=== PATIENT | female | born 1950 | race Caucasian/White ===

== ENCOUNTER → 2017-05-28 | Outpatient (CLI) | payer MEDICARE, OTHER ==
[~2017-05-28] MED LIST: ACYC400T PO; ALBU2.5V4 INH; ASP81CT PO; ATOR40TA PO; ATOR80TA PO; ATOR80TA76 PO; CEFD300C3 PO; CLOP75TA PO; CLOP75TA28 PO; EZET10TA5 PO; FLUC150T PO; FLUO20CA25 PO; FLUO20TA28 PO; IBUP-30 PO; LEVO500T2 PO; LEVO750T39 PO; LIDO15SO2 PO; MELO15TA39 PO; NEBU-140 MC; NF-DICLTB PO; NYST1000 PO; OMEP-10 PO; OMEP20CA6 PO; PANT40TA3 PO; PRCD5U PO; REGADENOSON 0.4 MG/5 ML SYR (LEXISCAN) IV ONE
[2017-05-28] MEDS: CATHETER FLUSH 10 ML SYR IV PRN ×2 (11:55→13:25)
[2017-05-28 13:26] VITALS: BP 153/78
--- NOTE | 2017-05-28 19:40 | STRESS TEST ---
DATE OF SERVICE: 05/28/2017 RESTING AND POST REGADENOSON TECHNETIUM-99M TETROFOSMIN SPECT CT IMAGING Baseline images were carried out after injection of 10.87 mCi of technetium-99m Tetrofosmin. This was followed by 0.4 mg regadenoson and mCi of technetium-99 Tetrofosmin for stress imaging. The electrocardiogram showed sinus rhythm throughout the study. The electrocardiogram did not change significantly with the regadenoson infusion. Overall, she tolerated the procedure well. Review of images at rest and following stress does not indicate any significant perfusion defects consistent with any significant myocardial ischemia or infarction. Gated images show normal global left ventricular systolic function with normal regional wall motion. Left ventricular ejection fraction is calculated to be 71%. Left ventricular end-diastolic volume is 42 mL. TID is absent (1.08). CONCLUSIONS: 1. No evidence of any significant myocardial ischemia or infarction on this study. 2. Normal regional wall motion. 3. Normal global left ventricular systolic function with a calculated ejection fraction of 71%. 4. Normal left ventricular cavity size. Job ID: [id number] DocumentID: [id number] Dictated Date: 05/28/2017 16:28:54 911 Operator Date: 05/28/2017 19:40:13 Dictated By: JAMAR LOVE MD, MA, FACP, FACC,
== END ==
LOC: CARD 11:37
PROVIDERS: ATTEND Internal Medicine Cardiovascular Disease
DX: I65.29 Occlusion and stenosis of unspecified carotid artery (principal); R06.02 Shortness of breath; E78.5 Hyperlipidemia, unspecified
CPT/HCPCS: 78452; 93017

== ENCOUNTER 2017-11-04 05:38 | Outpatient (CLI) | payer MEDICARE, OTHER ==
[~2017-11-04] VITALS: Ht 160 cm; Wt 56.7 kg
[~2017-11-04 05:38] MED LIST changes: -REGADENOSON 0.4 MG/5 ML SYR (LEXISCAN) IV ONE
== END 2017-11-04 14:56 | disposition home or self-care (01) ==
LOC: PREOP 05:38
PROVIDERS: ATTEND Internal Medicine
DX: Z01.818 Encounter for other preprocedural examination (principal)

== ENCOUNTER 2017-11-08 07:02 | Day surgery (SDC) | payer MEDICARE, OTHER ==
--- NOTE | 2017-10-18 05:19 | HISTORY AND PHYSICAL ---
DATE OF SERVICE: COLONOSCOPY HISTORY AND PHYSICAL HISTORY OF PRESENT ILLNESS: The patient is a 67-year-old white female referred for screening colonoscopy by Alexa Aleman, nurse practitioner and Dr. Wade's office. She last underwent colonoscopy roughly [address] Robb and does not recall any problems. I performed an EGD on her for reflux evaluation in 04/2014. She had a large hiatal hernia with some shallow marginal ulcerations. She did not have evidence for significant erosive esophagitis. She did have one small erosion with no ulcerations. She reports she has done well and as long as she takes her pantoprazole, has no reflux symptoms and denies dysphagia. She has had no bright red blood per rectum or melena. Denies bowel habit change or change in weight. PAST MEDICAL HISTORY: Significant for reported carotid blockage without TIA or CVA for which she has been on clopidogrel 75 mg daily for prophylaxis. She has a history of hyperlipidemia, on Lipitor 40 mg daily and no reported history of hypertension. PAST SURGICAL HISTORY: She reports no past surgeries. FAMILY HISTORY: She is not aware of any family history for colon cancer or other GI tract malignancies. PHYSICAL EXAMINATION: GENERAL: Reveals a well-appearing white female, in no acute distress. VITAL SIGNS: Her blood pressure was 130/76. HEENT: She is a Mallampati class 2 oropharyngeal configuration. Pharynx reveals no evidence for erythema or exudate. NECK: Revealed no JVD, adenopathy or bruits. CHEST: Clear to auscultation. CARDIOVASCULAR: Revealed a regular rate and rhythm with a very soft 1-2/6 systolic ejection murmur heard best at the second intercostal space without evidence for pulsus parvus or tardus. No S3 or S4 appreciated. ABDOMEN: Soft, supple without mass, organomegaly or tenderness. No bruits are appreciated. EXTREMITIES: Reveal no cyanosis, clubbing or edema. ASSESSMENT: The patient was set up for screening colonoscopy, I believe on 11/01. Prep instructions were given and questions were answered. I thank you for the referral of this pleasant lady. Job ID: [id number] DocumentID: [id number] Dictated Date: 10/09/2017 17:17:54 Central Melt Specialist Date: 10/09/2017 17:50:57 Dictated By: JIM LANDIS MD [facility]
[~2017-11-08] VITALS: Ht 160 cm; Wt 56.7 kg
[2017-11-08] MEDS ORDERED: LACTATED RINGERS 1,000 ML IV ONE (07:12)
[2017-11-08] MEDS ORDERED: PROPOFOL INJECTION 50 ML IV ONE (07:14)
[2017-11-08] MEDS ORDERED: LACTATED RINGERS 1,000 ML IV STA (07:28)
[2017-11-08 07:30] VITALS: BP 136/72
[2017-11-08] MEDS ORDERED: LIDOCAINE JELLY 2% (XYLOCAINE) 5 ML TUBE MM PRN (07:30)
[2017-11-08] MEDS ORDERED: LIDOCAINE JELLY 2% (XYLOCAINE) 5 ML TUBE ONE (07:38)
--- NOTE | 2017-11-08 08:01 | Pre-Op Note & Conscious Sedat ---
Pre-Operative Progress Note H&P Reviewed The H&P was reviewed, patient examined and no changes noted. Date H&P Reviewed: Nov 08, 2017 Time H&P Reviewed: 07:50 Conscious Sedation Pre-Proced ASA Class: 2 Airway Mallampati Classification: ([place] appropriate class) I. II. III, IV Lungs Heart ASA score ASA 1: a normal healthy patient ASA 2: a patient with a mild systemic disease (mid diabetes, controlled hypertension, obesity ASA 3: a patient with a severe systemic disease that limits activity (angina , COPD, prior Myocardial infarction) ASA 4: a patient with an incapacitating disease that is a constant threat to life (CHF, renal failure) ASA 5: a moribund patient not expected to survive 24 hrs. (ruptured aneurysm) ASA 6: a declared brain patient whose organs are being harvested. For emergent operations, add the letter E after the classification Grade 2 Sedation Plan: Analgesia, Amnesia, Plan communicated to team members, Discussed options with patient/fam, Discussed risks with patient/fam Note The patient is an appropriate candidate to undergo the planned procedure, sedation, and anesthesia. The patient immediately re-assessed prior to indication. JIM LANDIS MD Nov 08, 2017 08:01
[2017-11-08 08:40] VITALS: BP 85/48
[2017-11-08 09:10] VITALS: BP 134/72
[2017-11-08 09:25] VITALS: BP 134/72
--- NOTE | 2017-11-08 12:30 | OPERATIVE REPORT ---
DATE OF SERVICE: COLONOSCOPY SUMMARY INDICATION FOR THE PROCEDURE: Screening colonoscopy. PROCEDURE: The patient was placed in left lateral decubitus position. Prior to undergoing colonoscopy, digital rectal evaluation was performed. Anal sphincter tone was normal and the perianal reflex is intact. No abnormalities were noted on digital inspection of anal canal or distal rectal vault. The colonoscope was then inserted into the rectum and under direct visualization advanced to the cecum. The cecum was identified by identification of the ileocecal valve and cecal strap. Photographic documentation was obtained. Careful inspection was made as the colonoscope was withdrawn. Quality of the prep was good. FINDINGS: There was no evidence for internal or external hemorrhoids and the rectum was unremarkable. Present in the mid and proximal sigmoid diverticulum were several small to medium size diverticulum. Haustral hypertrophy is noted without evidence for diverticulitis. Several diverticula were noted in the descending colon as well again without evidence for diverticulitis. These areas of the colon were otherwise unremarkable. The splenic flexure, transverse colon and hepatic flexure for one small diverticulum at the hepatic flexure were unremarkable as was the ascending colon and cecum. ASSESSMENT: Mild to moderate diverticular disease predominantly noted in the mid and proximal sigmoid colon and distal descending colon. colon and one noted at the hepatic flexure are present without evidence for diverticulitis. This was an otherwise normal colonoscopy to the cecum. Considering age and medical comorbidities with no reported family history for colon cancer, I would not advocate future screening colonoscopy. I thank you for the referral of this pleasant lady. Job ID: [id number] DocumentID: [id number] Dictated Date: 11/08/2017 10:08:25 Engineering Consultant Date: 11/08/2017 12:29:41 Dictated By: JIM LANDIS MD
--- NOTE | 2017-11-08 13:57 | Anesthesia-General Post-Op ---
MAC Patient Condition Mental Status/LOC: Same as Preop Cardiovascular: Satisfactory Nausea/Vomiting: Absent Respiratory: Satisfactory Pain: Controlled Complications: Absent Post Op Complications Complications None Follow Up Care/Instructions Patient Instructions None needed. Anesthesiology Discharge Order Discharge Order Patient is doing well, no complaints, stable vital signs, no apparent adverse anesthesia problems. No complications reported per nursing. BLANCA CASTELLON CRNA Nov 08, 2017 13:57
== END 2017-11-08 09:25 | disposition home or self-care (01) ==
LOC: ENDO 07:02
PROVIDERS: ATTEND Internal Medicine
DX: Z12.11 Encounter for screening for malignant neoplasm of colon (principal); K57.30 Diverticulosis of large intestine without perforation or abscess without bleeding; E78.5 Hyperlipidemia, unspecified

== ENCOUNTER 2019-08-16 07:28 | Emergency (ER) | payer MEDICARE, OTHER ==
[~2019-08-16] VITALS: Ht 157 cm; Wt 57.6 kg
[~2019-08-16 07:28] MED LIST changes: -LIDO15SO2 PO; +LIDO20SO23 PO
--- OUTSIDE RECORDS SUMMARY | 2019-08-16 07:37 | XMS REPORT | CCD ---
Author Author Angi Wade Organization Anusha Wade MD, [facility] Address [address] [place] [address] Phone Care Team Providers Care Food Service Lead Name Role Phone PP Unavailable CCM Unavailable Summary Purpose Interface Exchange Insurance Providers Payer name Policy type / Coverage type Covered republican ID Effective Begin Date Effective End Date WPS Medicare Part B Medicare Part B [id number] Unknown 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/[address]: 373553711 Has never smoked or chewed tobacco 07/28/2014 Alcohol history Unknown occasionally drinks alcohol 2 glasses of wine per week 5 Allergies, Adverse Reactions, Alerts Substance Reaction Codes Entered Date Inactivated Date Status * NO KNOWN FOOD SILVERIO RGIES Unknown 07/28/2014 No Inactive Date Active Fentanyl _, nausea RxNorm: 4337 02/07/2017 No Inactive Date Active Penicillin Unknown 07/27/2014 No In active Date Active Past Medical History Illness Codes Condition Status Onset Date Resolved Date Dysuria ICD-9: 788.1 ICD-10: R30.0 Active 04/01/2017 Unknown Pneumonia due to oth er specified bacteria ICD-9: 482.81 ICD-10: J15.8 Active 03/10/2018 Unknown Pneumonia, unspecifi ed organism ICD-9: 486 ICD-10: J18.9 Active 06/01/2015 Unknown Encounter for genera l adult medical examination with abnormal findings ICD-9: V70.0 ICD-10: Z00.01 Active 09/20/2016 Unknown Cough ICD-9: 786.2 ICD-10: R05 Active 01/02/2016 Unknown Other allergic rhinitis ICD-9: 477.8 ICD-10: J30.89 Active 06/03/2017 Unknown Pneumonia due to Str eptococcus pneumoniae ICD-9: 481 ICD-10: J13 Active 02/07/2017 Unknown Encounter for immuni zation ICD-9: V06.6 ICD-10: Z23 Active 01/16/2017 Unknown Allergic contact caitie matitis due to plants, except food ICD-9: 692.6 ICD-10: L23.7 Active 09/11/2016 Unknown Rash and other nonsp ecific skin eruption ICD-9: 782.1 ICD-10: R21 Active 09/11/2016 Unknown Acute bronchitis, un specified ICD-9: 466.0 ICD-10: J20.9 Active 01/02/2016 Unknown Allergic rhinitis du e to pollen ICD-9: 477.0 ICD-10: J30.1 Active 01/02/2016 Unknown Actinic keratosis ICD-9: 702.0 ICD-10: L57.0 Active 10/31/2015 Unknown Insect bite (nonveno mous), right thigh, initial encounter ICD-9: 916.4 ICD-10: S70.361A Active 10/31/2015 Unknown Gastro-esophageal re flux disease without esophagitis ICD-9: 530.81 ICD-10: K21.9 Active 07/31/2015 Unknown Cerumen impaction ICD-9: 380.4 Active 08/01/2014 Unknown Depression Unknown Active 07/28/2014 Unknow n Diabetes Unknown Active 07/28/2014 Unknow n Hyperlipidemia Unknown Active 07/28/2014 Unknow n Hypertension Unknown Active 07/28/2014 Unknow n Osteoarthritis Unknown Active 07/28/2014 Unknow n Depression ICD-9: 311 Active 07/27/2014 Unknow n Hand pain ICD-9: 729.5 Active 07/27/2014 Unknow n HYPERLIPIDEMIA ICD-9: 272.4 Active 07/27/2014 Unknown Osteoarthritis ICD-9: 715.90 Active 07/27/2014 Unknown Problems Condition Codes Effectiv e Dates Condition Status Dysuria ICD-9: 788.1 ICD-10: R30.0 04/01/2017 Active Pneumonia due to oth er specified bacteria ICD-9: 482.81 ICD-10: J15.8 03/10/2018 Active Pneumonia, unspecifi ed organism ICD-9: 486 ICD-10: J18.9 06/01/2015 Active Encounter for genera l adult medical examination with abnormal findings ICD-9: V70.0 ICD-10: Z00.01 09/20/2016 Active Cough ICD-9: 786.2 ICD-10: R05 01/02/2016 Active Other allergic rhinitis ICD-9: 477.8 ICD-10: J30.89 06/03/2017 Active Pneumonia due to Str eptococcus pneumoniae ICD-9: 481 ICD-10: J13 02/07/2017 Active Encounter for immuni zation ICD-9: V06.6 ICD-10: Z23 01/16/2017 Active Allergic contact caitie matitis due to plants, except food ICD-9: 692.6 ICD-10: L23.7 09/11/2016 Active Rash and other nonsp ecific skin eruption ICD-9: 782.1 ICD-10: R21 09/11/2016 Active Acute bronchitis, un specified ICD-9: 466.0 ICD-10: J20.9 01/02/2016 Active Allergic rhinitis du e to pollen ICD-9: 477.0 ICD-10: J30.1 01/02/2016 Active Actinic keratosis ICD-9: 702.0 ICD-10: L57.0 10/31/2015 Active Insect bite (nonveno mous), right thigh, initial encounter ICD-9: 916.4 ICD-10: S70.361A 10/31/2015 Active Gastro-esophageal re flux disease without esophagitis ICD-9: 530.81 ICD-10: K21.9 07/31/2015 Active Cerumen impaction ICD-9: 380.4 08/01/2014 Active Depression Unknown 07/28/2014 Active Diabetes Unknown 07/28/2014 Active Hyperlipidemia Unknown 07/28/2014 Active Hypertension Unknown 07/28/2014 Active Osteoarthritis Unknown 07/28/2014 Active Depression ICD-9: 311 07/27/2014 Active Hand pain ICD-9: 729.5 07/27/2014 Active HYPERLIPIDEMIA ICD-9: 272.4 07/27/2014 Active Osteoarthritis ICD-9: 715.90 07/27/2014 Active Medications Medication Codes Instruc tions Start Date Stop Date Sta tus Fill Instructions fluoxetine 20 mg cap sushil RxNorm: 931533 Capsule(s) TAKE ONE C APSULE BY MOUTH DAILY 11/18/2018 03/17/2019 Ac tive Diflucan 150 mg tablet RxNorm: 941312 1 Tablet(s) PO daily 10/06/2018 10/10/2018 Inactive Protonix 40 mg table t,delayed release RxNorm: 210778 TAKE ONE TABLET BY MO UTH DAILY 08/29/2018 05/25/2019 Ac tive meloxicam 15 mg tablet RxNorm: 937106 TAKE ONE TABLET BY MOUTH DAILY 07/07/2018 04/02/2019 Ac tive ceftriaxone 500 mg s olution for injection RxNorm: 0563233 1 Inj 03/10/2018 03/10/2018 Inactive prednisone 20 mg tablet RxNorm: 760025 2 Tablet(s) PO daily 03/10/2018 03/14/2018 Inactive Zithromax Z-Rohit 250 mg tablet RxNorm: 756771 1 Tablet(s) PO UD 03/10/2018 07/06/2018 Inactive z pack as directed Kenalog 40 mg/mL rajeev pension for injection RxNorm: 7343797 1 Milliliter(s) Inj 03/10/2018 03/10/2018 In active cefdinir 300 mg capsule RxNorm: 085985 1 Capsule(s) PO BID 03/10/2018 03/19/2018 Inactive Bactrim DS 800 mg-16 0 mg tablet RxNorm: 919332 1 Tablet(s) PO BID 01/17/2018 01/23/2018 Inactive fluoxetine 20 mg cap sushil RxNorm: 842719 TAKE ONE CAPSULE BY M OUT DAILY 06/17/2017 10/14/2017 In active Request already responded to by other me ans (e.g. phone or fax) fluoxetine 20 mg cap sushil RxNorm: 541493 1 Capsule(s) PO daily 06/12/2017 06/11/2017 Inactive fluoxetine 20 mg cap sushil RxNorm: 523636 1 Capsule(s) PO daily 06/12/2017 06/16/2017 Inactive Levaquin 500 mg tablet RxNorm: 887148 1 Tablet(s) PO daily 06/03/2017 06/09/2017 Inactive Kenalog 40 mg/mL rajeev pension for injection RxNorm: 9790956 1 Milliliter(s) Inj 06/03/2017 06/03/2017 In active prednisone 20 mg tablet RxNorm: 989430 2 Tablet(s) PO daily 06/03/2017 06/07/2017 Inactive Protonix 40 mg table t,delayed release RxNorm: 147172 TAKE ONE TABLET BY [facility] DAILY 05/07/2017 01/31/2018 In active meloxicam 15 mg tablet RxNorm: 043399 TAKE ONE TABLET BY MOUTH DAILY 04/01/2017 06/24/2018 In active albuterol sulfate 2. 5 mg/3 mL (0.083 %) solution for nebulization RxNorm: 924842 3 Milliliter(s) INH Q6 PRN 02/07/2017 06/06/2017 Inactive Kenalog 40 mg/mL rajeev pension for injection RxNorm: 5875344 1 Milliliter(s) Inj 02/07/2017 02/07/2017 In active ceftriaxone 500 mg s olution for injection RxNorm: 7928935 1 Milliliter(s) Inj 02/07/2017 02/07/2017 In active cefdinir 300 mg capsule RxNorm: 243197 1 Capsule(s) PO BID 02/07/2017 02/16/2017 Inactive Protonix 40 mg table t,delayed release RxNorm: 779325 TAKE ONE TABLET BY [facility] DAILY 11/08/2016 05/06/2017 In active Kenalog 40 mg/mL rajeev pension for injection RxNorm: 6614768 1.5 Milliliter(s) In j 09/11/2016 09/11/2016 In active prednisone 10 mg tablet RxNorm: 834913 Tablet(s) PO UD 09/11/2016 09/11/2016 Inactive 60,50,40,30,20,10 fluoxetine 20 mg tablet RxNorm: 505873 TAKE ONE TABLET BY MOUTH DAILY 08/21/2016 06/11/2017 In active meloxicam 15 mg tablet RxNorm: 978792 TAKE ONE TABLET BY MOUTH DAILY 05/28/2016 11/23/2016 In active Zithromax Z-Rohit 250 mg tablet RxNorm: 388335 1 Tablet(s) PO UD 03/22/2016 09/04/2016 Inactive z pack as directed Kenalog 40 mg/mL rajeev pension for injection RxNorm: 5613260 Milliliter(s) Inj 01/03/2016 01/03/2016 In active Zithromax Z-Rohit 250 mg tablet RxNorm: 089344 1 Tablet(s) PO UD 01/03/2016 01/07/2016 Inactive ZPACK Protonix 40 mg table t,delayed release RxNorm: 346857 TAKE ONE TABLET BY [facility] DAILY 11/29/2015 08/24/2016 In active mupirocin 2 % topica l ointment RxNorm: 127641 1 Application TOP BID 11/01/2015 11/07/2015 Inactive Tonya Allergy 180 mg tablet RxNorm: 933150 1 Tablet(s) PO daily 08/01/2015 08/30/2015 Inactive Kenalog 40 mg/mL rajeev pension for injection RxNorm: 0328042 Milliliter(s) Inj 08/01/2015 08/01/2015 In active albuterol sulfate 2. 5 mg/3 mL (0.083 %) solution for nebulization RxNorm: 427479 3 Milliliter(s) INH Q6 PRN 07/29/2015 07/28/2015 Inactive albuterol sulfate 2. 5 mg/3 mL (0.083 %) solution for nebulization RxNorm: 488485 3 Milliliter(s) INH Q6 PRN 07/29/2015 08/27/2015 Inactive fluoxetine 20 mg tablet RxNorm: 733440 1 Tablet(s) PO daily 07/28/2015 02/22/2016 Inactive meloxicam 15 mg tablet RxNorm: 634886 1 Tablet(s) PO daily 06/22/2015 12/18/2015 Inactive nystatin 100,000 uni t/mL oral suspension RxNorm: 471050 4 Milliliter(s) PO QI D 06/01/2015 05/31/2015 In active nystatin 100,000 uni t/mL oral suspension RxNorm: 485028 4 Milliliter(s) PO QI D 06/01/2015 06/07/2015 In active Kenalog 40 mg/mL rajeev pension for injection RxNorm: 9238401 Milliliter(s) Inj 05/25/2015 05/25/2015 In active Zithromax Z-Rohit 250 mg tablet RxNorm: 029653 Tablet(s) PO 05/25/2015 06/13/2015 Inactive ceftriaxone 500 mg s olution for injection RxNorm: 0053836 Inj 05/25/2015 05/25/2015 Inactive Zithromax Z-Rohit 250 mg tablet RxNorm: 942030 Tablet(s) PO UD 05/25/2015 03/21/2016 Inactive prednisone 20 mg tablet RxNorm: 233628 2 Tablet(s) PO daily 05/25/2015 05/29/2015 Inactive cefdinir 300 mg capsule RxNorm: 330368 1 Capsule(s) PO BID 05/25/2015 06/03/2015 Inactive cefdinir 300 mg capsule RxNorm: 919577 1 Capsule(s) PO BID 05/25/2015 06/03/2015 Inactive prednisone 20 mg tablet RxNorm: 685780 2 Tablet(s) PO daily 05/25/2015 05/29/2015 Inactive ceftriaxone 500 mg s olution for injection RxNorm: 0963247 Inj 05/25/2015 05/25/2015 Inactive Kenalog 40 mg/mL rajeev pension for injection RxNorm: 4930598 Milliliter(s) Inj 05/03/2015 05/03/2015 In active Levaquin 500 mg tablet RxNorm: 874507 1 Tablet(s) PO daily 05/03/2015 05/09/2015 Inactive Protonix 40 mg table t,delayed release RxNorm: 319752 1 Tablet(s) PO daily 09/16/2014 09/10/2015 In active fluoxetine 20 mg tablet RxNorm: 193703 1 Tablet(s) PO daily 08/26/2014 08/25/2014 Inactive fluoxetine 20 mg tablet RxNorm: 392497 1 Tablet(s) PO daily 08/26/2014 03/23/2015 Inactive meloxicam 15 mg tablet RxNorm: 936453 1 Tablet(s) PO daily 07/28/2014 01/23/2015 Inactive clopidogrel 75 mg ta blet RxNorm: 636259 1 Tablet(s) PO daily No Start Date Active Lipitor 40 mg tablet RxNorm: 139699 1 Tablet(s) PO daily No Start Date Active fluoxetine 20 mg tablet RxNorm: 870604 1 Tablet(s) PO daily No Start Date 08/25/2014 Inactive Protonix 40 mg table t,delayed release RxNorm: 159085 1 Tablet(s) PO daily No Start Date 09/15/2014 Inactive Medication Administered Medication Codes Instruc tions Start Date Status Kenalog 40 mg/mL suspension for injection RxNorm: 1835306 1Milliliter 03/10/2018 N o longer Active ceftriaxone 500 mg solution for injection RxNorm: 0315506 1 03/10/2018 No longer A ctive Kenalog 40 mg/mL suspension for injection RxNorm: 7333608 1Milliliter 06/03/2017 N o longer Active Kenalog 40 mg/mL suspension for injection RxNorm: 4236822 1Milliliter 02/07/2017 N o longer Active ceftriaxone 500 mg solution for injection RxNorm: 4777110 1Milliliter 02/07/2017 N o longer Active Kenalog 40 mg/mL suspension for injection RxNorm: 8813415 1.5Milliliter 09/11/2016 No longer Active Kenalog 40 mg/mL suspension for injection RxNorm: 4176014 Milliliter 01/03/2016 No longer Active Kenalog 40 mg/mL suspension for injection RxNorm: 3302256 Milliliter 08/01/2015 No longer Active ceftriaxone 500 mg solution for injection RxNorm: 6540810 05/25/2015 No longer A ctive Kenalog 40 mg/mL suspension for injection RxNorm: 5422902 Milliliter 05/25/2015 No longer Active ceftriaxone 500 mg solution for injection RxNorm: 5968204 05/25/2015 No longer A ctive Kenalog 40 mg/mL suspension for injection RxNorm: 2999428 Milliliter 05/03/2015 No longer Active Immunizations Vaccine Codes Date Status Influenza CVX: 141 01/21 completed Influenza CVX: 141 01/16 completed Pneumococcal (Adult) CVX: 133 01/16/2017 completed Influenza CVX: 141 01/07 completed Pneumococcal CVX: 33 02/2016 completed Assessments Condition Codes Effectiv e Dates Dysuria ICD-10: R30.0 ICD-9: 788.1 10/06/2018 Pneumonia due to other specified bacteria ICD-10: J15.8 ICD-9: 482.81 03/10/2018 Encounter for general adult medical exam ination with abnormal findings ICD-10: Z00.01 ICD-9: V70.0 10/02/2017 Cough ICD-10: R05 ICD-9: 786.2 06/03/2017 Other allergic rhinitis ICD-10: J30. 89 ICD-9: 477.8 06/03/2017 Pneumonia due to Streptococcus pneumoniae ICD-10: J13 ICD-9: 481 02/07/2017 Encounter for immunization ICD-10: Z 23 ICD-9: V06.6 01/16/2017 Allergic contact dermatitis due to plants, except food ICD-10: L23.7 ICD-9: 692.6 09/11/2016 Rash and other nonspecific skin eruption ICD-10: R21 ICD-9: 782.1 09/11/2016 Allergic rhinitis due to pollen ICD- 10: J30.1 ICD-9: 477.0 01/03/2016 Acute bronchitis, unspecified ICD-10 : J20.9 ICD-9: 466.0 01/03/2016 Insect bite (nonvenomous), right thigh, initial encoun ter ICD- 10: S70.361A ICD-9: 916.4 11/01/2015 Actinic keratosis ICD-10: L57.0 ICD-9: 702.0 11/01/2015 Gastro-esophageal reflux disease without esophagitis ICD-10: K21.9 ICD-9: 530.81 08/01/2015 Pneumonia, unspecified organism ICD- 10: J18.9 ICD-9: 486 06/02/2015 Cerumen impaction ICD-9: 380.4 08/02/2014 Osteoarthritis ICD-9: 715.90 07/28/2014 HYPERLIPIDEMIA ICD-9: 272.4 07/28/2014 Depression ICD-9: 311 Hand pain ICD-9: 729.5 0 07/28/2014 Reason For Visit Reason For Visit Effective Dates Notes dysuria 10/06/2018 chest congestion 03/10/2018 urinary urgency 01/17/2018 Annual Medicare Wellness Exam 10/02/2017 cough 06/03/2017 cough 02/07/2017 vaccination against influenza 01/16/2017 Annual Medicare Wellness Exam 09/20/2016 rash 09/11/2016 cough 01/03/2016 arthropod bite 11/01/2015 cough 08/15/2015 cough 08/01/2015 cough 06/14/2015 cough 06/02/2015 sores in the mouth 05/25/2015 cough 05/03/2015 cerumen 08/02/2014 arthritis 07/28/2014 Results Observation Observation Code Item Item Code Result Date CULTURE, URINE M100 URIN E CULTURE See Note 10/08/2018 Culture Urine [id number] URI NE CULTURE SEE NOTES 01/20/2018 Culture Urine [id number] Con tinued Results 01/20/2018 Urine Culture Ucult Comp lete >100,000 col/ml aerobic grow th sent to ref lab 01/18/2018 Lipid Ord30 CHOL 180 mg/dL 11/26/2017 Lipid Ord30 HDL 65.0 mg/dl 11/26/2017 Lipid Ord30 TRIG 68 mg/dL 11/26/2017 Lipid Ord30 LDL 101 mg/dL 11/26/2017 Lipid Ord30 C/HDL 2.8 Ratio 11/26/2017 Comp Metabolic Tat299 NA 143 mEq/L 11/26/2017 Comp Metabolic Vhe715 K 4.4 mEq/L 11/26/2017 Comp Metabolic Guf962 CL 106 mEq/L 11/26/2017 Comp Metabolic Fqq127 CO2 29.0 mEq/L 11/26/2017 Comp Metabolic Tvp817 AN ION GAP 12 11/26/2017 Comp Metabolic Ltl249 GL UCOSE 106 mg/dL 11/26/2017 Comp Metabolic Div932 Cr eat 0.7 mg/dL 11/26/2017 Comp Metabolic Nql192 eG FR 87 ml/min/1.73m2 11/26 Comp Metabolic Wgj809 BUN 20 mg/dL 11/26/2017 Comp Metabolic Wga959 B/ C Ratio 28.2 Ratio 11/26/2017 Comp Metabolic Dfu182 CA LCIUM 9.1 mg/dL 11/26/2017 Comp Metabolic Lka838 AL K PHOS 48 U/L 11/26/2017 Comp Metabolic Bpd717 T(SGOT) 19 U/L 11/26/2017 Comp Metabolic Jpu155 AL T(SGPT) 15 U/L 11/26/2017 Comp Metabolic Bbb779 BI LI T 0.5 mg/dL 11/26/2017 Comp Metabolic Xky947 AL BUMIN 4.1 g/dL 11/26/2017 Comp Metabolic Uvo465 TP RO 6.1 g/dL 11/26/2017 Comp Metabolic Kzq598 GL OB 2.0 g/dL 11/26/2017 Comp Metabolic Fhi649 A/ G Ratio 2.1 Ratio 11/26/2017 Comp Metabolic Ygy278 Os mo 288 mOsmo 11/26/2017 Lipid Ord30 CHOL 175 mg/dL 01/04/2016 Lipid Ord30 HDL 45.0 mg/dl 01/04/2016 Lipid Ord30 TRIG 69 mg/dL 01/04/2016 Lipid Ord30 LDL 116 mg/dL 01/04/2016 Lipid Ord30 C/HDL 3.9 Ratio 01/04/2016 Comp Metabolic Xds207 NA 139 mEq/L 01/04/2016 Comp Metabolic Niy430 K 4.3 mEq/L 01/04/2016 Comp Metabolic Qip839 CL 101 mEq/L 01/04/2016 Comp Metabolic Kbi410 CO2 30.0 mEq/L 01/04/2016 Comp Metabolic Qiq284 AN ION GAP 12 01/04/2016 Comp Metabolic Liw635 GL UCOSE 94 mg/dL 01/04/2016 Comp Metabolic Jks752 Cr eat 0.7 mg/dL 01/04/2016 Comp Metabolic Rak048 eG FR 83 ml/min/1.73m2 01/03 Comp Metabolic Wvq995 BUN 14 mg/dL 01/04/2016 Comp Metabolic Hhk171 B/ C Ratio 18.9 Ratio 01/04/2016 Comp Metabolic Omi055 CA LCIUM 9.3 mg/dL 01/04/2016 Comp Metabolic Ziv812 AL K PHOS 70 U/L 01/04/2016 Comp Metabolic Rqp634 T(SGOT) 14 U/L 01/04/2016 Comp Metabolic Arm271 AL T(SGPT) 12 U/L 01/04/2016 Comp Metabolic Qzl536 BI LI T 0.4 mg/dL 01/04/2016 Comp Metabolic Bmq785 AL BUMIN 4.1 g/dL 01/04/2016 Comp Metabolic Ekf260 TP RO 6.6 g/dL 01/04/2016 Comp Metabolic Znh457 GL OB 2.6 g/dL 01/04/2016 Comp Metabolic Znw366 A/ G Ratio 1.6 Ratio 01/04/2016 Comp Metabolic Qdn539 Os mo 278 mOsmo 01/04/2016 Tsh Ord6 hTSH II 1.03 uIU/mL 01/04/2016 Cbc With Differential Ord2 WBC 6.90 K/ul 01/04/2016 Cbc With Differential Ord2 RBC 4.21 M/ul 01/04/2016 Cbc With Differential Ord2 HGB 13.2 g/dl 01/04/2016 Cbc With Differential Ord2 HCT 40.7 % 01/04/2016 Cbc With Differential Ord2 Neut% 69.2 % 01/04/2016 Cbc With Differential Ord2 MCV 96.7 fl 01/04/2016 Cbc With Differential Ord2 Lymph% 20.6 % 01/04/2016 Cbc With Differential Ord2 MCH 31.4 pg 01/04/2016 Cbc With Differential Ord2 Gallia% 8.6 % 01/04/2016 Cbc With Differential Ord2 MCHC 32.4 pg 01/04/2016 Cbc With Differential Ord2 Eos% 1.3 % 01/04/2016 Cbc With Differential Ord2 PLT 348 K/ul 01/04/2016 Cbc With Differential Ord2 Baso% 0.3 % 01/04/2016 Cbc With Differential Ord2 RDW 13.5 % 01/04/2016 Cbc With Differential Ord2 Neut ABS# 4.78 K/ul 01/04/2016 Cbc With Differential Ord2 Lymph ABS# 1.42 K/ul 01/04/2016 Cbc With Differential Ord2 Gallia ABS# 0.6 K/ul 01/04/2016 Cbc With Differential Ord2 Eos ABS# 0.1 K/ul 01/04/2016 Cbc With Differential Ord2 Baso ABS# 0.0 K/ul 01/04/2016 Free T4 Wez035 FREE T4 0.79 ng/dL 12/27/2014 Cbc With Differential Ord2 WBC 4.4 K/uL 12/27/2014 Cbc With Differential Ord2 LYM 1.9 K/uL 12/27/2014 Cbc With Differential Ord2 LYM% 43.5 % 12/27/2014 Cbc With Differential Ord2 NEUT/GRAN 2.2 K/uL 12/27/2014 Cbc With Differential Ord2 NEUT/GRAN % 49.1 % 12/27/2014 Cbc With Differential Ord2 MID 0.3 K/uL 12/27/2014 Cbc With Differential Ord2 MID% 7.4 % 12/27/2014 Cbc With Differential Ord2 RBC 4.56 M/uL 12/27/2014 Cbc With Differential Ord2 HGB 13.5 g/dL 12/27/2014 Cbc With Differential Ord2 HCT 43.5 % 12/27/2014 Cbc With Differential Ord2 MCV 96 fL 12/27/2014 Cbc With Differential Ord2 MCH 30 pg 12/27/2014 Cbc With Differential Ord2 MCHC 31 g/dL 12/27/2014 Cbc With Differential Ord2 PLT 273 K/uL 12/27/2014 Cbc With Differential Ord2 RDW 14.7 % 12/27/2014 Lipid Ord30 CHOL 183 mg/dL 12/27/2014 Lipid Ord30 HDL 61.0 mg/dl 12/27/2014 Lipid Ord30 TRIG 62 mg/dL 12/27/2014 Lipid Ord30 LDL 110 mg/dL 12/27/2014 Lipid Ord30 C/HDL 3.0 Ratio 12/27/2014 Comp Metabolic Nde620 NA 138 mEq/L 12/27/2014 Comp Metabolic Nbo627 K 4.7 mEq/L 12/27/2014 Comp Metabolic Abk480 CL 103 mEq/L 12/27/2014 Comp Metabolic Bcy091 CO2 31.0 mEq/L 12/27/2014 Comp Metabolic Azd759 AN ION GAP 9 12/27/2014 Comp Metabolic Ruz625 GL UCOSE 105 mg/dL 12/27/2014 Comp Metabolic Ozt255 Cr eat 0.8 mg/dL 12/27/2014 Comp Metabolic Lxc767 eG FR 73 ml/min/1.73m2 12/27 Comp Metabolic Bqt233 BUN 16 mg/dL 12/27/2014 Comp Metabolic Vyh122 B/ C Ratio 19.3 Ratio 12/27/2014 Comp Metabolic Alp029 CA LCIUM 9.7 mg/dL 12/27/2014 Comp Metabolic Rus540 AL K PHOS 58 U/L 12/27/2014 Comp Metabolic Zdp098 T(SGOT) 20 U/L 12/27/2014 Comp Metabolic Hut620 AL T(SGPT) 16 U/L 12/27/2014 Comp Metabolic Bpl452 BI LI T 0.6 mg/dL 12/27/2014 Comp Metabolic Ahu761 AL BUMIN 4.6 g/dL 12/27/2014 Comp Metabolic Nak307 TP RO 6.6 g/dL 12/27/2014 Comp Metabolic Nio356 GL OB 2.0 g/dL 12/27/2014 Comp Metabolic Wtq320 A/ G Ratio 2.3 Ratio 12/27/2014 Comp Metabolic Ulc993 Os mo 277 mOsmo 12/27/2014 Tsh Ord6 hTSH II 1.89 uIU/mL 12/27/2014 Review of Systems System Result Effective Dates Constitutional recent illness 10/06/2018 Constitutional No anorexia 10/06/2018 Constitutional No night sweats 10/06/2018 Constitutional No chills 10/06/2018 Constitutional No diaphoresis 10/06/2018 Constitutional No fatigue 10/06/2018 Constitutional No fever 10/06/2018 Constitutional No insomnia 10/06/2018 Constitutional No malaise 10/06/2018 Constitutional No weight loss 10/06/2018 Constitutional No weight gain 10/06/2018 Gastrointestinal No abdominal pain 10/06/2018 Gastrointestinal No constipation 10/06/2018 Gastrointestinal No diarrhea 10/06/2018 Genitourinary/Nephrology dysuria 10/06/2018 Genitourinary/Nephrology urinary frequency 10/06/2018 Dermatologic No rash Constitutional recent illness 03/10/2018 Constitutional chills Constitutional fever Eyes No eye erythema Ears/Nose/Throat/Neck nasal allergies 03/10/2018 Ears/Nose/Throat/Neck nasal discharge 03/10/2018 Ears/Nose/Throat/Neck postnasal drip 03/10/2018 Ears/Nose/Throat/Neck sinus congestion 03/10/2018 Cardiovascular No chest pain/pressure 03/10/2018 Respiratory productive sputum 03/10/2018 Respiratory cough 2017 Respiratory wheezing Gastrointestinal No abdominal pain 03/10/2018 Musculoskeletal No joint complaint 03/10/2018 Dermatologic No rash Neurologic No alteration of consciousness 03/10/2018 Neurologic No mental status change 03/10/2018 Constitutional recent illness 01/17/2018 Constitutional No chills 01/17/2018 Constitutional No fever 01/17/2018 Eyes No eye erythema Ears/Nose/Throat/Neck No nasal discharge 01/17/2018 Cardiovascular No chest pain/pressure 01/17/2018 Cardiovascular No dyspnea 01/17/2018 Respiratory No cough Gastrointestinal No abdominal pain 01/17/2018 Gastrointestinal No constipation 01/17/2018 Gastrointestinal No diarrhea 01/17/2018 Genitourinary/Nephrology dysuria 01/17/2018 Genitourinary/Nephrology urinary frequency 01/17/2018 Genitourinary/Nephrology urinary urgency 01/17/2018 Neurologic No alteration of consciousness 01/17/2018 Neurologic No mental status change 01/17/2018 Constitutional No recent illness 10/02/2017 Constitutional No chills 10/02/2017 Constitutional No diaphoresis 10/02/2017 Constitutional No fever 10/02/2017 Eyes No eye erythema 01/2018 Ears/Nose/Throat/Neck No nasal discharge 10/02/2017 Cardiovascular No chest pain/pressure 10/02/2017 Cardiovascular No dyspnea 10/02/2017 Respiratory No cough 01/2018 Respiratory No dyspnea 0 10/02/2017 Neurologic No alteration of consciousness 10/02/2017 Neurologic No mental status change 10/02/2017 Constitutional recent illness 06/03/2017 Constitutional No chills 06/03/2017 Constitutional No diaphoresis 06/03/2017 Constitutional No fever 06/03/2017 Constitutional fatigue 0 06/03/2017 Eyes No eye erythema 02/2018 Ears/Nose/Throat/Neck nasal allergies 06/03/2017 Ears/Nose/Throat/Neck nasal discharge 06/03/2017 Ears/Nose/Throat/Neck postnasal drip 06/03/2017 Ears/Nose/Throat/Neck No sinus congestion 06/03/2017 Ears/Nose/Throat/Neck No otalgia 06/03/2017 Ears/Nose/Throat/Neck No sore throat 06/03/2017 Cardiovascular No chest pain/pressure 06/03/2017 Respiratory cough 2017 Respiratory No chest congestion 06/03/2017 Respiratory No productive sputum 06/03/2017 Respiratory No dyspnea 0 06/03/2017 Respiratory dyspnea on exertion 06/03/2017 Gastrointestinal No abdominal pain 06/03/2017 Gastrointestinal No vomiting 06/03/2017 Gastrointestinal No nausea 06/03/2017 Gastrointestinal No constipation 06/03/2017 Gastrointestinal No diarrhea 06/03/2017 Dermatologic No rash 02/2018 Neurologic No alteration of consciousness 06/03/2017 Neurologic No mental status change 06/03/2017 Constitutional recent illness 02/07/2017 Constitutional No chills 02/07/2017 Constitutional No diaphoresis 02/07/2017 Constitutional fatigue 1 04/09/2016 Constitutional No fever 02/07/2017 Constitutional No insomnia 02/07/2017 Constitutional malaise 1 04/09/2016 Eyes No eye discharge Eyes No eye erythema Ears/Nose/Throat/Neck No dizziness 02/07/2017 Ears/Nose/Throat/Neck headache 02/07/2017 Ears/Nose/Throat/Neck nasal allergies 02/07/2017 Ears/Nose/Throat/Neck No nasal discharge 02/07/2017 Ears/Nose/Throat/Neck No otalgia 02/07/2017 Ears/Nose/Throat/Neck sinus congestion 02/07/2017 Ears/Nose/Throat/Neck No sore throat 02/07/2017 Cardiovascular No chest pain/pressure 02/07/2017 Cardiovascular No dyspnea 02/07/2017 Respiratory No pleuritic pain 02/07/2017 Respiratory chest congestion 02/07/2017 Respiratory cough 2016 Gastrointestinal No abdominal pain 02/07/2017 Gastrointestinal No diarrhea 02/07/2017 Gastrointestinal No gastroesophageal reflu x 02/07/2017 Genitourinary/Nephrology No dysuria 02/07/2017 Musculoskeletal joint complaint 02/07/2017 Dermatologic No rash Neurologic No alteration of consciousness 02/07/2017 Psychiatric No anxiety 1 04/09/2016 Constitutional No recent illness 09/20/2016 Constitutional No chills 09/20/2016 Constitutional No diaphoresis 09/20/2016 Constitutional No fever 09/20/2016 Eyes No eye erythema Ears/Nose/Throat/Neck No nasal allergies 09/20/2016 Ears/Nose/Throat/Neck No nasal discharge 09/20/2016 Cardiovascular No chest pain/pressure 09/20/2016 Cardiovascular No dyspnea 09/20/2016 Respiratory No cough Respiratory No dyspnea 0 09/20/2016 Gastrointestinal No abdominal pain 09/20/2016 Dermatologic No rash Neurologic No alteration of consciousness 09/20/2016 Neurologic No mental status change 09/20/2016 Constitutional No recent illness 09/11/2016 Constitutional No chills 09/11/2016 Constitutional No diaphoresis 09/11/2016 Constitutional No fever 09/11/2016 Constitutional No malaise 09/11/2016 Eyes No eye erythema Ears/Nose/Throat/Neck No nasal discharge 09/11/2016 Ears/Nose/Throat/Neck epistaxis 09/11/2016 Cardiovascular No chest pain/pressure 09/11/2016 Cardiovascular No dyspnea 09/11/2016 Respiratory No cough Respiratory No dyspnea 0 09/11/2016 Respiratory No dyspnea on exertion 09/11/2016 Respiratory No chest congestion 09/11/2016 Respiratory No wheezing 09/11/2016 Respiratory No stridor 0 09/11/2016 Gastrointestinal No abdominal pain 09/11/2016 Dermatologic rash 2016 Neurologic No alteration of consciousness 09/11/2016 Neurologic No mental status change 09/11/2016 Constitutional No recent illness 01/03/2016 Constitutional No anorexia 01/03/2016 Constitutional No night sweats 01/03/2016 Constitutional No chills 01/03/2016 Constitutional No diaphoresis 01/03/2016 Constitutional fatigue 1 Constitutional No fever 01/03/2016 Constitutional No insomnia 01/03/2016 Constitutional No malaise 01/03/2016 Constitutional No weight loss 01/03/2016 Constitutional No weight gain 01/03/2016 Eyes No eye erythema 01/2016 Eyes No eye discharge Ears/Nose/Throat/Neck No dizziness 01/03/2016 Ears/Nose/Throat/Neck headache 01/03/2016 Ears/Nose/Throat/Neck nasal allergies 01/03/2016 Ears/Nose/Throat/Neck No nasal discharge 01/03/2016 Ears/Nose/Throat/Neck No otalgia 01/03/2016 Ears/Nose/Throat/Neck sinus congestion 01/03/2016 Ears/Nose/Throat/Neck No sore throat 01/03/2016 Cardiovascular No chest pain/pressure 01/03/2016 Cardiovascular No dyspnea 01/03/2016 Respiratory No pleuritic pain 01/03/2016 Respiratory No chest congestion 01/03/2016 Respiratory cough 2015 Gastrointestinal No abdominal pain 01/03/2016 Genitourinary/Nephrology No dysuria 01/03/2016 Musculoskeletal joint complaint 01/03/2016 Dermatologic No rash 01/2016 Neurologic No alteration of consciousness 01/03/2016 Gastrointestinal No gastroesophageal reflu x 01/03/2016 Gastrointestinal No diarrhea 01/03/2016 Constitutional No recent illness 11/01/2015 Constitutional No anorexia 11/01/2015 Constitutional No night sweats 11/01/2015 Constitutional No chills 11/01/2015 Constitutional No diaphoresis 11/01/2015 Constitutional No fatigue 11/01/2015 Constitutional No fever 11/01/2015 Constitutional No insomnia 11/01/2015 Constitutional No malaise 11/01/2015 Constitutional No weight loss 11/01/2015 Constitutional No obesity 11/01/2015 Dermatologic sores 10/31 Dermatologic actinic keratosis 11/01/2015 Constitutional No recent illness 08/15/2015 Constitutional No anorexia 08/15/2015 Constitutional No night sweats 08/15/2015 Constitutional No chills 08/15/2015 Constitutional No diaphoresis 08/15/2015 Constitutional No fatigue 08/15/2015 Constitutional No fever 08/15/2015 Constitutional No insomnia 08/15/2015 Constitutional No malaise 08/15/2015 Constitutional No weight loss 08/15/2015 Constitutional No weight gain 08/15/2015 Eyes No eye erythema Eyes No eye discharge Ears/Nose/Throat/Neck nasal allergies 08/15/2015 Cardiovascular No chest pain/pressure 08/15/2015 Respiratory cough 2015 Gastrointestinal No abdominal pain 08/15/2015 Gastrointestinal No constipation 08/15/2015 Gastrointestinal No diarrhea 08/15/2015 Constitutional No night sweats 08/01/2015 Constitutional recent illness 08/01/2015 Constitutional No anorexia 08/01/2015 Constitutional No obesity 08/01/2015 Constitutional No chills 08/01/2015 Constitutional No diaphoresis 08/01/2015 Constitutional fatigue 0 08/01/2015 Constitutional No fever 08/01/2015 Constitutional No insomnia 08/01/2015 Constitutional malaise 0 08/01/2015 Eyes No vision change Ears/Nose/Throat/Neck No headache 08/01/2015 Ears/Nose/Throat/Neck nasal allergies 08/01/2015 Ears/Nose/Throat/Neck nasal discharge 08/01/2015 Ears/Nose/Throat/Neck No otalgia 08/01/2015 Ears/Nose/Throat/Neck No otitis media 08/01/2015 Ears/Nose/Throat/Neck postnasal drip 08/01/2015 Ears/Nose/Throat/Neck No sinus congestion 08/01/2015 Ears/Nose/Throat/Neck sore throat 08/01/2015 Cardiovascular No chest pain/pressure 08/01/2015 Respiratory No chest congestion 08/01/2015 Respiratory chest tightness 08/01/2015 Respiratory No cigarette smoking 08/01/2015 Respiratory cough 2015 Respiratory dyspnea on exertion 08/01/2015 Respiratory nocturnal cough 08/01/2015 Gastrointestinal No constipation 08/01/2015 Gastrointestinal No diarrhea 08/01/2015 Genitourinary/Nephrology No dysuria 08/01/2015 Musculoskeletal No joint complaint 08/01/2015 Dermatologic No rash 11/2015 Dermatologic No sores Neurologic No alteration of consciousness 08/01/2015 Psychiatric No anxiety 0 08/01/2015 Psychiatric No depression 08/01/2015 Gastrointestinal gastroesophageal reflux 08/01/2015 Constitutional No night sweats 06/14/2015 Constitutional recent illness 06/14/2015 Constitutional No anorexia 06/14/2015 Constitutional No chills 06/14/2015 Constitutional No diaphoresis 06/14/2015 Constitutional fatigue 0 06/14/2015 Constitutional No fever 06/14/2015 Constitutional No insomnia 06/14/2015 Constitutional malaise 0 06/14/2015 Eyes No vision change Ears/Nose/Throat/Neck headache 06/14/2015 Ears/Nose/Throat/Neck No nasal allergies 06/14/2015 Ears/Nose/Throat/Neck No nasal discharge 06/14/2015 Ears/Nose/Throat/Neck oral pain 06/14/2015 Ears/Nose/Throat/Neck No otalgia 06/14/2015 Ears/Nose/Throat/Neck No otitis media 06/14/2015 Ears/Nose/Throat/Neck postnasal drip 06/14/2015 Ears/Nose/Throat/Neck No sinus congestion 06/14/2015 Ears/Nose/Throat/Neck sore throat 06/14/2015 Cardiovascular No chest pain/pressure 06/14/2015 Respiratory chest congestion 06/14/2015 Respiratory chest tightness 06/14/2015 Respiratory cough 2015 Respiratory dyspnea on exertion 06/14/2015 Respiratory nocturnal cough 06/14/2015 Gastrointestinal No constipation 06/14/2015 Gastrointestinal No diarrhea 06/14/2015 Genitourinary/Nephrology No dysuria 06/14/2015 Musculoskeletal No joint complaint 06/14/2015 Dermatologic No rash Dermatologic No sores Psychiatric No anxiety 0 06/14/2015 Psychiatric No depression 06/14/2015 Constitutional recent illness 06/02/2015 Constitutional No anorexia 06/02/2015 Constitutional No night sweats 06/02/2015 Constitutional No chills 06/02/2015 Constitutional No diaphoresis 06/02/2015 Constitutional fatigue 0 06/02/2015 Constitutional No fever 06/02/2015 Constitutional No insomnia 06/02/2015 Constitutional malaise 0 06/02/2015 Constitutional No obesity 06/02/2015 Eyes No vision change Ears/Nose/Throat/Neck headache 06/02/2015 Ears/Nose/Throat/Neck No nasal allergies 06/02/2015 Ears/Nose/Throat/Neck No nasal discharge 06/02/2015 Ears/Nose/Throat/Neck No otalgia 06/02/2015 Ears/Nose/Throat/Neck No otitis media 06/02/2015 Ears/Nose/Throat/Neck postnasal drip 06/02/2015 Ears/Nose/Throat/Neck No sinus congestion 06/02/2015 Ears/Nose/Throat/Neck sore throat 06/02/2015 Cardiovascular No chest pain/pressure 06/02/2015 Respiratory chest congestion 06/02/2015 Respiratory chest tightness 06/02/2015 Respiratory dyspnea on exertion 06/02/2015 Respiratory nocturnal cough 06/02/2015 Gastrointestinal No constipation 06/02/2015 Gastrointestinal No diarrhea 06/02/2015 Genitourinary/Nephrology No dysuria 06/02/2015 Musculoskeletal No joint complaint 06/02/2015 Dermatologic No rash 12/2015 Dermatologic No sores Psychiatric No anxiety 0 06/02/2015 Psychiatric No depression 06/02/2015 Ears/Nose/Throat/Neck oral pain 06/02/2015 Respiratory cough 2015 Constitutional recent illness 05/25/2015 Constitutional No anorexia 05/25/2015 Constitutional No night sweats 05/25/2015 Constitutional No chills 05/25/2015 Constitutional No diaphoresis 05/25/2015 Constitutional fatigue 0 05/25/2015 Constitutional No fever 05/25/2015 Constitutional No insomnia 05/25/2015 Constitutional malaise 0 05/25/2015 Constitutional No obesity 05/25/2015 Eyes No vision change Ears/Nose/Throat/Neck No headache 05/25/2015 Ears/Nose/Throat/Neck No nasal allergies 05/25/2015 Ears/Nose/Throat/Neck No nasal discharge 05/25/2015 Ears/Nose/Throat/Neck No otalgia 05/25/2015 Ears/Nose/Throat/Neck No otitis media 05/25/2015 Ears/Nose/Throat/Neck postnasal drip 05/25/2015 Ears/Nose/Throat/Neck No sinus congestion 05/25/2015 Ears/Nose/Throat/Neck sore throat 05/25/2015 Cardiovascular No chest pain/pressure 05/25/2015 Respiratory No chest congestion 05/25/2015 Respiratory chest tightness 05/25/2015 Respiratory No cigarette smoking 05/25/2015 Respiratory cough 2015 Respiratory dyspnea on exertion 05/25/2015 Respiratory nocturnal cough 05/25/2015 Gastrointestinal No constipation 05/25/2015 Gastrointestinal No diarrhea 05/25/2015 Genitourinary/Nephrology No dysuria 05/25/2015 Musculoskeletal No joint complaint 05/25/2015 Dermatologic No rash 04/2015 Dermatologic No sores Psychiatric No anxiety 0 05/25/2015 Psychiatric No depression 05/25/2015 Neurologic No alteration of consciousness 05/25/2015 Respiratory cough 2015 Respiratory dyspnea on exertion 05/03/2015 Respiratory nocturnal cough 05/03/2015 Respiratory No chest congestion 05/03/2015 Respiratory chest tightness 05/03/2015 Respiratory No cigarette smoking 05/03/2015 Cardiovascular No chest pain/pressure 05/03/2015 Ears/Nose/Throat/Neck No nasal discharge 05/03/2015 Ears/Nose/Throat/Neck No nasal allergies 05/03/2015 Ears/Nose/Throat/Neck No headache 05/03/2015 Ears/Nose/Throat/Neck postnasal drip 05/03/2015 Ears/Nose/Throat/Neck No otitis media 05/03/2015 Ears/Nose/Throat/Neck No otalgia 05/03/2015 Ears/Nose/Throat/Neck sore throat 05/03/2015 Ears/Nose/Throat/Neck No sinus congestion 05/03/2015 Eyes No vision change Constitutional recent illness 05/03/2015 Constitutional No anorexia 05/03/2015 Constitutional No night sweats 05/03/2015 Constitutional No chills 05/03/2015 Constitutional No diaphoresis 05/03/2015 Constitutional fatigue 0 05/03/2015 Constitutional No fever 05/03/2015 Constitutional No insomnia 05/03/2015 Constitutional malaise 0 05/03/2015 Constitutional No weight loss 05/03/2015 Constitutional No weight gain 05/03/2015 Constitutional No obesity 05/03/2015 Gastrointestinal No diarrhea 05/03/2015 Gastrointestinal No constipation 05/03/2015 Genitourinary/Nephrology No dysuria 05/03/2015 Musculoskeletal myalgias 05/03/2015 Musculoskeletal No joint complaint 05/03/2015 Dermatologic No rash 11/2015 Dermatologic No sores Psychiatric No depression 05/03/2015 Psychiatric No anxiety 0 05/03/2015 Constitutional No recent illness 08/02/2014 Constitutional No fever 08/02/2014 Constitutional No chills 07/28/2014 Constitutional No diaphoresis 07/28/2014 Constitutional No fatigue 07/28/2014 Constitutional No fever 07/28/2014 Constitutional No insomnia 07/28/2014 Constitutional No malaise 07/28/2014 Constitutional No recent illness 07/28/2014 Ears/Nose/Throat/Neck No dizziness 07/28/2014 Ears/Nose/Throat/Neck No sore throat 07/28/2014 Cardiovascular No chest pain/pressure 07/28/2014 Cardiovascular No edema 07/28/2014 Cardiovascular No exercise intolerance 07/28/2014 Cardiovascular No fatigue 07/28/2014 Cardiovascular No palpitations 07/28/2014 Cardiovascular No syncope 07/28/2014 Respiratory No chest congestion 07/28/2014 Respiratory No cough 08/2014 Gastrointestinal No abdominal pain 07/28/2014 Gastrointestinal No constipation 07/28/2014 Gastrointestinal No diarrhea 07/28/2014 Gastrointestinal No nausea 07/28/2014 Gastrointestinal No vomiting 07/28/2014 Dermatologic No rash 08/2014 Neurologic No alteration of consciousness 07/28/2014 Neurologic No mental status change 07/28/2014 Gastrointestinal gastroesophageal reflux 07/28/2014 Genitourinary/Nephrology No dysuria 07/28/2014 Genitourinary/Nephrology No nocturia 07/28/2014 Genitourinary/Nephrology No urinary incontinence 07/28/2014 Musculoskeletal stiffness 07/28/2014 Musculoskeletal muscle weakness 07/28/2014 Musculoskeletal No myalgias 07/28/2014 Psychiatric No anxiety 0 07/28/2014 Psychiatric No depression 07/28/2014 Musculoskeletal arthralgia(s) 07/28/2014 Musculoskeletal joint complaint 07/28/2014 Physical Exam Exam Name System Name It em Name Status Result Effective Dates Notes Full Exam - General 1994 Constitutional general appearance Overall: well developed 10/06/2018 None Full Exam - General 1994 Constitutional general appearance Overall: in no acute distress 10/06/2018 None Full Exam - General 1994 Constitutional general appearance Overall: well nourished 10/06/2018 None Full Exam - General 1994 Respiratory auscultation Overall: breath sounds clear bilaterally 10/06/2018 None Full Exam - General 1994 Respiratory respiratory effort/rhythm Overall: no retractions 10/06/2018 None Full Exam - General 1994 Respiratory respiratory effort/rhythm Overall: normal rate 10/06/2018 None Full Exam - General 1994 Cardiovascular auscultation of heart Overall: regular rate 10/06/2018 None Full Exam - General 1994 Cardiovascular auscultation of heart Overall: normal heart sounds 10/06/2018 None Full Exam - General 1994 Psychiatric orientation/consciousness Overall: oriented to person, place and time 10/06/2018 None Full Exam - General 1994 Constitutional general appearance Overall: well developed 03/10/2018 None Full Exam - General 1994 Constitutional general appearance Overall: in no acute distress 03/10/2018 None Full Exam - General 1994 Constitutional general appearance Overall: well nourished 03/10/2018 None Full Exam - General 1994 Eyes conjunctiva/eyelids Overall: conjunctiva clear 03/10/2018 None Full Exam - General 1994 Eyes conjunctiva/eyelids Overall: eyelids normal 03/10/2018 None Full Exam - General 1994 Ears/Nose/Throat otoscopic exam Overall: external auditory canals clear 03/10/2018 None Full Exam - General 1994 Ears/Nose/Throat otoscopic exam Tympanic membrane: air-fluid level 03/10/2018 None Full Exam - General 1994 Ears/Nose/Throat lips/teeth/gingiva Overall: benign lips 03/10/2018 None Full Exam - General 1994 Ears/Nose/Throat oral cavity/pharynx/larynx Overall: oral mucosa clear 03/10/2018 None Full Exam - General 1994 Ears/Nose/Throat oral cavity/pharynx/larynx Posterior Pharynx: clear post nasal drainage 03/10/2018 None Full Exam - General 1994 Respiratory auscultation Diffuse: diminished 03/10/2018 None Full Exam - General 1994 Respiratory respiratory effort/rhythm Overall: no retractions 03/10/2018 None Full Exam - General 1994 Respiratory respiratory effort/rhythm Overall: normal rate 03/10/2018 None Full Exam - General 1994 Cardiovascular auscultation of heart Overall: regular rate 03/10/2018 None Full Exam - General 1994 Cardiovascular auscultation of heart Overall: normal heart sounds 03/10/2018 None Full Exam - General 1994 Lymphatic neck nodes Overall: anterior cervical chain benign 03/10/2018 None Full Exam - General 1994 Lymphatic neck nodes Overall: posterior cervical chain benign 03/10/2018 None Full Exam - General 1994 Integument inspection of skin Overall: few scattered moles, no gross abnormalities 03/10/2018 None Full Exam - General 1994 Neurologic cranial nerves Overall: crainial nerves 2 - 12 grossly intact 03/10/2018 None Full Exam - General 1994 Psychiatric orientation/consciousness Overall: oriented to person, place and time 03/10/2018 None Full Exam - General 1994 Psychiatric mood and affect Overall: normal mood and affect 03/10/2018 None Full Exam - General 1994 Respiratory auscultation Lower lung field: crackles 03/10/2018 faint Full Exam - General 1994 Constitutional general appearance Overall: well developed 01/17/2018 None Full Exam - General 1994 Constitutional general appearance Overall: in no acute distress 01/17/2018 None Full Exam - General 1994 Constitutional general appearance Overall: well nourished 01/17/2018 None Full Exam - General 1994 Eyes conjunctiva/eyelids Overall: eyelids normal 01/17/2018 None Full Exam - General 1994 Eyes conjunctiva/eyelids Overall: cornea clear 01/17/2018 None Full Exam - General 1994 Eyes conjunctiva/eyelids Overall: conjunctiva clear 01/17/2018 None Full Exam - General 1994 Ears/Nose/Throat oral cavity/pharynx/larynx Overall: oral mucosa clear 01/17/2018 None Full Exam - General 1994 Ears/Nose/Throat lips/teeth/gingiva Overall: benign lips 01/17/2018 None Full Exam - General 1994 Respiratory respiratory effort/rhythm Overall: normal rate 01/17/2018 None Full Exam - General 1994 Respiratory respiratory effort/rhythm Overall: no retractions 01/17/2018 None Full Exam - General 1994 Musculoskeletal head and neck Overall: head atraumatic 01/17/2018 None Full Exam - General 1994 Musculoskeletal gait and station Overall: normal station 01/17/2018 None Full Exam - General 1994 Musculoskeletal gait and station Overall: normal gait 01/17/2018 None Full Exam - General 1994 Neurologic cranial nerves Overall: crainial nerves 2 - 12 grossly intact 01/17/2018 None Full Exam - General 1994 Psychiatric orientation/consciousness Overall: oriented to person, place and time 01/17/2018 None Full Exam - General 1994 Psychiatric mood and affect Overall: normal mood and affect 01/17/2018 None Full Exam - General 1994 Psychiatric appearance Overall: well-groomed, good eye contact 01/17/2018 None Full Exam - General 1994 Constitutional general appearance Overall: well developed 10/02/2017 None Full Exam - General 1994 Constitutional general appearance Overall: in no acute distress 10/02/2017 None Full Exam - General 1994 Constitutional general appearance Overall: well nourished 10/02/2017 None Full Exam - General 1994 Eyes conjunctiva/eyelids Overall: conjunctiva clear 10/02/2017 None Full Exam - General 1994 Eyes conjunctiva/eyelids Overall: eyelids normal 10/02/2017 None Full Exam - General 1994 Ears/Nose/Throat lips/teeth/gingiva Overall: benign lips 10/02/2017 None Full Exam - General 1994 Respiratory respiratory effort/rhythm Overall: no retractions 10/02/2017 None Full Exam - General 1994 Respiratory respiratory effort/rhythm Overall: normal rate 10/02/2017 None Full Exam - General 1994 Musculoskeletal head and neck Overall: head atraumatic 10/02/2017 None Full Exam - General 1994 Neurologic cranial nerves Overall: crainial nerves 2 - 12 grossly intact 10/02/2017 None Full Exam - General 1994 Psychiatric orientation/consciousness Overall: oriented to person, place and time 10/02/2017 None Full Exam - General 1994 Psychiatric mood and affect Overall: normal mood and affect 10/02/2017 None Full Exam - General 1994 Psychiatric appearance Overall: well-groomed, good eye contact 10/02/2017 None Full Exam - General 1994 Constitutional general appearance Hygiene/Attention to Grooming: good hygiene 06/03/2017 None Full Exam - General 1994 Eyes conjunctiva/eyelids Overall: conjunctiva clear 06/03/2017 None Full Exam - General 1994 Eyes conjunctiva/eyelids Overall: cornea clear 06/03/2017 None Full Exam - General 1994 Eyes conjunctiva/eyelids Overall: eyelids normal 06/03/2017 None Full Exam - General 1994 Eyes pupils and irises Overall: pupils equal, round, reactive to light and accomodation 06/03/2017 None Full Exam - General 1994 Ears/Nose/Throat otoscopic exam Overall: external auditory canals clear 06/03/2017 None Full Exam - General 1994 Ears/Nose/Throat lips/teeth/gingiva Overall: benign lips 06/03/2017 None Full Exam - General 1994 Ears/Nose/Throat oral cavity/pharynx/larynx Overall: oral mucosa clear 06/03/2017 None Full Exam - General 1994 Ears/Nose/Throat oral cavity/pharynx/larynx Overall: oropharyngeal mucosa clear 06/03/2017 None Full Exam - General 1994 Respiratory auscultation Overall: breath sounds clear bilaterally 06/03/2017 None Full Exam - General 1994 Respiratory respiratory effort/rhythm Overall: no retractions 06/03/2017 None Full Exam - General 1994 Respiratory respiratory effort/rhythm Overall: normal rate 06/03/2017 None Full Exam - General 1994 Cardiovascular extremities Overall: no clubbing 06/03/2017 None Full Exam - General 1994 Cardiovascular auscultation of heart Overall: regular rate 06/03/2017 None Full Exam - General 1994 Cardiovascular auscultation of heart Overall: normal heart sounds 06/03/2017 None Full Exam - General 1994 Abdomen abdominal exam Overall: normal bowel sounds 06/03/2017 None Full Exam - General 1994 Lymphatic neck nodes Overall: anterior cervical chain benign 06/03/2017 None Full Exam - General 1994 Lymphatic neck nodes Overall: posterior cervical chain benign 06/03/2017 None Full Exam - General 1994 Neurologic cranial nerves Overall: crainial nerves 2 - 12 grossly intact 06/03/2017 None Full Exam - General 1994 Psychiatric orientation/consciousness Overall: oriented to person, place and time 06/03/2017 None Full Exam - General 1994 Psychiatric mood and affect Overall: normal mood and affect 06/03/2017 None Full Exam - General 1994 Constitutional general appearance Overall: well developed 06/03/2017 None Full Exam - General 1994 Constitutional general appearance Overall: in no acute distress 06/03/2017 None Full Exam - General 1994 Constitutional general appearance Overall: well nourished 06/03/2017 None Full Exam - General 1994 Ears/Nose/Throat otoscopic exam Tympanic membrane: air-fluid level 06/03/2017 None Full Exam - General 1994 Ears/Nose/Throat oral cavity/pharynx/larynx Posterior Pharynx: clear post nasal drainage 06/03/2017 None Full Exam - General 1994 Ears/Nose/Throat oral cavity/pharynx/larynx Oropharynx: erythema 06/03/2017 mild Full Exam - General 1994 Psychiatric appearance Overall: well-groomed, good eye contact 06/03/2017 None Full Exam - General 1994 Constitutional general appearance Development: well developed 02/07/2017 None Full Exam - General 1994 Constitutional general appearance Development: appears stated age 1102/07/2017 None Full Exam - General 1994 Constitutional general appearance Hygiene/Attention to Grooming: good hygiene 02/07/2017 None Full Exam - General 1994 Eyes conjunctiva/eyelids Overall: conjunctiva clear 02/07/2017 None Full Exam - General 1994 Eyes conjunctiva/eyelids Overall: cornea clear 02/07/2017 None Full Exam - General 1994 Eyes conjunctiva/eyelids Overall: eyelids normal 02/07/2017 None Full Exam - General 1994 Eyes pupils and irises Overall: pupils equal, round, reactive to light and accomodation 02/07/2017 None Full Exam - General 1994 Ears/Nose/Throat otoscopic exam Overall: external auditory canals clear 02/07/2017 None Full Exam - General 1994 Ears/Nose/Throat otoscopic exam Overall: tympanic membranes clear 02/07/2017 None Full Exam - General 1994 Ears/Nose/Throat lips/teeth/gingiva Overall: benign lips 02/07/2017 None Full Exam - General 1994 Ears/Nose/Throat lips/teeth/gingiva Overall: normal dentition 02/07/2017 None Full Exam - General 1994 Ears/Nose/Throat oral cavity/pharynx/larynx Overall: oral mucosa clear 02/07/2017 None Full Exam - General 1994 Ears/Nose/Throat oral cavity/pharynx/larynx Overall: oropharyngeal mucosa clear 02/07/2017 None Full Exam - General 1994 Ears/Nose/Throat oral cavity/pharynx/larynx Overall: hypopharynx benign 02/07/2017 None Full Exam - General 1994 Ears/Nose/Throat oral cavity/pharynx/larynx Overall: no masses 02/07/2017 None Full Exam - General 1994 Respiratory auscultation Overall: breath sounds clear bilaterally 02/07/2017 None Full Exam - General 1994 Respiratory respiratory effort/rhythm Overall: no retractions 02/07/2017 None Full Exam - General 1994 Respiratory respiratory effort/rhythm Overall: normal rate 02/07/2017 None Full Exam - General 1994 Cardiovascular extremities Overall: no clubbing 02/07/2017 None Full Exam - General 1994 Cardiovascular auscultation of heart Overall: regular rate 02/07/2017 None Full Exam - General 1994 Cardiovascular auscultation of heart Overall: normal heart sounds 02/07/2017 None Full Exam - General 1994 Abdomen abdominal exam Overall: no tenderness 02/07/2017 None Full Exam - General 1994 Abdomen abdominal exam Overall: normal bowel sounds 02/07/2017 None Full Exam - General 1994 Lymphatic neck nodes Overall: anterior cervical chain benign 02/07/2017 None Full Exam - General 1994 Lymphatic neck nodes Overall: posterior cervical chain benign 02/07/2017 None Full Exam - General 1994 Neurologic deep tendon reflexes Overall: deep tendon reflexes intact 02/07/2017 None Full Exam - General 1994 Neurologic cranial nerves Overall: crainial nerves 2 - 12 grossly intact 02/07/2017 None Full Exam - General 1994 Psychiatric orientation/consciousness Overall: oriented to person, place and time 02/07/2017 None Full Exam - General 1994 Psychiatric mood and affect Overall: normal mood and affect 02/07/2017 None Full Exam - General 1994 Constitutional general appearance Overall: well developed 09/20/2016 None Full Exam - General 1994 Constitutional general appearance Overall: well nourished 09/20/2016 None Full Exam - General 1994 Constitutional general appearance Overall: in no acute distress 09/20/2016 None Full Exam - General 1994 Eyes conjunctiva/eyelids Overall: conjunctiva clear 09/20/2016 None Full Exam - General 1994 Eyes conjunctiva/eyelids Overall: eyelids normal 09/20/2016 None Full Exam - General 1994 Ears/Nose/Throat lips/teeth/gingiva Overall: benign lips 09/20/2016 None Full Exam - General 1994 Ears/Nose/Throat oral cavity/pharynx/larynx Overall: oral mucosa clear 09/20/2016 None Full Exam - General 1994 Respiratory respiratory effort/rhythm Overall: no retractions 09/20/2016 None Full Exam - General 1994 Respiratory respiratory effort/rhythm Overall: normal rate 09/20/2016 None Full Exam - General 1994 Musculoskeletal gait and station Overall: normal gait 09/20/2016 None Full Exam - General 1994 Musculoskeletal gait and station Overall: normal station 09/20/2016 None Full Exam - General 1994 Musculoskeletal head and neck Overall: head atraumatic 09/20/2016 None Full Exam - General 1994 Integument inspection of skin Overall: no rash, lesions 09/20/2016 None Full Exam - General 1994 Neurologic cranial nerves Overall: crainial nerves 2 - 12 grossly intact 09/20/2016 None Full Exam - General 1994 Psychiatric orientation/consciousness Overall: oriented to person, place and time 09/20/2016 None Full Exam - General 1994 Psychiatric mood and affect Overall: normal mood and affect 09/20/2016 None Full Exam - General 1994 Psychiatric appearance Overall: well-groomed, good eye contact 09/20/2016 None Full Exam - Dermatology Constitutional general appearance Overall: well nourished 09/11/2016 None Full Exam - Dermatology Constitutional general appearance Overall: well developed 09/11/2016 None Full Exam - Dermatology Constitutional general appearance Overall: in no acute distress 09/11/2016 None Full Exam - Dermatology Constitutional general appearance Overall: of normal body habitus 09/11/2016 None Full Exam - Dermatology Constitutional general appearance Overall: well groomed 09/11/2016 None Full Exam - Dermatology Eyes conjunctiva/eyelids Overall: clear conjunctiva bilaterally 09/11/2016 None Full Exam - Dermatology Eyes conjunctiva/eyelids Overall: normal eyelids 09/11/2016 None Full Exam - Dermatology Ears/Nose/Throat lips/teeth/gingiva Overall: benign lips 09/11/2016 None Full Exam - Dermatology Ears/Nose/Throat oropharynx Overall: clear oral mucosa 09/11/2016 None Full Exam - Dermatology Respiratory auscultation Overall: breath sounds clear bilaterally 09/11/2016 None Full Exam - Dermatology Respiratory respiratory effort/rhythm Overall: no retractions 09/11/2016 None Full Exam - Dermatology Respiratory respiratory effort/rhythm Overall: normal rate 09/11/2016 None Full Exam - Dermatology Cardiovascular peripheral vascular system Overall: S1S2 09/11/2016 None Full Exam - Dermatology Integument insp & palp - abdomen Location: on the right lower abdomen 09/11/2016 None Full Exam - Dermatology Integument insp & palp - abdomen Lesion: patch 09/11/2016 None Full Exam - Dermatology Integument insp & palp - abdomen Lesion: wheal 09/11/2016 None Full Exam - Dermatology Integument insp & palp - abdomen Color: erythematous 09/11/2016 None Full Exam - Dermatology Integument insp & palp - neck Location: on the left neck 09/11/2016 None Full Exam - Dermatology Integument insp & palp - neck Lesion: patch 09/11/2016 None Full Exam - Dermatology Integument insp & palp - neck Lesion: wheal 09/11/2016 None Full Exam - Dermatology Integument insp & palp - neck Color: erythematous 09/11/2016 None Full Exam - Dermatology Neurologic gait Overall: no ataxia, no unsteadiness 09/11/2016 None Full Exam - Dermatology Psychiatric orientation Overall: oriented to person, place and time 09/11/2016 None Full Exam - Dermatology Psychiatric mood and affect Overall: normal mood and affect 09/11/2016 None Full Exam - General [facility] Constitutional general appearance Development: well developed 01/03/2016 None Full Exam - General 1994 Constitutional general appearance Development: appears stated age 1001/03/2016 None Full Exam - General 1994 Constitutional general appearance Hygiene/Attention to Grooming: good hygiene 01/03/2016 None Full Exam - General 1994 Eyes conjunctiva/eyelids Overall: conjunctiva clear 01/03/2016 None Full Exam - General 1994 Eyes conjunctiva/eyelids Overall: cornea clear 01/03/2016 None Full Exam - General 1994 Eyes conjunctiva/eyelids Overall: eyelids normal 01/03/2016 None Full Exam - General 1994 Eyes pupils and irises Overall: pupils equal, round, reactive to light and accomodation 01/03/2016 None Full Exam - General 1994 Ears/Nose/Throat otoscopic exam Overall: external auditory canals clear 01/03/2016 None Full Exam - General 1994 Ears/Nose/Throat otoscopic exam Overall: tympanic membranes clear 01/03/2016 None Full Exam - General 1994 Ears/Nose/Throat lips/teeth/gingiva Overall: benign lips 01/03/2016 None Full Exam - General 1994 Ears/Nose/Throat lips/teeth/gingiva Overall: normal dentition 01/03/2016 None Full Exam - General 1994 Ears/Nose/Throat oral cavity/pharynx/larynx Overall: oral mucosa clear 01/03/2016 None Full Exam - General 1994 Ears/Nose/Throat oral cavity/pharynx/larynx Overall: oropharyngeal mucosa clear 01/03/2016 None Full Exam - General 1994 Ears/Nose/Throat oral cavity/pharynx/larynx Overall: hypopharynx benign 01/03/2016 None Full Exam - General 1994 Ears/Nose/Throat oral cavity/pharynx/larynx Overall: no masses 01/03/2016 None Full Exam - General 1994 Respiratory auscultation Overall: breath sounds clear bilaterally 01/03/2016 None Full Exam - General 1994 Respiratory respiratory effort/rhythm Overall: no retractions 01/03/2016 None Full Exam - General 1994 Respiratory respiratory effort/rhythm Overall: normal rate 01/03/2016 None Full Exam - General 1994 Cardiovascular extremities Overall: no clubbing 01/03/2016 None Full Exam - General 1994 Cardiovascular auscultation of heart Overall: regular rate 01/03/2016 None Full Exam - General 1994 Cardiovascular auscultation of heart Overall: normal heart sounds 01/03/2016 None Full Exam - General 1994 Abdomen abdominal exam Overall: no tenderness 01/03/2016 None Full Exam - General 1994 Abdomen abdominal exam Overall: normal bowel sounds 01/03/2016 None Full Exam - General 1994 Lymphatic neck nodes Overall: anterior cervical chain benign 01/03/2016 None Full Exam - General 1994 Lymphatic neck nodes Overall: posterior cervical chain benign 01/03/2016 None Full Exam - General 1994 Integument inspection of skin Overall: few scattered moles, no gross abnormalities 01/03/2016 None Full Exam - General 1994 Neurologic deep tendon reflexes Overall: deep tendon reflexes intact 01/03/2016 None Full Exam - General 1994 Neurologic cranial nerves Overall: crainial nerves 2 - 12 grossly intact 01/03/2016 None Full Exam - General 1994 Psychiatric orientation/consciousness Overall: oriented to person, place and time 01/03/2016 None Full Exam - General 1994 Psychiatric mood and affect Overall: normal mood and affect 01/03/2016 None Full Exam - Dermatology Constitutional general appearance Overall: well nourished 11/01/2015 None Full Exam - Dermatology Constitutional general appearance Overall: well developed 11/01/2015 None Full Exam - Dermatology Constitutional general appearance Overall: in no acute distress 11/01/2015 None Full Exam - Dermatology Constitutional general appearance Overall: of normal body habitus 11/01/2015 None Full Exam - Dermatology Constitutional general appearance Overall: well groomed 11/01/2015 None Full Exam - Dermatology Psychiatric orientation Overall: oriented to person, place and time 11/01/2015 None Full Exam - Dermatology Integument insp & palp - head/face Location: on the right upper lip 11/01/2015 [place] Full Exam - Dermatology Integument insp & palp - right lower extremity Location: on the thigh 11/01/2015 None Full Exam - Dermatology Integument insp & palp - right lower extremity Lesion: excoriation 11/01/2015 None Full Exam - General 1994 Constitutional general appearance Development: well developed 08/15/2015 None Full Exam - General 1994 Constitutional general appearance Development: appears stated age 0508/15/2015 None Full Exam - General 1994 Constitutional general appearance Hygiene/Attention to Grooming: good hygiene 08/15/2015 None Full Exam - General 1994 Eyes conjunctiva/eyelids Overall: conjunctiva clear 08/15/2015 None Full Exam - General 1994 Eyes conjunctiva/eyelids Overall: cornea clear 08/15/2015 None Full Exam - General 1994 Eyes conjunctiva/eyelids Overall: eyelids normal 08/15/2015 None Full Exam - General 1994 Eyes pupils and irises Overall: pupils equal, round, reactive to light and accomodation 08/15/2015 None Full Exam - General 1994 Ears/Nose/Throat otoscopic exam Overall: external auditory canals clear 08/15/2015 None Full Exam - General 1994 Ears/Nose/Throat otoscopic exam Overall: tympanic membranes clear 08/15/2015 None Full Exam - General 1994 Ears/Nose/Throat lips/teeth/gingiva Overall: benign lips 08/15/2015 None Full Exam - General 1994 Ears/Nose/Throat lips/teeth/gingiva Overall: normal dentition 08/15/2015 None Full Exam - General 1994 Ears/Nose/Throat oral cavity/pharynx/larynx Overall: oral mucosa clear 08/15/2015 None Full Exam - General 1994 Ears/Nose/Throat oral cavity/pharynx/larynx Overall: oropharyngeal mucosa clear 08/15/2015 None Full Exam - General 1994 Ears/Nose/Throat oral cavity/pharynx/larynx Overall: hypopharynx benign 08/15/2015 None Full Exam - General 1994 Ears/Nose/Throat oral cavity/pharynx/larynx Overall: no masses 08/15/2015 None Full Exam - General 1994 Respiratory auscultation Overall: breath sounds clear bilaterally 08/15/2015 None Full Exam - General 1994 Respiratory respiratory effort/rhythm Overall: no retractions 08/15/2015 None Full Exam - General 1994 Respiratory respiratory effort/rhythm Overall: normal rate 08/15/2015 None Full Exam - General 1994 Cardiovascular extremities Overall: no clubbing 08/15/2015 None Full Exam - General 1994 Cardiovascular auscultation of heart Overall: regular rate 08/15/2015 None Full Exam - General 1994 Cardiovascular auscultation of heart Overall: normal heart sounds 08/15/2015 None Full Exam - General 1994 Abdomen abdominal exam Overall: no tenderness 08/15/2015 None Full Exam - General 1994 Abdomen abdominal exam Overall: normal bowel sounds 08/15/2015 None Full Exam - General 1994 Lymphatic neck nodes Overall: anterior cervical chain benign 08/15/2015 None Full Exam - General 1994 Lymphatic neck nodes Overall: posterior cervical chain benign 08/15/2015 None Full Exam - General 1994 Neurologic deep tendon reflexes Overall: deep tendon reflexes intact 08/15/2015 None Full Exam - General 1994 Neurologic cranial nerves Overall: crainial nerves 2 - 12 grossly intact 08/15/2015 None Full Exam - General 1994 Psychiatric orientation/consciousness Overall: oriented to person, place and time 08/15/2015 None Full Exam - General 1994 Psychiatric mood and affect Overall: normal mood and affect 08/15/2015 None Full Exam - General 1994 Integument inspection of skin Location: face 08/15/2015 right upper lip Full Exam - General 1994 Integument inspection of skin Rash/Lesions: papule 08/15/2015 None Full Exam - General 1994 Constitutional general appearance Development: well developed 08/01/2015 None Full Exam - General 1994 Constitutional general appearance Development: appears stated age 0508/01/2015 None Full Exam - General 1994 Constitutional general appearance Hygiene/Attention to Grooming: good hygiene 08/01/2015 None Full Exam - General 1994 Eyes conjunctiva/eyelids Overall: conjunctiva clear 08/01/2015 None Full Exam - General 1994 Eyes conjunctiva/eyelids Overall: cornea clear 08/01/2015 None Full Exam - General 1994 Eyes conjunctiva/eyelids Overall: eyelids normal 08/01/2015 None Full Exam - General 1994 Eyes pupils and irises Overall: pupils equal, round, reactive to light and accomodation 08/01/2015 None Full Exam - General 1994 Ears/Nose/Throat otoscopic exam Overall: external auditory canals clear 08/01/2015 None Full Exam - General 1994 Ears/Nose/Throat otoscopic exam Overall: tympanic membranes clear 08/01/2015 None Full Exam - General 1994 Ears/Nose/Throat lips/teeth/gingiva Overall: benign lips 08/01/2015 None Full Exam - General 1994 Ears/Nose/Throat lips/teeth/gingiva Overall: normal dentition 08/01/2015 None Full Exam - General 1994 Ears/Nose/Throat oral cavity/pharynx/larynx Overall: oral mucosa clear 08/01/2015 None Full Exam - General 1994 Ears/Nose/Throat oral cavity/pharynx/larynx Overall: oropharyngeal mucosa clear 08/01/2015 None Full Exam - General 1994 Ears/Nose/Throat oral cavity/pharynx/larynx Overall: hypopharynx benign 08/01/2015 None Full Exam - General 1994 Ears/Nose/Throat oral cavity/pharynx/larynx Overall: no masses 08/01/2015 None Full Exam - General 1994 Respiratory auscultation Overall: breath sounds clear bilaterally 08/01/2015 None Full Exam - General 1994 Respiratory respiratory effort/rhythm Overall: no retractions 08/01/2015 None Full Exam - General 1994 Respiratory respiratory effort/rhythm Overall: normal rate 08/01/2015 None Full Exam - General 1994 Cardiovascular extremities Overall: no clubbing 08/01/2015 None Full Exam - General 1994 Cardiovascular auscultation of heart Overall: regular rate 08/01/2015 None Full Exam - General 1994 Cardiovascular auscultation of heart Overall: normal heart sounds 08/01/2015 None Full Exam - General 1994 Abdomen abdominal exam Overall: no tenderness 08/01/2015 None Full Exam - General 1994 Abdomen abdominal exam Overall: normal bowel sounds 08/01/2015 None Full Exam - General 1994 Lymphatic neck nodes Overall: anterior cervical chain benign 08/01/2015 None Full Exam - General 1994 Lymphatic neck nodes Overall: posterior cervical chain benign 08/01/2015 None Full Exam - General 1994 Integument inspection of skin Overall: few scattered moles, no gross abnormalities 08/01/2015 None Full Exam - General 1994 Neurologic deep tendon reflexes Overall: deep tendon reflexes intact 08/01/2015 None Full Exam - General 1994 Neurologic cranial nerves Overall: crainial nerves 2 - 12 grossly intact 08/01/2015 None Full Exam - General 1994 Psychiatric orientation/consciousness Overall: oriented to person, place and time 08/01/2015 None Full Exam - General 1994 Psychiatric mood and affect Overall: normal mood and affect 08/01/2015 None Full Exam - General 1994 Constitutional general appearance Overall: well developed 06/14/2015 None Full Exam - General 1994 Constitutional general appearance Overall: well nourished 06/14/2015 None Full Exam - General 1994 Constitutional general appearance Evidence of Distress: mild distress 06/14/2015 --Resolved Full Exam - General 1994 Eyes conjunctiva/eyelids Overall: conjunctiva clear 06/14/2015 None Full Exam - General 1994 Eyes conjunctiva/eyelids Overall: cornea clear 06/14/2015 None Full Exam - General 1994 Eyes conjunctiva/eyelids Overall: eyelids normal 06/14/2015 None Full Exam - General 1994 Eyes pupils and irises Overall: pupils equal, round, reactive to light and accomodation 06/14/2015 None Full Exam - General 1994 Ears/Nose/Throat lips/teeth/gingiva Overall: benign lips 06/14/2015 None Full Exam - General 1994 Ears/Nose/Throat oral cavity/pharynx/larynx Oral mucosa: ulceration 06/14/2015 multiple --Resolved Full Exam - General 1994 Ears/Nose/Throat oral cavity/pharynx/larynx Oropharynx: erythema 06/14/2015 --Resolved Full Exam - General 1994 Respiratory respiratory effort/rhythm Overall: no retractions 06/14/2015 None Full Exam - General 1994 Respiratory respiratory effort/rhythm Overall: normal rate 06/14/2015 None Full Exam - General 1994 Cardiovascular extremities Overall: no clubbing 06/14/2015 None Full Exam - General 1994 Cardiovascular auscultation of heart Overall: regular rate 06/14/2015 None Full Exam - General 1994 Cardiovascular auscultation of heart Overall: normal heart sounds 06/14/2015 None Full Exam - General 1994 Cardiovascular auscultation of heart Overall: no murmurs 06/14/2015 None Full Exam - General 1994 Musculoskeletal gait and station Overall: normal gait 06/14/2015 None Full Exam - General 1994 Musculoskeletal gait and station Overall: normal station 06/14/2015 None Full Exam - General 1994 Integument inspection of skin Overall: no rash, lesions 06/14/2015 None Full Exam - General 1994 Psychiatric orientation/consciousness Overall: oriented to person, place and time 06/14/2015 None Full Exam - General 1994 Psychiatric mood and affect Overall: normal mood and affect 06/14/2015 None Full Exam - General 1994 Respiratory auscultation Upper lung field: Breath sounds clear 06/14/2015 None Full Exam - General 1994 Respiratory auscultation Overall: breath sounds clear bilaterally 06/14/2015 None Full Exam - General 1994 Constitutional general appearance Overall: well developed 06/02/2015 None Full Exam - General 1994 Constitutional general appearance Overall: well nourished 06/02/2015 None Full Exam - General 1994 Eyes conjunctiva/eyelids Overall: conjunctiva clear 06/02/2015 None Full Exam - General 1994 Eyes conjunctiva/eyelids Overall: cornea clear 06/02/2015 None Full Exam - General 1994 Eyes conjunctiva/eyelids Overall: eyelids normal 06/02/2015 None Full Exam - General 1994 Eyes pupils and irises Overall: pupils equal, round, reactive to light and accomodation 06/02/2015 None Full Exam - General 1994 Ears/Nose/Throat lips/teeth/gingiva Overall: benign lips 06/02/2015 None Full Exam - General 1994 Ears/Nose/Throat oral cavity/pharynx/larynx Oropharynx: erythema 06/02/2015 None Full Exam - General 1994 Respiratory auscultation Lower lung field: crackles 06/02/2015 None Full Exam - General 1994 Respiratory auscultation Lower lung field: rhonchi 06/02/2015 None Full Exam - General 1994 Respiratory respiratory effort/rhythm Overall: no retractions 06/02/2015 None Full Exam - General 1994 Respiratory respiratory effort/rhythm Overall: normal rate 06/02/2015 None Full Exam - General 1994 Cardiovascular extremities Overall: no clubbing 06/02/2015 None Full Exam - General 1994 Cardiovascular auscultation of heart Overall: regular rate 06/02/2015 None Full Exam - General 1994 Cardiovascular auscultation of heart Overall: normal heart sounds 06/02/2015 None Full Exam - General 1994 Cardiovascular auscultation of heart Overall: no murmurs 06/02/2015 None Full Exam - General 1994 Musculoskeletal gait and station Overall: normal gait 06/02/2015 None Full Exam - General 1994 Musculoskeletal gait and station Overall: normal station 06/02/2015 None Full Exam - General 1994 Integument inspection of skin Overall: no rash, lesions 06/02/2015 None Full Exam - General 1994 Psychiatric orientation/consciousness Overall: oriented to person, place and time 06/02/2015 None Full Exam - General 1994 Ears/Nose/Throat oral cavity/pharynx/larynx Oral mucosa: ulceration 06/02/2015 multiple Full Exam - General 1994 Respiratory auscultation Upper lung field: rhonchi 06/02/2015 None Full Exam - General 1994 Constitutional general appearance Evidence of Distress: mild distress 06/02/2015 None Full Exam - General 1994 Psychiatric mood and affect Overall: normal mood and affect 06/02/2015 None Full Exam - General 1994 Constitutional general appearance Overall: well developed 05/25/2015 None Full Exam - General 1994 Constitutional general appearance Overall: in no acute distress 05/25/2015 None Full Exam - General 1994 Constitutional general appearance Overall: well nourished 05/25/2015 None Full Exam - General 1994 Eyes conjunctiva/eyelids Overall: conjunctiva clear 05/25/2015 None Full Exam - General 1994 Eyes conjunctiva/eyelids Overall: cornea clear 05/25/2015 None Full Exam - General 1994 Eyes conjunctiva/eyelids Overall: eyelids normal 05/25/2015 None Full Exam - General 1994 Eyes pupils and irises Overall: pupils equal, round, reactive to light and accomodation 05/25/2015 None Full Exam - General 1994 Ears/Nose/Throat external ear Overall: normal appearance 05/25/2015 None Full Exam - General 1994 Ears/Nose/Throat external ear Overall: no masses 05/25/2015 None Full Exam - General 1994 Ears/Nose/Throat external ear Overall: normal mastoids 05/25/2015 None Full Exam - General 1994 Ears/Nose/Throat otoscopic exam Overall: external auditory canals clear 05/25/2015 None Full Exam - General 1994 Ears/Nose/Throat otoscopic exam Overall: tympanic membranes clear 05/25/2015 None Full Exam - General 1994 Ears/Nose/Throat lips/teeth/gingiva Overall: benign lips 05/25/2015 None Full Exam - General 1994 Ears/Nose/Throat lips/teeth/gingiva Overall: normal dentition 05/25/2015 None Full Exam - General 1994 Ears/Nose/Throat lips/teeth/gingiva Overall: benign gingiva 05/25/2015 None Full Exam - General 1994 Ears/Nose/Throat lips/teeth/gingiva Overall: no masses 05/25/2015 None Full Exam - General 1994 Ears/Nose/Throat oral cavity/pharynx/larynx Overall: oral mucosa clear 05/25/2015 None Full Exam - General 1994 Ears/Nose/Throat oral cavity/pharynx/larynx Overall: no masses 05/25/2015 None Full Exam - General 1994 Ears/Nose/Throat oral cavity/pharynx/larynx Oropharynx: erythema 05/25/2015 None Full Exam - General 1994 Respiratory auscultation Lower lung field: crackles 05/25/2015 None Full Exam - General 1994 Respiratory respiratory effort/rhythm Overall: no retractions 05/25/2015 None Full Exam - General 1994 Respiratory respiratory effort/rhythm Overall: normal rate 05/25/2015 None Full Exam - General 1994 Cardiovascular extremities Overall: no clubbing 05/25/2015 None Full Exam - General 1994 Cardiovascular auscultation of heart Overall: regular rate 05/25/2015 None Full Exam - General 1994 Cardiovascular auscultation of heart Overall: normal heart sounds 05/25/2015 None Full Exam - General 1994 Cardiovascular auscultation of heart Overall: no murmurs 05/25/2015 None Full Exam - General 1994 Abdomen abdominal exam Overall: no tenderness 05/25/2015 None Full Exam - General 1994 Abdomen abdominal exam Overall: normal bowel sounds 05/25/2015 None Full Exam - General 1994 Musculoskeletal gait and station Overall: normal gait 05/25/2015 None Full Exam - General 1994 Musculoskeletal gait and station Overall: normal station 05/25/2015 None Full Exam - General 1994 Integument inspection of skin Overall: no rash, lesions 05/25/2015 None Full Exam - General 1994 Psychiatric orientation/consciousness Overall: oriented to person, place and time 05/25/2015 None Full Exam - General 1994 Psychiatric mood and affect Mood: happy 05/25/2015 None Full Exam - General 1994 Ears/Nose/Throat oral cavity/pharynx/larynx Posterior Pharynx: clear post nasal drainage 05/25/2015 None Full Exam - General 1994 Respiratory auscultation Upper lung field: diminished 05/25/2015 None Full Exam - General 1994 Respiratory auscultation Lower lung field: diminished 05/25/2015 None Full Exam - General 1994 Constitutional general appearance Overall: well nourished 05/03/2015 None Full Exam - General 1994 Constitutional general appearance Overall: well developed 05/03/2015 None Full Exam - General 1994 Constitutional general appearance Overall: in no acute distress 05/03/2015 None Full Exam - General 1994 Eyes pupils and irises Overall: pupils equal, round, reactive to light and accomodation 05/03/2015 None Full Exam - General 1994 Eyes conjunctiva/eyelids Overall: conjunctiva clear 05/03/2015 None Full Exam - General 1994 Eyes conjunctiva/eyelids Overall: eyelids normal 05/03/2015 None Full Exam - General 1994 Eyes conjunctiva/eyelids Overall: cornea clear 05/03/2015 None Full Exam - General 1994 Ears/Nose/Throat oral cavity/pharynx/larynx Overall: no masses 05/03/2015 None Full Exam - General 1994 Ears/Nose/Throat oral cavity/pharynx/larynx Overall: oral mucosa clear 05/03/2015 None Full Exam - General 1994 Ears/Nose/Throat oral cavity/pharynx/larynx Oropharynx: erythema 05/03/2015 None Full Exam - General 1994 Ears/Nose/Throat oral cavity/pharynx/larynx Submandibular gland: nontender 05/03/2015 Non e Full Exam - General 1994 Ears/Nose/Throat oral cavity/pharynx/larynx Submandibular gland: soft 05/03/2015 None Full Exam - General 1995 Ears/Nose/Throat lips/teeth/gingiva Overall: benign gingiva 05/03/2015 None Full Exam - General 1995 Ears/Nose/Throat lips/teeth/gingiva Overall: no masses 05/03/2015 None Full Exam - General 1995 Ears/Nose/Throat lips/teeth/gingiva Overall: normal dentition 05/03/2015 None Full Exam - General 1994 Ears/Nose/Throat lips/teeth/gingiva Overall: benign lips 05/03/2015 None Full Exam - General 1994 Ears/Nose/Throat external ear Overall: no masses 05/03/2015 None Full Exam - General 1994 Ears/Nose/Throat external ear Overall: normal appearance 05/03/2015 None Full Exam - General 1994 Ears/Nose/Throat external ear Overall: normal mastoids 05/03/2015 None Full Exam - General 1994 Ears/Nose/Throat otoscopic exam Overall: tympanic membranes clear 05/03/2015 None Full Exam - General 1994 Ears/Nose/Throat otoscopic exam Overall: external auditory canals clear 05/03/2015 None Full Exam - General 1994 Respiratory respiratory effort/rhythm Overall: normal rate 05/03/2015 None Full Exam - General 1994 Respiratory respiratory effort/rhythm Overall: no retractions 05/03/2015 None Full Exam - General 1994 Respiratory auscultation Lower lung field: crackles 05/03/2015 None Full Exam - General 1994 Respiratory auscultation Lower lung field: rhonchi 05/03/2015 None Full Exam - General 1994 Respiratory auscultation Upper lung field: rhonchi 05/03/2015 None Full Exam - General 1994 Cardiovascular auscultation of heart Overall: regular rate 05/03/2015 None Full Exam - General 1994 Cardiovascular auscultation of heart Overall: normal heart sounds 05/03/2015 None Full Exam - General 1994 Cardiovascular auscultation of heart Overall: no murmurs 05/03/2015 None Full Exam - General 1994 Cardiovascular extremities Overall: no clubbing 05/03/2015 None Full Exam - General 1994 Psychiatric orientation/consciousness Overall: oriented to person, place and time 05/03/2015 None Full Exam - General 1994 Psychiatric mood and affect Mood: happy 05/03/2015 None Full Exam - General 1994 Integument inspection of skin Overall: no rash, lesions 05/03/2015 None Full Exam - General 1994 Musculoskeletal gait and station Overall: normal station 05/03/2015 None Full Exam - General 1994 Musculoskeletal gait and station Overall: normal gait 05/03/2015 None Full Exam - General 1994 Abdomen abdominal exam Overall: no tenderness 05/03/2015 None Full Exam - General 1994 Abdomen abdominal exam Overall: normal bowel sounds 05/03/2015 None Full Exam - ENT Constitutional general appearance Overall: well nourished 08/02/2014 None Full Exam - ENT Constitutional general appearance Overall: well developed 08/02/2014 None Full Exam - ENT Constitutional general appearance Overall: in no acute distress 08/02/2014 None Full Exam - ENT Ears/Nose/Throat otoscopic exam Left external auditory canal: a norm al exam 08/02/2014 None Full Exam - ENT Ears/Nose/Throat otoscopic exam Left tympanic membrane: a normal exa m 08/02/2014 None Full Exam - ENT Ears/Nose/Throat otoscopic exam Right tympanic membrane: a normal ex am 08/02/2014 after cerumen removed Full Exam - ENT Ears/Nose/Throat otoscopic exam Right external auditory canal: compl ete cerumen impaction 08/02/2014 clear after cerumen removed Full Exam - General 1994 Constitutional general appearance Development: appears stated age 0507/28/2014 None Full Exam - General 1994 Constitutional general appearance Development: well developed 07/28/2014 None Full Exam - General 1994 Constitutional general appearance Hygiene/Attention to Grooming: good hygiene 07/28/2014 None Full Exam - General 1994 Eyes conjunctiva/eyelids Overall: conjunctiva clear 07/28/2014 None Full Exam - General 1994 Eyes conjunctiva/eyelids Overall: cornea clear 07/28/2014 None Full Exam - General 1994 Eyes conjunctiva/eyelids Overall: eyelids normal 07/28/2014 None Full Exam - General 1994 Eyes pupils and irises Overall: pupils equal, round, reactive to light and accomodation 07/28/2014 None Full Exam - General 1994 Ears/Nose/Throat otoscopic exam Overall: external auditory canals clear 07/28/2014 None Full Exam - General 1994 Ears/Nose/Throat otoscopic exam Overall: tympanic membranes clear 07/28/2014 None Full Exam - General 1994 Ears/Nose/Throat lips/teeth/gingiva Overall: benign lips 07/28/2014 None Full Exam - General 1994 Ears/Nose/Throat lips/teeth/gingiva Overall: normal dentition 07/28/2014 None Full Exam - General 1994 Ears/Nose/Throat oral cavity/pharynx/larynx Overall: hypopharynx benign 07/28/2014 None Full Exam - General 1994 Ears/Nose/Throat oral cavity/pharynx/larynx Overall: no masses 07/28/2014 None Full Exam - General 1994 Ears/Nose/Throat oral cavity/pharynx/larynx Overall: oral mucosa clear 07/28/2014 None Full Exam - General 1994 Ears/Nose/Throat oral cavity/pharynx/larynx Overall: oropharyngeal mucosa clear 07/28/2014 None Full Exam - General 1994 Respiratory auscultation Overall: breath sounds clear bilaterally 07/28/2014 None Full Exam - General 1994 Respiratory respiratory effort/rhythm Overall: no retractions 07/28/2014 None Full Exam - General 1994 Respiratory respiratory effort/rhythm Overall: normal rate 07/28/2014 None Full Exam - General 1994 Cardiovascular extremities Overall: no clubbing 07/28/2014 None Full Exam - General 1994 Cardiovascular auscultation of heart Overall: normal heart sounds 07/28/2014 None Full Exam - General 1994 Cardiovascular auscultation of heart Overall: regular rate 07/28/2014 None Full Exam - General 1994 Abdomen abdominal exam Overall: no tenderness 07/28/2014 None Full Exam - General 1994 Abdomen abdominal exam Overall: normal bowel sounds 07/28/2014 None Full Exam - General 1994 Integument inspection of skin Overall: few scattered moles, no gross abnormalities 07/28/2014 None Full Exam - General 1994 Neurologic deep tendon reflexes Overall: deep tendon reflexes intact 07/28/2014 None Full Exam - General 1994 Neurologic cranial nerves Overall: crainial nerves 2 - 12 grossly intact 07/28/2014 None Full Exam - General 1994 Psychiatric orientation/consciousness Overall: oriented to person, place and time 07/28/2014 None Full Exam - General 1994 Psychiatric mood and affect Overall: normal mood and affect 07/28/2014 None Full Exam - General 1994 Musculoskeletal head and neck Overall: cervical spine benign 07/28/2014 None Full Exam - General 1994 Musculoskeletal head and neck Overall: head atraumatic 07/28/2014 None Full Exam - General 1994 Musculoskeletal gait and station Overall: normal station 07/28/2014 None Full Exam - General 1994 Musculoskeletal gait and station Overall: normal gait 07/28/2014 None Full Exam - General 1994 Lymphatic neck nodes Overall: anterior cervical chain benign 07/28/2014 None Full Exam - General 1994 Lymphatic neck nodes Overall: posterior cervical chain benign 07/28/2014 None Full Exam - General 1994 Musculoskeletal lower extremity Palpation - knee: crepitus 07/28/2014 None Procedures Procedure Codes Date URINALYSIS NONAUTO W /O SCOPE CPT-4: 83752 10/06/2018 THER/PROPH/DIAG INJ SC/IM CPT-4: 54304 03/10/2018 TRIAMCINOLONE ACET I [place] NOS CPT-4: J3301 03/10/2018 ROCEPHIN, PER 250 MG CPT-4: J0696 03/10/2018 PPPS, SUBSEQ VISIT CPT- 4: G0439 10/02/2017 TRIAMCINOLONE ACET I [place] NOS CPT-4: J3301 06/03/2017 THER/PROPH/DIAG INJ SC/IM CPT-4: 31087 06/03/2017 URINALYSIS NONAUTO W /O SCOPE CPT-4: 00664 04/01/2017 THER/PROPH/DIAG INJ SC/IM CPT-4: 22518 02/07/2017 TRIAMCINOLONE ACET I [place] NOS CPT-4: J3301 02/07/2017 ROCEPHIN, PER 250 MG CPT-4: J0696 02/07/2017 FLU VAC NO PRSV 4 VA L 3 YRS+ CPT-4: 74887 01/16/2017 PNEUMOCOCCAL VACC [address]: 79604610 CPT-4: 28188 01/16/2017 ADMIN INFLUENZA VIRU S VAC CPT-4: G0008 01/16/2017 ADMIN PNEUMOCOCCAL V ACCINE SNOMED CT: 87194174 CPT-4: G0009 01/16/2017 PPPS, SUBSEQ VISIT CPT- 4: G0439 09/20/2016 TRIAMCINOLONE ACET I [place] NOS CPT-4: J3301 09/11/2016 THER/PROPH/DIAG INJ SC/IM CPT-4: 77161 09/11/2016 TRIAMCINOLONE ACET I [place] NOS CPT-4: J3301 01/03/2016 DESTRUCT PREMALG LESION CPT-4: 62526 11/01/2015 TRIAMCINOLONE ACET I [place] NOS CPT-4: J3301 08/01/2015 TRIAMCINOLONE ACET I [place] NOS CPT-4: J3301 05/25/2015 ROCEPHIN, PER 250 MG CPT-4: J0696 05/25/2015 TRIAMCINOLONE ACET I [place] NOS CPT-4: J3301 05/03/2015 REMOVE IMPACTED EAR WAX UNI CPT-4: 78807 08/02/2014 Vital Signs Date Vital 10/06/2018 Blood Pressure 1: 128/80 Code: 8480-6 BMI: 22.3 Code: 21795-3 Heart Rate 1: 76 bpm Height: 5'3" SpO2: 98% Weight: 126 lbs 03/10/2018 Blood Pressure 1: 136/74 Code: 8480-6 BMI: 22.3 Code: 13760-8 Heart Rate 1: 103 bpm Height: 5'3" SpO2: 97% Temperature: 37.4 (C ) / 99.3 (F) Weight: 126 lbs 01/17/2018 Blood Pressure 1: 110/76 Code: 8480-6 BMI: 21.8 Code: 77067-3 Heart Rate 1: 80 bpm Height: 5'3" SpO2: 98% Weight: 123 lbs 10/02/2017 Blood Pressure 1: 128/70 Code: 8480-6 BMI: 21.6 Code: 27849-3 Heart Rate 1: 70 bpm Height: 5'3" SpO2: 98% Waist Measure (cm): 97 cm Weight: 122 lbs 06/03/2017 Blood Pressure 1: 144/88 Code: 8480-6 BMI: 22.1 Code: 36578-0 Heart Rate 1: 90 bpm Height: 5'3" SpO2: 94% Weight: 125 lbs 02/07/2017 Blood Pressure 1: 142/80 Code: 8480-6 BMI: 22.1 Code: 57371-5 Heart Rate 1: 85 bpm Height: 5'3" SpO2: 98% Temperature: 36.9 (C ) / 98.5 (F) Weight: 125 lbs 09/20/2016 Blood Pressure 1: 124/72 Code: 8480-6 BMI: 21.8 Code: 88610-4 Heart Rate 1: 90 bpm Height: 5'3" SpO2: 96% Weight: 123 lbs 09/11/2016 Blood Pressure 1: 124/72 Code: 8480-6 BMI: 21.8 Code: 08389-0 Heart Rate 1: 90 bpm Height: 5'3" SpO2: 96% Weight: 123 lbs 01/03/2016 Blood Pressure 1: 100/70 Code: 8480-6 BMI: 21.3 Code: 39499-6 Heart Rate 1: 100 bpm Height: 5'3" SpO2: 94% Temperature: 37.3 (C ) / 99.1 (F) Weight: 120 lbs 11/01/2015 Blood Pressure 1: 122/74 Code: 8480-6 BMI: 21.4 Code: 07391-8 Heart Rate 1: 92 bpm Height: 5'3" SpO2: 94% Weight: 121 lbs 08/15/2015 Blood Pressure 1: 110/70 Code: 8480-6 BMI: 21.6 Code: 40401-5 Heart Rate 1: 76 bpm Height: 5'3" SpO2: 98% Weight: 122 lbs 08/01/2015 Blood Pressure 1: 128/88 Code: 8480-6 BMI: 22.3 Code: 77033-9 Heart Rate 1: 93 bpm Height: 5'3" SpO2: 99% Temperature: 36.8 (C ) / 98.2 (F) Weight: 126 lbs 06/14/2015 Blood Pressure 1: 118/76 Code: 8480-6 BMI: 22.3 Code: 85607-2 Heart Rate 1: 88 bpm Height: 5'3" SpO2: 96% Weight: 126 lbs 06/02/2015 Blood Pressure 1: 142/80 Code: 8480-6 BMI: 22.3 Code: 44715-6 Heart Rate 1: 91 bpm Height: 5'3" SpO2: 94% Temperature: 37.2 (C ) / 98.9 (F) Weight: 126 lbs 05/25/2015 Blood Pressure 1: 136/60 Code: 8480-6 BMI: 22.7 Code: 38273-0 Heart Rate 1: 90 bpm Height: 5'3" SpO2: 96% Weight: 128 lbs 05/03/2015 Blood Pressure 1: 120/58 Code: 8480-6 BMI: 22.7 Code: 50214-6 Heart Rate 1: 95 bpm Height: 5'3" SpO2: 96% Weight: 128 lbs 08/02/2014 Blood Pressure 1: 130/80 Code: 8480-6 BMI: 22.5 Code: 52497-5 Heart Rate 1: 64 bpm Height: 5'3" Weight: 127 lbs 07/28/2014 Blood Pressure 1: 130/76 Code: 8480-6 BMI: 22.5 Code: 23865-3 Heart Rate 1: 60 bpm Height: 5'3" Weight: 127 lbs Functional Status No Functional Status data History of Present Illness Symptom Name Status Resu lt Effective Date Notes Quality acute 10/06/2018 None Quality intermittent 10/06/2018 None Onset and Resolution s udden in onset 10/06/2018 None Onset of Symptom 1 wee ks ago 10/06/2018 None Frequency of Episodes daily 10/06/2018 None Pertinent Findings annia dder pain 10/06/2018 None Quality constant 03/10/2018 None Onset and Resolution s udden in onset 03/10/2018 None Onset of Symptom 3 day s ago 03/10/2018 None Pertinent Findings cough 03/10/2018 None Pertinent Findings dec reased energy 03/10/2018 None Pertinent Findings fever 03/10/2018 None Quality intermittent 03/10/2018 None Onset and Resolution s udden in onset 03/10/2018 None Onset of Symptom Denie s 3 days ago 03/10/2018 None urinary urgency Quality constant 01/17/2018 None urinary urgency Onset and Resolution sudden in onset 01/17/2018 None urinary urgency Onset of Symptom 2 days ago 01/17/2018 None urinary frequency Quality constant 01/17/2018 None urinary frequency Onset and Resolution sudden in onset 01/17/2018 None urinary frequency Onset of Symptom 2 days ago 01/17/2018 None Annual Medicare Wellness Exam Alcohol Use drinks 2-5 days per week 10/02/2017 None Annual Medicare Wellness Exam Depres [place] (last 6 months) some of the time 10/02/2017 None Annual Medicare Wellness Exam [place] or Hopelessness some of the time 10/02/2017 None Annual Medicare Wellness Exam Descri be Your Health excellent 10/02/2017 Non e Annual Medicare Wellness Exam Exerci se Habits exercises 2-3 days per week 10/02/2017 None Annual Medicare Wellness Exam Handli ng Stress usually domi effectively 10/02/2017 None Annual Medicare Wellness Exam Intera ction with Friends yes 10/02/2017 None Annual Medicare Wellness Exam Intere sts & Pleasure almost all of the time 10/02/2017 None Annual Medicare Wellness Exam Life S atisfaction satisfied 10/02/2017 Non e Annual Medicare Wellness Exam Motor Vehicle Safety rides with someone who has been drinking: n 10/02/2017 None Annual Medicare Wellness Exam Motor Vehicle Safety always fastens seat belt: y 10/03/19 18 None Annual Medicare Wellness Exam Motor Vehicle Safety drives after drinking: n 10/02/2017 None Annual Medicare Wellness Exam Smokin g and Tobacco Use non smoker 10/02/2017 No ne Annual Medicare Wellness Exam Social & Emotional Support always 10/02/2017 None Annual Medicare Wellness Exam Stress some of the time 10/02/2017 None Annual Medicare Wellness Exam Sun Exposure protects skin when outdoors: y 10/02/2017 None Annual Medicare Wellness Exam Aspirin Use no 10/02/2017 None Annual Medicare Wellness Exam Blood Glucose (self reported) don't know 10/02/2017 No ne Annual Medicare Wellness Exam Blood Pressure (self reported) low / normal (120/80) 10/02/2017 None Annual Medicare Wellness Exam Choles terol (self reported) borderline high (200-239) 10/02/2017 None Annual Medicare Wellness Exam Hemagl obin A-1C (self reported) don't know 10/02/2017 No ne Annual Medicare Wellness Exam Hours of Sleep 8-10 10/02/2017 None Annual Medicare Wellness Exam Nutrition servings of fried food / high fat foods per day: 0 10/02/2017 None Annual Medicare Wellness Exam Nutrition servings of high fiber / whole grain per day: 2-3 10/02/2017 None Annual Medicare Wellness Exam Nutrition servings of vegetables / fruit per day: 3-4 10/02/2017 None cough Location in the laila ng 06/03/2017 None cough Location in the th roat 06/03/2017 None cough Quality acute 06/03/2017 None cough Onset and Resolution sudden in onset 06/03/2017 None cough Onset of Symptom 3 days ago 06/03/2017 None cough Limitation on Activities does not limit activities 06/03/2017 None cough Pertinent Findings Denies chills 06/03/2017 None cough Pertinent Findings Denies chest discomfort 06/03/2017 None cough Pertinent Findings Denies dyspnea 06/03/2017 None cough Pertinent Findings Denies drooling 06/03/2017 None cough Pertinent Findings Denies fever 06/03/2017 None cough Location in the th roat 02/07/2017 None cough Quality dry 02/07/2017 None cough Limitation on Activities does not limit activities 02/07/2017 None cough Frequency of Episodes increasing 02/07/2017 None cough Significant Medications albuterol 02/07/2017 None cough Pertinent Findings chest discomfort 02/07/2017 None cough Pertinent Findings chills 02/07/2017 in the evening times cough Pertinent Findings Denies fever 02/07/2017 None cough Onset and Resolution sudden in onset 02/07/2017 None cough Location in the la rynx 02/07/2017 None cough Location in the laila ng 02/07/2017 None cough Onset of Symptom 4 days ago 02/07/2017 None cough Triggers change of seasons 02/07/2017 None cough Triggers no known associated factors 02/07/2017 None cough Alleviating Factors OTC medications 02/07/2017 None cough Alleviating Factors inhaled medications 02/07/2017 None cough Pertinent Findings dyspnea 02/07/2017 None cough Pertinent Findings hoarseness 02/07/2017 None cough Pertinent Findings Denies ill contacts 02/07/2017 None cough Pertinent Findings lethargy 02/07/2017 None cough Pertinent Findings muscle aches 02/07/2017 None cough Pertinent Findings nasal congestion 02/07/2017 None cough Pertinent Findings post nasal drip 02/07/2017 None cough Pertinent Findings Denies purulent sputum 02/07/2017 None cough Pertinent Findings Denies sputum production 02/07/2017 None cough Pertinent Findings weakness 02/07/2017 None Annual Medicare Wellness Exam Alcohol Use drinks 7 days per week 09/20/2016 None Annual Medicare Wellness Exam Aspirin Use no 09/20/2016 None Annual Medicare Wellness Exam Blood Glucose (self reported) don't know 09/20/2016 No ne Annual Medicare Wellness Exam Blood Pressure (self reported) borderline (120/80 - 139/89) 017 None Annual Medicare Wellness Exam Choles terol (self reported) desireable (below 200) 09/20/2016 None Annual Medicare Wellness Exam Depres [place] (last 6 months) almost never 09/20/2016 None Annual Medicare Wellness Exam [place] or Hopelessness almost never 09/20/2016 None Annual Medicare Wellness Exam Descri be Your Health very good 09/20/2016 Non e Annual Medicare Wellness Exam Exerci se Habits exercises 7 days per week 09/20/2016 None Annual Medicare Wellness Exam Handli ng Stress usually domi effectively 09/20/2016 None Annual Medicare Wellness Exam Hemagl obin A-1C (self reported) don't know 09/20/2016 No ne Annual Medicare Wellness Exam Hours of Sleep 9 09/20/2016 None Annual Medicare Wellness Exam Intera ction with Friends yes 09/20/2016 None Annual Medicare Wellness Exam Intere sts & Pleasure almost all of the time 09/20/2016 None Annual Medicare Wellness Exam Life S atisfaction very satisfied 09/20/2016 None Annual Medicare Wellness Exam Motor Vehicle Safety always fastens seat belt: y 09/21/19 17 None Annual Medicare Wellness Exam Nutrition servings of vegetables / fruit per day: 3-4 09/20/2016 None Annual Medicare Wellness Exam Smokin g and Tobacco Use non smoker 09/20/2016 No ne Annual Medicare Wellness Exam Social & Emotional Support usually 09/20/2016 None Annual Medicare Wellness Exam Stress some of the time 09/20/2016 None Annual Medicare Wellness Exam Sun Exposure protects skin when outdoors: n 09/20/2016 None rash Location-Head/Neck on the left side of the neck 09/11/2016 None rash Location-Trunk on t he right lower abdomen 09/11/2016 None rash Quality acute 09/11/2016 None rash Quality burning 09/11/2016 None rash Quality pruritic 09/11/2016 None rash Color erythematous 09/11/2016 None rash Onset and Resolution sudden in onset 09/11/2016 None rash Onset of Symptom 2 days ago 09/11/2016 None rash Triggers outside 09/11/2016 None rash Pertinent Findings Denies fever 09/11/2016 None rash Pertinent Findings Denies pain 09/11/2016 None rash Pertinent Findings Denies nausea 09/11/2016 None cough Location in the th roat 01/03/2016 None cough Quality dry 01/03/2016 None cough Onset and Resolution ongoing 01/03/2016 None cough Onset of Symptom 1 weeks ago 01/03/2016 None cough Pertinent Findings Denies chest discomfort 01/03/2016 None cough Pertinent Findings Denies fever 01/03/2016 None cough Pertinent Findings chills 01/03/2016 in the evening times cough Limitation on Activities does not limit activities 01/03/2016 None cough Frequency of Episodes increasing 01/03/2016 None cough Triggers no known associated factors 01/03/2016 None cough Significant Medications albuterol 01/03/2016 None arthropod bite Location on the right leg 11/01/2015 None arthropod bite Onset of Symptom 1 weeks ago 11/01/2015 None arthropod bite Triggers outdoor exposure 11/01/2015 None mole check Location-Head/Neck on the upper lip 11/01/2015 None mole check Color flesh-c olored 11/01/2015 None mole check Changing Moles changing 11/01/2015 None cough Location in the th roat 08/15/2015 None cough Quality dry 08/15/2015 None cough Quality intermitte nt 08/15/2015 None cough Onset and Resolution ongoing 08/15/2015 None cough Pertinent Findings Denies chest discomfort 08/15/2015 None cough Pertinent Findings Denies dyspnea 08/15/2015 None skin lesion Quality rais ed 08/15/2015 None skin lesion Location on the upper lip 08/15/2015 above the upper lip skin lesion Onset and Resolution ongoing 08/15/2015 None skin lesion Pertinent Findings Denies facial pain 08/15/2015 None cough Location in the th roat 08/01/2015 None cough Quality worsening 08/01/2015 None cough Onset and Resolution ongoing 08/01/2015 None cough Onset of Symptom 1 months ago 08/01/2015 She reports ongoing cough since Mar but did get better after Feb when hospitalized for pneumonia cough Frequency of Episodes hourly 08/01/2015 None cough Alleviating Factors inhaled medications 08/01/2015 she feels the best after TID nebulizers cough Pertinent Findings chest discomfort 08/01/2015 None cough Pertinent Findings dyspnea 08/01/2015 improved with albuteral cough Pertinent Findings Denies fever 08/01/2015 None cough Significant Medications albuterol 08/01/2015 None cough Triggers change of seasons 08/01/2015 None cough Onset and Resolution ongoing 06/14/2015 None cough Quality intermitte nt 06/14/2015 None cough Quality dry 06/14/2015 None cough Quality improving 06/14/2015 None cough Pertinent Findings Denies chills 06/14/2015 None cough Pertinent Findings Denies fever 06/14/2015 None cough Timing of Episodes in the morning 06/14/2015 None sores in the mouth Frequency of Episodes daily 06/02/2015 None sores in the mouth Onset and Resolution sudden in onset 06/02/2015 None sores in the mouth Quality constant 06/02/2015 None cough Onset and Resolution ongoing 06/02/2015 None sinus congestion Onset and Resolution ongoing 06/02/2015 None sore throat Onset and Resolution ongoing 06/02/2015 None sores in the mouth Frequency of Episodes daily 05/25/2015 None sores in the mouth Onset and Resolution sudden in onset 05/25/2015 None sores in the mouth Onset of Symptom 1 weeks ago 05/25/2015 None sores in the mouth Quality constant 05/25/2015 None cough Onset and Resolution ongoing 05/25/2015 None sinus congestion Onset and Resolution ongoing 05/25/2015 None sore throat Onset and Resolution ongoing 05/25/2015 None cough Location in the th roat 05/03/2015 None cough Quality dry 05/03/2015 None cough Onset and Resolution sudden in onset 05/03/2015 None cough Onset of Symptom 1 0 days ago 05/03/2015 None cough Frequency of Episodes daily 05/03/2015 None sinus congestion Onset and Resolution sudden in onset 05/03/2015 None sinus congestion Onset of Symptom 10 days ago 05/03/2015 None sinus congestion Pertinent Findings cough 05/03/2015 None cough Triggers no known associated factors 05/03/2015 None cerumen Location in the right ear 08/02/2014 None cerumen Onset and Resolution ongoing 08/02/2014 Denies pain cerumen Quality acute 08/02/2014 None cerumen Frequency of Episodes unchanged 08/02/2014 None cerumen Triggers no know n associated factors 08/02/2014 None cerumen Pertinent Findings Denies cough 08/02/2014 None arthritis Frequency of Episodes yearly 07/28/2014 has had arthritis for severino vergara, she is doing a lot of gardening lately which as made it worse arthritis Location on th e left 07/28/2014 None arthritis Location on th e right 07/28/2014 hands, feet, back, neck arthritis Quality dull p ain 07/28/2014 None arthritis Quality sharp pain 07/28/2014 None arthritis Quality interm ittent 07/28/2014 weather makes it worse arthritis Pertinent Findings swelling 07/28/2014 hands and feet in joints gastroesophageal reflux Quality improving 07/28/2014 better over last month- u se protonix daily cholesterol followup Alleviating Factors medication 07/28/2014 None cholesterol followup Frequency of Episodes unchanged 07/28/2014 None cholesterol followup Onset and Resolution ongoing 07/28/2014 None cholesterol followup Onset of Symptom during adulthood 07/28/2014 None cholesterol followup Quality chronic 07/28/2014 None cholesterol followup Triggers no known associated factors 07/28/2014 None Advance Directives No Advance Directive data Encounters Encounter Performer Loca tion Codes Date [id number] EST. PATIENT, LEVEL II Diagnosis: Dysuria[ICD10: R30.0] [facility] CPT-4: 93439 10/06/2018 [id number] EST. PATIENT, LEVEL III Diagnosis: Pneumonia due to other specified bacteria[ICD10: J15.8] Alexa Wade MD, [facility] CPT-4: 85887 03/10/2018 29345 EST. PATIENT, LEVEL III Diagnosis: Dysuria[ICD10: R30.0] Alexa Wade MD, [facility] CPT-4: 09584 01/17/2018 21855 EST. PATIENT, LEVEL IV Diagnosis: Other allergic rhinitis[ICD10: J30.89] Diagnosis: Cough[ICD10: R05] Alexa Wade MD, [facility] CPT-4: 49294 06/03/2017 ([id number]) 09033 EST. P ATIENT, LEVEL III Diagnosis: Cough[ICD10: R05] Diagnosis: Pneumonia due to Streptococcus pneumoniae[ICD10: J13] Anusha Wade MD, [facility] CPT-4: 39588 02/07/2017 69069 EST. PATIENT, LEVEL III Diagnosis: Rash and other nonspecific skin eruption[ICD10: R21] Diagnosis: Allergic contact dermatitis due to plants, except food[ICD10: L23.7] Alexa Wade MD, [facility] CPT-4: 86282 09/11/2016 ([id number]) 98036 EST. P ATIENT, LEVEL III Diagnosis: Allergic rhinitis due to pollen[ICD10: J30.1] Diagnosis: Cough[ICD10: R05] Diagnosis: Acute bronchitis, unspecified[ICD10: J20.9] Corrina Wade MD, [facility] CPT-4: 13776 01/03/2016 ([id number]) 95612 EST. P ATIENT, LEVEL II Diagnosis: Insect bite (nonvenomous), right thigh, initial encounter[ICD10: S70.361A] Diagnosis: Actinic keratosis[ICD10: L57.0] Corrina Wade MD, [facility] CPT- 4: 54883 11/01/2015 ([id number]) 09459 EST. P ATIENT, LEVEL III Diagnosis: Allergic rhinitis due to pollen[ICD10: J30.1] Corrina Wade MD, [facility] CPT-4: 84870 08/15/2015 ([id number]) 34218 EST. P ATIENT, LEVEL IV Diagnosis: Cough[ICD10: R05] Diagnosis: Allergic rhinitis due to pollen[ICD10: J30.1] Diagnosis: Gastro-esophageal reflux disease without esophagitis[ICD10: K21.9] Corrina Wade MD, [facility] CPT-4: 04292 08/01/2015 ([id number]) 16174 EST. P ATIENT, LEVEL III Diagnosis: Gastro-esophageal reflux disease without esophagitis[ICD10: K21.9] Anusha Wade MD, [facility] CPT-4: 64901 06/14/2015 ([id number]) Patient adm itted to the hospital from clinic (NO CHARGE) Diagnosis: Pneumonia, unspecified organism[ICD10: J18.9] Anusha Wade MD, C CPT-4: 85086Q 06/02/2015 80798 EST. PATIENT, LEVEL III Diagnosis: Pneumonia, unspecified organism[ICD10: J18.9] Anusha Wade MD, [facility] CPT-4: 79683 05/25/2015 ([id number]) 22033 EST. P ATIENT, LEVEL III Diagnosis: Cough[ICD10: R05] Diagnosis: Pneumonia, unspecified organism[ICD10: J18.9] Corrina Wade MD, [facility] CPT-4: 12316 05/03/2015 ([id number]) OFFICE VISI T, NEW - LEVEL 4 Diagnosis: HYPERLIPIDEMIA[ICD9: 272.4] Diagnosis: Osteoarthritis[ICD9: 715.90] Diagnosis: Hand pain[ICD9: 729.5] Diagnosis: Depression[ICD9: 311] Anusha Wade MD, [facility] CPT-4: 46408 07/28/2014 Plan of Care Planned Activity Notes C odes Status Date Visit Plan: Dysuria- UA negative -w ill culture due to history of UTI -rx for diflucan provided and instructed on use for treatment of yeast infection. Instructed patient to call if symptoms do not resolve or if any worse. 10/06/2018 Appointment: Corrina Ahn WPtel: [address] [place], [place] [id number] (15 min) Moderate 10/06/2018 Patient Education: Patient Medication Summary Completed 10/06/2018 Care Plan: Urine Culture Pending 10/06/2018 Visit Plan: Pneumonia - Pt has been diagnosed with pneumonia by physical exam. A chest xray has been ordered as have antibiotics. The pt is aware of the diagnosis and the need for acute treatment of this illness. 03/10/2018 Appointment: Alexa Aleman WPtel: [facility] (15 min) Moderate 03/10/2018 Patient Education: Patient Medication Summary Completed 03/10/2018 Visit Plan: UTI - pt with positive urinalysis - culture sent if appropriate. Antibiotic electronically prescribed to pt's pharmacy of choice. Pt to call if symptoms do not improve. 01/17/2018 Appointment: Alexa [facility]Ptel[phone] [facility] (15 min) Moderate 01/17/2018 Patient Education: Patient Medication Summary Completed 01/17/2018 Referral: Vicente Bennett Referral Completed 10/09/2017 Visit Plan: Medicare Exam - today w e discussed the patients past history, immunizations, preventative exams/evaluations - colonoscopy, fecal occult blood testing, routine labs for renal function, glucose, cholesterol, osteoporosis evaluations, cardiovascular testing and cancer screenings. We have also discussed mental health and the signs/symptoms of depression. The patient was advised of home safety evaluations and the need to make sure that as the aging process continues, we need to be aware of different ways to make the home a safer place to reside. The patient has also been counseled that exercise is necessary - and of utmost importance as we age to help decrease fall risk and to maintain independece in the home. Today we discussed the need for the patient to create paperwork for Advanced directives as well as for the patient to provide this office with a copy of her DOPA paperwork for health care surrogate. 10/02/2017 Patient Education: Patient Medication Summary Completed 10/02/2017 Care Plan: Referral Order SNOMED-CT : [id number] Pending 10/02/2017 Appointment: Alexa Aleman WPtel: [phone] [facility] [facility] - Annual Wellness Visit 09/27/2017 Visit Plan: Allergies - chronic - r ecommended pt to use allergy medication as prescribed. Pt has been counseled as to the appropriate use of the medication. Pt to call if allergy symptoms are not controlled with th e medication. If using nasal spray, instructions as follows: Nasal spray- use twice daily, one spray per nostril twice daily, after 30 minutes, rinse out nose with saline spray.. Use opposite hand per nostril to spray in the nasal steroid allergy spray. cough - no crackles noted - pt is to notify clinic with any worsening of symptoms, changes, questions, or concerns - Pt advised to increase fluids, vitamin C. Discussed natural and expected course of this diagnosis and need to alert me if symptoms do not follow expected course, or if any worse. RX sent to patient's pharmacy. 06/03/2017 Visit Plan: Allergies - chronic - r ecommended pt to use allergy medication as prescribed. Pt has been counseled as to the appropriate use of the medication. Pt to call if allergy symptoms are not controlled with th e medication. If using nasal spray, instructions as follows: Nasal spray- use twice daily, one spray per nostril twice daily, after 30 minutes, rinse out nose with saline spray.. Use opposite hand per nostril to spray in the nasal steroid allergy spray. cough - no crackles noted - pt is to notify clinic with any worsening of symptoms, changes, questions, or concerns - Pt advised to increase fluids, vitamin C. Discussed natural and expected course of this diagnosis and need to alert me if symptoms do not follow expected course, or if any worse. RX sent to patient's pharmacy. 06/03/2017 Appointment: Alexa Aleman WPtel: [phone] [facility] (15 min) Moderate 06/03/2017 Patient Education: Patient Medication Summary Completed 06/03/2017 Appointment: Lab Draw 04/01/2017 Patient Education: Patient Medication Summary Completed 04/01/2017 Visit Plan: Pneumonia - Pt has been diagnosed with pneumonia by physical exam. Antibiotics have been ordered. The pt is aware of the diagnosis and the need for acute treatment of this illness. 02/07/2017 Appointment: Anusha Wade [facility]Ptel[phone] [facility] (15 min) Moderate 02/07/2017 Patient Education: Patient Medication Summary Completed 02/07/2017 Appointment: Injection 01/16/2017 Patient Education: Patient Medication Summary Completed 01/16/2017 Visit Plan: Medicare Exam - today w e discussed the patients past history, immunizations, preventative exams/evaluations - colonoscopy, fecal occult blood testing, routine labs for renal function, glucose, cholesterol, osteoporosis evaluations, cardiovascular testing and cancer screenings. We have also discussed mental health and the signs/symptoms of depression. The patient was advised of home safety evaluations and the need to make sure that as the aging process continues, we need to be aware of different ways to make the home a safer place to reside. The patient has also been counseled that exercise is necessary - and of utmost importance as we age to help decrease fall risk and to maintain independence in the home. Today we discussed the need for the patient to create paperwork for Advanced directives as well as for the patient to provide this office with a copy of her DOPA paperwork for health care surrogate. 09/20/2016 Patient Education: Patient Medication Summary Completed 09/20/2016 Visit Plan: Allergic Reaction/Hives /rash - discussed diagnosis with patient, need to avoid allergen, and when/if the patient should go to the emergency room. The patient is to call for any change in symptoms, in crease in size of the lesion, increase in pain, worsening redness, warmth, discharge. 09/11/2016 Appointment: Alexa Alemantejing: [address] [place], [place] [id number] (30 min) [facility] 09/11/2016 Patient Education: Patient Medication Summary Completed 09/11/2016 Visit Plan: Allergies - chronic - r ecommended pt to use allergy medication as prescribed. Pt has been counseled as to the appropriate use of the medication. Pt to call if allergy symptoms are not controlled with th e medication. If using nasal spray, instructions as follows: Nasal spray- use twice daily, one spray per nostril twice daily, after 30 minutes, rinse out nose with saline spray.. Use opposite hand per nostril to spray in the nasal steroid allergy spray. Bronchitis - acute case of bronchitis identified. Pt has been given antibiotics, breathing treatments as appropriate, and pt has been instructed to call if symptoms are not improved, or if symptoms acutely worsen. 01/03/2016 Appointment: Corrina Ahn: [facility] [place] [address] (30 min) Complex 01/03/2016 Patient Education: Patient Medication Summary Completed 01/03/2016 Appointment: Jimy Corrina WPtel: [phone] [facility] [place] [address] (30 min) Complex 11/15/2015 Visit Plan: Bite-right thigh-rx for bactroban ointment until healed-call for any worsening or unresolved symptoms AK-right upper lip- cryotherapy today in the office- Pt was instructed to keep the wound clean, wash with antibacterial soap, use triple antibiotic ointment, call if redness, pustular drainage, or any other acute concerns. 11/01/2015 Visit Plan: Bite-right thigh-rx for bactroban ointment until healed-call for any worsening or unresolved symptoms AK-right upper lip- cryotherapy today in the office- Pt was instructed to keep the wound clean, wash with antibacterial soap, use triple antibiotic ointment, call if redness, pustular drainage, or any other acute concerns. 11/01/2015 Appointment: Corrina Ahn WPtel: [address] [place] [address] (30 min) Complex 11/01/2015 Patient Education: Patient Medication Summary Completed 11/01/2015 Visit Plan: Allergies-cough - chron ic but improved on tonya-PFT normal - recommended pt to use allergy medication as prescribed. Pt has been counseled as to the appropriate use of the medication. Pt to call if al lergy symptoms are not controlled with the medication. If using nasal spray, instructions as follows: Nasal spray- use twice daily, one spray per nostril twice daily, after 30 minutes, rinse out nose with saline spray.. Use opposite hand per nostril to spray in the nasal steroid allergy spray. Skin lesion-right upper lip-recommend removal-patient to monitor and return for cryotherapy when able 08/15/2015 Patient Education: Patient Medication Summary Completed 08/15/2015 Visit Plan: Allergies - chronic - r ecommended pt to use allergy medication as prescribed. Pt has been counseled as to the appropriate use of the medication. Pt to call if allergy symptoms are not controlled with th e medication. If using nasal spray, instructions as follows: Nasal spray- use twice daily, one spray per nostril twice daily, after 30 minutes, rinse out nose with saline spray.. Use opposite hand per nostril to spray in the nasal steroid allergy spray. Persistent cough-shortness of breath-schedule PFT-use albuterol nebulizer prn GERD-symptoms improved-continue protonix, low spice diet 08/01/2015 Appointment: Corrina Ahn WPtel: [phone] [phone] (10 min) Simple 08/01/2015 Patient Education: Patient Medication Summary Completed 08/01/2015 Visit Plan: Esophageal Reflux - the patient has been counseled against excessive intake of caffeine, spicy foods, peppermint, and cinnamon - all of which can exacerbate esophageal reflux. The patient is to take medications as prescribed and call the office if the symptoms are not improving. 06/14/2015 Appointment: Anusha Wade WPtel: [phone] [facility] (30 min) Complex 06/14/2015 Patient Education: Patient Medication Summary Completed 06/14/2015 Visit Plan: PNEUMONIA - PT IS CLINI JELLY SYMPTOMATIC FOR PNEUMONIA - A CHEST XRAY, SPUTUM C AND S, BLOOD CULTURES, AND LABS HAVE BEEN ORDERED IN ORDER TO FURTHER WORK-UP THE ACUTE ILLNESS. DR. WADE IN TO EVALUA TE THE PT. ADDENDUM: Doctor's eval of the patient - I, Dr. Wade, personally evaluated the patient with the nurse practitioner. I have reviewed the patient's chart, I have reviewed the patient's past medical history, problem list, medication list, and personal history. I agree with the documentation by the nurse practitioner in the HPI, physical exam, and the assessment and plan. 06/02/2015 Visit Plan: PNEUMONIA - PT IS CLINI JELLY SYMPTOMATIC FOR PNEUMONIA - A CHEST XRAY, SPUTUM C AND S, BLOOD CULTURES, AND LABS HAVE BEEN ORDERED IN ORDER TO FURTHER WORK-UP THE ACUTE ILLNESS. DR. WADE IN TO BROOKDelroy RUSSELLATE THE PT. 06/02/2015 Patient Education: Patient Medication Summary Completed 06/02/2015 Visit Plan: Pneumonia - Pt has been diagnosed with pneumonia by physical exam. Will send RX. The pt is aware of the diagnosis and the need for acute treatment of this illness. Call if symptoms do not resolve or if any worse. ADDENDUM: Doctor's eval of the patient - I, Dr. Wade, personally evaluated the patient with the nurse practitioner. I have reviewed the patient's chart, I have reviewed the patient's past medical history, problem list, medication list, and personal history. I agree with the documentation by the nurse practitioner in the HPI, physical exam, and the assessment and plan. 05/25/2015 Visit Plan: Pneumonia - Pt has been diagnosed with pneumonia by physical exam. Will send RX. The pt is aware of the diagnosis and the need for acute treatment of this illness. Call if symptoms do not resolve or if any worse. 05/25/2015 Appointment: (15 min) Moderate 05/25/2015 Patient Education: Patient Medication Summary Completed 05/25/2015 Visit Plan: Pneumonia - Pt has been diagnosed with pneumonia by physical exam. A chest xray has been ordered as have antibiotics. The pt is aware of the diagnosis and the need for acute treatment of this illness. Call if symptoms do not resolve or if any worse. 05/03/2015 Patient Education: Patient Medication Summary Completed 05/03/2015 Visit Plan: Cerumen Impaction - The impacted cerumen was removed with the use of the ear currette and water pic. The patient tolerated the procedure without incident and had improvement in hearing. The wax was dylan staci by the practitioner due to the wax being more complicated to remove, and staff was needed to assist the removal of the wax by holding the ear, and keeping patient stabilized during the removal process. 08/02/2014 Patient Education: Patient Medication Summary Completed 08/02/2014 Visit Plan: Hyperlipidemia - pt has been counseled about appropriate diet, exercise, and need for low fat food choices. I have discussed the need for the patient to take medications as prescribed. If the patient has negative side effects from the medication, they are to CALL the office and not abruptly discontinue the medication without discussion with a practitioner in the office. We will check labs in 3-6 months for follow up on the patient's chronic medical problem and to assure normal liver response to medications. Arthritis- occasionally uncontrolled symptoms- recommend pt to take antiinflammatory as directed for pain control. Use Tylenol for break through pain symptoms. Pt reports that the Arthrotec was expensive, and she is wondering about a lower cost alternative - pt to start on Mobic, will monitor her symptoms on this medication - she is to start at 7.5mg daily and up the dose to either 7.5mg bid or 15mg daily depending on her symptoms. Depression - symptoms stable on paxil 07/28/2014 Appointment: Anusha Wade WPtel: [facility] [place] ([place] New Patient 07/28/2014 Patient Education: Patient Medication Summary Completed 07/28/2014 Patient Education: Hypertension Completed 07/28/2014 Referral: Vicente Bennett Referral Initiated Instructions Comment . Allergies - chroni c - recommended pt to use allergy medication as prescribed. Pt has been counseled as to the appropriate use of the medication. Pt to call if allergy symptoms are not controlled with the medication. If using nasal spray, instructions as follows: Nasal spray- use twice daily, one spray per nostril twice daily, after 30 minutes, rinse out nose with saline spray.. Use opposite hand per nostril to spray in the nasal steroid allergy spray. cough - no crackles noted - pt is to notify clinic with any worsening of symptoms, changes, questions, or concerns - Pt advised to increase fluids, vitamin C. Discussed natural and expected course of this diagnosis and need to alert me if symptoms do not follow expected course, or if any worse. RX sent to patient's pharmacy. . Allergies - chroni c - recommended pt to use allergy medication as prescribed. Pt has been counseled as to the appropriate use of the medication. Pt to call if allergy symptoms are not controlled with the medication. If using nasal spray, instructions as follows: Nasal spray- use twice daily, one spray per nostril twice daily, after 30 minutes, rinse out nose with saline spray.. Use opposite hand per nostril to spray in the nasal steroid allergy spray. cough - no crackles noted - pt is to notify clinic with any worsening of symptoms, changes, questions, or concerns - Pt advised to increase fluids, vitamin C. Discussed natural and expected course of this diagnosis and need to alert me if symptoms do not follow expected course, or if any worse. RX sent to patient's pharmacy. . Medicare Exam - to day we discussed the patients past history, immunizations, preventative exams/evaluations - colonoscopy, fecal occult blood testing, routine labs for renal function, glucose, cholesterol, osteoporosis evaluations, cardiovascular testing and cancer screenings. We have also discussed mental health and the signs/symptoms of depression. The patient was advised of home safety evaluations and the need to make sure that as the aging process continues, we need to be aware of different ways to make the home a safer place to reside. The patient has also been counseled that exercise is necessary - and of utmost importance as we age to help decrease fall risk and to maintain independece in the home. Today we discussed the need for the patient to create paperwork for Advanced directives as well as for the patient to provide this office with a copy of her DOPA paperwork for health care surrogate. . Pneumonia - Pt has been diagnosed with pneumonia by physical exam. Will send RX. The pt is aware of the diagnosis and the need for acute treatment of this illness. Call if symptoms do not resolve or if any worse. ADDENDUM: Doctor's eval of the patient - I, Dr. Wade, personally evaluated the patient with the nurse practitioner. I have reviewed the patient's chart, I have reviewed the patient's past medical history, problem list, medication list, and personal history. I agree with the documentation by the nurse practitioner in the HPI, physical exam, and the assessment and plan. . Pneumonia - Pt has been diagnosed with pneumonia by physical exam. Will send RX. The pt is aware of the diagnosis and the need for acute treatment of this illness. Call if symptoms do not resolve or if any worse. . Esophageal Reflux - the patient has been counseled against excessive intake of caffeine, spicy foods, peppermint, and cinnamon - all of which can exacerbate esophageal reflux. The patient is to take medications as prescribed and call the office if the symptoms are not improving. KENALOG INJECTION ZPACK INCREASE ALBUTEROL TREATMENTS TO THREE TIMES DAILY . Allergies - chronic - recommended pt t o use allergy medication as prescribed. Pt has been counseled as to the appropriate use of the medication. Pt to call if allergy symptoms are not controlled with the medication. If using nasal spray, instructions as follows: Nasal spray- use twice daily, one spray per nostril twice daily, after 30 minutes, rinse out nose with saline spray.. Use opposite hand per nostril to spray in the nasal steroid allergy spray. Bronchitis - acute case of bronchitis identified. Pt has been given antibiotics, breathing treatments as appropriate, and pt has been instructed to call if symptoms are not improved, or if symptoms acutely worsen. . PNEUMONIA - PT IS CLINICALLY SYMPTOMATIC FOR PNEUMONIA - A CHEST XRAY, SPUTUM C AND S, BLOOD CULTURES, AND LABS HAVE BEEN ORDERED IN ORDER TO FURTHER WORK-UP THE ACUTE ILLNESS. DR. WADE IN TO EVALUATE THE PT. ADDENDUM: Doctor's eval of the patient - I, Dr. Wade, personally evaluated the patient with the nurse practitioner. I have reviewed the patient's chart, I have reviewed the patient's past medical history, problem list, medication list, and personal history. I agree with the documentation by the nurse practitioner in the HPI, physical exam, and the assessment and plan. . PNEUMONIA - PT IS CLINICALLY SYMPTOMATIC FOR PNEUMONIA - A CHEST XRAY, SPUTUM C AND S, BLOOD CULTURES, AND LABS HAVE BEEN ORDERED IN ORDER TO FURTHER WORK-UP THE ACUTE ILLNESS. DR. WADE IN TO EVALUATE THE PT. . Pneumonia - Pt has been diagnosed with pneumonia by physical exam. A chest xray has been ordered as have antibiotics. The pt is aware of the diagnosis and the need for acute treatment of this illness. Call if symptoms do not resolve or if any worse. . Hyperlipidemia - pt has been counseled about appropriate diet, exercise, and need for low fat food choices. I have discussed the need for the patient to take medications as prescribed. If the patient has negative side effects from the medication, they are to CALL the office and not abruptly discontinue the medication without discussion with a practitioner in the office. We will check labs in 3-6 months for follow up on the patient's chronic medical problem and to assure normal liver response to medications. Arthritis- occasionally uncontrolled symptoms- recommend pt to take antiinflammatory as directed for pain control. Use Tylenol for break through pain symptoms. Pt reports that the Arthrotec was expensive, and she is wondering about a lower cost alternative - pt to start on Mobic, will monitor her symptoms on this medication - she is to start at 7.5mg daily and up the dose to either 7.5mg bid or 15mg daily depending on her symptoms. Depression - symptoms stable on paxil RECOMMEND TONYA KENALOG INJECTION TODAY IN THE OFFICE SCHEDULE PULMONARY FUNCTION STUDIES . Allergies - chronic - recommended pt t o use allergy medication as prescribed. Pt has been counseled as to the appropriate use of the medication. Pt to call if allergy symptoms are not controlled with the medication. If using nasal spray, instructions as follows: Nasal spray- use twice daily, one spray per nostril twice daily, after 30 minutes, rinse out nose with saline spray.. Use opposite hand per nostril to spray in the nasal steroid allergy spray. Persistent cough-shortness of breath-schedule PFT-use albuterol nebulizer prn GERD-symptoms improved-continue protonix, low spice diet . Dysuria- UA negati ve -will culture due to history of UTI - rx for diflucan provided and instructed on use for treatment of yeast infection. Instructed patient to call if symptoms do not resolve or if any worse. . Medicare Exam - to day we discussed the patients past history, immunizations, preventative exams/evaluations - colonoscopy, fecal occult blood testing, routine labs for renal function, glucose, cholesterol, osteoporosis evaluations, cardiovascular testing and cancer screenings. We have also discussed mental health and the signs/symptoms of depression. The patient was advised of home safety evaluations and the need to make sure that as the aging process continues, we need to be aware of different ways to make the home a safer place to reside. The patient has also been counseled that exercise is necessary - and of utmost importance as we age to help decrease fall risk and to maintain independence in the home. Today we discussed the need for the patient to create paperwork for Advanced directives as well as for the patient to provide this office with a copy of her [employer] paperwork for health care surrogate. . Bite-right thigh-r x for bactroban ointment until healed- call for any worsening or unresolved symptoms AK-right upper lip-cryotherapy today in the office- Pt was instructed to keep the wound clean, wash with antibacterial soap, use triple antibiotic ointment, call if redness, pustular drainage, or any other acute concerns. . Bite-right thigh-r x for bactroban ointment until healed- call for any worsening or unresolved symptoms AK-right upper lip-cryotherapy today in the office- Pt was instructed to keep the wound clean, wash with antibacterial soap, use triple antibiotic ointment, call if redness, pustular drainage, or any other acute concerns. . Cerumen Impaction - The impacted cerumen was removed with the use of the ear currette and water pic. The patient tolerated the procedure without incident and had improvement in hearing. The wax was removed by the practitioner due to the wax being more complicated to remove, and staff was needed to assist the removal of the wax by holding the ear, and keeping patient stabilized during the removal process. . Allergies-cough - chronic but improved on tonya-PFT normal - recommended pt to use allergy medication as prescribed. Pt has been counseled as to the appropriate use of the medication. Pt to call if allergy symptoms are not controlled with the medication. If using nasal spray, instructions as follows: Nasal spray- use twice daily, one spray per nostril twice daily, after 30 minutes, rinse out nose with saline spray.. Use opposite hand per nostril to spray in the nasal steroid allergy spray. Skin lesion-right upper lip-recommend removal-patient to monitor and return for cryotherapy when able Benadryl at night as needed , tonya during the day as needed, pepcid 20mg twice a day as needed if symptoms are not controlled. prednisone taper to start on 09/12 steroid shot today let me know if it changes or does not get better. Allergic Reaction/Hives/rash - discussed diagnosis with patient, need to avoid allergen, and when/if the patient should go to the emergency room. The patient is to call for any change in symptoms, increase in size of the lesion, increase in pain, worsening redness, warmth, discharge. . Pneumonia - Pt has been diagnosed with pneumonia by physical exam. Antibiotics have been ordered. The pt is aware of the diagnosis and the need for acute treatment of this illness. . Pneumonia - Pt has been diagnosed with pneumonia by physical exam. A chest xray has been ordered as have antibiotics. The pt is aware of the diagnosis and the need for acute treatment of this illness. . UTI - pt with posi tive urinalysis - culture sent if appropriate. Antibiotic electronically prescribed to pt's pharmacy of choice. Pt to call if symptoms do not improve.
--- OUTSIDE RECORDS SUMMARY | 2019-08-16 07:38 | XMS REPORT | CCD ---
Author Author Angi Wade Organization Anusha Wade MD, [facility] Address [address] [place] [address] Phone Care Team Providers Care Pumper Head Name Role Phone PP Unavailable CCM Unavailable Summary Purpose Interface Exchange Insurance Providers Payer name Policy type / Coverage type Covered democrat ID Effective Begin Date Effective End Date WPS Medicare Part B Medicare Part B [id number] Unknown [employer] Medicare Part B [id number] Unkn own Family history Mother Diagnosis Age At Onset Heart Attack Unknown Hypertension Unknown Dementia Unknown Heart disease Unknown Thyroid Unknown Brother Diagnosis Age At Onset bleeding problem Unknown Father Diagnosis Age At Onset Myocardial infarction Unknown Hypertension Unknown Social History Social History Element Codes Description Effective Dates Marital status Unknown M arried 07/28/2014 Number of children Unknown 2 07/28/2014 Employment Unknown [employer] 07/28/[address]: 446504003 Has never smoked or chewed tobacco 07/28/2014 [...] Date Stop Date Sta tus Fill Instructions Diflucan 150 mg tablet RxNorm: 187116 1 Tablet(s) PO daily 10/06/2018 10/10/2018 Active Protonix 40 mg table t,delayed release RxNorm: 993009 TAKE ONE TABLET BY [facility] DAILY 08/29/2018 05/25/2019 Ac tive meloxicam 15 mg tablet RxNorm: 285348 TAKE ONE TABLET BY MOUTH DAILY 07/07/2018 04/02/2019 Ac tive ceftriaxone 500 mg s olution for injection RxNorm: 0982622 1 Inj 03/10/2018 03/10/2018 Inactive prednisone 20 mg tablet RxNorm: 940141 2 Tablet(s) PO daily 03/10/2018 03/14/2018 Inactive Zithromax Z-Rohit 250 mg tablet RxNorm: 748768 1 Tablet(s) PO UD 03/10/2018 07/06/2018 Inactive z pack as directed Kenalog 40 mg/mL rajeev pension for injection RxNorm: 4274765 1 Milliliter(s) Inj 03/10/2018 03/10/2018 In active cefdinir 300 mg capsule RxNorm: 817908 1 Capsule(s) PO BID 03/10/2018 03/19/2018 Inactive Bactrim DS 800 mg-16 0 mg tablet RxNorm: 727187 1 Tablet(s) PO BID 01/17/2018 01/23/2018 Inactive fluoxetine 20 mg cap sushil RxNorm: 527878 TAKE ONE CAPSULE BY [facility] DAILY 06/17/2017 10/14/2017 In active Request already responded to by other me ans (e.g. phone or fax) fluoxetine 20 mg cap sushil RxNorm: 427079 1 Capsule(s) PO daily 06/12/2017 06/11/2017 Inactive fluoxetine 20 mg cap sushil RxNorm: 791254 1 Capsule(s) PO daily 06/12/2017 06/16/2017 Inactive Levaquin 500 mg tablet RxNorm: 159824 1 Tablet(s) PO daily 06/03/2017 06/09/2017 Inactive Kenalog 40 mg/mL rajeev pension for injection RxNorm: 5758245 1 Milliliter(s) Inj 06/03/2017 06/03/2017 In active prednisone 20 mg tablet RxNorm: 781587 2 Tablet(s) PO daily 06/03/2017 06/07/2017 Inactive Protonix 40 mg table t,delayed release RxNorm: 132462 TAKE ONE TABLET BY [facility] DAILY 05/07/2017 01/31/2018 In active meloxicam 15 mg tablet RxNorm: 076980 TAKE ONE TABLET BY MOUTH DAILY 04/01/2017 06/24/2018 In active albuterol sulfate 2. 5 mg/3 mL (0.083 %) solution for nebulization RxNorm: 690856 3 Milliliter(s) INH Q6 PRN 02/07/2017 06/06/2017 Inactive Kenalog 40 mg/mL rajeev pension for injection RxNorm: 6732581 1 Milliliter(s) Inj 02/07/2017 02/07/2017 In active ceftriaxone 500 mg s olution for injection RxNorm: 9464779 1 Milliliter(s) Inj 02/07/2017 02/07/2017 In active cefdinir 300 mg capsule RxNorm: 179786 1 Capsule(s) PO BID 02/07/2017 02/16/2017 Inactive Protonix 40 mg table t,delayed release RxNorm: 830091 TAKE ONE TABLET BY [facility] DAILY 11/08/2016 05/06/2017 In active Kenalog 40 mg/mL rajeev pension for injection RxNorm: 5516336 1.5 Milliliter(s) In j 09/11/2016 09/11/2016 In active prednisone 10 mg tablet RxNorm: 223067 Tablet(s) PO UD 09/11/2016 09/11/2016 Inactive 60,50,40,30,20,10 fluoxetine 20 mg tablet RxNorm: 905038 TAKE ONE TABLET BY MOUTH DAILY 08/21/2016 06/11/2017 In active meloxicam 15 mg tablet RxNorm: 402514 TAKE ONE TABLET BY MOUTH DAILY 05/28/2016 11/23/2016 In active Zithromax Z-Rohit 250 mg tablet RxNorm: 130520 1 Tablet(s) PO UD 03/22/2016 09/04/2016 Inactive z pack as directed Kenalog 40 mg/mL rajeev pension for injection RxNorm: 2313195 Milliliter(s) Inj 01/03/2016 01/03/2016 In active Zithromax Z-Rohit 250 mg tablet RxNorm: 373340 1 Tablet(s) PO UD 01/03/2016 01/07/2016 Inactive ZPACK Protonix 40 mg table t,delayed release RxNorm: 848292 TAKE ONE TABLET BY [facility] DAILY 11/29/2015 08/24/2016 In active mupirocin 2 % topica l ointment RxNorm: 208063 1 Application TOP BID 11/01/2015 11/07/2015 Inactive Tonya Allergy 180 mg tablet RxNorm: 799911 1 Tablet(s) PO daily 08/01/2015 08/30/2015 Inactive Kenalog 40 mg/mL rajeev pension for injection RxNorm: 6653154 Milliliter(s) Inj 08/01/2015 08/01/2015 In active albuterol sulfate 2. 5 mg/3 mL (0.083 %) solution for nebulization RxNorm: 087724 3 Milliliter(s) INH Q6 PRN 07/29/2015 07/28/2015 Inactive albuterol sulfate 2. 5 mg/3 mL (0.083 %) solution for nebulization RxNorm: 915006 3 Milliliter(s) INH Q6 PRN 07/29/2015 08/27/2015 Inactive fluoxetine 20 mg tablet RxNorm: 311666 1 Tablet(s) PO daily 07/28/2015 02/22/2016 Inactive meloxicam 15 mg tablet RxNorm: 831785 1 Tablet(s) PO daily 06/22/2015 12/18/2015 Inactive nystatin 100,000 uni t/mL oral suspension RxNorm: 224906 4 Milliliter(s) PO QI D 06/01/2015 05/31/2015 In active nystatin 100,000 uni t/mL oral suspension RxNorm: 988928 4 Milliliter(s) PO QI D 06/01/2015 06/07/2015 In active Kenalog 40 mg/mL rajeev pension for injection RxNorm: 8119357 Milliliter(s) Inj 05/25/2015 05/25/2015 In active Zithromax Z-Rohit 250 mg tablet RxNorm: 343545 Tablet(s) PO 05/25/2015 06/13/2015 Inactive ceftriaxone 500 mg s olution for injection RxNorm: 0512033 Inj 05/25/2015 05/25/2015 Inactive Zithromax Z-Rohit 250 mg tablet RxNorm: 503108 Tablet(s) PO UD 05/25/2015 03/21/2016 Inactive prednisone 20 mg tablet RxNorm: 169556 2 Tablet(s) PO daily 05/25/2015 05/29/2015 Inactive cefdinir 300 mg capsule RxNorm: 045965 1 Capsule(s) PO BID 05/25/2015 06/03/2015 Inactive cefdinir 300 mg capsule RxNorm: 971860 1 Capsule(s) PO BID 05/25/2015 06/03/2015 Inactive prednisone 20 mg tablet RxNorm: 285948 2 Tablet(s) PO daily 05/25/2015 05/29/2015 Inactive ceftriaxone 500 mg s olution for injection RxNorm: 5605087 Inj 05/25/2015 05/25/2015 Inactive Kenalog 40 mg/mL rajeev pension for injection RxNorm: 3346816 Milliliter(s) Inj 05/03/2015 05/03/2015 In active Levaquin 500 mg tablet RxNorm: 129057 1 Tablet(s) PO daily 05/03/2015 05/09/2015 Inactive Protonix 40 mg table t,delayed release RxNorm: 293176 1 Tablet(s) PO daily 09/16/2014 09/10/2015 In active fluoxetine 20 mg tablet RxNorm: 980984 1 Tablet(s) PO daily 08/26/2014 08/25/2014 Inactive fluoxetine 20 mg tablet RxNorm: 088864 1 Tablet(s) PO daily 08/26/2014 03/23/2015 Inactive meloxicam 15 mg tablet RxNorm: 924603 1 Tablet(s) PO daily 07/28/2014 01/23/2015 Inactive clopidogrel 75 mg ta blet RxNorm: 322457 1 Tablet(s) PO daily No Start Date Active Lipitor 40 mg tablet RxNorm: 551027 1 Tablet(s) PO daily No Start Date Active fluoxetine 20 mg tablet RxNorm: 177390 1 Tablet(s) PO daily No Start Date 08/25/2014 Inactive Protonix 40 mg table t,delayed release RxNorm: 768050 1 Tablet(s) PO daily No Start Date 09/15/2014 Inactive Medication Administered Medication Codes Instruc tions Start Date Status Kenalog 40 mg/mL suspension for injection RxNorm: 1669997 1Milliliter 03/10/2018 N o longer Active ceftriaxone 500 mg solution for injection RxNorm: 8272921 1 03/10/2018 No longer A ctive Kenalog 40 mg/mL suspension for injection RxNorm: 2767708 1Milliliter 06/03/2017 N o longer Active Kenalog 40 mg/mL suspension for injection RxNorm: 4570766 1Milliliter 02/07/2017 N o longer Active ceftriaxone 500 mg solution for injection RxNorm: 2146521 1Milliliter 02/07/2017 N o longer Active Kenalog 40 mg/mL suspension for injection RxNorm: 2432530 1.5Milliliter 09/11/2016 No longer Active Kenalog 40 mg/mL suspension for injection RxNorm: 0626442 Milliliter 01/03/2016 No longer Active Kenalog 40 mg/mL suspension for injection RxNorm: 8552718 Milliliter 08/01/2015 No longer Active ceftriaxone 500 mg solution for injection RxNorm: 5616688 05/25/2015 No longer A ctive Kenalog 40 mg/mL suspension for injection RxNorm: 8707485 Milliliter 05/25/2015 No longer Active ceftriaxone 500 mg solution for injection RxNorm: 7231512 05/25/2015 No longer A ctive Kenalog 40 mg/mL suspension for injection RxNorm: 6095304 Milliliter 05/03/2015 No longer Active Immunizations Vaccine [...] Observation Code Item Item Code Result Date Culture Urine [id number] URI NE CULTURE SEE NOTES 01/20/2018 Culture Urine [id number] Con tinued Results 01/20/2018 Urine Culture Ucult Comp lete >100,000 col/ml aerobic grow th sent to ref lab 01/18/2018 Lipid Ord30 CHOL 180 mg/dL 11/26/2017 Lipid Ord30 HDL 65.0 mg/dl 11/26/2017 Lipid Ord30 TRIG 68 mg/dL 11/26/2017 Lipid Ord30 LDL 101 mg/dL 11/26/2017 Lipid Ord30 C/HDL 2.8 Ratio 11/26/2017 Comp Metabolic Upf693 NA 143 mEq/L 11/26/2017 Comp Metabolic Hpo565 K 4.4 mEq/L 11/26/2017 Comp Metabolic Lre392 CL 106 mEq/L 11/26/2017 Comp Metabolic Qcc917 CO2 29.0 mEq/L 11/26/2017 Comp Metabolic Bef745 AN ION GAP 12 11/26/2017 Comp Metabolic Owg664 GL UCOSE 106 mg/dL 11/26/2017 Comp Metabolic Dwl351 Cr eat 0.7 mg/dL 11/26/2017 Comp Metabolic Dyo473 eG FR 87 ml/min/1.73m2 11/26 Comp Metabolic Exq955 BUN 20 mg/dL 11/26/2017 Comp Metabolic Hhb034 B/ C Ratio 28.2 Ratio 11/26/2017 Comp Metabolic Mnt282 CA LCIUM 9.1 mg/dL 11/26/2017 Comp Metabolic Xan378 AL K PHOS 48 U/L 11/26/2017 Comp Metabolic Vie864 T(SGOT) 19 U/L 11/26/2017 Comp Metabolic Pzc648 AL T(SGPT) 15 U/L 11/26/2017 Comp Metabolic Ovo304 BI LI T 0.5 mg/dL 11/26/2017 Comp Metabolic Nto176 AL BUMIN 4.1 g/dL 11/26/2017 Comp Metabolic Nch914 TP RO 6.1 g/dL 11/26/2017 Comp Metabolic Lqs239 GL OB 2.0 g/dL 11/26/2017 Comp Metabolic Ira790 A/ G Ratio 2.1 Ratio 11/26/2017 Comp Metabolic Sii600 Os mo 288 mOsmo 11/26/2017 Lipid Ord30 CHOL 175 mg/dL 01/04/2016 Lipid Ord30 HDL 45.0 mg/dl 01/04/2016 Lipid Ord30 TRIG 69 mg/dL 01/04/2016 Lipid Ord30 LDL 116 mg/dL 01/04/2016 Lipid Ord30 C/HDL 3.9 Ratio 01/04/2016 Comp Metabolic Wat523 NA 139 mEq/L 01/04/2016 Comp Metabolic Rbh272 K 4.3 mEq/L 01/04/2016 Comp Metabolic Twt088 CL 101 mEq/L 01/04/2016 Comp Metabolic Wks962 CO2 30.0 mEq/L 01/04/2016 Comp Metabolic Ssf203 AN ION GAP 12 01/04/2016 Comp Metabolic Blm982 GL UCOSE 94 mg/dL 01/04/2016 Comp Metabolic Ebv258 Cr eat 0.7 mg/dL 01/04/2016 Comp Metabolic Fzl901 eG FR 83 ml/min/1.73m2 01/03 Comp Metabolic Gle780 BUN 14 mg/dL 01/04/2016 Comp Metabolic Hkc212 B/ C Ratio 18.9 Ratio 01/04/2016 Comp Metabolic Ksn956 CA LCIUM 9.3 mg/dL 01/04/2016 Comp Metabolic Kgq158 AL K PHOS 70 U/L 01/04/2016 Comp Metabolic Dce245 T(SGOT) 14 U/L 01/04/2016 Comp Metabolic Aof386 AL T(SGPT) 12 U/L 01/04/2016 Comp Metabolic Qna841 BI LI T 0.4 mg/dL 01/04/2016 Comp Metabolic Vyu360 AL BUMIN 4.1 g/dL 01/04/2016 Comp Metabolic Yav876 TP RO 6.6 g/dL 01/04/2016 Comp Metabolic Qbf271 GL OB 2.6 g/dL 01/04/2016 Comp Metabolic Qhu830 A/ G Ratio 1.6 Ratio 01/04/2016 Comp Metabolic Ihh783 Os mo 278 mOsmo 01/04/2016 Tsh Ord6 [...] 31.4 pg 01/04/2016 Cbc With Differential Ord2 Weld% 8.6 % 01/04/2016 Cbc With Differential Ord2 [...] 1.42 K/ul 01/04/2016 Cbc With Differential Ord2 Weld ABS# 0.6 K/ul 01/04/2016 Cbc With Differential Ord2 Eos ABS# 0.1 K/ul 01/04/2016 Cbc With Differential Ord2 Baso ABS# 0.0 K/ul 01/04/2016 Free T4 Lgt395 FREE T4 0.79 ng/dL 12/27/2014 Cbc With [...] Ord30 C/HDL 3.0 Ratio 12/27/2014 Comp Metabolic Nts048 NA 138 mEq/L 12/27/2014 Comp Metabolic Ssl753 K 4.7 mEq/L 12/27/2014 Comp Metabolic Mud680 CL 103 mEq/L 12/27/2014 Comp Metabolic Gwf451 CO2 31.0 mEq/L 12/27/2014 Comp Metabolic Msp015 AN ION GAP 9 12/27/2014 Comp Metabolic Xfk190 GL UCOSE 105 mg/dL 12/27/2014 Comp Metabolic Hmk687 Cr eat 0.8 mg/dL 12/27/2014 Comp Metabolic Cea230 eG FR 73 ml/min/1.73m2 12/27 Comp Metabolic Icq571 BUN 16 mg/dL 12/27/2014 Comp Metabolic Dyc882 B/ C Ratio 19.3 Ratio 12/27/2014 Comp Metabolic Chl026 CA LCIUM 9.7 mg/dL 12/27/2014 Comp Metabolic Ypx048 AL K PHOS 58 U/L 12/27/2014 Comp Metabolic Xfs018 T(SGOT) 20 U/L 12/27/2014 Comp Metabolic Hry812 AL T(SGPT) 16 U/L 12/27/2014 Comp Metabolic Igh111 BI LI T 0.6 mg/dL 12/27/2014 Comp Metabolic Vof743 AL BUMIN 4.6 g/dL 12/27/2014 Comp Metabolic Eea092 TP RO 6.6 g/dL 12/27/2014 Comp Metabolic Hua241 GL OB 2.0 g/dL 12/27/2014 Comp Metabolic Pcl189 A/ G Ratio 2.3 Ratio 12/27/2014 Comp Metabolic Dvw305 Os mo 277 mOsmo 12/27/2014 Tsh Ord6 [...] nourished 10/02/2017 None Full Exam - General 1995 Eyes conjunctiva/eyelids Overall: conjunctiva clear 10/02/2017 None Full Exam - General 1994 Eyes conjunctiva/eyelids Overall: eyelids normal 10/02/2017 None Full Exam - General 1995 Ears/Nose/Throat lips/teeth/gingiva Overall: benign lips 10/02/2017 None [...] affect 09/11/2016 None Full Exam - General 1994 Constitutional general appearance Development: well developed 01/03/2016 [...] soft 05/03/2015 None Full Exam - General 1994 Ears/Nose/Throat lips/teeth/gingiva Overall: benign gingiva 05/03/2015 None Full Exam - General 1994 Ears/Nose/Throat lips/teeth/gingiva Overall: no masses 05/03/2015 None Full Exam - General 1994 Ears/Nose/Throat lips/teeth/gingiva Overall: normal dentition 05/03/2015 None [...] Date URINALYSIS NONAUTO W /O SCOPE CPT-4: 12976 10/06/2018 THER/PROPH/DIAG INJ SC/IM CPT-4: 20696 03/10/2018 TRIAMCINOLONE ACET I [place] NOS CPT-4: J3301 03/10/2018 ROCEPHIN, PER 250 MG CPT-4: J0696 03/10/2018 PPPS, SUBSEQ VISIT CPT- 4: G0439 10/02/2017 TRIAMCINOLONE ACET I [place] NOS CPT-4: J3301 06/03/2017 THER/PROPH/DIAG INJ SC/IM CPT-4: 59429 06/03/2017 URINALYSIS NONAUTO W /O SCOPE CPT-4: 21129 04/01/2017 THER/PROPH/DIAG INJ SC/IM CPT-4: 09297 02/07/2017 TRIAMCINOLONE ACET I [place] NOS CPT-4: J3301 02/07/2017 ROCEPHIN, PER 250 MG CPT-4: J0696 02/07/2017 FLU VAC NO PRSV 4 VA L 3 YRS+ CPT-4: 57589 01/16/2017 PNEUMOCOCCAL VACC [address]: 70188747 CPT-4: 81262 01/16/2017 ADMIN INFLUENZA VIRU S VAC CPT-4: G0008 01/16/2017 ADMIN PNEUMOCOCCAL V ACCINE SNOMED CT: 78386161 CPT-4: G0009 01/16/2017 PPPS, SUBSEQ VISIT CPT- 4: G0439 09/20/2016 TRIAMCINOLONE ACET I [place] NOS CPT-4: J3301 09/11/2016 THER/PROPH/DIAG INJ SC/IM CPT-4: 11496 09/11/2016 TRIAMCINOLONE ACET I [place] NOS CPT-4: J3301 01/03/2016 DESTRUCT PREMALG LESION CPT-4: 63214 11/01/2015 TRIAMCINOLONE ACET I [place] NOS CPT-4: J3301 08/01/2015 TRIAMCINOLONE ACET I [place] NOS CPT-4: J3301 05/25/2015 ROCEPHIN, PER 250 MG CPT-4: J0696 05/25/2015 TRIAMCINOLONE ACET I [place] NOS CPT-4: J3301 05/03/2015 REMOVE IMPACTED EAR WAX UNI CPT-4: 40781 08/02/2014 Vital Signs Date Vital 10/06/2018 Blood Pressure 1: 128/80 Code: 8480-6 BMI: 22.3 Code: 17502-5 Heart Rate 1: 76 bpm Height: 5'3" SpO2: 98% Weight: 126 lbs 03/10/2018 Blood Pressure 1: 136/74 Code: 8480-6 BMI: 22.3 Code: 14245-6 Heart Rate 1: 103 bpm Height: 5'3" SpO2: 97% Temperature: 37.4 (C ) / 99.3 (F) Weight: 126 lbs 01/17/2018 Blood Pressure 1: 110/76 Code: 8480-6 BMI: 21.8 Code: 06268-2 Heart Rate 1: 80 bpm Height: 5'3" SpO2: 98% Weight: 123 lbs 10/02/2017 Blood Pressure 1: 128/70 Code: 8480-6 BMI: 21.6 Code: 38688-3 Heart Rate 1: 70 bpm Height: 5'3" SpO2: 98% Waist Measure (cm): 97 cm Weight: 122 lbs 06/03/2017 Blood Pressure 1: 144/88 Code: 8480-6 BMI: 22.1 Code: 99260-2 Heart Rate 1: 90 bpm Height: 5'3" SpO2: 94% Weight: 125 lbs 02/07/2017 Blood Pressure 1: 142/80 Code: 8480-6 BMI: 22.1 Code: 89312-2 Heart Rate 1: 85 bpm Height: 5'3" SpO2: 98% Temperature: 36.9 (C ) / 98.5 (F) Weight: 125 lbs 09/20/2016 Blood Pressure 1: 124/72 Code: 8480-6 BMI: 21.8 Code: 39188-6 Heart Rate 1: 90 bpm Height: 5'3" SpO2: 96% Weight: 123 lbs 09/11/2016 Blood Pressure 1: 124/72 Code: 8480-6 BMI: 21.8 Code: 85752-7 Heart Rate 1: 90 bpm Height: 5'3" SpO2: 96% Weight: 123 lbs 01/03/2016 Blood Pressure 1: 100/70 Code: 8480-6 BMI: 21.3 Code: 82875-0 Heart Rate 1: 100 bpm Height: 5'3" SpO2: 94% Temperature: 37.3 (C ) / 99.1 (F) Weight: 120 lbs 11/01/2015 Blood Pressure 1: 122/74 Code: 8480-6 BMI: 21.4 Code: 37866-8 Heart Rate 1: 92 bpm Height: 5'3" SpO2: 94% Weight: 121 lbs 08/15/2015 Blood Pressure 1: 110/70 Code: 8480-6 BMI: 21.6 Code: 89652-2 Heart Rate 1: 76 bpm Height: 5'3" SpO2: 98% Weight: 122 lbs 08/01/2015 Blood Pressure 1: 128/88 Code: 8480-6 BMI: 22.3 Code: 31815-7 Heart Rate 1: 93 bpm Height: 5'3" SpO2: 99% Temperature: 36.8 (C ) / 98.2 (F) Weight: 126 lbs 06/14/2015 Blood Pressure 1: 118/76 Code: 8480-6 BMI: 22.3 Code: 80282-5 Heart Rate 1: 88 bpm Height: 5'3" SpO2: 96% Weight: 126 lbs 06/02/2015 Blood Pressure 1: 142/80 Code: 8480-6 BMI: 22.3 Code: 55900-6 Heart Rate 1: 91 bpm Height: 5'3" SpO2: 94% Temperature: 37.2 (C ) / 98.9 (F) Weight: 126 lbs 05/25/2015 Blood Pressure 1: 136/60 Code: 8480-6 BMI: 22.7 Code: 02520-2 Heart Rate 1: 90 bpm Height: 5'3" SpO2: 96% Weight: 128 lbs 05/03/2015 Blood Pressure 1: 120/58 Code: 8480-6 BMI: 22.7 Code: 79953-2 Heart Rate 1: 95 bpm Height: 5'3" SpO2: 96% Weight: 128 lbs 08/02/2014 Blood Pressure 1: 130/80 Code: 8480-6 BMI: 22.5 Code: 88445-3 Heart Rate 1: 64 bpm Height: 5'3" Weight: 127 lbs 07/28/2014 Blood Pressure 1: 130/76 Code: 8480-6 BMI: 22.5 Code: 19889-1 Heart Rate 1: 60 bpm Height: 5'3" [...] Encounters Encounter Performer Loca tion Codes Date 60312 EST. PATIENT, LEVEL II Diagnosis: Dysuria[ICD10: R30.0] [facility] CPT-4: 72310 10/06/2018 [id number] EST. PATIENT, LEVEL III Diagnosis: Pneumonia due to other specified bacteria[ICD10: J15.8] [facility] CPT-4: 81153 03/10/2018 23662 EST. PATIENT, LEVEL III Diagnosis: Dysuria[ICD10: R30.0] Alexa Wade MD, [facility] CPT-4: 34421 01/17/2018 [id number] EST. PATIENT, LEVEL IV Diagnosis: Other allergic rhinitis[ICD10: J30.89] Diagnosis: Cough[ICD10: R05] Alexa Wade MD, [facility] CPT-4: 76216 06/03/2017 ([id number]) 78456 EST. P ATIENT, LEVEL III Diagnosis: Cough[ICD10: R05] Diagnosis: Pneumonia due to Streptococcus pneumoniae[ICD10: J13] Anusha Wade MD, [facility] CPT-4: 38235 02/07/2017 [id number] EST. PATIENT, LEVEL III Diagnosis: Rash and other nonspecific skin eruption[ICD10: R21] Diagnosis: Allergic contact dermatitis due to plants, except food[ICD10: L23.7] Alexa Wade MD, [facility] CPT-4: 95660 09/11/2016 ([id number]) 98223 EST. P ATIENT, LEVEL III Diagnosis: Allergic rhinitis due to pollen[ICD10: J30.1] Diagnosis: Cough[ICD10: R05] Diagnosis: Acute bronchitis, unspecified[ICD10: J20.9] Corrina Wade MD, [facility] CPT-4: 44876 01/03/2016 ([id number]) 95577 EST. P ATIENT, LEVEL II Diagnosis: Insect bite (nonvenomous), right thigh, initial encounter[ICD10: S70.361A] Diagnosis: Actinic keratosis[ICD10: L57.0] Corrina Wade MD, [facility] CPT- 4: 94133 11/01/2015 ([id number]) 30383 EST. P ATIENT, LEVEL III Diagnosis: Allergic rhinitis due to pollen[ICD10: J30.1] Corrina Wade MD, [facility] CPT-4: 70588 08/15/2015 ([id number]) 77383 EST. P ATIENT, LEVEL IV Diagnosis: Cough[ICD10: R05] Diagnosis: Allergic rhinitis due to pollen[ICD10: J30.1] Diagnosis: Gastro-esophageal reflux disease without esophagitis[ICD10: K21.9] Corrina Wade MD, [facility] CPT-4: 97153 08/01/2015 ([id number]) 26388 EST. P ATIENT, LEVEL III Diagnosis: Gastro-esophageal reflux disease without esophagitis[ICD10: K21.9] Anusha Wade MD, [facility] CPT-4: 15073 06/14/2015 ([id number]) Patient adm itted to the hospital from clinic (NO CHARGE) Diagnosis: Pneumonia, unspecified organism[ICD10: J18.9] Anusha [facility] MD[facility] CPT-4: 57123S 06/02/2015 95255 EST. PATIENT, LEVEL III Diagnosis: Pneumonia, unspecified organism[ICD10: J18.9] Anusha Wade MD, [facility] CPT-4: 43310 05/25/2015 ([id number]) 54114 EST. P ATIENT, LEVEL III Diagnosis: Cough[ICD10: R05] Diagnosis: Pneumonia, unspecified organism[ICD10: J18.9] Corrina Wade MD, [facility] CPT-4: 42394 05/03/2015 ([id number]) OFFICE VISI T, [facility] - LEVEL 4 Diagnosis: HYPERLIPIDEMIA[ICD9: 272.4] Diagnosis: Osteoarthritis[ICD9: 715.90] Diagnosis: Hand pain[ICD9: 729.5] Diagnosis: Depression[ICD9: 311] Anusha Wade MD, [facility] CPT-4: 74616 07/28/2014 Plan of Care Planned Activity Notes C odes Status Date Visit Plan: Dysuria- UA negative -w ill culture due to history of UTI -rx for diflucan provided and instructed on use for treatment of yeast infection. Instructed patient to call if symptoms do not resolve or if any worse. 10/06/2018 Appointment: Corrina Ahn WPtel: [address] [place], [place] [phone] (15 min) Moderate 10/06/2018 Patient Education: Patient Medication Summary Completed 10/06/2018 Care Plan: Urine Culture Pending 10/06/2018 Visit Plan: Pneumonia - Pt has been diagnosed with pneumonia by physical exam. A chest xray has been ordered as have antibiotics. The pt is aware of the diagnosis and the need for acute treatment of this illness. 03/10/2018 Appointment: Alexa Aleman WPtel: [address] [place] [address] (15 min) Moderate 03/10/2018 Patient Education: Patient Medication Summary Completed 03/10/2018 Visit Plan: UTI - pt with positive urinalysis - culture sent if appropriate. Antibiotic electronically prescribed to pt's pharmacy of choice. Pt to call if symptoms do not improve. 01/17/2018 Appointment: Alexa Aleman WPtel: [address] [place] [address] (15 min) Moderate 01/17/2018 Patient Education: Patient [...] 10/02/2017 Care Plan: Referral Order SNOMED-CT : [id number] Pending 10/02/2017 Appointment: Alexa Aleman WPtel: [facility] [address] - Annual Wellness Visit 09/27/2017 Visit Plan: [...] pharmacy. 06/03/2017 Appointment: Alexa Aleman WPtel: [phone] [facility] (15 min) Moderate 06/03/2017 Patient Education: Patient Medication Summary Completed 06/03/2017 Appointment: Lab Draw 04/01/2017 Patient Education: Patient Medication Summary Completed 04/01/2017 Visit Plan: Pneumonia - Pt has been diagnosed with pneumonia by physical exam. Antibiotics have been ordered. The pt is aware of the diagnosis and the need for acute treatment of this illness. 02/07/2017 Appointment: Anusha Wade WPtel: [phone] [phone] (15 min) Moderate 02/07/2017 Patient Education: Patient [...] worsening redness, warmth, discharge. 09/11/2016 Appointment: [phone] (30 min) Complex 09/11/2016 Patient Education: Patient Medication Summary Completed [...] if symptoms acutely worsen. 01/03/2016 Appointment: [facility]hn [phone] (30 min) Complex 01/03/2016 Patient Education: Patient Medication Summary Completed 01/03/2016 Appointment: Corrina Ahn WPtel: [phone] [phone] (30 min) Complex 11/15/2015 Visit Plan: Bite-right [...] acute concerns. 11/01/2015 Appointment: Corrina Ahn WPtel: [phone] [phone] (30 min) Complex 11/01/2015 Patient Education: Patient [...] spice diet 08/01/2015 Appointment: [facility]hn [facility] [phone] [phone] (10 min) Simple 08/01/2015 Patient Education: Patient Medication Summary Completed 08/01/2015 Visit Plan: Esophageal Reflux - the patient has been counseled against excessive intake of caffeine, spicy foods, peppermint, and cinnamon - all of which can exacerbate esophageal reflux. The patient is to take medications as prescribed and call the office if the symptoms are not improving. 06/14/2015 Appointment: [id number] ([facility] min) Complex 06/14/2015 Patient Education: Patient [...] THE ACUTE ILLNESS. DR. WADE IN TO [facility] THE PT. 06/02/2015 Patient Education: Patient Medication [...] on paxil 07/28/2014 Appointment: [facility]usha Wade [facility]el[phone] [id number] [place] ([place] New Patient 07/28/2014 Patient Education: [...]
--- OUTSIDE RECORDS SUMMARY | 2019-08-16 07:40 | XMS REPORT | CCD ---
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 Name Role Phone PP Unavailable CCM Unavailable Summary Purpose Interface Exchange Insurance Providers Payer name Policy type / Coverage type Covered republican ID Effective Begin Date Effective End Date WPS Medicare Part B Medicare Part B [id number] Unknown [employer] Medicare Part B [id number] Unkn own Family history Mother Diagnosis Age At Onset Heart Attack Unknown Hypertension Unknown Dementia Unknown Heart disease Unknown Thyroid Unknown Brother Diagnosis Age At Onset bleeding problem Unknown Father Diagnosis Age At Onset Myocardial infarction Unknown Hypertension Unknown Social History Social History Element Codes Description Effective Dates Marital status Unknown M arried 07/28/2014 Number of children Unknown 2 07/28/2014 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[address]: 133694930 Has never smoked or chewed tobacco 07/28/2014 [...] Codes Condition Status Onset Date Resolved Date Pneumonia due to oth er specified bacteria ICD-9: 482.81 ICD-10: J15.8 Active 03/10/2018 Unknown Pneumonia, unspecifi ed organism ICD-9: 486 ICD-10: J18.9 Active 06/01/2015 Unknown Dysuria ICD-9: 788.1 ICD-10: R30.0 Active 04/01/2017 Unknown Encounter for genera l adult medical [...] Condition Codes Effectiv e Dates Condition Status Pneumonia due to oth er specified bacteria ICD-9: 482.81 ICD-10: J15.8 03/10/2018 Active Pneumonia, unspecifi ed organism ICD-9: 486 ICD-10: J18.9 06/01/2015 Active Dysuria ICD-9: 788.1 ICD-10: R30.0 04/01/2017 Active Encounter for genera l adult medical [...] Date Stop Date Sta tus Fill Instructions Protonix 40 mg table t,delayed release RxNorm: 372205 TAKE ONE TABLET BY MO [facility]TH DAILY 08/29/2018 05/25/2019 Ac tive meloxicam 15 mg tablet RxNorm: 671673 TAKE ONE TABLET BY MOUTH DAILY 07/07/2018 04/02/2019 Ac tive ceftriaxone 500 mg s olution for injection RxNorm: 5677989 1 Inj 03/10/2018 03/10/2018 Inactive prednisone 20 mg tablet RxNorm: 058370 2 Tablet(s) PO daily 03/10/2018 03/14/2018 Inactive Zithromax Z-Rohit 250 mg tablet RxNorm: 194115 1 Tablet(s) PO UD 03/10/2018 07/06/2018 Inactive z pack as directed Kenalog 40 mg/mL rajeev pension for injection RxNorm: 8931798 1 Milliliter(s) Inj 03/10/2018 03/10/2018 In active cefdinir 300 mg capsule RxNorm: 706076 1 Capsule(s) PO BID 03/10/2018 03/19/2018 Inactive Bactrim DS 800 mg-16 0 mg tablet RxNorm: 357280 1 Tablet(s) PO BID 01/17/2018 01/23/2018 Inactive fluoxetine 20 mg cap sushil RxNorm: 828996 TAKE ONE CAPSULE BY M [facility] DAILY 06/17/2017 10/14/2017 In active Request already responded to by other me ans (e.g. phone or fax) fluoxetine 20 mg cap sushil RxNorm: 190602 1 Capsule(s) PO daily 06/12/2017 06/11/2017 Inactive fluoxetine 20 mg cap sushil RxNorm: 606626 1 Capsule(s) PO daily 06/12/2017 06/16/2017 Inactive Levaquin 500 mg tablet RxNorm: 151484 1 Tablet(s) PO daily 06/03/2017 06/09/2017 Inactive Kenalog 40 mg/mL rajeev pension for injection RxNorm: 9619441 1 Milliliter(s) Inj 06/03/2017 06/03/2017 In active prednisone 20 mg tablet RxNorm: 394608 2 Tablet(s) PO daily 06/03/2017 06/07/2017 Inactive Protonix 40 mg table t,delayed release RxNorm: 908976 TAKE ONE TABLET BY [facility] DAILY 05/07/2017 01/31/2018 In active meloxicam 15 mg tablet RxNorm: 661530 TAKE ONE TABLET BY MOUTH DAILY 04/01/2017 06/24/2018 In active albuterol sulfate 2. 5 mg/3 mL (0.083 %) solution for nebulization RxNorm: 967419 3 Milliliter(s) INH Q6 PRN 02/07/2017 06/06/2017 Inactive Kenalog 40 mg/mL rajeev pension for injection RxNorm: 4134708 1 Milliliter(s) Inj 02/07/2017 02/07/2017 In active ceftriaxone 500 mg s olution for injection RxNorm: 6377557 1 Milliliter(s) Inj 02/07/2017 02/07/2017 In active cefdinir 300 mg capsule RxNorm: 178131 1 Capsule(s) PO BID 02/07/2017 02/16/2017 Inactive Protonix 40 mg table t,delayed release RxNorm: 500693 TAKE ONE TABLET BY [facility] DAILY 11/08/2016 05/06/2017 In active Kenalog 40 mg/mL rajeev pension for injection RxNorm: 5909966 1.5 Milliliter(s) In j 09/11/2016 09/11/2016 In active prednisone 10 mg tablet RxNorm: 658138 Tablet(s) PO UD 09/11/2016 09/11/2016 Inactive 60,50,40,30,20,10 fluoxetine 20 mg tablet RxNorm: 094857 TAKE ONE TABLET BY MOUTH DAILY 08/21/2016 06/11/2017 In active meloxicam 15 mg tablet RxNorm: 407915 TAKE ONE TABLET BY MOUTH DAILY 05/28/2016 11/23/2016 In active Zithromax Z-Rohit 250 mg tablet RxNorm: 190510 1 Tablet(s) PO UD 03/22/2016 09/04/2016 Inactive z pack as directed Kenalog 40 mg/mL rajeev pension for injection RxNorm: 6109632 Milliliter(s) Inj 01/03/2016 01/03/2016 In active Zithromax Z-Rohit 250 mg tablet RxNorm: 082476 1 Tablet(s) PO UD 01/03/2016 01/07/2016 Inactive ZPACK Protonix 40 mg table t,delayed release RxNorm: 419223 TAKE ONE TABLET BY [facility] DAILY 11/29/2015 08/24/2016 In active mupirocin 2 % topica l ointment RxNorm: 616734 1 Application TOP BID 11/01/2015 11/07/2015 Inactive Tonya Allergy 180 mg tablet RxNorm: 306153 1 Tablet(s) PO daily 08/01/2015 08/30/2015 Inactive Kenalog 40 mg/mL rajeev pension for injection RxNorm: 4628779 Milliliter(s) Inj 08/01/2015 08/01/2015 In active albuterol sulfate 2. 5 mg/3 mL (0.083 %) solution for nebulization RxNorm: 564851 3 Milliliter(s) INH Q6 PRN 07/29/2015 07/28/2015 Inactive albuterol sulfate 2. 5 mg/3 mL (0.083 %) solution for nebulization RxNorm: 759932 3 Milliliter(s) INH Q6 PRN 07/29/2015 08/27/2015 Inactive fluoxetine 20 mg tablet RxNorm: 578925 1 Tablet(s) PO daily 07/28/2015 02/22/2016 Inactive meloxicam 15 mg tablet RxNorm: 760480 1 Tablet(s) PO daily 06/22/2015 12/18/2015 Inactive nystatin 100,000 uni t/mL oral suspension RxNorm: 939547 4 Milliliter(s) PO QI D 06/01/2015 05/31/2015 In active nystatin 100,000 uni t/mL oral suspension RxNorm: 825893 4 Milliliter(s) PO QI D 06/01/2015 06/07/2015 In active Kenalog 40 mg/mL rajeev pension for injection RxNorm: 5242519 Milliliter(s) Inj 05/25/2015 05/25/2015 In active Zithromax Z-Rohit 250 mg tablet RxNorm: 548948 Tablet(s) PO 05/25/2015 06/13/2015 Inactive ceftriaxone 500 mg s olution for injection RxNorm: 5102560 Inj 05/25/2015 05/25/2015 Inactive Zithromax Z-Rohit 250 mg tablet RxNorm: 335065 Tablet(s) PO UD 05/25/2015 03/21/2016 Inactive prednisone 20 mg tablet RxNorm: 995085 2 Tablet(s) PO daily 05/25/2015 05/29/2015 Inactive cefdinir 300 mg capsule RxNorm: 672592 1 Capsule(s) PO BID 05/25/2015 06/03/2015 Inactive cefdinir 300 mg capsule RxNorm: 404321 1 Capsule(s) PO BID 05/25/2015 06/03/2015 Inactive prednisone 20 mg tablet RxNorm: 074567 2 Tablet(s) PO daily 05/25/2015 05/29/2015 Inactive ceftriaxone 500 mg s olution for injection RxNorm: 0892410 Inj 05/25/2015 05/25/2015 Inactive Kenalog 40 mg/mL rajeev pension for injection RxNorm: 1956599 Milliliter(s) Inj 05/03/2015 05/03/2015 In active Levaquin 500 mg tablet RxNorm: 588437 1 Tablet(s) PO daily 05/03/2015 05/09/2015 Inactive Protonix 40 mg table t,delayed release RxNorm: 475818 1 Tablet(s) PO daily 09/16/2014 09/10/2015 In active fluoxetine 20 mg tablet RxNorm: 910150 1 Tablet(s) PO daily 08/26/2014 08/25/2014 Inactive fluoxetine 20 mg tablet RxNorm: 873788 1 Tablet(s) PO daily 08/26/2014 03/23/2015 Inactive meloxicam 15 mg tablet RxNorm: 317379 1 Tablet(s) PO daily 07/28/2014 01/23/2015 Inactive clopidogrel 75 mg ta blet RxNorm: 165543 1 Tablet(s) PO daily No Start Date Active Lipitor 40 mg tablet RxNorm: 201799 1 Tablet(s) PO daily No Start Date Active fluoxetine 20 mg tablet RxNorm: 865823 1 Tablet(s) PO daily No Start Date 08/25/2014 Inactive Protonix 40 mg table t,delayed release RxNorm: 160654 1 Tablet(s) PO daily No Start Date 09/15/2014 Inactive Medication Administered Medication Codes Instruc tions Start Date Status Kenalog 40 mg/mL suspension for injection RxNorm: 8146129 1Milliliter 03/10/2018 N o longer Active ceftriaxone 500 mg solution for injection RxNorm: 7154750 1 03/10/2018 No longer A ctive Kenalog 40 mg/mL suspension for injection RxNorm: 7116282 1Milliliter 06/03/2017 N o longer Active Kenalog 40 mg/mL suspension for injection RxNorm: 0668194 1Milliliter 02/07/2017 N o longer Active ceftriaxone 500 mg solution for injection RxNorm: 6937494 1Milliliter 02/07/2017 N o longer Active Kenalog 40 mg/mL suspension for injection RxNorm: 2440282 1.5Milliliter 09/11/2016 No longer Active Kenalog 40 mg/mL suspension for injection RxNorm: 0305247 Milliliter 01/03/2016 No longer Active Kenalog 40 mg/mL suspension for injection RxNorm: 2337902 Milliliter 08/01/2015 No longer Active ceftriaxone 500 mg solution for injection RxNorm: 8265198 05/25/2015 No longer A ctive Kenalog 40 mg/mL suspension for injection RxNorm: 2802887 Milliliter 05/25/2015 No longer Active ceftriaxone 500 mg solution for injection RxNorm: 7209891 05/25/2015 No longer A ctive Kenalog 40 mg/mL suspension for injection RxNorm: 4647457 Milliliter 05/03/2015 No longer Active Immunizations Vaccine Codes Date Status Influenza CVX: 141 01/21 completed Influenza CVX: 141 01/16 completed Pneumococcal (Adult) CVX: 133 01/16/2017 completed Influenza CVX: 141 01/07 completed Pneumococcal CVX: 33 02/2016 completed Assessments Condition Codes Effectiv e Dates Pneumonia due to other specified bacteria ICD-10: J15.8 ICD-9: 482.81 03/10/2018 Dysuria ICD-10: R30.0 ICD-9: 788.1 01/17/2018 Encounter for general adult medical exam ination [...] Visit Reason For Visit Effective Dates Notes chest congestion 03/10/2018 urinary urgency 01/17/2018 Annual Medicare Wellness Exam 10/02/2017 cough 06/03/2017 cough 02/07/2017 vaccination against influenza 01/16/2017 Annual Medicare Wellness Exam 09/20/2016 rash 09/11/2016 cough 01/03/2016 arthropod bite 11/01/2015 cough 08/15/2015 cough 08/01/2015 cough 06/14/2015 cough 06/02/2015 sores in the mouth 05/25/2015 cough 05/03/2015 cerumen 08/02/2014 arthritis 07/28/2014 Results Observation Observation Code Item Item Code Result Date Culture Urine [id number] URI NE CULTURE SEE NOTES 01/20/2018 Culture Urine [id number] Con tinued Results 01/20/2018 Urine Culture Ucult Comp lete >100,000 col/ml aerobic grow th sent to ref lab 01/18/2018 Lipid Ord30 CHOL 180 mg/dL 11/26/2017 Lipid Ord30 HDL 65.0 mg/dl 11/26/2017 Lipid Ord30 TRIG 68 mg/dL 11/26/2017 Lipid Ord30 LDL 101 mg/dL 11/26/2017 Lipid Ord30 C/HDL 2.8 Ratio 11/26/2017 Comp Metabolic Emi830 NA 143 mEq/L 11/26/2017 Comp Metabolic Yha362 K 4.4 mEq/L 11/26/2017 Comp Metabolic Zgw263 CL 106 mEq/L 11/26/2017 Comp Metabolic Qun429 CO2 29.0 mEq/L 11/26/2017 Comp Metabolic Pjn111 AN ION GAP 12 11/26/2017 Comp Metabolic Trs749 GL UCOSE 106 mg/dL 11/26/2017 Comp Metabolic Mma218 Cr eat 0.7 mg/dL 11/26/2017 Comp Metabolic Say843 eG FR 87 ml/min/1.73m2 11/26 Comp Metabolic Xka618 BUN 20 mg/dL 11/26/2017 Comp Metabolic Kwb999 B/ C Ratio 28.2 Ratio 11/26/2017 Comp Metabolic Jie123 CA LCIUM 9.1 mg/dL 11/26/2017 Comp Metabolic Ukw170 AL K PHOS 48 U/L 11/26/2017 Comp Metabolic Dtj909 T(SGOT) 19 U/L 11/26/2017 Comp Metabolic Glz723 AL T(SGPT) 15 U/L 11/26/2017 Comp Metabolic Cxr935 BI LI T 0.5 mg/dL 11/26/2017 Comp Metabolic Lut857 AL BUMIN 4.1 g/dL 11/26/2017 Comp Metabolic Kvu079 TP RO 6.1 g/dL 11/26/2017 Comp Metabolic Ifw226 GL OB 2.0 g/dL 11/26/2017 Comp Metabolic Pqp521 A/ G Ratio 2.1 Ratio 11/26/2017 Comp Metabolic Hat700 Os mo 288 mOsmo 11/26/2017 Lipid Ord30 CHOL 175 mg/dL 01/04/2016 Lipid Ord30 HDL 45.0 mg/dl 01/04/2016 Lipid Ord30 TRIG 69 mg/dL 01/04/2016 Lipid Ord30 LDL 116 mg/dL 01/04/2016 Lipid Ord30 C/HDL 3.9 Ratio 01/04/2016 Comp Metabolic Bwn517 NA 139 mEq/L 01/04/2016 Comp Metabolic Tfi451 K 4.3 mEq/L 01/04/2016 Comp Metabolic Zyh626 CL 101 mEq/L 01/04/2016 Comp Metabolic Vsy173 CO2 30.0 mEq/L 01/04/2016 Comp Metabolic Naa715 AN ION GAP 12 01/04/2016 Comp Metabolic Hfr477 GL UCOSE 94 mg/dL 01/04/2016 Comp Metabolic Dpj987 Cr eat 0.7 mg/dL 01/04/2016 Comp Metabolic Yoo919 eG FR 83 ml/min/1.73m2 01/03 Comp Metabolic Tjb631 BUN 14 mg/dL 01/04/2016 Comp Metabolic Yek543 B/ C Ratio 18.9 Ratio 01/04/2016 Comp Metabolic Bmx128 CA LCIUM 9.3 mg/dL 01/04/2016 Comp Metabolic Rrt611 AL K PHOS 70 U/L 01/04/2016 Comp Metabolic Kou515 T(SGOT) 14 U/L 01/04/2016 Comp Metabolic Rvz651 AL T(SGPT) 12 U/L 01/04/2016 Comp Metabolic Cno095 BI LI T 0.4 mg/dL 01/04/2016 Comp Metabolic Vnp941 AL BUMIN 4.1 g/dL 01/04/2016 Comp Metabolic Mpj477 TP RO 6.6 g/dL 01/04/2016 Comp Metabolic Win842 GL OB 2.6 g/dL 01/04/2016 Comp Metabolic Nsp039 A/ G Ratio 1.6 Ratio 01/04/2016 Comp Metabolic Ehb746 Os mo 278 mOsmo 01/04/2016 Tsh Ord6 [...] 31.4 pg 01/04/2016 Cbc With Differential Ord2 [place]% 8.6 % 01/04/2016 Cbc With Differential Ord2 [...] 1.42 K/ul 01/04/2016 Cbc With Differential Ord2 [place] ABS# 0.6 K/ul 01/04/2016 Cbc With Differential Ord2 Eos ABS# 0.1 K/ul 01/04/2016 Cbc With Differential Ord2 Baso ABS# 0.0 K/ul 01/04/2016 Free T4 Dzk966 FREE T4 0.79 ng/dL 12/27/2014 Cbc With [...] Ord30 C/HDL 3.0 Ratio 12/27/2014 Comp Metabolic Fka359 NA 138 mEq/L 12/27/2014 Comp Metabolic Nua864 K 4.7 mEq/L 12/27/2014 Comp Metabolic Yjy488 CL 103 mEq/L 12/27/2014 Comp Metabolic Rme009 CO2 31.0 mEq/L 12/27/2014 Comp Metabolic Bla614 AN ION GAP 9 12/27/2014 Comp Metabolic Tgw580 GL UCOSE 105 mg/dL 12/27/2014 Comp Metabolic Vuh866 Cr eat 0.8 mg/dL 12/27/2014 Comp Metabolic Fbs197 eG FR 73 ml/min/1.73m2 12/27 Comp Metabolic Emz540 BUN 16 mg/dL 12/27/2014 Comp Metabolic Mtt391 B/ C Ratio 19.3 Ratio 12/27/2014 Comp Metabolic Rjv115 CA LCIUM 9.7 mg/dL 12/27/2014 Comp Metabolic Uve718 AL K PHOS 58 U/L 12/27/2014 Comp Metabolic Kus737 T(SGOT) 20 U/L 12/27/2014 Comp Metabolic Eny747 AL T(SGPT) 16 U/L 12/27/2014 Comp Metabolic Glh746 BI LI T 0.6 mg/dL 12/27/2014 Comp Metabolic Pwx566 AL BUMIN 4.6 g/dL 12/27/2014 Comp Metabolic Hzr820 TP RO 6.6 g/dL 12/27/2014 Comp Metabolic Sde230 GL OB 2.0 g/dL 12/27/2014 Comp Metabolic Ebi547 A/ G Ratio 2.3 Ratio 12/27/2014 Comp Metabolic Shd966 Os mo 277 mOsmo 12/27/2014 Tsh Ord6 hTSH II 1.89 uIU/mL 12/27/2014 Review of Systems System Result Effective Dates Constitutional recent illness 03/10/2018 Constitutional chills Constitutional [...] affect 09/20/2016 None Full Exam - General 1995 Psychiatric appearance Overall: well-groomed, good eye contact [...] crepitus 07/28/2014 None Procedures Procedure Codes Date THER/PROPH/DIAG INJ SC/IM CPT-4: 08324 03/10/2018 TRIAMCINOLONE ACET I [place] NOS CPT-4: J3301 03/10/2018 ROCEPHIN, PER 250 MG CPT-4: J0696 03/10/2018 PPPS, SUBSEQ VISIT CPT- 4: G0439 10/02/2017 TRIAMCINOLONE ACET I [place] NOS CPT-4: J3301 06/03/2017 THER/PROPH/DIAG INJ SC/IM CPT-4: 64354 06/03/2017 URINALYSIS NONAUTO W /O SCOPE CPT-4: 38994 04/01/2017 THER/PROPH/DIAG INJ SC/IM CPT-4: 77874 02/07/2017 TRIAMCINOLONE ACET I [place] NOS CPT-4: J3301 02/07/2017 ROCEPHIN, PER 250 MG CPT-4: J0696 02/07/2017 FLU VAC NO PRSV 4 VA L 3 YRS+ CPT-4: 52156 01/16/2017 PNEUMOCOCCAL VACC [address]: 70170526 CPT-4: 52552 01/16/2017 ADMIN INFLUENZA VIRU S VAC CPT-4: G0008 01/16/2017 ADMIN PNEUMOCOCCAL V ACCINE SNOMED CT: 94382939 CPT-4: G0009 01/16/2017 PPPS, SUBSEQ VISIT CPT- 4: G0439 09/20/2016 TRIAMCINOLONE ACET I [place] NOS CPT-4: J3301 09/11/2016 THER/PROPH/DIAG INJ SC/IM CPT-4: 15275 09/11/2016 TRIAMCINOLONE ACET I [place] NOS CPT-4: J3301 01/03/2016 DESTRUCT PREMALG LESION CPT-4: 55102 11/01/2015 TRIAMCINOLONE ACET I [place] NOS CPT-4: J3301 08/01/2015 TRIAMCINOLONE ACET I [place] NOS CPT-4: J3301 05/25/2015 ROCEPHIN, PER 250 MG CPT-4: J0696 05/25/2015 TRIAMCINOLONE ACET I [place] NOS CPT-4: J3301 05/03/2015 REMOVE IMPACTED EAR WAX UNI CPT-4: 58801 08/02/2014 Vital Signs Date Vital 03/10/2018 Blood Pressure 1: 136/74 Code: 8480-6 BMI: 22.3 Code: 85673-1 Heart Rate 1: 103 bpm Height: 5'3" SpO2: 97% Temperature: 37.4 (C ) / 99.3 (F) Weight: 126 lbs 01/17/2018 Blood Pressure 1: 110/76 Code: 8480-6 BMI: 21.8 Code: 09365-3 Heart Rate 1: 80 bpm Height: 5'3" SpO2: 98% Weight: 123 lbs 10/02/2017 Blood Pressure 1: 128/70 Code: 8480-6 BMI: 21.6 Code: 84098-4 Heart Rate 1: 70 bpm Height: 5'3" SpO2: 98% Waist Measure (cm): 97 cm Weight: 122 lbs 06/03/2017 Blood Pressure 1: 144/88 Code: 8480-6 BMI: 22.1 Code: 04683-4 Heart Rate 1: 90 bpm Height: 5'3" SpO2: 94% Weight: 125 lbs 02/07/2017 Blood Pressure 1: 142/80 Code: 8480-6 BMI: 22.1 Code: 73562-2 Heart Rate 1: 85 bpm Height: 5'3" SpO2: 98% Temperature: 36.9 (C ) / 98.5 (F) Weight: 125 lbs 09/20/2016 Blood Pressure 1: 124/72 Code: 8480-6 BMI: 21.8 Code: 17194-2 Heart Rate 1: 90 bpm Height: 5'3" SpO2: 96% Weight: 123 lbs 09/11/2016 Blood Pressure 1: 124/72 Code: 8480-6 BMI: 21.8 Code: 04522-9 Heart Rate 1: 90 bpm Height: 5'3" SpO2: 96% Weight: 123 lbs 01/03/2016 Blood Pressure 1: 100/70 Code: 8480-6 BMI: 21.3 Code: 42544-1 Heart Rate 1: 100 bpm Height: 5'3" SpO2: 94% Temperature: 37.3 (C ) / 99.1 (F) Weight: 120 lbs 11/01/2015 Blood Pressure 1: 122/74 Code: 8480-6 BMI: 21.4 Code: 21027-5 Heart Rate 1: 92 bpm Height: 5'3" SpO2: 94% Weight: 121 lbs 08/15/2015 Blood Pressure 1: 110/70 Code: 8480-6 BMI: 21.6 Code: 59420-8 Heart Rate 1: 76 bpm Height: 5'3" SpO2: 98% Weight: 122 lbs 08/01/2015 Blood Pressure 1: 128/88 Code: 8480-6 BMI: 22.3 Code: 02148-4 Heart Rate 1: 93 bpm Height: 5'3" SpO2: 99% Temperature: 36.8 (C ) / 98.2 (F) Weight: 126 lbs 06/14/2015 Blood Pressure 1: 118/76 Code: 8480-6 BMI: 22.3 Code: 98804-9 Heart Rate 1: 88 bpm Height: 5'3" SpO2: 96% Weight: 126 lbs 06/02/2015 Blood Pressure 1: 142/80 Code: 8480-6 BMI: 22.3 Code: 86196-3 Heart Rate 1: 91 bpm Height: 5'3" SpO2: 94% Temperature: 37.2 (C ) / 98.9 (F) Weight: 126 lbs 05/25/2015 Blood Pressure 1: 136/60 Code: 8480-6 BMI: 22.7 Code: 11268-6 Heart Rate 1: 90 bpm Height: 5'3" SpO2: 96% Weight: 128 lbs 05/03/2015 Blood Pressure 1: 120/58 Code: 8480-6 BMI: 22.7 Code: 23762-5 Heart Rate 1: 95 bpm Height: 5'3" SpO2: 96% Weight: 128 lbs 08/02/2014 Blood Pressure 1: 130/80 Code: 8480-6 BMI: 22.5 Code: 66720-1 Heart Rate 1: 64 bpm Height: 5'3" Weight: 127 lbs 07/28/2014 Blood Pressure 1: 130/76 Code: 8480-6 BMI: 22.5 Code: 60127-6 Heart Rate 1: 60 bpm Height: 5'3" Weight: 127 lbs Functional Status No Functional Status data History of Present Illness Symptom Name Status Resu lt Effective Date Notes Quality constant 03/10/2018 None Onset and Resolution [...] nausea 09/11/2016 None cough Location in the ro 01/03/2016 None cough Quality dry 01/03/2016 None [...] changing 11/01/2015 None cough Location in the roat 08/15/2015 None cough Quality dry 08/15/2015 [...] Encounters Encounter Performer Loca tion Codes Date EST. PATIENT, LEVEL III Diagnosis: Pneumonia due to other specified bacteria[ICD10: J15.8] [facility] CPT-4: 39487 03/10/2018 [id number] EST. PATIENT, LEVEL III Diagnosis: Dysuria[ICD10: R30.0] [facility] CPT-4: 58682 01/17/2018 [id number] EST. PATIENT, LEVEL IV Diagnosis: Other allergic rhinitis[ICD10: J30.89] Diagnosis: Cough[ICD10: R05] [facility] CPT-4: 22104 06/03/2017 ([id number]) 24204 EST. P ATIENT, LEVEL III Diagnosis: Cough[ICD10: R05] Diagnosis: Pneumonia due to Streptococcus pneumoniae[ICD10: J13] Anusha Wade MD, [facility] CPT-4: 07816 02/07/2017 72313 EST. PATIENT, LEVEL III Diagnosis: Rash and other nonspecific skin eruption[ICD10: R21] Diagnosis: Allergic contact dermatitis due to plants, except food[ICD10: L23.7] Alexa Wade MD, [facility] CPT-4: 42492 09/11/2016 ([id number]) 75676 EST. P ATIENT, LEVEL III Diagnosis: Allergic rhinitis due to pollen[ICD10: J30.1] Diagnosis: Cough[ICD10: R05] Diagnosis: Acute bronchitis, unspecified[ICD10: J20.9] Corrina Wade MD, [facility] CPT-4: 08768 01/03/2016 ([id number]) 63173 EST. P ATIENT, LEVEL II Diagnosis: Insect bite (nonvenomous), right thigh, initial encounter[ICD10: S70.361A] Diagnosis: Actinic keratosis[ICD10: L57.0] Corrina Wade MD, [facility] CPT- 4: 81378 11/01/2015 ([id number]) 13478 EST. P ATIENT, LEVEL III Diagnosis: Allergic rhinitis due to pollen[ICD10: J30.1] Corrina Wade MD, [facility] CPT-4: 22409 08/15/2015 ([id number]) 63826 EST. P ATIENT, LEVEL IV Diagnosis: Cough[ICD10: R05] Diagnosis: Allergic rhinitis due to pollen[ICD10: J30.1] Diagnosis: Gastro-esophageal reflux disease without esophagitis[ICD10: K21.9] Corrina Wade MD, [facility] CPT-4: 98114 08/01/2015 ([id number]) 51319 EST. P ATIENT, LEVEL III Diagnosis: Gastro-esophageal reflux disease without esophagitis[ICD10: K21.9] Anusha Wade MD, [facility] CPT-4: 37928 06/14/2015 ([id number]) Patient adm itted to the hospital from clinic (NO CHARGE) Diagnosis: Pneumonia, unspecified organism[ICD10: J18.9] Anusha Wade MD, [facility] CPT-4: 42216N 06/02/2015 03947 EST. PATIENT, LEVEL III Diagnosis: Pneumonia, unspecified organism[ICD10: J18.9] Anusha Wade MD, [facility] CPT-4: 71868 05/25/2015 ([id number]) 55469 EST. P ATIENT, LEVEL III Diagnosis: Cough[ICD10: R05] Diagnosis: Pneumonia, unspecified organism[ICD10: J18.9] Corrina Wade MD, [facility] CPT-4: 80845 05/03/2015 ([id number]) OFFICE VISI T, NEW - LEVEL 4 Diagnosis: HYPERLIPIDEMIA[ICD9: 272.4] Diagnosis: Osteoarthritis[ICD9: 715.90] Diagnosis: Hand pain[ICD9: 729.5] Diagnosis: Depression[ICD9: 311] Anusha Wade MD, [facility] CPT-4: 83687 07/28/2014 Plan of Care Planned Activity Notes C odes Status Date Visit Plan: Pneumonia - Pt has been diagnosed with pneumonia by physical exam. A chest xray has been ordered as have antibiotics. The pt is aware of the diagnosis and the need for acute treatment of this illness. 03/10/2018 Appointment: Alexa Aleman WPtel: [phone] (15 min) Moderate 03/10/2018 Patient Education: Patient Medication Summary Completed 03/10/2018 Visit Plan: UTI - pt with positive urinalysis - culture sent if appropriate. Antibiotic electronically prescribed to pt's pharmacy of choice. Pt to call if symptoms do not improve. 01/17/2018 Appointment: Alexa Aleman WPtel: [address] [place], [place] [id number] (15 min) Moderate 01/17/2018 Patient Education: Patient Medication Summary Completed 01/17/2018 Referral: Vicente Bennett Referral Completed 10/09/2017 Visit Plan: Medicare Exam - today w lillie discussed the patients past history, immunizations, preventative [...] 10/02/2017 Care Plan: Referral Order SNOMED-CT : [id number] Pending 10/02/2017 Appointment: [phone] [id number] [facility] - Annual Wellness Visit 09/27/2017 Visit Plan: [...] pharmacy. 06/03/2017 Appointment: [phone] [place] (15 min) Moderate 06/03/2017 Patient Education: Patient Medication Summary Completed 06/03/2017 Appointment: Lab Draw 04/01/2017 Patient Education: Patient Medication Summary Completed 04/01/2017 Visit Plan: Pneumonia - Pt has been diagnosed with pneumonia by physical exam. Antibiotics have been ordered. The pt is aware of the diagnosis and the need for acute treatment of this illness. 02/07/2017 [phone] [place] (15 min) Moderate 02/07/2017 Patient Education: Patient [...] warmth, discharge. 09/11/2016 Appointment: Alexa Aleman WPtel: [phone] [facility] (30 min) Complex 09/11/2016 Patient Education: Patient [...] acutely worsen. 01/03/2016 Appointment: Corrina Ahn WPtel: [phone] (30 min) Complex 01/03/2016 Patient Education: Patient Medication Summary Completed 01/03/2016 Appointment: Corrina Ahn WPtel: [phone] (30 min) Complex 11/15/2015 Visit Plan: Bite-right [...] acute concerns. 11/01/2015 Appointment: Corrina Ahn WPtel: [phone] (30 min) Complex 11/01/2015 Patient Education: Patient [...] spice diet 08/01/2015 Appointment: Corrina Ahn WPtel: [facility]5 [phone] (10 min) Simple 08/01/2015 Patient Education: Patient Medication Summary Completed 08/01/2015 Visit Plan: Esophageal Reflux - the patient has been counseled against excessive intake of caffeine, spicy foods, peppermint, and cinnamon - all of which can exacerbate esophageal reflux. The patient is to take medications as prescribed and call the office if the symptoms are not improving. 06/14/2015 Appointment: Anusha Wade WPtel: [facility]4 [id number] (30 min) Complex 06/14/2015 Patient Education: Patient [...] on paxil 07/28/2014 Appointment: Anusha Wade WPtel: [address] [place], [place] [id number] [place] ([place]) New Patient 07/28/2014 Patient Education: [...] GERD-symptoms improved-continue protonix, low spice diet . Medicare Exam - to day we [...]
--- OUTSIDE RECORDS SUMMARY | 2019-08-16 07:41 | XMS REPORT | CCD ---
Author Author Angi Wade Organization [facility] Address [address] [place] [address] Phone Care Team Providers Care Triage Assistant Name Role Phone PP Unavailable CCM Unavailable Summary Purpose Interface Exchange Insurance Providers Payer name Policy type / Coverage type Covered green party ID Effective Begin Date Effective End Date WPS Medicare Part B Medicare Part B [id number] Unknown T4 [employer] Medicare Part B [id number] 2014 Unkn own Family history Mother Diagnosis Age At Onset Heart Attack Unknown Hypertension Unknown Dementia Unknown Heart disease Unknown Thyroid Unknown Father Diagnosis Age At Onset Myocardial infarction Unknown Hypertension Unknown Social History Social History Element Codes Description Effective Dates Marital status Unknown M arried 07/28/2014 Number of children Unknown 2 07/28/2014 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/[address]: [id number] Has never smoked or chewed tobacco 07/28/2014 Alcohol history Unknown occasionally drinks alcohol 2 glasses of wine per week 5 Allergies, Adverse Reactions, Alerts Allergies, Adverse Reactions, Alerts data not found Past Medical History Illness Codes Condition Status Onset Date Resolved Date Encounter for genera l adult medical examination with abnormal findings ICD-9: V70.0 ICD-10: Z00.01 Active 09/20/2016 Unknown Allergic contact caitie matitis due to plants, except food ICD-9: 692.6 ICD-10: L23.7 Active 09/11/2016 Unknown Rash and other nonsp ecific skin eruption ICD-9: 782.1 ICD-10: R21 Active 09/11/2016 Unknown Acute bronchitis, un specified ICD-9: 466.0 ICD-10: J20.9 Active 01/02/2016 Unknown Allergic rhinitis du e to pollen ICD-9: 477.0 ICD-10: J30.1 Active 01/02/2016 Unknown Cough ICD-9: 786.2 ICD-10: R05 Active 01/02/2016 Unknown Actinic keratosis ICD-9: 702.0 ICD-10: L57.0 Active 10/31/2015 Unknown Insect bite (nonveno mous), right thigh, initial encounter ICD-9: 916.4 ICD-10: S70.361A Active 10/31/2015 Unknown Gastro-esophageal re flux disease without esophagitis ICD-9: 530.81 ICD-10: K21.9 Active 07/31/2015 Unknown Pneumonia, unspecifi ed organism ICD-9: 486 ICD-10: J18.9 Active 06/01/2015 Unknown Cerumen impaction ICD-9: 380.4 Active 08/01/2014 [...] Condition Codes Effectiv e Dates Condition Status Encounter for genera l adult medical examination with abnormal findings ICD-9: V70.0 ICD-10: Z00.01 09/20/2016 Active Allergic contact caitie matitis due to plants, except food ICD-9: 692.6 ICD-10: L23.7 09/11/2016 Active Rash and other nonsp ecific skin eruption ICD-9: 782.1 ICD-10: R21 09/11/2016 Active Acute bronchitis, un specified ICD-9: 466.0 ICD-10: J20.9 01/02/2016 Active Allergic rhinitis du e to pollen ICD-9: 477.0 ICD-10: J30.1 01/02/2016 Active Cough ICD-9: 786.2 ICD-10: R05 01/02/2016 Active Actinic keratosis ICD-9: 702.0 ICD-10: L57.0 10/31/2015 Active Insect bite (nonveno mous), right thigh, initial encounter ICD-9: 916.4 ICD-10: S70.361A 10/31/2015 Active Gastro-esophageal re flux disease without esophagitis ICD-9: 530.81 ICD-10: K21.9 07/31/2015 Active Pneumonia, unspecifi ed organism ICD-9: 486 ICD-10: J18.9 06/01/2015 Active Cerumen impaction ICD-9: 380.4 08/01/2014 Active Depression Unknown 07/28/2014 Active Diabetes Unknown 07/28/2014 Active Hyperlipidemia Unknown 07/28/2014 Active Hypertension Unknown 07/28/2014 Active Osteoarthritis Unknown 07/28/2014 Active Depression ICD-9: 311 07/27/2014 Active Hand pain ICD-9: 729.5 07/27/2014 Active HYPERLIPIDEMIA ICD-9: 272.4 07/27/2014 Active Osteoarthritis ICD-9: 715.90 07/27/2014 Active Medications Medication Codes Instruc tions Start Date Stop Date Sta tus Fill Instructions Kenalog 40 mg/mL rajeev pension for injection RxNorm: 1281120 1.5 Milliliter(s) In j 09/11/2016 09/11/2016 In active prednisone 10 mg tablet RxNorm: 915307 Tablet(s) PO UD 09/11/2016 09/11/2016 Inactive 60,50,40,30,20,10 fluoxetine 20 mg tablet RxNorm: 027014 TAKE ONE TABLET BY MOUTH DAILY 08/21/2016 02/16/2017 Ac tive meloxicam 15 mg tablet RxNorm: 545409 TAKE ONE TABLET BY MOUTH DAILY 05/28/2016 11/23/2016 Ac tive Zithromax Z-Rohit 250 mg tablet RxNorm: 708726 1 Tablet(s) PO UD 03/22/2016 09/04/2016 Inactive z pack as directed Kenalog 40 mg/mL rajeev pension for injection RxNorm: 3918837 Milliliter(s) Inj 01/03/2016 01/03/2016 In active Zithromax Z-Rohit 250 mg tablet RxNorm: 825441 1 Tablet(s) PO UD 01/03/2016 01/07/2016 Inactive ZPACK Protonix 40 mg table t,delayed release RxNorm: 483575 TAKE ONE TABLET BY MO UTH DAILY 11/29/2015 08/24/2016 In active mupirocin 2 % topica l ointment RxNorm: 672477 1 Application TOP BID 11/01/2015 11/07/2015 Inactive Serena Allergy 180 mg tablet RxNorm: 785526 1 Tablet(s) PO daily 08/01/2015 08/30/2015 Inactive Kenalog 40 mg/mL rajeev pension for injection RxNorm: 6086060 Milliliter(s) Inj 08/01/2015 08/01/2015 In active albuterol sulfate 2. 5 mg/3 mL (0.083 %) solution for nebulization RxNorm: 931375 3 Milliliter(s) INH Q6 PRN 07/29/2015 07/28/2015 Inactive albuterol sulfate 2. 5 mg/3 mL (0.083 %) solution for nebulization RxNorm: 698891 3 Milliliter(s) INH Q6 PRN 07/29/2015 08/27/2015 Inactive fluoxetine 20 mg tablet RxNorm: 972501 1 Tablet(s) PO daily 07/28/2015 02/22/2016 Inactive meloxicam 15 mg tablet RxNorm: 642314 1 Tablet(s) PO daily 06/22/2015 12/18/2015 Inactive nystatin 100,000 uni t/mL oral suspension RxNorm: 768069 4 Milliliter(s) PO QI D 06/01/2015 05/31/2015 In active nystatin 100,000 uni t/mL oral suspension RxNorm: 983237 4 Milliliter(s) PO QI D 06/01/2015 06/07/2015 In active Kenalog 40 mg/mL rajeev pension for injection RxNorm: 4346522 Milliliter(s) Inj 05/25/2015 05/25/2015 In active Zithromax Z-Rohit 250 mg tablet RxNorm: 956563 Tablet(s) PO 05/25/2015 06/13/2015 Inactive ceftriaxone 500 mg s olution for injection RxNorm: 2319985 Inj 05/25/2015 05/25/2015 Inactive Zithromax Z-Rohit 250 mg tablet RxNorm: 498335 Tablet(s) PO UD 05/25/2015 03/21/2016 Inactive prednisone 20 mg tablet RxNorm: 680505 2 Tablet(s) PO daily 05/25/2015 05/29/2015 Inactive cefdinir 300 mg capsule RxNorm: 175689 1 Capsule(s) PO BID 05/25/2015 06/03/2015 Inactive cefdinir 300 mg capsule RxNorm: 984546 1 Capsule(s) PO BID 05/25/2015 06/03/2015 Inactive prednisone 20 mg tablet RxNorm: 627861 2 Tablet(s) PO daily 05/25/2015 05/29/2015 Inactive ceftriaxone 500 mg s olution for injection RxNorm: 2387305 Inj 05/25/2015 05/25/2015 Inactive Kenalog 40 mg/mL rajeev pension for injection RxNorm: 0036273 Milliliter(s) Inj 05/03/2015 05/03/2015 In active Levaquin 500 mg tablet RxNorm: 787078 1 Tablet(s) PO daily 05/03/2015 05/09/2015 Inactive Protonix 40 mg table t,delayed release RxNorm: 148324 1 Tablet(s) PO daily 09/16/2014 09/10/2015 In active fluoxetine 20 mg tablet RxNorm: 839218 1 Tablet(s) PO daily 08/26/2014 08/25/2014 Inactive fluoxetine 20 mg tablet RxNorm: 342084 1 Tablet(s) PO daily 08/26/2014 03/23/2015 Inactive meloxicam 15 mg tablet RxNorm: 374421 1 Tablet(s) PO daily 07/28/2014 01/23/2015 Inactive clopidogrel 75 mg ta blet RxNorm: 975348 1 Tablet(s) PO daily No Start Date Active Lipitor 40 mg tablet RxNorm: 360292 1 Tablet(s) PO daily No Start Date Active fluoxetine 20 mg tablet RxNorm: 899992 1 Tablet(s) PO daily No Start Date 08/25/2014 Inactive Protonix 40 mg table t,delayed release RxNorm: 134448 1 Tablet(s) PO daily No Start Date 09/15/2014 Inactive Medication Administered Medication Codes Instruc tions Start Date Status Kenalog 40 mg/mL suspension for injection RxNorm: 9850676 1.5Milliliter 09/11/2016 No longer Active Kenalog 40 mg/mL suspension for injection RxNorm: 1216799 Milliliter 01/03/2016 No longer Active Kenalog 40 mg/mL suspension for injection RxNorm: 0368787 Milliliter 08/01/2015 No longer Active ceftriaxone 500 mg solution for injection RxNorm: 6915107 05/25/2015 No longer A ctive Kenalog 40 mg/mL suspension for injection RxNorm: 2850500 Milliliter 05/25/2015 No longer Active ceftriaxone 500 mg solution for injection RxNorm: 3222827 05/25/2015 No longer A ctive Kenalog 40 mg/mL suspension for injection RxNorm: 3604865 Milliliter 05/03/2015 No longer Active Immunizations No Immunization data Assessments Condition Codes Effectiv e Dates Encounter for general adult medical exam ination with abnormal findings ICD-10: Z00.01 ICD-9: V70.0 09/20/2016 Allergic contact dermatitis due to plants, except food ICD-10: L23.7 ICD-9: 692.6 09/11/2016 Rash and other nonspecific skin eruption ICD-10: R21 ICD-9: 782.1 09/11/2016 Allergic rhinitis due to pollen ICD- 10: J30.1 ICD-9: 477.0 01/03/2016 Cough ICD-10: R05 ICD-9: 786.2 01/03/2016 Acute bronchitis, unspecified ICD-10 : J20.9 [...] Visit Reason For Visit Effective Dates Notes Annual Medicare Wellness Exam 09/20/2016 rash 09/11/2016 cough 01/03/2016 arthropod bite 11/01/2015 cough 08/15/2015 cough 08/01/2015 cough 06/14/2015 cough 06/02/2015 sores in the mouth 05/25/2015 cough 05/03/2015 cerumen 08/02/2014 arthritis 07/28/2014 Results Observation Observation Code Item Item Code Result Date Lipid Ord30 CHOL 175 mg/dL 01/04/2016 Lipid Ord30 HDL 45.0 mg/dl 01/04/2016 Lipid Ord30 TRIG 69 mg/dL 01/04/2016 Lipid Ord30 LDL 116 mg/dL 01/04/2016 Lipid Ord30 C/HDL 3.9 Ratio 01/04/2016 Comp Metabolic Zha900 NA 139 mEq/L 01/04/2016 Comp Metabolic Yft925 K 4.3 mEq/L 01/04/2016 Comp Metabolic Mgl194 CL 101 mEq/L 01/04/2016 Comp Metabolic Pfw267 CO2 30.0 mEq/L 01/04/2016 Comp Metabolic Gkc549 AN ION GAP 12 01/04/2016 Comp Metabolic Ziz512 GL UCOSE 94 mg/dL 01/04/2016 Comp Metabolic Uks618 Cr eat 0.7 mg/dL 01/04/2016 Comp Metabolic Ndh866 eG FR 83 ml/min/1.73m2 01/03 Comp Metabolic Msm998 BUN 14 mg/dL 01/04/2016 Comp Metabolic Jch501 B/ C Ratio 18.9 Ratio 01/04/2016 Comp Metabolic Akr479 CA LCIUM 9.3 mg/dL 01/04/2016 Comp Metabolic Qto116 AL K PHOS 70 U/L 01/04/2016 Comp Metabolic Lfb381 T(SGOT) 14 U/L 01/04/2016 Comp Metabolic Him338 AL T(SGPT) 12 U/L 01/04/2016 Comp Metabolic Gdn852 BI LI T 0.4 mg/dL 01/04/2016 Comp Metabolic Ocp465 AL BUMIN 4.1 g/dL 01/04/2016 Comp Metabolic Myj914 TP RO 6.6 g/dL 01/04/2016 Comp Metabolic Vvx781 GL OB 2.6 g/dL 01/04/2016 Comp Metabolic Zpl134 A/ G Ratio 1.6 Ratio 01/04/2016 Comp Metabolic Aoz951 Os mo 278 mOsmo 01/04/2016 Tsh Ord6 hTSH II 1.03 uIU/mL 01/04/2016 Cbc With Differential Ord2 WBC 6.90 K/ul 01/04/2016 Cbc With Differential Ord2 RBC 4.21 M/ul 01/04/2016 Cbc With Differential Ord2 HGB 13.2 g/dl 01/04/2016 Cbc With Differential Ord2 Neut% 69.2 % 01/04/2016 Cbc With Differential Ord2 HCT 40.7 % 01/04/2016 Cbc With Differential Ord2 MCV 96.7 fl 01/04/2016 Cbc With Differential Ord2 Lymph% 20.6 % 01/04/2016 Cbc With Differential Ord2 MCH 31.4 pg 01/04/2016 Cbc With Differential Ord2 [place]% 8.6 % 01/04/2016 Cbc With Differential Ord2 [...] 1.42 K/ul 01/04/2016 Cbc With Differential Ord2 [place] ABS# 0.6 K/ul 01/04/2016 Cbc With Differential Ord2 Eos ABS# 0.1 K/ul 01/04/2016 Cbc With Differential Ord2 Baso ABS# 0.0 K/ul 01/04/2016 Free T4 Mno795 FREE T4 0.79 ng/dL 12/27/2014 Cbc With [...] Ord30 C/HDL 3.0 Ratio 12/27/2014 Comp Metabolic Zaj816 NA 138 mEq/L 12/27/2014 Comp Metabolic Xfl992 K 4.7 mEq/L 12/27/2014 Comp Metabolic Znk490 CL 103 mEq/L 12/27/2014 Comp Metabolic Hkm973 CO2 31.0 mEq/L 12/27/2014 Comp Metabolic Rhv969 AN ION GAP 9 12/27/2014 Comp Metabolic Ivs097 GL UCOSE 105 mg/dL 12/27/2014 Comp Metabolic Dgp078 Cr eat 0.8 mg/dL 12/27/2014 Comp Metabolic Lva421 eG FR 73 ml/min/1.73m2 12/27 Comp Metabolic Yrg589 BUN 16 mg/dL 12/27/2014 Comp Metabolic Ltj543 B/ C Ratio 19.3 Ratio 12/27/2014 Comp Metabolic Cfp284 CA LCIUM 9.7 mg/dL 12/27/2014 Comp Metabolic Hpl551 AL K PHOS 58 U/L 12/27/2014 Comp Metabolic Zpv008 T(SGOT) 20 U/L 12/27/2014 Comp Metabolic Znq528 AL T(SGPT) 16 U/L 12/27/2014 Comp Metabolic Kav142 BI LI T 0.6 mg/dL 12/27/2014 Comp Metabolic Das039 AL BUMIN 4.6 g/dL 12/27/2014 Comp Metabolic Bzi735 TP RO 6.6 g/dL 12/27/2014 Comp Metabolic Sxy457 GL OB 2.0 g/dL 12/27/2014 Comp Metabolic Ceu080 A/ G Ratio 2.3 Ratio 12/27/2014 Comp Metabolic Wpr525 Os mo 277 mOsmo 12/27/2014 Tsh Ord6 hTSH II 1.89 uIU/mL 12/27/2014 Review of Systems System Result Effective Dates Constitutional No recent illness 09/20/2016 Constitutional No [...] crepitus 07/28/2014 None Procedures Procedure Codes Date PPPS, SUBSEQ VISIT CPT-4: G0419Dqakbkh 09/20/2016 TRIAMCINOLONE ACET I [place] NOS CPT-4: Y3635Vmkhzke 09/11/2016 THER/PROPH/DIAG INJ SC/IM CPT-4: 93482Oixnwgx 09/11/2016 TRIAMCINOLONE ACET I [place] NOS CPT-4: X0472Pcokxae 01/03/2016 DESTRUCT PREMALG LES ION CPT-4: 07299Sskndoe 11/01/2015 TRIAMCINOLONE ACET I [place] NOS CPT-4: J2192Rxynrju 08/01/2015 TRIAMCINOLONE ACET I [place] NOS CPT-4: L0627Xxkbsoy 05/25/2015 ROCEPHIN, PER 250 MG CPT-4: S7009Rqywxvm 05/25/2015 TRIAMCINOLONE ACET I [place] NOS CPT-4: I0272Uojofnv 05/03/2015 REMOVE IMPACTED EAR WAX UNI CPT-4: 83399Dyqmfta 08/02/2014 Vital Signs Date Vital 09/20/2016 Blood Pressure 1: 124/72 Code: 8480-6 BMI: 21.8 Code: 86362-4 Heart Rate 1: 90 bpm Height: 5'3" SpO2: 96% Weight: 123 lbs 09/11/2016 Blood Pressure 1: 124/72 Code: 8480-6 BMI: 21.8 Code: 40414-3 Heart Rate 1: 90 bpm Height: 5'3" SpO2: 96% Weight: 123 lbs 01/03/2016 Blood Pressure 1: 100/70 Code: 8480-6 BMI: 21.3 Code: 88599-2 Heart Rate 1: 100 bpm Height: 5'3" SpO2: 94% Temperature: 37.3 (C ) / 99.1 (F) Weight: 120 lbs 11/01/2015 Blood Pressure 1: 122/74 Code: 8480-6 BMI: 21.4 Code: 76675-9 Heart Rate 1: 92 bpm Height: 5'3" SpO2: 94% Weight: 121 lbs 08/15/2015 Blood Pressure 1: 110/70 Code: 8480-6 BMI: 21.6 Code: 55794-2 Heart Rate 1: 76 bpm Height: 5'3" SpO2: 98% Weight: 122 lbs 08/01/2015 Blood Pressure 1: 128/88 Code: 8480-6 BMI: 22.3 Code: 62439-9 Heart Rate 1: 93 bpm Height: 5'3" SpO2: 99% Temperature: 36.8 (C ) / 98.2 (F) Weight: 126 lbs 06/14/2015 Blood Pressure 1: 118/76 Code: 8480-6 BMI: 22.3 Code: 46192-9 Heart Rate 1: 88 bpm Height: 5'3" SpO2: 96% Weight: 126 lbs 06/02/2015 Blood Pressure 1: 142/80 Code: 8480-6 BMI: 22.3 Code: 92078-8 Heart Rate 1: 91 bpm Height: 5'3" SpO2: 94% Temperature: 37.2 (C ) / 98.9 (F) Weight: 126 lbs 05/25/2015 Blood Pressure 1: 136/60 Code: 8480-6 BMI: 22.7 Code: 45014-0 Heart Rate 1: 90 bpm Height: 5'3" SpO2: 96% Weight: 128 lbs 05/03/2015 Blood Pressure 1: 120/58 Code: 8480-6 BMI: 22.7 Code: 60564-1 Heart Rate 1: 95 bpm Height: 5'3" SpO2: 96% Weight: 128 lbs 08/02/2014 Blood Pressure 1: 130/80 Code: 8480-6 BMI: 22.5 Code: 95920-4 Heart Rate 1: 64 bpm Height: 5'3" Weight: 127 lbs 07/28/2014 Blood Pressure 1: 130/76 Code: 8480-6 BMI: 22.5 Code: 54936-6 Heart Rate 1: 60 bpm Height: 5'3" Weight: 127 lbs Functional Status No Functional Status data History of Present Illness Symptom Name Status Resu lt Effective Date Notes Annual Medicare Wellness Exam Alcohol Use drinks [...] nausea 09/11/2016 None cough Location in the roat 01/03/2016 None cough Quality dry 01/03/2016 [...] changing 11/01/2015 None cough Location in the [facility] 08/15/2015 None cough Quality dry 08/15/2015 None [...] pain 08/15/2015 None cough Location in the ro 08/01/2015 None cough Quality worsening 08/01/2015 None [...] Episodes yearly 07/28/2014 has had arthritis for yea rs, she is doing a lot of gardening [...] Encounters Encounter Performer Loca tion Codes Date 70577 EST. PATIENT, LEVEL III Diagnosis: Rash and other nonspecific skin eruption[ICD10: R21] Diagnosis: Allergic contact dermatitis due to plants, except food[ICD10: L23.7] [facility] CPT-4: 72817 09/11/2016 ([id number] 44324 EST. P ATIENT, LEVEL III Diagnosis: Allergic rhinitis due to pollen[ICD10: J30.1] Diagnosis: Cough[ICD10: R05] Diagnosis: Acute bronchitis, unspecified[ICD10: J20.9] [facility] CPT-4: 96379 01/03/2016 ([id number]) 55926 EST. P ATIENT, LEVEL II Diagnosis: Insect bite (nonvenomous), right thigh, initial encounter[ICD10: S70.361A] Diagnosis: Actinic keratosis[ICD10: L57.0] [facility] CPT- 4: 86921 11/01/2015 ([id number]) 35854 EST. P ATIENT, LEVEL III Diagnosis: Allergic rhinitis due to pollen[ICD10: J30.1] [facility]rina [facility] MD, [facility] CPT-4: 75255 08/15/2015 ([id number]) 04667 EST. P ATIENT, LEVEL IV Diagnosis: Cough[ICD10: R05] Diagnosis: Allergic rhinitis due to pollen[ICD10: J30.1] Diagnosis: Gastro-esophageal reflux disease without esophagitis[ICD10: K21.9] [facility] MD, [facility] CPT-4: 91526 08/01/2015 ([id number]) 81916 EST. P ATIENT, LEVEL III Diagnosis: Gastro-esophageal reflux disease without esophagitis[ICD10: K21.9] [facility] MD, [facility] CPT-4: 91992 06/14/2015 ([id number]) Patient adm itted to the hospital from clinic (NO CHARGE) Diagnosis: Pneumonia, unspecified organism[ICD10: J18.9] An[facility]a Wade MD, [facility] CPT-4: 85934O 06/02/2015 07607 EST. PATIENT, LEVEL III Diagnosis: Pneumonia, unspecified organism[ICD10: J18.9] [facility] CPT-4: 87262 05/25/2015 ([id number]) 90714 EST. P ATIENT, LEVEL III Diagnosis: Cough[ICD10: R05] Diagnosis: Pneumonia, unspecified organism[ICD10: J18.9] [facility]rina [facility] MD, [facility] CPT-4: 79454 05/03/2015 ([id number]) OFFICE VISI T, NEW - LEVEL 4 Diagnosis: HYPERLIPIDEMIA[ICD9: 272.4] Diagnosis: Osteoarthritis[ICD9: 715.90] Diagnosis: Hand pain[ICD9: 729.5] Diagnosis: Depression[ICD9: 311] [facility] MD, [facility] CPT-4: 09363 07/28/2014 Plan of Care Planned Activity Notes C odes Status Date Visit Plan: Medicare Exam - today we dis cussed the patients past history, immunizations, preventative exams/evaluations [...] risk and to maintain independence in the home.Today we discussed the need for the patient to create paperwork for Advanced directives as well as for the patient to provide this office with a copy of her DOPA paperwork for health care surrogate. 2016 Patient Education: Patient Medication Summary Completed 09/20/2016 Visit Plan: Allergic Reaction/Hives/rash - discussed diagnosis with patient, need to avoid allergen, and when/if the patient should go to the emergency room. The patient is to call for any change in symptoms, increase in size of the lesion, increase in pain, worsening redness, warmth, discharge. 2016 [facility] [phone] [phone] ([facility] min) Complex 09/11/2016 Patient Education: Patient Medication Summary Completed 09/11/2016 Visit Plan: Allergies - chronic - recomm ended pt to use allergy medication as prescribed. Pt has been counseled as to the appropriate use of the medication. Pt to call if allergy symptoms are not controlled with the medication.If using nasal spray, instructions as follows: Nasal spray- use twice daily, one spray per nostril twice daily, after 30 minutes, rinse out nose with saline spray.. Use opposite hand per nostril to spray in the nasal steroid allergy spray.Bronchitis - acute case of bronchitis identified. Pt has been given antibiotics, breathing treatments as appropriate, and pt has been instructed to call if symptoms are not improved, or if symptoms acutely worsen. 2015 [facility] [phone] [phone] (30 min) Complex 01/03/2016 Patient Education: Patient Medication Summary Completed 01/03/2016 Appointment: Corrina Ahn WPtel: [phone] [phone] (30 min) Complex 11/15/2015 Visit Plan: Bite-right thigh-rx for bact roban ointment until healed-call for any worsening or unresolved symptoms AK-right upper lip-cryotherapy today in the office- Pt was instructed to keep the wound clean, wash with antibacterial soap, use triple antibiotic ointment, call if redness, pustular drainage, or any other acute concerns. 11/01/2015 Visit Plan: Bite-right thigh-rx for bact roban ointment until healed-call for any worsening or unresolved symptoms AK-right upper lip-cryotherapy today in the office- Pt was instructed to keep the wound clean, wash with antibacterial soap, use triple antibiotic ointment, call if redness, pustular drainage, or any other acute concerns. 11/01/2015 Appointment: Corrina Ahn WPtel: [phone] [phone] (30 min) Complex 11/01/2015 Patient Education: Patient Medication Summary Completed 11/01/2015 Visit Plan: Allergies-cough - chronic bu t improved on serena-PFT normal - recommended pt to use allergy medication as prescribed. Pt has been counseled as to the appropriate use of the medication. Pt to call if allergy symptoms are not controlled with the medication.If using nasal spray, instructions as follows: Nasal spray- use twice daily, one spray per nostril twice daily, after 30 minutes, rinse out nose with saline spray.. Use opposite hand per nostril to spray in the nasal steroid allergy spray.Skin lesion-right upper lip-recommend removal-patient to monitor and return for cryotherapy when able 2015 Patient Education: Patient Medication Summary Completed 08/15/2015 Visit Plan: Allergies - chronic - recomm ended pt to use allergy medication as prescribed. Pt has been counseled as to the appropriate use of the medication. Pt to call if allergy symptoms are not controlled with the medication.If using nasal spray, instructions as follows: Nasal spray- use twice daily, one spray per nostril twice daily, after 30 minutes, rinse out nose with saline spray.. Use opposite hand per nostril to spray in the nasal steroid allergy spray.Persistent cough-shortness of breath-schedule PFT-use albuterol nebulizer prn GERD-symptoms improved-continue protonix, low spice diet 08/01/2015 Appointment: [facility] [phone] [phone] (10 min) Simple 08/01/2015 Patient Education: Patient Medication Summary Completed 08/01/2015 Visit Plan: Esophageal Reflux - the osmar ent has been counseled against excessive intake of caffeine, spicy foods, peppermint, and cinnamon - all of which can exacerbate esophageal reflux.The patient is to take medications as prescribed and call the office if the symptoms are not improving. 06/14/2015 [phone] [phone] ([facility] 06/14/2015 Patient Education: Patient Medication Summary Completed 06/14/2015 Visit Plan: PNEUMONIA - PT IS CLINICALLY SYMPTOMATIC FOR PNEUMONIA - A CHEST XRAY, SPUTUM C AND S, BLOOD CULTURES, AND LABS HAVE BEEN ORDERED IN ORDER TO FURTHER WORK-UP THE ACUTE ILLNESS.DR. WADE IN TO EVALUATE THE PT.ADDENDUM: Doctor's eval of the patient - I, [...] 06/02/2015 Visit Plan: PNEUMONIA - PT IS CLINICALLY SYMPTOMATIC FOR PNEUMONIA - A CHEST XRAY, SPUTUM C AND S, BLOOD CULTURES, AND LABS HAVE BEEN ORDERED IN ORDER TO FURTHER WORK-UP THE ACUTE ILLNESS.DR. WADE IN TO EVALUATE THE PT. 2015 Patient Education: Patient Medication Summary Completed 06/02/2015 Visit Plan: Pneumonia - Pt has been diag nosed with pneumonia by physical exam. Will send RX. The pt is aware of the diagnosis and the need for acute treatment of this illness.Call if symptoms do not resolve or if [...] Visit Plan: Pneumonia - Pt has been diag nosed with pneumonia by physical exam. Will send RX. The pt is aware of the diagnosis and the need for acute treatment of this illness.Call if symptoms do not resolve or if any worse. 05/25/2015 Appointment: (15 min) Moderate 05/25/2015 Patient Education: Patient Medication Summary Completed 05/25/2015 Visit Plan: Pneumonia - Pt has been diag nosed with pneumonia by physical exam. A chest xray has been ordered as have antibiotics. The pt is aware of the diagnosis and the need for acute treatment of this illness.Call if symptoms do not resolve or if any worse. 05/03/2015 Patient Education: Patient Medication Summary Completed 05/03/2015 Visit Plan: Cerumen Impaction - The impa cted cerumen was removed with the use of the ear currette and water pic. The patient tolerated the procedure without incident and had improvement in hearing.The wax was removed by the practitioner due to the wax being more complicated to remove, and staff was needed to assist the removal of the wax by holding the ear, and keeping patient stabilized during the removal process. 08/02/2014 Patient Education: Patient Medication Summary Completed 08/02/2014 Visit Plan: Hyperlipidemia - pt has bee n counseled about appropriate diet, exercise, and need [...] and to assure normal liver response to medications.Arthritis- occasionally uncontrolled symptoms- recommend pt to take antiinflammatory as directed for pain control.Use Tylenol for break through pain symptoms.Pt reports that the Arthrotec was expensive, and she is wondering about a lower cost alternative - pt to start on Mobic, will monitor her symptoms on this medication - she is to start at 7.5mg daily and up the dose to either 7.5mg bid or 15mg daily depending on her symptoms.Depression - symptoms stable on paxil 2014 Appointment: MauroOlimpiay WPtel: [address] [place], [place] [phone] [place] ([place]) New Patient 07/28/2014 Patient Education: Patient Medication Summary Completed 07/28/2014 Patient Education: Hypertension Completed 07/28/2014 Instructions Comment . Pneumonia - Pt has been diagnosed [...] Depression - symptoms stable on paxil RECOMMEND SERENA KENALOG INJECTION TODAY IN THE OFFICE SCHEDULE [...] . Allergies-cough - chronic but improved on serena-PFT normal - recommended pt to use allergy [...] able Benadryl at night as needed , serena during the day as needed, pepcid 20mg [...]
--- OUTSIDE RECORDS SUMMARY | 2019-08-16 07:41 | XMS REPORT | CCD ---
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 Name Role Phone PP Unavailable CCM Unavailable Summary Purpose Interface Exchange Insurance Providers Payer name Policy type / Coverage type Covered republican ID Effective Begin Date Effective End Date WPS Medicare Part B Medicare Part B [id number] Unknown [place] Medicare Part B [id number] 2014 Unkn own Family history Mother Diagnosis Age At Onset Heart Attack Unknown Hypertension Unknown Dementia Unknown Heart disease Unknown Thyroid Unknown Father Diagnosis Age At Onset Myocardial infarction Unknown Hypertension Unknown Social History Social History Element Codes Description Effective Dates Marital status Unknown M arried 07/28/2014 Number of children Unknown 2 07/28/2014 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/28/[address]: 294488051 Has never smoked or chewed tobacco 07/28/2014 [...] 40 mg/mL rajeev pension for injection RxNorm: 9472339 1.5 Milliliter(s) In j 09/11/2016 09/11/2016 In active prednisone 10 mg tablet RxNorm: 119894 Tablet(s) PO UD 09/11/2016 09/11/2016 Inactive 60,50,40,30,20,10 fluoxetine 20 mg tablet RxNorm: 977225 TAKE ONE TABLET BY MOUTH DAILY 08/21/2016 02/16/2017 Ac tive meloxicam 15 mg tablet RxNorm: 253307 TAKE ONE TABLET BY MOUTH DAILY 05/28/2016 11/23/2016 Ac tive Zithromax Z-Rohit 250 mg tablet RxNorm: 652218 1 Tablet(s) PO UD 03/22/2016 09/04/2016 Inactive z pack as directed Kenalog 40 mg/mL rajeev pension for injection RxNorm: 8460245 Milliliter(s) Inj 01/03/2016 01/03/2016 In active Zithromax Z-Rohit 250 mg tablet RxNorm: 800568 1 Tablet(s) PO UD 01/03/2016 01/07/2016 Inactive ZPACK Protonix 40 mg table t,delayed release RxNorm: 619653 TAKE ONE TABLET BY MO UTH DAILY 11/29/2015 08/24/2016 In active mupirocin 2 % topica l ointment RxNorm: 711278 1 Application TOP BID 11/01/2015 11/07/2015 Inactive Serena Allergy 180 mg tablet RxNorm: 490921 1 Tablet(s) PO daily 08/01/2015 08/30/2015 Inactive Kenalog 40 mg/mL rajeev pension for injection RxNorm: 8492612 Milliliter(s) Inj 08/01/2015 08/01/2015 In active albuterol sulfate 2. 5 mg/3 mL (0.083 %) solution for nebulization RxNorm: 787857 3 Milliliter(s) INH Q6 PRN 07/29/2015 07/28/2015 Inactive albuterol sulfate 2. 5 mg/3 mL (0.083 %) solution for nebulization RxNorm: 197540 3 Milliliter(s) INH Q6 PRN 07/29/2015 08/27/2015 Inactive fluoxetine 20 mg tablet RxNorm: 620805 1 Tablet(s) PO daily 07/28/2015 02/22/2016 Inactive meloxicam 15 mg tablet RxNorm: 708001 1 Tablet(s) PO daily 06/22/2015 12/18/2015 Inactive nystatin 100,000 uni t/mL oral suspension RxNorm: 874127 4 Milliliter(s) PO QI D 06/01/2015 05/31/2015 In active nystatin 100,000 uni t/mL oral suspension RxNorm: 357429 4 Milliliter(s) PO QI D 06/01/2015 06/07/2015 In active Kenalog 40 mg/mL rajeev pension for injection RxNorm: 8776308 Milliliter(s) Inj 05/25/2015 05/25/2015 In active Zithromax Z-Rohit 250 mg tablet RxNorm: 007972 Tablet(s) PO 05/25/2015 06/13/2015 Inactive ceftriaxone 500 mg s olution for injection RxNorm: 5140976 Inj 05/25/2015 05/25/2015 Inactive Zithromax Z-Rohit 250 mg tablet RxNorm: 550943 Tablet(s) PO UD 05/25/2015 03/21/2016 Inactive prednisone 20 mg tablet RxNorm: 235927 2 Tablet(s) PO daily 05/25/2015 05/29/2015 Inactive cefdinir 300 mg capsule RxNorm: 155447 1 Capsule(s) PO BID 05/25/2015 06/03/2015 Inactive cefdinir 300 mg capsule RxNorm: 983461 1 Capsule(s) PO BID 05/25/2015 06/03/2015 Inactive prednisone 20 mg tablet RxNorm: 872615 2 Tablet(s) PO daily 05/25/2015 05/29/2015 Inactive ceftriaxone 500 mg s olution for injection RxNorm: 4501524 Inj 05/25/2015 05/25/2015 Inactive Kenalog 40 mg/mL rajeev pension for injection RxNorm: 7141884 Milliliter(s) Inj 05/03/2015 05/03/2015 In active Levaquin 500 mg tablet RxNorm: 884036 1 Tablet(s) PO daily 05/03/2015 05/09/2015 Inactive Protonix 40 mg table t,delayed release RxNorm: 400061 1 Tablet(s) PO daily 09/16/2014 09/10/2015 In active fluoxetine 20 mg tablet RxNorm: 279373 1 Tablet(s) PO daily 08/26/2014 08/25/2014 Inactive fluoxetine 20 mg tablet RxNorm: 987775 1 Tablet(s) PO daily 08/26/2014 03/23/2015 Inactive meloxicam 15 mg tablet RxNorm: 192945 1 Tablet(s) PO daily 07/28/2014 01/23/2015 Inactive clopidogrel 75 mg ta blet RxNorm: 814584 1 Tablet(s) PO daily No Start Date Active Lipitor 40 mg tablet RxNorm: 817841 1 Tablet(s) PO daily No Start Date Active fluoxetine 20 mg tablet RxNorm: 072939 1 Tablet(s) PO daily No Start Date 08/25/2014 Inactive Protonix 40 mg table t,delayed release RxNorm: 054344 1 Tablet(s) PO daily No Start Date 09/15/2014 Inactive Medication Administered Medication Codes Instruc tions Start Date Status Kenalog 40 mg/mL suspension for injection RxNorm: 5015033 1.5Milliliter 09/11/2016 No longer Active Kenalog 40 mg/mL suspension for injection RxNorm: 1552363 Milliliter 01/03/2016 No longer Active Kenalog 40 mg/mL suspension for injection RxNorm: 7638019 Milliliter 08/01/2015 No longer Active ceftriaxone 500 mg solution for injection RxNorm: 6198592 05/25/2015 No longer A ctive Kenalog 40 mg/mL suspension for injection RxNorm: 7769827 Milliliter 05/25/2015 No longer Active ceftriaxone 500 mg solution for injection RxNorm: 1379820 05/25/2015 No longer A ctive Kenalog 40 mg/mL suspension for injection RxNorm: 3903935 Milliliter 05/03/2015 No longer Active Immunizations No [...] Ord30 C/HDL 3.9 Ratio 01/04/2016 Comp Metabolic Lfy338 NA 139 mEq/L 01/04/2016 Comp Metabolic Gbq296 K 4.3 mEq/L 01/04/2016 Comp Metabolic Idu932 CL 101 mEq/L 01/04/2016 Comp Metabolic Cxh262 CO2 30.0 mEq/L 01/04/2016 Comp Metabolic Iqx801 AN ION GAP 12 01/04/2016 Comp Metabolic Uqy178 GL UCOSE 94 mg/dL 01/04/2016 Comp Metabolic Juj068 Cr eat 0.7 mg/dL 01/04/2016 Comp Metabolic Iej551 eG FR 83 ml/min/1.73m2 01/03 Comp Metabolic Rnv025 BUN 14 mg/dL 01/04/2016 Comp Metabolic Dqu377 B/ C Ratio 18.9 Ratio 01/04/2016 Comp Metabolic Byh792 CA LCIUM 9.3 mg/dL 01/04/2016 Comp Metabolic Hjt517 AL K PHOS 70 U/L 01/04/2016 Comp Metabolic Pxw873 T(SGOT) 14 U/L 01/04/2016 Comp Metabolic Cju649 AL T(SGPT) 12 U/L 01/04/2016 Comp Metabolic Ggd169 BI LI T 0.4 mg/dL 01/04/2016 Comp Metabolic Vtp062 AL BUMIN 4.1 g/dL 01/04/2016 Comp Metabolic Kix356 TP RO 6.6 g/dL 01/04/2016 Comp Metabolic Jto589 GL OB 2.6 g/dL 01/04/2016 Comp Metabolic Wbd200 A/ G Ratio 1.6 Ratio 01/04/2016 Comp Metabolic Xbn882 Os mo 278 mOsmo 01/04/2016 Tsh Ord6 hTSH II 1.03 uIU/mL 01/04/2016 Cbc With Differential Ord2 WBC 6.90 K/ul 01/04/2016 Cbc With Differential Ord2 RBC 4.21 M/ul 01/04/2016 Cbc With Differential Ord2 HGB 13.2 g/dl 01/04/2016 Cbc With Differential Ord2 HCT 40.7 % 01/04/2016 Cbc With Differential Ord2 Neut% 69.2 % 01/04/2016 Cbc With Differential Ord2 Lymph% 20.6 % 01/04/2016 Cbc With Differential Ord2 MCV 96.7 fl 01/04/2016 Cbc With Differential Ord2 MCH 31.4 pg 01/04/2016 Cbc With Differential Ord2 [place]icking% 8.6 % 01/04/2016 Cbc With Differential Ord2 MCHC 32.4 pg 01/04/2016 Cbc With Differential Ord2 Eos% 1.3 % 01/04/2016 Cbc With Differential Ord2 Baso% 0.3 % 01/04/2016 Cbc With Differential Ord2 PLT 348 K/ul 01/04/2016 Cbc With Differential Ord2 RDW 13.5 % 01/04/2016 Cbc With Differential Ord2 Neut ABS# 4.78 K/ul 01/04/2016 Cbc With Differential Ord2 Lymph ABS# 1.42 K/ul 01/04/2016 Cbc With Differential Ord2 [place] ABS# 0.6 K/ul 01/04/2016 Cbc With Differential Ord2 Eos ABS# 0.1 K/ul 01/04/2016 Cbc With Differential Ord2 Baso ABS# 0.0 K/ul 01/04/2016 Free T4 Knv753 FREE T4 0.79 ng/dL 12/27/2014 Cbc With [...] Ord30 C/HDL 3.0 Ratio 12/27/2014 Comp Metabolic Czy282 NA 138 mEq/L 12/27/2014 Comp Metabolic Zfl967 K 4.7 mEq/L 12/27/2014 Comp Metabolic Hdw482 CL 103 mEq/L 12/27/2014 Comp Metabolic Fic895 CO2 31.0 mEq/L 12/27/2014 Comp Metabolic Uik588 AN ION GAP 9 12/27/2014 Comp Metabolic Uuc837 GL UCOSE 105 mg/dL 12/27/2014 Comp Metabolic Knp447 Cr eat 0.8 mg/dL 12/27/2014 Comp Metabolic Htv122 eG FR 73 ml/min/1.73m2 12/27 Comp Metabolic Jyv838 BUN 16 mg/dL 12/27/2014 Comp Metabolic Ylr351 B/ C Ratio 19.3 Ratio 12/27/2014 Comp Metabolic Wqw657 CA LCIUM 9.7 mg/dL 12/27/2014 Comp Metabolic Bhe736 AL K PHOS 58 U/L 12/27/2014 Comp Metabolic Qjt795 T(SGOT) 20 U/L 12/27/2014 Comp Metabolic Nbp706 AL T(SGPT) 16 U/L 12/27/2014 Comp Metabolic Lan976 BI LI T 0.6 mg/dL 12/27/2014 Comp Metabolic Otc090 AL BUMIN 4.6 g/dL 12/27/2014 Comp Metabolic Jkx430 TP RO 6.6 g/dL 12/27/2014 Comp Metabolic Tov156 GL OB 2.0 g/dL 12/27/2014 Comp Metabolic Uof080 A/ G Ratio 2.3 Ratio 12/27/2014 Comp Metabolic Ori125 Os mo 277 mOsmo 12/27/2014 Tsh Ord6 [...] Procedure Codes Date PPPS, SUBSEQ VISIT CPT-4: F2442Iipcqrh 09/20/2016 TRIAMCINOLONE ACET I [place] NOS CPT-4: W4633Bderebx 09/11/2016 THER/PROPH/DIAG INJ SC/IM CPT-4: 80794Etjzpnh 09/11/2016 TRIAMCINOLONE ACET I [place] NOS CPT-4: W8795Aaningr 01/03/2016 DESTRUCT PREMALG LES ION CPT-4: 01129Jyrwapy 11/01/2015 TRIAMCINOLONE ACET I [place] NOS CPT-4: Y9738Ezjwcpn 08/01/2015 TRIAMCINOLONE ACET I [place] NOS CPT-4: V5425Yndxqbh 05/25/2015 ROCEPHIN, PER 250 MG CPT-4: W6559Ouqvjpt 05/25/2015 TRIAMCINOLONE ACET I [place] NOS CPT-4: O4705Rniktcl 05/03/2015 REMOVE IMPACTED EAR WAX UNI CPT-4: 33689Ssktlss 08/02/2014 Vital Signs Date Vital 09/20/2016 Blood Pressure 1: 124/72 Code: 8480-6 BMI: 21.8 Code: 37427-5 Heart Rate 1: 90 bpm Height: 5'3" SpO2: 96% Weight: 123 lbs 09/11/2016 Blood Pressure 1: 124/72 Code: 8480-6 BMI: 21.8 Code: 17744-8 Heart Rate 1: 90 bpm Height: 5'3" SpO2: 96% Weight: 123 lbs 01/03/2016 Blood Pressure 1: 100/70 Code: 8480-6 BMI: 21.3 Code: 26507-8 Heart Rate 1: 100 bpm Height: 5'3" SpO2: 94% Temperature: 37.3 (C ) / 99.1 (F) Weight: 120 lbs 11/01/2015 Blood Pressure 1: 122/74 Code: 8480-6 BMI: 21.4 Code: 09347-8 Heart Rate 1: 92 bpm Height: 5'3" SpO2: 94% Weight: 121 lbs 08/15/2015 Blood Pressure 1: 110/70 Code: 8480-6 BMI: 21.6 Code: 42009-5 Heart Rate 1: 76 bpm Height: 5'3" SpO2: 98% Weight: 122 lbs 08/01/2015 Blood Pressure 1: 128/88 Code: 8480-6 BMI: 22.3 Code: 53216-9 Heart Rate 1: 93 bpm Height: 5'3" SpO2: 99% Temperature: 36.8 (C ) / 98.2 (F) Weight: 126 lbs 06/14/2015 Blood Pressure 1: 118/76 Code: 8480-6 BMI: 22.3 Code: 15353-9 Heart Rate 1: 88 bpm Height: 5'3" SpO2: 96% Weight: 126 lbs 06/02/2015 Blood Pressure 1: 142/80 Code: 8480-6 BMI: 22.3 Code: 96416-9 Heart Rate 1: 91 bpm Height: 5'3" SpO2: 94% Temperature: 37.2 (C ) / 98.9 (F) Weight: 126 lbs 05/25/2015 Blood Pressure 1: 136/60 Code: 8480-6 BMI: 22.7 Code: 65475-0 Heart Rate 1: 90 bpm Height: 5'3" SpO2: 96% Weight: 128 lbs 05/03/2015 Blood Pressure 1: 120/58 Code: 8480-6 BMI: 22.7 Code: 22430-4 Heart Rate 1: 95 bpm Height: 5'3" SpO2: 96% Weight: 128 lbs 08/02/2014 Blood Pressure 1: 130/80 Code: 8480-6 BMI: 22.5 Code: 81488-8 Heart Rate 1: 64 bpm Height: 5'3" Weight: 127 lbs 07/28/2014 Blood Pressure 1: 130/76 Code: 8480-6 BMI: 22.5 Code: 91391-6 Heart Rate 1: 60 bpm Height: 5'3" [...] changing 11/01/2015 None cough Location in the [facility] 08/15/2015 None cough Quality dry 08/15/2015 None [...] Encounters Encounter Performer Loca tion Codes Date 03148 EST. PATIENT, LEVEL III Diagnosis: Rash and other nonspecific skin eruption[ICD10: R21] Diagnosis: Allergic contact dermatitis due to plants, except food[ICD10: L23.7] [facility] CPT-4: 40253 09/11/2016 ([id number] 42050 EST. P ATIENT, LEVEL III Diagnosis: Allergic rhinitis due to pollen[ICD10: J30.1] Diagnosis: Cough[ICD10: R05] Diagnosis: Acute bronchitis, unspecified[ICD10: J20.9] [facility] CPT-4: 52666 01/03/2016 ([id number]) 29791 EST. P ATIENT, LEVEL II Diagnosis: Insect bite (nonvenomous), right thigh, initial encounter[ICD10: S70.361A] Diagnosis: Actinic keratosis[ICD10: L57.0] [facility] CPT- 4: 04655 11/01/2015 ([id number]) 36643 EST. P ATIENT, LEVEL III Diagnosis: Allergic rhinitis due to pollen[ICD10: J30.1] Corrina Wade MD, [facility] CPT-4: 04530 08/15/2015 ([id number]) 01504 EST. P ATIENT, LEVEL IV Diagnosis: Cough[ICD10: R05] Diagnosis: Allergic rhinitis due to pollen[ICD10: J30.1] Diagnosis: Gastro-esophageal reflux disease without esophagitis[ICD10: K21.9] Corrina Wade MD, [facility] CPT-4: 84295 08/01/2015 ([id number]) 09857 EST. P ATIENT, LEVEL III Diagnosis: Gastro-esophageal reflux disease without esophagitis[ICD10: K21.9] Anusha [facility] MD, [facility] CPT-4: 47201 06/14/2015 ([id number]) Patient adm itted to the hospital from clinic (NO CHARGE) Diagnosis: Pneumonia, unspecified organism[ICD10: J18.9] [facility]a [facility] MD, [facility] CPT-4: 23675B 06/02/2015 23464 EST. PATIENT, LEVEL III Diagnosis: Pneumonia, unspecified organism[ICD10: J18.9] [facility] CPT-4: 62462 05/25/2015 ([id number]) 95180 EST. P ATIENT, LEVEL III Diagnosis: Cough[ICD10: R05] Diagnosis: Pneumonia, unspecified organism[ICD10: J18.9] Corrina [facility] MD, [facility] CPT-4: 65802 05/03/2015 ([id number]) OFFICE VISI T, NEW - LEVEL 4 Diagnosis: HYPERLIPIDEMIA[ICD9: 272.4] Diagnosis: Osteoarthritis[ICD9: 715.90] Diagnosis: Hand pain[ICD9: 729.5] Diagnosis: Depression[ICD9: 311] [facility] MD, [facility] CPT-4: 72636 07/28/2014 Plan of Care Planned Activity Notes [...] discharge. 2016 [phone] [facility] [facility] Complex 09/11/2016 Patient Education: Patient [...] acutely worsen. 2015 [facility]ment[phone] [phone] ([facility] min) Complex 01/03/2016 Patient Education: Patient Medication Summary Completed 01/03/2016 Appointment: Corrina Ahn WPtel: [phone] [phone] (30 min) Complex 11/15/2015 Visit Plan: Bite-right [...] acute concerns. 11/01/2015 Appointment: Corrina Ahn WPtel: [phone] [phone] (30 min) Complex 11/01/2015 Patient Education: Patient [...] diet 08/01/2015 Appointment: [phone] (10 min) Simple 08/01/2015 Patient Education: Patient Medication Summary Completed 08/01/2015 Visit Plan: Esophageal Reflux - the osmar ent has been counseled against excessive intake of caffeine, spicy foods, peppermint, and cinnamon - all of which can exacerbate esophageal reflux.The patient is to take medications as prescribed and call the office if the symptoms are not improving. 06/14/2015 Appointment[phone] [facility] ([facility] 06/14/2015 Patient Education: [...] stable on paxil 2014 Appointment: MauroOlimpiay WPtel: [address] [place], [place] [phone] [place] ([place]) New Patient 07/28/2014 Patient Education: [...]
--- OUTSIDE RECORDS SUMMARY | 2019-08-16 07:42 | XMS REPORT | CCD ---
Author Author Angi Wade Organization [facility] Address [address] [place] [address] Phone Care Team Providers Care Clutch Inspector Name Role Phone PP Unavailable CCM Unavailable Summary Purpose Interface Exchange Insurance Providers Payer name Policy type / Coverage type Covered alliance party ID Effective Begin Date Effective End Date WPS Medicare Part B Medicare Part B [id number] Unknown [employer] Medicare Part B [id number] 2014 Unkn own Family history Mother Diagnosis Age At Onset Heart Attack Unknown Hypertension Unknown Heart disease Unknown Thyroid Unknown Father Diagnosis Age At Onset Myocardial infarction Unknown Hypertension Unknown Social History Social History Element Codes Description Effective Dates Marital status Unknown M arried 07/28/2014 Number of children Unknown 2 07/28/2014 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/[address]: 738165594 Has never smoked or chewed tobacco 07/28/2014 Alcohol history Unknown occasionally drinks alcohol 2 glasses of wine per week 5 Allergies, Adverse Reactions, Alerts Allergies, Adverse Reactions, Alerts data not found Past Medical History Illness Codes Condition Status Onset Date Resolved Date Allergic contact caitie matitis due to plants, [...] Condition Codes Effectiv e Dates Condition Status Allergic contact caitie matitis due to plants, [...] 40 mg/mL rajeev pension for injection RxNorm: 7546691 1.5 Milliliter(s) In j 09/11/2016 09/11/2016 In active prednisone 10 mg tablet RxNorm: 721284 Tablet(s) PO UD 09/11/2016 No Stop Date Active 60,50,40,30,20,10 fluoxetine 20 mg tablet RxNorm: 129689 TAKE ONE TABLET BY MOUTH DAILY 08/21/2016 02/16/2017 Ac tive meloxicam 15 mg tablet RxNorm: 032604 TAKE ONE TABLET BY MOUTH DAILY 05/28/2016 11/23/2016 Ac tive Zithromax Z-Rohit 250 mg tablet RxNorm: 900030 1 Tablet(s) PO UD 03/22/2016 No Stop Date Active z pack as directed Kenalog 40 mg/mL rajeev pension for injection RxNorm: 4572868 Milliliter(s) Inj 01/03/2016 01/03/2016 In active Zithromax Z-Rohit 250 mg tablet RxNorm: 219137 1 Tablet(s) PO UD 01/03/2016 01/07/2016 Inactive ZPACK Protonix 40 mg table t,delayed release RxNorm: 460321 TAKE ONE TABLET BY MO UTH DAILY 11/29/2015 08/24/2016 In active mupirocin 2 % topica l ointment RxNorm: 080081 1 Application TOP BID 11/01/2015 11/07/2015 Inactive Serena Allergy 180 mg tablet RxNorm: 720580 1 Tablet(s) PO daily 08/01/2015 08/30/2015 Inactive Kenalog 40 mg/mL rajeev pension for injection RxNorm: 3027329 Milliliter(s) Inj 08/01/2015 08/01/2015 In active albuterol sulfate 2. 5 mg/3 mL (0.083 %) solution for nebulization RxNorm: 572150 3 Milliliter(s) INH Q6 PRN 07/29/2015 07/28/2015 Inactive albuterol sulfate 2. 5 mg/3 mL (0.083 %) solution for nebulization RxNorm: 255946 3 Milliliter(s) INH Q6 PRN 07/29/2015 08/27/2015 Inactive fluoxetine 20 mg tablet RxNorm: 861353 1 Tablet(s) PO daily 07/28/2015 02/22/2016 Inactive meloxicam 15 mg tablet RxNorm: 747111 1 Tablet(s) PO daily 06/22/2015 12/18/2015 Inactive nystatin 100,000 uni t/mL oral suspension RxNorm: 537005 4 Milliliter(s) PO QI D 06/01/2015 05/31/2015 In active nystatin 100,000 uni t/mL oral suspension RxNorm: 749886 4 Milliliter(s) PO QI D 06/01/2015 06/07/2015 In active Kenalog 40 mg/mL rajeev pension for injection RxNorm: 5524385 Milliliter(s) Inj 05/25/2015 05/25/2015 In active Zithromax Z-Rohit 250 mg tablet RxNorm: 759514 Tablet(s) PO 05/25/2015 06/13/2015 Inactive ceftriaxone 500 mg s olution for injection RxNorm: 4861706 Inj 05/25/2015 05/25/2015 Inactive Zithromax Z-Rohit 250 mg tablet RxNorm: 017733 Tablet(s) PO UD 05/25/2015 03/21/2016 Inactive prednisone 20 mg tablet RxNorm: 906246 2 Tablet(s) PO daily 05/25/2015 05/29/2015 Inactive cefdinir 300 mg capsule RxNorm: 295680 1 Capsule(s) PO BID 05/25/2015 06/03/2015 Inactive cefdinir 300 mg capsule RxNorm: 729057 1 Capsule(s) PO BID 05/25/2015 06/03/2015 Inactive prednisone 20 mg tablet RxNorm: 849467 2 Tablet(s) PO daily 05/25/2015 05/29/2015 Inactive ceftriaxone 500 mg s olution for injection RxNorm: 4952566 Inj 05/25/2015 05/25/2015 Inactive Kenalog 40 mg/mL rajeev pension for injection RxNorm: 7900450 Milliliter(s) Inj 05/03/2015 05/03/2015 In active Levaquin 500 mg tablet RxNorm: 183066 1 Tablet(s) PO daily 05/03/2015 05/09/2015 Inactive Protonix 40 mg table t,delayed release RxNorm: 335684 1 Tablet(s) PO daily 09/16/2014 09/10/2015 In active fluoxetine 20 mg tablet RxNorm: 607157 1 Tablet(s) PO daily 08/26/2014 08/25/2014 Inactive fluoxetine 20 mg tablet RxNorm: 383227 1 Tablet(s) PO daily 08/26/2014 03/23/2015 Inactive meloxicam 15 mg tablet RxNorm: 704474 1 Tablet(s) PO daily 07/28/2014 01/23/2015 Inactive clopidogrel 75 mg ta blet RxNorm: 651822 1 Tablet(s) PO daily No Start Date Active Lipitor 40 mg tablet RxNorm: 531534 1 Tablet(s) PO daily No Start Date Active fluoxetine 20 mg tablet RxNorm: 920632 1 Tablet(s) PO daily No Start Date 08/25/2014 Inactive Protonix 40 mg table t,delayed release RxNorm: 684728 1 Tablet(s) PO daily No Start Date 09/15/2014 Inactive Medication Administered Medication Codes Instruc tions Start Date Status Kenalog 40 mg/mL suspension for injection RxNorm: 9513089 1.5Mstania 09/11/2016 Active Kenalog 40 mg/mL suspension for injection RxNorm: 9552081 Milliliter 01/03/2016 No longer Active Kenalog 40 mg/mL suspension for injection RxNorm: 3478522 Milliliter 08/01/2015 No longer Active ceftriaxone 500 mg solution for injection RxNorm: 1610762 05/25/2015 No longer A ctive Kenalog 40 mg/mL suspension for injection RxNorm: 2344392 Milliliter 05/25/2015 No longer Active ceftriaxone 500 mg solution for injection RxNorm: 5214084 05/25/2015 No longer A ctive Kenalog 40 mg/mL suspension for injection RxNorm: 9235918 Milliliter 05/03/2015 No longer Active Immunizations No Immunization data Assessments Condition Codes Effectiv e Dates Allergic contact dermatitis due to plants, except [...] Visit Reason For Visit Effective Dates Notes rash 09/11/2016 cough 01/03/2016 arthropod bite 11/01/2015 [...] Ord30 C/HDL 3.9 Ratio 01/04/2016 Comp Metabolic Yxh717 NA 139 mEq/L 01/04/2016 Comp Metabolic Xzq148 K 4.3 mEq/L 01/04/2016 Comp Metabolic Vre172 CL 101 mEq/L 01/04/2016 Comp Metabolic Npu918 CO2 30.0 mEq/L 01/04/2016 Comp Metabolic Ker868 AN ION GAP 12 01/04/2016 Comp Metabolic Auz633 GL UCOSE 94 mg/dL 01/04/2016 Comp Metabolic Sri318 Cr eat 0.7 mg/dL 01/04/2016 Comp Metabolic Pnb442 eG FR 83 ml/min/1.73m2 01/03 Comp Metabolic Zld483 BUN 14 mg/dL 01/04/2016 Comp Metabolic Jdq186 B/ C Ratio 18.9 Ratio 01/04/2016 Comp Metabolic Umn570 CA LCIUM 9.3 mg/dL 01/04/2016 Comp Metabolic Pgl556 AL K PHOS 70 U/L 01/04/2016 Comp Metabolic Wjm786 T(SGOT) 14 U/L 01/04/2016 Comp Metabolic Vtu178 AL T(SGPT) 12 U/L 01/04/2016 Comp Metabolic Abd248 BI LI T 0.4 mg/dL 01/04/2016 Comp Metabolic Dmp176 AL BUMIN 4.1 g/dL 01/04/2016 Comp Metabolic Xlp848 TP RO 6.6 g/dL 01/04/2016 Comp Metabolic Gel409 GL OB 2.6 g/dL 01/04/2016 Comp Metabolic Evs114 A/ G Ratio 1.6 Ratio 01/04/2016 Comp Metabolic Icg166 Os mo 278 mOsmo 01/04/2016 Tsh Ord6 [...] 31.4 pg 01/04/2016 Cbc With Differential Ord2 Sutton% 8.6 % 01/04/2016 Cbc With Differential Ord2 [...] 1.42 K/ul 01/04/2016 Cbc With Differential Ord2 Sutton ABS# 0.6 K/ul 01/04/2016 Cbc With Differential Ord2 Eos ABS# 0.1 K/ul 01/04/2016 Cbc With Differential Ord2 Baso ABS# 0.0 K/ul 01/04/2016 Free T4 Eaf043 FREE T4 0.79 ng/dL 12/27/2014 Cbc With [...] Ord30 C/HDL 3.0 Ratio 12/27/2014 Comp Metabolic Vgf393 NA 138 mEq/L 12/27/2014 Comp Metabolic Ous658 K 4.7 mEq/L 12/27/2014 Comp Metabolic Zei050 CL 103 mEq/L 12/27/2014 Comp Metabolic Dtn042 CO2 31.0 mEq/L 12/27/2014 Comp Metabolic Dwg196 AN ION GAP 9 12/27/2014 Comp Metabolic Rkm573 GL UCOSE 105 mg/dL 12/27/2014 Comp Metabolic Ncl065 Cr eat 0.8 mg/dL 12/27/2014 Comp Metabolic Khf437 eG FR 73 ml/min/1.73m2 12/27 Comp Metabolic Wfx009 BUN 16 mg/dL 12/27/2014 Comp Metabolic Oru022 B/ C Ratio 19.3 Ratio 12/27/2014 Comp Metabolic Usr496 CA LCIUM 9.7 mg/dL 12/27/2014 Comp Metabolic Niy564 AL K PHOS 58 U/L 12/27/2014 Comp Metabolic Ctv799 T(SGOT) 20 U/L 12/27/2014 Comp Metabolic Ekn169 AL T(SGPT) 16 U/L 12/27/2014 Comp Metabolic Rll690 BI LI T 0.6 mg/dL 12/27/2014 Comp Metabolic Sri021 AL BUMIN 4.6 g/dL 12/27/2014 Comp Metabolic Xff253 TP RO 6.6 g/dL 12/27/2014 Comp Metabolic Qtb168 GL OB 2.0 g/dL 12/27/2014 Comp Metabolic Xwn135 A/ G Ratio 2.3 Ratio 12/27/2014 Comp Metabolic Bsl766 Os mo 277 mOsmo 12/27/2014 Tsh Ord6 hTSH II 1.89 uIU/mL 12/27/2014 Review of Systems System Result Effective Dates Constitutional No recent illness 09/11/2016 Constitutional No [...] Result Effective Dates Notes Full Exam - Dermatology Constitutional general appearance [...] crepitus 07/28/2014 None Procedures Procedure Codes Date TRIAMCINOLONE ACET I [place] NOS CPT-4: L8685Eanqncs 09/11/2016 THER/PROPH/DIAG INJ SC/IM CPT-4: 52080Tewazoi 09/11/2016 TRIAMCINOLONE ACET I [place] NOS CPT-4: W6995Agpzykw 01/03/2016 DESTRUCT PREMALG LES ION CPT-4: 92186Unmxuxd 11/01/2015 TRIAMCINOLONE ACET I [place] NOS CPT-4: L8312Nhrdzbn 08/01/2015 TRIAMCINOLONE ACET I [place] NOS CPT-4: X4827Nqflkah 05/25/2015 ROCEPHIN, PER 250 MG CPT-4: V1002Boizwxj 05/25/2015 TRIAMCINOLONE ACET I [place] NOS CPT-4: J4410Poasptr 05/03/2015 REMOVE IMPACTED EAR WAX UNI CPT-4: 40899Smrzkcj 08/02/2014 Vital Signs Date Vital 09/11/2016 Blood Pressure 1: 124/72 Code: 8480-6 BMI: 21.8 Code: 56456-3 Heart Rate 1: 90 bpm Height: 5'3" SpO2: 96% Weight: 123 lbs 01/03/2016 Blood Pressure 1: 100/70 Code: 8480-6 BMI: 21.3 Code: 66035-2 Heart Rate 1: 100 bpm Height: 5'3" SpO2: 94% Temperature: 37.3 (C ) / 99.1 (F) Weight: 120 lbs 11/01/2015 Blood Pressure 1: 122/74 Code: 8480-6 BMI: 21.4 Code: 15795-5 Heart Rate 1: 92 bpm Height: 5'3" SpO2: 94% Weight: 121 lbs 08/15/2015 Blood Pressure 1: 110/70 Code: 8480-6 BMI: 21.6 Code: 08152-8 Heart Rate 1: 76 bpm Height: 5'3" SpO2: 98% Weight: 122 lbs 08/01/2015 Blood Pressure 1: 128/88 Code: 8480-6 BMI: 22.3 Code: 91223-3 Heart Rate 1: 93 bpm Height: 5'3" SpO2: 99% Temperature: 36.8 (C ) / 98.2 (F) Weight: 126 lbs 06/14/2015 Blood Pressure 1: 118/76 Code: 8480-6 BMI: 22.3 Code: 43980-1 Heart Rate 1: 88 bpm Height: 5'3" SpO2: 96% Weight: 126 lbs 06/02/2015 Blood Pressure 1: 142/80 Code: 8480-6 BMI: 22.3 Code: 74129-4 Heart Rate 1: 91 bpm Height: 5'3" SpO2: 94% Temperature: 37.2 (C ) / 98.9 (F) Weight: 126 lbs 05/25/2015 Blood Pressure 1: 136/60 Code: 8480-6 BMI: 22.7 Code: 52573-8 Heart Rate 1: 90 bpm Height: 5'3" SpO2: 96% Weight: 128 lbs 05/03/2015 Blood Pressure 1: 120/58 Code: 8480-6 BMI: 22.7 Code: 28681-3 Heart Rate 1: 95 bpm Height: 5'3" SpO2: 96% Weight: 128 lbs 08/02/2014 Blood Pressure 1: 130/80 Code: 8480-6 BMI: 22.5 Code: 34447-9 Heart Rate 1: 64 bpm Height: 5'3" Weight: 127 lbs 07/28/2014 Blood Pressure 1: 130/76 Code: 8480-6 BMI: 22.5 Code: 88680-9 Heart Rate 1: 60 bpm Height: 5'3" Weight: 127 lbs Functional Status No Functional Status data History of Present Illness Symptom Name Status Resu lt Effective Date Notes rash Location-Head/Neck on the left side of [...] changing 11/01/2015 None cough [facility] 08/15/2015 None cough Quality dry 08/15/2015 None [...] pain 08/15/2015 None cough [facility] 08/01/2015 None cough Quality worsening 08/01/2015 None [...] Codes Date EST. PATIENT, LEVEL III Diagnosis: Rash and other nonspecific skin eruption[ICD10: R21] Diagnosis: Allergic contact dermatitis due to plants, except food[ICD10: L23.7] Alexa Wade MD, [facility] CPT-4: 49288 09/11/2016 ([id number]) 22637 EST. P ATIENT, LEVEL III Diagnosis: Allergic rhinitis due to pollen[ICD10: J30.1] Diagnosis: Cough[ICD10: R05] Diagnosis: Acute bronchitis, unspecified[ICD10: J20.9] Corrina Wade MD, [facility] CPT-4: 80456 01/03/2016 ([id number]) 08319 EST. P ATIENT, LEVEL II Diagnosis: Insect bite (nonvenomous), right thigh, initial encounter[ICD10: S70.361A] Diagnosis: Actinic keratosis[ICD10: L57.0] Corrina Wade MD, [facility] CPT- 4: 77596 11/01/2015 ([id number]) 30301 EST. P ATIENT, LEVEL III Diagnosis: Allergic rhinitis due to pollen[ICD10: J30.1] Corrina Wade MD, [facility] CPT-4: 51388 08/15/2015 ([id number]) 73520 EST. P ATIENT, LEVEL IV Diagnosis: Cough[ICD10: R05] Diagnosis: Allergic rhinitis due to pollen[ICD10: J30.1] Diagnosis: Gastro-esophageal reflux disease without esophagitis[ICD10: K21.9] Corrina Wade MD, [facility] CPT-4: 48036 08/01/2015 ([id number]) 03986 EST. P ATIENT, LEVEL III Diagnosis: Gastro-esophageal reflux disease without esophagitis[ICD10: K21.9] Anusha Wade MD, [facility] CPT-4: 27454 06/14/2015 ([id number]) Patient adm itted to the hospital from clinic (NO CHARGE) Diagnosis: Pneumonia, unspecified organism[ICD10: J18.9] [facility] CPT-4: 30752Q 06/02/2015 44425 EST. PATIENT, LEVEL III Diagnosis: Pneumonia, unspecified organism[ICD10: J18.9] [facility] CPT-4: 54953 05/25/2015 ([id number]) 86952 EST. P ATIENT, LEVEL III Diagnosis: Cough[ICD10: R05] Diagnosis: Pneumonia, unspecified organism[ICD10: J18.9] Corrina Wade MD, [facility] CPT-4: 15918 05/03/2015 ([id number]) OFFICE VISI T, NEW - LEVEL 4 Diagnosis: HYPERLIPIDEMIA[ICD9: 272.4] Diagnosis: Osteoarthritis[ICD9: 715.90] Diagnosis: Hand pain[ICD9: 729.5] Diagnosis: Depression[ICD9: 311] Anusha Wade MD, [facility] CPT-4: 56647 07/28/2014 Plan of Care Planned Activity Notes C odes Status Date Visit Plan: Allergic Reaction/Hives/rash - discussed diagnosis with patient, need to avoid allergen, and when/if the patient should go to the emergency room. The patient is to call for any change in symptoms, increase in size of the lesion, increase in pain, worsening redness, warmth, discharge. 2016 Patient Education: Patient Medication Summary Completed 09/11/2016 [...] acutely worsen. 2015 Appointment: Corrina Ahn WPtel: [address] [place] [address] (30 min) Complex 01/03/2016 Patient Education: Patient Medication Summary Completed 01/03/2016 Appointment: Corrina Ahn WPtel: [address] [place] [address] (30 min) Complex 11/15/2015 Visit Plan: Bite-right [...] acute concerns. 11/01/2015 Appointment: Corrina Ahn WPtel: [address] [place], [place] [phone] [place] [address] (30 min) Complex 11/01/2015 Patient Education: Patient [...] diet 08/01/2015 [facility] [phone] [phone] (10 min) Simple 08/01/2015 Patient Education: Patient Medication Summary Completed 08/01/2015 Visit Plan: Esophageal Reflux - the osmar ent has been counseled against excessive intake of caffeine, spicy foods, peppermint, and cinnamon - all of which can exacerbate esophageal reflux.The patient is to take medications as prescribed and call the office if the symptoms are not improving. 06/14/2015 [facility] [phone] [phone] ([facility]) Complex 06/14/2015 Patient Education: [...] - symptoms stable on paxil 2014 Appointment: Anush[facility] Wade WPtel[facility] [place] [facility] New Patient 07/28/2014 Patient Education: [...] GERD-symptoms improved-continue protonix, low spice diet . Bite-right thigh-r x for bactroban ointment [...]
--- OUTSIDE RECORDS SUMMARY | 2019-08-16 07:42 | XMS REPORT | CCD ---
Author Author Angi Wade Organization [facility] Address [address] [place] [address] Phone Care Team Providers Care Nurse Tech Name Role Phone PP Unavailable CCM Unavailable Summary Purpose Interface Exchange Insurance Providers Payer name Policy type / Coverage type Covered democrat ID Effective Begin Date Effective End Date WPS Medicare Part B Medicare Part B [id number] Unknown [employer] Medicare Part B [id number] Unkn own Family history Mother Diagnosis Age At Onset Heart Attack Unknown Hypertension Unknown Heart disease Unknown Thyroid Unknown Father Diagnosis Age At Onset Myocardial infarction Unknown Hypertension Unknown Social History Social History Element Codes Description Effective Dates Marital status Unknown M arried 07/28/2014 Number of children Unknown 2 07/28/2014 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/[address]: 002322329 Has never smoked or chewed tobacco 07/28/2014 [...] Date Stop Date Sta tus Fill Instructions prednisone 10 mg tablet RxNorm: 117624 Tablet(s) PO UD 09/11/2016 No Stop Date Active 60,50,40,30,20,10 Kenalog 40 mg/mL rajeev pension for injection RxNorm: 1152171 1.5 Milliliter(s) In j 09/11/2016 09/11/2016 In active fluoxetine 20 mg tablet RxNorm: 502289 TAKE ONE TABLET BY MOUTH DAILY 08/21/2016 02/16/2017 Ac tive meloxicam 15 mg tablet RxNorm: 649211 TAKE ONE TABLET BY MOUTH DAILY 05/28/2016 11/23/2016 Ac tive Zithromax Z-Rohit 250 mg tablet RxNorm: 228078 1 Tablet(s) PO UD 03/22/2016 No Stop Date Active z pack as directed Kenalog 40 mg/mL rajeev pension for injection RxNorm: 7315577 Milliliter(s) Inj 01/03/2016 01/03/2016 In active Zithromax Z-Rohit 250 mg tablet RxNorm: 865416 1 Tablet(s) PO UD 01/03/2016 01/07/2016 Inactive ZPACK Protonix 40 mg table t,delayed release RxNorm: 066319 TAKE ONE TABLET BY MO UTH DAILY 11/29/2015 08/24/2016 In active mupirocin 2 % topica l ointment RxNorm: 666526 1 Application TOP BID 11/01/2015 11/07/2015 Inactive Serena Allergy 180 mg tablet RxNorm: 824375 1 Tablet(s) PO daily 08/01/2015 08/30/2015 Inactive Kenalog 40 mg/mL rajeev pension for injection RxNorm: 0470893 Milliliter(s) Inj 08/01/2015 08/01/2015 In active albuterol sulfate 2. 5 mg/3 mL (0.083 %) solution for nebulization RxNorm: 546788 3 Milliliter(s) INH Q6 PRN 07/29/2015 07/28/2015 Inactive albuterol sulfate 2. 5 mg/3 mL (0.083 %) solution for nebulization RxNorm: 677414 3 Milliliter(s) INH Q6 PRN 07/29/2015 08/27/2015 Inactive fluoxetine 20 mg tablet RxNorm: 576615 1 Tablet(s) PO daily 07/28/2015 02/22/2016 Inactive meloxicam 15 mg tablet RxNorm: 931985 1 Tablet(s) PO daily 06/22/2015 12/18/2015 Inactive nystatin 100,000 uni t/mL oral suspension RxNorm: 706006 4 Milliliter(s) PO QI D 06/01/2015 05/31/2015 In active nystatin 100,000 uni t/mL oral suspension RxNorm: 650571 4 Milliliter(s) PO QI D 06/01/2015 06/07/2015 In active Kenalog 40 mg/mL rajeev pension for injection RxNorm: 6627755 Milliliter(s) Inj 05/25/2015 05/25/2015 In active Zithromax Z-Rohit 250 mg tablet RxNorm: 322339 Tablet(s) PO 05/25/2015 06/13/2015 Inactive ceftriaxone 500 mg s olution for injection RxNorm: 4697446 Inj 05/25/2015 05/25/2015 Inactive Zithromax Z-Rohit 250 mg tablet RxNorm: 249969 Tablet(s) PO UD 05/25/2015 03/21/2016 Inactive prednisone 20 mg tablet RxNorm: 870743 2 Tablet(s) PO daily 05/25/2015 05/29/2015 Inactive cefdinir 300 mg capsule RxNorm: 315005 1 Capsule(s) PO BID 05/25/2015 06/03/2015 Inactive cefdinir 300 mg capsule RxNorm: 148732 1 Capsule(s) PO BID 05/25/2015 06/03/2015 Inactive prednisone 20 mg tablet RxNorm: 564821 2 Tablet(s) PO daily 05/25/2015 05/29/2015 Inactive ceftriaxone 500 mg s olution for injection RxNorm: 8255244 Inj 05/25/2015 05/25/2015 Inactive Kenalog 40 mg/mL rajeev pension for injection RxNorm: 4521550 Milliliter(s) Inj 05/03/2015 05/03/2015 In active Levaquin 500 mg tablet RxNorm: 316182 1 Tablet(s) PO daily 05/03/2015 05/09/2015 Inactive Protonix 40 mg table t,delayed release RxNorm: 320163 1 Tablet(s) PO daily 09/16/2014 09/10/2015 In active fluoxetine 20 mg tablet RxNorm: 900621 1 Tablet(s) PO daily 08/26/2014 08/25/2014 Inactive fluoxetine 20 mg tablet RxNorm: 254568 1 Tablet(s) PO daily 08/26/2014 03/23/2015 Inactive meloxicam 15 mg tablet RxNorm: 246669 1 Tablet(s) PO daily 07/28/2014 01/23/2015 Inactive clopidogrel 75 mg ta blet RxNorm: 147543 1 Tablet(s) PO daily No Start Date Active Lipitor 40 mg tablet RxNorm: 849789 1 Tablet(s) PO daily No Start Date Active fluoxetine 20 mg tablet RxNorm: 384116 1 Tablet(s) PO daily No Start Date 08/25/2014 Inactive Protonix 40 mg table t,delayed release RxNorm: 803620 1 Tablet(s) PO daily No Start Date 09/15/2014 Inactive Medication Administered Medication Codes Instruc tions Start Date Status Kenalog 40 mg/mL suspension for injection RxNorm: 4810397 1.5Mitania 09/11/2016 No longer Active Kenalog 40 mg/mL suspension for injection RxNorm: 5652168 Milliliter 01/03/2016 No longer Active Kenalog 40 mg/mL suspension for injection RxNorm: 5976210 Milliliter 08/01/2015 No longer Active ceftriaxone 500 mg solution for injection RxNorm: 1411639 05/25/2015 No longer A ctive Kenalog 40 mg/mL suspension for injection RxNorm: 0248711 Milliliter 05/25/2015 No longer Active ceftriaxone 500 mg solution for injection RxNorm: 4271244 05/25/2015 No longer A ctive Kenalog 40 mg/mL suspension for injection RxNorm: 0831794 Milliliter 05/03/2015 No longer Active Immunizations No [...] Ord30 C/HDL 3.9 Ratio 01/04/2016 Comp Metabolic Yio755 NA 139 mEq/L 01/04/2016 Comp Metabolic Qjs545 K 4.3 mEq/L 01/04/2016 Comp Metabolic Cbc919 CL 101 mEq/L 01/04/2016 Comp Metabolic Erx424 CO2 30.0 mEq/L 01/04/2016 Comp Metabolic Rwx527 AN ION GAP 12 01/04/2016 Comp Metabolic Mof584 GL UCOSE 94 mg/dL 01/04/2016 Comp Metabolic Mxv450 Cr eat 0.7 mg/dL 01/04/2016 Comp Metabolic Gql362 eG FR 83 ml/min/1.73m2 01/03 Comp Metabolic Krf402 BUN 14 mg/dL 01/04/2016 Comp Metabolic Pmg419 B/ C Ratio 18.9 Ratio 01/04/2016 Comp Metabolic Vof510 CA LCIUM 9.3 mg/dL 01/04/2016 Comp Metabolic Zgk961 AL K PHOS 70 U/L 01/04/2016 Comp Metabolic Xjw940 T(SGOT) 14 U/L 01/04/2016 Comp Metabolic Fbn835 AL T(SGPT) 12 U/L 01/04/2016 Comp Metabolic Gws186 BI LI T 0.4 mg/dL 01/04/2016 Comp Metabolic Rfn329 AL BUMIN 4.1 g/dL 01/04/2016 Comp Metabolic Dgj885 TP RO 6.6 g/dL 01/04/2016 Comp Metabolic Slf856 GL OB 2.6 g/dL 01/04/2016 Comp Metabolic Cxd390 A/ G Ratio 1.6 Ratio 01/04/2016 Comp Metabolic Ypr252 Os mo 278 mOsmo 01/04/2016 Tsh Ord6 [...] 31.4 pg 01/04/2016 Cbc With Differential Ord2 [place]% 8.6 % 01/04/2016 Cbc With Differential Ord2 [...] 1.42 K/ul 01/04/2016 Cbc With Differential Ord2 [place] ABS# 0.6 K/ul 01/04/2016 Cbc With Differential Ord2 Eos ABS# 0.1 K/ul 01/04/2016 Cbc With Differential Ord2 Baso ABS# 0.0 K/ul 01/04/2016 Free T4 Ohg771 FREE T4 0.79 ng/dL 12/27/2014 Cbc With [...] Ord30 C/HDL 3.0 Ratio 12/27/2014 Comp Metabolic Lcw718 NA 138 mEq/L 12/27/2014 Comp Metabolic Nwm946 K 4.7 mEq/L 12/27/2014 Comp Metabolic Eng730 CL 103 mEq/L 12/27/2014 Comp Metabolic Quh321 CO2 31.0 mEq/L 12/27/2014 Comp Metabolic Nuj042 AN ION GAP 9 12/27/2014 Comp Metabolic Tyl693 GL UCOSE 105 mg/dL 12/27/2014 Comp Metabolic Jqw522 Cr eat 0.8 mg/dL 12/27/2014 Comp Metabolic Swu014 eG FR 73 ml/min/1.73m2 12/27 Comp Metabolic Teu869 BUN 16 mg/dL 12/27/2014 Comp Metabolic Gab869 B/ C Ratio 19.3 Ratio 12/27/2014 Comp Metabolic Hsq130 CA LCIUM 9.7 mg/dL 12/27/2014 Comp Metabolic Vvc333 AL K PHOS 58 U/L 12/27/2014 Comp Metabolic Pdz056 T(SGOT) 20 U/L 12/27/2014 Comp Metabolic Ymb612 AL T(SGPT) 16 U/L 12/27/2014 Comp Metabolic Lch976 BI LI T 0.6 mg/dL 12/27/2014 Comp Metabolic Pha670 AL BUMIN 4.6 g/dL 12/27/2014 Comp Metabolic Uvp838 TP RO 6.6 g/dL 12/27/2014 Comp Metabolic Krp469 GL OB 2.0 g/dL 12/27/2014 Comp Metabolic Ugi264 A/ G Ratio 2.3 Ratio 12/27/2014 Comp Metabolic Cfp459 Os mo 277 mOsmo 12/27/2014 Tsh Ord6 [...] Date TRIAMCINOLONE ACET I [place] NOS CPT-4: Z8851Ofctljj 09/11/2016 THER/PROPH/DIAG INJ SC/IM CPT-4: 99539Klonick 09/11/2016 TRIAMCINOLONE ACET I [place] NOS CPT-4: F9276Owhpqzh 01/03/2016 DESTRUCT PREMALG LES ION CPT-4: 01471Kzfixdn 11/01/2015 TRIAMCINOLONE ACET I [place] NOS CPT-4: C7143Uktkypy 08/01/2015 TRIAMCINOLONE ACET I [place] NOS CPT-4: Q4282Unclmkx 05/25/2015 ROCEPHIN, PER 250 MG CPT-4: O1330Zgljiao 05/25/2015 TRIAMCINOLONE ACET I [place] NOS CPT-4: K2347Xxsysjg 05/03/2015 REMOVE IMPACTED EAR WAX UNI CPT-4: 77705Zpggroy 08/02/2014 Vital Signs Date Vital 09/11/2016 Blood Pressure 1: 124/72 Code: 8480-6 BMI: 21.8 Code: 60914-7 Heart Rate 1: 90 bpm Height: 5'3" SpO2: 96% Weight: 123 lbs 01/03/2016 Blood Pressure 1: 100/70 Code: 8480-6 BMI: 21.3 Code: 71063-0 Heart Rate 1: 100 bpm Height: 5'3" SpO2: 94% Temperature: 37.3 (C ) / 99.1 (F) Weight: 120 lbs 11/01/2015 Blood Pressure 1: 122/74 Code: 8480-6 BMI: 21.4 Code: 34441-0 Heart Rate 1: 92 bpm Height: 5'3" SpO2: 94% Weight: 121 lbs 08/15/2015 Blood Pressure 1: 110/70 Code: 8480-6 BMI: 21.6 Code: 13036-4 Heart Rate 1: 76 bpm Height: 5'3" SpO2: 98% Weight: 122 lbs 08/01/2015 Blood Pressure 1: 128/88 Code: 8480-6 BMI: 22.3 Code: 15348-6 Heart Rate 1: 93 bpm Height: 5'3" SpO2: 99% Temperature: 36.8 (C ) / 98.2 (F) Weight: 126 lbs 06/14/2015 Blood Pressure 1: 118/76 Code: 8480-6 BMI: 22.3 Code: 18791-9 Heart Rate 1: 88 bpm Height: 5'3" SpO2: 96% Weight: 126 lbs 06/02/2015 Blood Pressure 1: 142/80 Code: 8480-6 BMI: 22.3 Code: 57577-6 Heart Rate 1: 91 bpm Height: 5'3" SpO2: 94% Temperature: 37.2 (C ) / 98.9 (F) Weight: 126 lbs 05/25/2015 Blood Pressure 1: 136/60 Code: 8480-6 BMI: 22.7 Code: 11112-5 Heart Rate 1: 90 bpm Height: 5'3" SpO2: 96% Weight: 128 lbs 05/03/2015 Blood Pressure 1: 120/58 Code: 8480-6 BMI: 22.7 Code: 23626-2 Heart Rate 1: 95 bpm Height: 5'3" SpO2: 96% Weight: 128 lbs 08/02/2014 Blood Pressure 1: 130/80 Code: 8480-6 BMI: 22.5 Code: 03817-0 Heart Rate 1: 64 bpm Height: 5'3" Weight: 127 lbs 07/28/2014 Blood Pressure 1: 130/76 Code: 8480-6 BMI: 22.5 Code: 81187-4 Heart Rate 1: 60 bpm Height: 5'3" [...] nausea 09/11/2016 None cough Location in the [facility] 01/03/2016 None cough Quality dry 01/03/2016 None [...] changing 11/01/2015 None cough Location in the [facility] 08/15/2015 None cough Quality dry [...] pain 08/15/2015 None cough Location in the [facility] 08/01/2015 None cough Quality worsening 08/01/2015 None [...] plants, except food[ICD10: L23.7] Alexa Wade MD, [facility] CPT-4: 79451 09/11/2016 ([id number]) 67939 EST. P ATIENT, LEVEL III Diagnosis: Allergic rhinitis due to pollen[ICD10: J30.1] Diagnosis: Cough[ICD10: R05] Diagnosis: Acute bronchitis, unspecified[ICD10: J20.9] Corrina Wade MD, [facility] CPT-4: 53788 01/03/2016 ([id number]) 16699 EST. P ATIENT, LEVEL II Diagnosis: Insect bite (nonvenomous), right thigh, initial encounter[ICD10: S70.361A] Diagnosis: Actinic keratosis[ICD10: L57.0] Corrina Wade MD, [facility] CPT- 4: 03566 11/01/2015 ([id number]) 58728 EST. P ATIENT, LEVEL III Diagnosis: Allergic rhinitis due to pollen[ICD10: J30.1] Corrina Wade MD, [facility] CPT-4: 24404 08/15/2015 ([id number]) 80410 EST. P ATIENT, LEVEL IV Diagnosis: Cough[ICD10: R05] Diagnosis: Allergic rhinitis due to pollen[ICD10: J30.1] Diagnosis: Gastro-esophageal reflux disease without esophagitis[ICD10: K21.9] Corrina Wade MD, [facility] CPT-4: 15579 08/01/2015 ([id number]) 38922 EST. P ATIENT, LEVEL III Diagnosis: Gastro-esophageal reflux disease without esophagitis[ICD10: K21.9] An[facility]a [facility] MD, [facility] CPT-4: 53327 06/14/2015 ([id number]) Patient adm itted to the hospital from clinic (NO CHARGE) Diagnosis: Pneumonia, unspecified organism[ICD10: J18.9] [facility] CPT-4: 48213A 06/02/2015 76147 EST. PATIENT, LEVEL III Diagnosis: Pneumonia, unspecified organism[ICD10: J18.9] [facility] CPT-4: 56933 05/25/2015 ([id number]) 55046 EST. P ATIENT, LEVEL III Diagnosis: Cough[ICD10: R05] Diagnosis: Pneumonia, unspecified organism[ICD10: J18.9] Corrina Wade MD, [facility] CPT-4: 73544 05/03/2015 ([id number]) OFFICE VISI T, NEW - LEVEL 4 Diagnosis: HYPERLIPIDEMIA[ICD9: 272.4] Diagnosis: Osteoarthritis[ICD9: 715.90] Diagnosis: Hand pain[ICD9: 729.5] Diagnosis: Depression[ICD9: 311] An[facility]a [facility] MD, [facility] CPT-4: 24874 07/28/2014 Plan of Care Planned Activity Notes C odes Status Date Visit Plan: Allergic Reaction/Hives/rash - discussed diagnosis with patient, need to avoid allergen, and when/if the patient should go to the emergency room. The patient is to call for any change in symptoms, increase in size of the lesion, increase in pain, worsening redness, warmth, discharge. 2016 Appointment: Alexa Aleman WPtel: [address] [place], [place] [id number] (30 min) [facility] 09/11/2016 Patient Education: Patient Medication Summary Completed [...] acutely worsen. 2015 Appointment: Corrina Ahn WPtel: [address] [place] [address] (30 min) Complex 01/03/2016 Patient Education: Patient Medication Summary Completed 01/03/2016 Appointment: Corrina Ahn WPtel: [address] [place] [address] (30 min) Complex 11/15/2015 Visit Plan: Bite-right [...] acute concerns. 11/01/2015 Appointment: Corrina Ahn WPtel: [address] [place] [address] (30 min) Complex 11/01/2015 Patient Education: Patient [...] diet 08/01/2015 [facility]ment[facility] [address] [phone] (10 min) Simple 08/01/2015 Patient Education: Patient Medication Summary Completed 08/01/2015 Visit Plan: Esophageal Reflux - the osmar ent has been counseled against excessive intake of caffeine, spicy foods, peppermint, and cinnamon - all of which can exacerbate esophageal reflux.The patient is to take medications as prescribed and call the office if the symptoms are not improving. 06/14/2015 [facility] [phone] [phone] [facility] 06/14/2015 Patient Education: [...] on paxil 2014 Appointment: Anusha Wade WPtel: [address] [place], [place] [phone] [place] ([place]) New Patient 07/28/2014 Patient Education: [...]
--- OUTSIDE RECORDS SUMMARY | 2019-08-16 07:43 | XMS REPORT | CCD ---
Author Author Angi Wade Organization Anusha Wade MD, [facility] Address [address] [place] [address] Phone Care Team Providers Care Joint Creaser Name Role Phone PP Unavailable CCM Unavailable Summary Purpose Interface Exchange Insurance Providers Payer name Policy type / Coverage type Covered democrat ID Effective Begin Date Effective End Date WPS Medicare Part B Medicare Part B [id number] Unknown Genero Medicare Part B [id number] Unkn own Family history Mother Diagnosis Age At Onset Heart Attack Unknown Hypertension Unknown Dementia Unknown Heart disease Unknown Thyroid Unknown Brother Diagnosis Age At Onset bleeding problem Unknown Father Diagnosis Age At Onset Myocardial infarction Unknown Hypertension Unknown Social History Social History Element Codes Description Effective Dates Marital status Unknown M arried 07/28/2014 Number of children Unknown 2 07/28/2014 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/[address]: 343689992 Has never smoked or chewed tobacco 07/28/2014 [...] Date Stop Date Sta tus Fill Instructions meloxicam 15 mg tablet RxNorm: 070581 TAKE ONE TABLET BY MOUTH DAILY 07/07/2018 04/02/2019 Ac tive ceftriaxone 500 mg s olution for injection RxNorm: 7044026 1 Inj 03/10/2018 03/10/2018 Inactive prednisone 20 mg tablet RxNorm: 836736 2 Tablet(s) PO daily 03/10/2018 03/14/2018 Inactive Zithromax Z-Rohit 250 mg tablet RxNorm: 455490 1 Tablet(s) PO UD 03/10/2018 07/06/2018 Inactive z pack as directed Kenalog 40 mg/mL rajeev pension for injection RxNorm: 0935401 1 Milliliter(s) Inj 03/10/2018 03/10/2018 In active cefdinir 300 mg capsule RxNorm: 754495 1 Capsule(s) PO BID 03/10/2018 03/19/2018 Inactive Bactrim DS 800 mg-16 0 mg tablet RxNorm: 387531 1 Tablet(s) PO BID 01/17/2018 01/23/2018 Inactive fluoxetine 20 mg cap sushil RxNorm: 534021 TAKE ONE CAPSULE BY M OUT DAILY 06/17/2017 10/14/2017 In active Request already responded to by other me ans (e.g. phone or fax) fluoxetine 20 mg cap sushil RxNorm: 811083 1 Capsule(s) PO daily 06/12/2017 06/11/2017 Inactive fluoxetine 20 mg cap sushil RxNorm: 125640 1 Capsule(s) PO daily 06/12/2017 06/16/2017 Inactive Levaquin 500 mg tablet RxNorm: 021302 1 Tablet(s) PO daily 06/03/2017 06/09/2017 Inactive Kenalog 40 mg/mL rajeev pension for injection RxNorm: 0173712 1 Milliliter(s) Inj 06/03/2017 06/03/2017 In active prednisone 20 mg tablet RxNorm: 303481 2 Tablet(s) PO daily 06/03/2017 06/07/2017 Inactive Protonix 40 mg table t,delayed release RxNorm: 431973 TAKE ONE TABLET BY MO UTH DAILY 05/07/2017 01/31/2018 In active meloxicam 15 mg tablet RxNorm: 018518 TAKE ONE TABLET BY MOUTH DAILY 04/01/2017 06/24/2018 In active albuterol sulfate 2. 5 mg/3 mL (0.083 %) solution for nebulization RxNorm: 139252 3 Milliliter(s) INH Q6 PRN 02/07/2017 06/06/2017 Inactive Kenalog 40 mg/mL rajeev pension for injection RxNorm: 3079094 1 Milliliter(s) Inj 02/07/2017 02/07/2017 In active ceftriaxone 500 mg s olution for injection RxNorm: 9187869 1 Milliliter(s) Inj 02/07/2017 02/07/2017 In active cefdinir 300 mg capsule RxNorm: 288472 1 Capsule(s) PO BID 02/07/2017 02/16/2017 Inactive Protonix 40 mg table t,delayed release RxNorm: 439239 TAKE ONE TABLET BY MO UTH DAILY 11/08/2016 05/06/2017 In active Kenalog 40 mg/mL rajeev pension for injection RxNorm: 6771262 1.5 Milliliter(s) In j 09/11/2016 09/11/2016 In active prednisone 10 mg tablet RxNorm: 953474 Tablet(s) PO UD 09/11/2016 09/11/2016 Inactive 60,50,40,30,20,10 fluoxetine 20 mg tablet RxNorm: 375013 TAKE ONE TABLET BY MOUTH DAILY 08/21/2016 06/11/2017 In active meloxicam 15 mg tablet RxNorm: 582204 TAKE ONE TABLET BY MOUTH DAILY 05/28/2016 11/23/2016 In active Zithromax Z-Rohit 250 mg tablet RxNorm: 132677 1 Tablet(s) PO UD 03/22/2016 09/04/2016 Inactive z pack as directed Kenalog 40 mg/mL rajeev pension for injection RxNorm: 4812125 Milliliter(s) Inj 01/03/2016 01/03/2016 In active Zithromax Z-Rohit 250 mg tablet RxNorm: 928746 1 Tablet(s) PO UD 01/03/2016 01/07/2016 Inactive ZPACK Protonix 40 mg table t,delayed release RxNorm: 691080 TAKE ONE TABLET BY MO UTH DAILY 11/29/2015 08/24/2016 In active mupirocin 2 % topica l ointment RxNorm: 609146 1 Application TOP BID 11/01/2015 11/07/2015 Inactive Tonya Allergy 180 mg tablet RxNorm: 286171 1 Tablet(s) PO daily 08/01/2015 08/30/2015 Inactive Kenalog 40 mg/mL rajeev pension for injection RxNorm: 0464084 Milliliter(s) Inj 08/01/2015 08/01/2015 In active albuterol sulfate 2. 5 mg/3 mL (0.083 %) solution for nebulization RxNorm: 953586 3 Milliliter(s) INH Q6 PRN 07/29/2015 07/28/2015 Inactive albuterol sulfate 2. 5 mg/3 mL (0.083 %) solution for nebulization RxNorm: 029918 3 Milliliter(s) INH Q6 PRN 07/29/2015 08/27/2015 Inactive fluoxetine 20 mg tablet RxNorm: 518603 1 Tablet(s) PO daily 07/28/2015 02/22/2016 Inactive meloxicam 15 mg tablet RxNorm: 761414 1 Tablet(s) PO daily 06/22/2015 12/18/2015 Inactive nystatin 100,000 uni t/mL oral suspension RxNorm: 082759 4 Milliliter(s) PO QI D 06/01/2015 05/31/2015 In active nystatin 100,000 uni t/mL oral suspension RxNorm: 427618 4 Milliliter(s) PO QI D 06/01/2015 06/07/2015 In active Kenalog 40 mg/mL rajeev pension for injection RxNorm: 8748606 Milliliter(s) Inj 05/25/2015 05/25/2015 In active Zithromax Z-Rohit 250 mg tablet RxNorm: 334443 Tablet(s) PO 05/25/2015 06/13/2015 Inactive ceftriaxone 500 mg s olution for injection RxNorm: 8556435 Inj 05/25/2015 05/25/2015 Inactive Zithromax Z-Rohit 250 mg tablet RxNorm: 873380 Tablet(s) PO UD 05/25/2015 03/21/2016 Inactive prednisone 20 mg tablet RxNorm: 887339 2 Tablet(s) PO daily 05/25/2015 05/29/2015 Inactive cefdinir 300 mg capsule RxNorm: 419286 1 Capsule(s) PO BID 05/25/2015 06/03/2015 Inactive cefdinir 300 mg capsule RxNorm: 904016 1 Capsule(s) PO BID 05/25/2015 06/03/2015 Inactive prednisone 20 mg tablet RxNorm: 008662 2 Tablet(s) PO daily 05/25/2015 05/29/2015 Inactive ceftriaxone 500 mg s olution for injection RxNorm: 3745357 Inj 05/25/2015 05/25/2015 Inactive Kenalog 40 mg/mL rajeev pension for injection RxNorm: 2812268 Milliliter(s) Inj 05/03/2015 05/03/2015 In active Levaquin 500 mg tablet RxNorm: 872444 1 Tablet(s) PO daily 05/03/2015 05/09/2015 Inactive Protonix 40 mg table t,delayed release RxNorm: 637356 1 Tablet(s) PO daily 09/16/2014 09/10/2015 In active fluoxetine 20 mg tablet RxNorm: 309501 1 Tablet(s) PO daily 08/26/2014 08/25/2014 Inactive fluoxetine 20 mg tablet RxNorm: 375905 1 Tablet(s) PO daily 08/26/2014 03/23/2015 Inactive meloxicam 15 mg tablet RxNorm: 807309 1 Tablet(s) PO daily 07/28/2014 01/23/2015 Inactive clopidogrel 75 mg ta blet RxNorm: 550828 1 Tablet(s) PO daily No Start Date Active Lipitor 40 mg tablet RxNorm: 534546 1 Tablet(s) PO daily No Start Date Active fluoxetine 20 mg tablet RxNorm: 872406 1 Tablet(s) PO daily No Start Date 08/25/2014 Inactive Protonix 40 mg table t,delayed release RxNorm: 051024 1 Tablet(s) PO daily No Start Date 09/15/2014 Inactive Medication Administered Medication Codes Instruc tions Start Date Status Kenalog 40 mg/mL suspension for injection RxNorm: 1121812 1Milliliter 03/10/2018 N o longer Active ceftriaxone 500 mg solution for injection RxNorm: 5598216 1 03/10/2018 No longer A ctive Kenalog 40 mg/mL suspension for injection RxNorm: 2233415 1Milliliter 06/03/2017 N o longer Active Kenalog 40 mg/mL suspension for injection RxNorm: 2202903 1Milliliter 02/07/2017 N o longer Active ceftriaxone 500 mg solution for injection RxNorm: 3801919 1Milliliter 02/07/2017 N o longer Active Kenalog 40 mg/mL suspension for injection RxNorm: 4075654 1.5Milliliter 09/11/2016 No longer Active Kenalog 40 mg/mL suspension for injection RxNorm: 1377127 Milliliter 01/03/2016 No longer Active Kenalog 40 mg/mL suspension for injection RxNorm: 8024895 Milliliter 08/01/2015 No longer Active ceftriaxone 500 mg solution for injection RxNorm: 1633076 05/25/2015 No longer A ctive Kenalog 40 mg/mL suspension for injection RxNorm: 2281766 Milliliter 05/25/2015 No longer Active ceftriaxone 500 mg solution for injection RxNorm: 1644394 05/25/2015 No longer A ctive Kenalog 40 mg/mL suspension for injection RxNorm: 5887228 Milliliter 05/03/2015 No longer Active Immunizations Vaccine [...] Item Item Code Result Date Culture Urine [id number] URI NE CULTURE SEE NOTES 01/20/2018 Culture Urine [id number] Con tinued Results 01/20/2018 Urine Culture Ucult Comp lete >100,000 col/ml aerobic grow th sent to ref lab 01/18/2018 Lipid Ord30 CHOL 180 mg/dL 11/26/2017 Lipid Ord30 HDL 65.0 mg/dl 11/26/2017 Lipid Ord30 TRIG 68 mg/dL 11/26/2017 Lipid Ord30 LDL 101 mg/dL 11/26/2017 Lipid Ord30 C/HDL 2.8 Ratio 11/26/2017 Comp Metabolic Wmb884 NA 143 mEq/L 11/26/2017 Comp Metabolic Ifq506 K 4.4 mEq/L 11/26/2017 Comp Metabolic Qgv891 CL 106 mEq/L 11/26/2017 Comp Metabolic Olf237 CO2 29.0 mEq/L 11/26/2017 Comp Metabolic Gge196 AN ION GAP 12 11/26/2017 Comp Metabolic Mof875 GL UCOSE 106 mg/dL 11/26/2017 Comp Metabolic Wkv706 Cr eat 0.7 mg/dL 11/26/2017 Comp Metabolic Fyl779 eG FR 87 ml/min/1.73m2 11/26 Comp Metabolic Xpd794 BUN 20 mg/dL 11/26/2017 Comp Metabolic Wnf420 B/ C Ratio 28.2 Ratio 11/26/2017 Comp Metabolic Pkl168 CA LCIUM 9.1 mg/dL 11/26/2017 Comp Metabolic Nrm860 AL K PHOS 48 U/L 11/26/2017 Comp Metabolic Juh979 T(SGOT) 19 U/L 11/26/2017 Comp Metabolic Hkx501 AL T(SGPT) 15 U/L 11/26/2017 Comp Metabolic Dwt063 BI LI T 0.5 mg/dL 11/26/2017 Comp Metabolic Wbh615 AL BUMIN 4.1 g/dL 11/26/2017 Comp Metabolic Rzh521 TP RO 6.1 g/dL 11/26/2017 Comp Metabolic Mrc449 GL OB 2.0 g/dL 11/26/2017 Comp Metabolic Jpf392 A/ G Ratio 2.1 Ratio 11/26/2017 Comp Metabolic Ogw692 Os mo 288 mOsmo 11/26/2017 Lipid Ord30 CHOL 175 mg/dL 01/04/2016 Lipid Ord30 HDL 45.0 mg/dl 01/04/2016 Lipid Ord30 TRIG 69 mg/dL 01/04/2016 Lipid Ord30 LDL 116 mg/dL 01/04/2016 Lipid Ord30 C/HDL 3.9 Ratio 01/04/2016 Comp Metabolic Qgf869 NA 139 mEq/L 01/04/2016 Comp Metabolic Whm310 K 4.3 mEq/L 01/04/2016 Comp Metabolic Gtn320 CL 101 mEq/L 01/04/2016 Comp Metabolic Spo106 CO2 30.0 mEq/L 01/04/2016 Comp Metabolic Jbn913 AN ION GAP 12 01/04/2016 Comp Metabolic Ptq952 GL UCOSE 94 mg/dL 01/04/2016 Comp Metabolic Ddm011 Cr eat 0.7 mg/dL 01/04/2016 Comp Metabolic Fuq579 eG FR 83 ml/min/1.73m2 01/03 Comp Metabolic Pqm389 BUN 14 mg/dL 01/04/2016 Comp Metabolic Hqi759 B/ C Ratio 18.9 Ratio 01/04/2016 Comp Metabolic Uyk117 CA LCIUM 9.3 mg/dL 01/04/2016 Comp Metabolic Ali379 AL K PHOS 70 U/L 01/04/2016 Comp Metabolic Nin481 T(SGOT) 14 U/L 01/04/2016 Comp Metabolic Vhy421 AL T(SGPT) 12 U/L 01/04/2016 Comp Metabolic Aqz331 BI LI T 0.4 mg/dL 01/04/2016 Comp Metabolic Vej025 AL BUMIN 4.1 g/dL 01/04/2016 Comp Metabolic Fce955 TP RO 6.6 g/dL 01/04/2016 Comp Metabolic Gko519 GL OB 2.6 g/dL 01/04/2016 Comp Metabolic Sms640 A/ G Ratio 1.6 Ratio 01/04/2016 Comp Metabolic Uns065 Os mo 278 mOsmo 01/04/2016 Tsh Ord6 [...] 31.4 pg 01/04/2016 Cbc With Differential Ord2 [place]ford% 8.6 % 01/04/2016 Cbc With Differential Ord2 [...] 1.42 K/ul 01/04/2016 Cbc With Differential Ord2 [place] ABS# 0.6 K/ul 01/04/2016 Cbc With Differential Ord2 Eos ABS# 0.1 K/ul 01/04/2016 Cbc With Differential Ord2 Baso ABS# 0.0 K/ul 01/04/2016 Free T4 Rgf748 FREE T4 0.79 ng/dL 12/27/2014 Cbc With [...] Ord30 C/HDL 3.0 Ratio 12/27/2014 Comp Metabolic Dea718 NA 138 mEq/L 12/27/2014 Comp Metabolic Udc921 K 4.7 mEq/L 12/27/2014 Comp Metabolic Zqd095 CL 103 mEq/L 12/27/2014 Comp Metabolic Noe574 CO2 31.0 mEq/L 12/27/2014 Comp Metabolic Vag841 AN ION GAP 9 12/27/2014 Comp Metabolic Vaw317 GL UCOSE 105 mg/dL 12/27/2014 Comp Metabolic Sdz625 Cr eat 0.8 mg/dL 12/27/2014 Comp Metabolic Nsy662 eG FR 73 ml/min/1.73m2 12/27 Comp Metabolic Nbm879 BUN 16 mg/dL 12/27/2014 Comp Metabolic Nma016 B/ C Ratio 19.3 Ratio 12/27/2014 Comp Metabolic Ddy961 CA LCIUM 9.7 mg/dL 12/27/2014 Comp Metabolic Mhe176 AL K PHOS 58 U/L 12/27/2014 Comp Metabolic Uwq129 T(SGOT) 20 U/L 12/27/2014 Comp Metabolic Bdp555 AL T(SGPT) 16 U/L 12/27/2014 Comp Metabolic Vdo426 BI LI T 0.6 mg/dL 12/27/2014 Comp Metabolic Faz893 AL BUMIN 4.6 g/dL 12/27/2014 Comp Metabolic Sky533 TP RO 6.6 g/dL 12/27/2014 Comp Metabolic Imv465 GL OB 2.0 g/dL 12/27/2014 Comp Metabolic Mvh106 A/ G Ratio 2.3 Ratio 12/27/2014 Comp Metabolic Iye368 Os mo 277 mOsmo 12/27/2014 Tsh Ord6 [...] affect 09/11/2016 None Full Exam - General 1995 Constitutional general appearance Development: well developed 01/03/2016 [...] Procedure Codes Date THER/PROPH/DIAG INJ SC/IM CPT-4: 70460 03/10/2018 TRIAMCINOLONE ACET I [place] NOS CPT-4: J3301 03/10/2018 ROCEPHIN, PER 250 MG CPT-4: J0696 03/10/2018 PPPS, SUBSEQ VISIT CPT- 4: G0439 10/02/2017 TRIAMCINOLONE ACET I [place] NOS CPT-4: J3301 06/03/2017 THER/PROPH/DIAG INJ SC/IM CPT-4: 45099 06/03/2017 URINALYSIS NONAUTO W /O SCOPE CPT-4: 80763 04/01/2017 THER/PROPH/DIAG INJ SC/IM CPT-4: 42599 02/07/2017 TRIAMCINOLONE ACET I [place] NOS CPT-4: J3301 02/07/2017 ROCEPHIN, PER 250 MG CPT-4: J0696 02/07/2017 FLU VAC NO PRSV 4 VA L 3 YRS+ CPT-4: 76945 01/16/2017 PNEUMOCOCCAL VACC [address]: 73459927 CPT-4: 86984 01/16/2017 ADMIN INFLUENZA VIRU S VAC CPT-4: G0008 01/16/2017 ADMIN PNEUMOCOCCAL V ACCINE SNOMED CT: 07335456 CPT-4: G0009 01/16/2017 PPPS, SUBSEQ VISIT CPT- 4: G0439 09/20/2016 TRIAMCINOLONE ACET I [place] NOS CPT-4: J3301 09/11/2016 THER/PROPH/DIAG INJ SC/IM CPT-4: 69479 09/11/2016 TRIAMCINOLONE ACET I [place] NOS CPT-4: J3301 01/03/2016 DESTRUCT PREMALG LESION CPT-4: 71925 11/01/2015 TRIAMCINOLONE ACET I [place] NOS CPT-4: J3301 08/01/2015 TRIAMCINOLONE ACET I [place] NOS CPT-4: J3301 05/25/2015 ROCEPHIN, PER 250 MG CPT-4: J0696 05/25/2015 TRIAMCINOLONE ACET I [place] NOS CPT-4: J3301 05/03/2015 REMOVE IMPACTED EAR WAX UNI CPT-4: 63739 08/02/2014 Vital Signs Date Vital 03/10/2018 Blood Pressure 1: 136/74 Code: 8480-6 BMI: 22.3 Code: 18513-9 Heart Rate 1: 103 bpm Height: 5'3" SpO2: 97% Temperature: 37.4 (C ) / 99.3 (F) Weight: 126 lbs 01/17/2018 Blood Pressure 1: 110/76 Code: 8480-6 BMI: 21.8 Code: 71176-9 Heart Rate 1: 80 bpm Height: 5'3" SpO2: 98% Weight: 123 lbs 10/02/2017 Blood Pressure 1: 128/70 Code: 8480-6 BMI: 21.6 Code: 09083-3 Heart Rate 1: 70 bpm Height: 5'3" SpO2: 98% Waist Measure (cm): 97 cm Weight: 122 lbs 06/03/2017 Blood Pressure 1: 144/88 Code: 8480-6 BMI: 22.1 Code: 60544-8 Heart Rate 1: 90 bpm Height: 5'3" SpO2: 94% Weight: 125 lbs 02/07/2017 Blood Pressure 1: 142/80 Code: 8480-6 BMI: 22.1 Code: 84065-2 Heart Rate 1: 85 bpm Height: 5'3" SpO2: 98% Temperature: 36.9 (C ) / 98.5 (F) Weight: 125 lbs 09/20/2016 Blood Pressure 1: 124/72 Code: 8480-6 BMI: 21.8 Code: 02658-0 Heart Rate 1: 90 bpm Height: 5'3" SpO2: 96% Weight: 123 lbs 09/11/2016 Blood Pressure 1: 124/72 Code: 8480-6 BMI: 21.8 Code: 84517-8 Heart Rate 1: 90 bpm Height: 5'3" SpO2: 96% Weight: 123 lbs 01/03/2016 Blood Pressure 1: 100/70 Code: 8480-6 BMI: 21.3 Code: 51004-4 Heart Rate 1: 100 bpm Height: 5'3" SpO2: 94% Temperature: 37.3 (C ) / 99.1 (F) Weight: 120 lbs 11/01/2015 Blood Pressure 1: 122/74 Code: 8480-6 BMI: 21.4 Code: 31109-7 Heart Rate 1: 92 bpm Height: 5'3" SpO2: 94% Weight: 121 lbs 08/15/2015 Blood Pressure 1: 110/70 Code: 8480-6 BMI: 21.6 Code: 32036-8 Heart Rate 1: 76 bpm Height: 5'3" SpO2: 98% Weight: 122 lbs 08/01/2015 Blood Pressure 1: 128/88 Code: 8480-6 BMI: 22.3 Code: 46320-4 Heart Rate 1: 93 bpm Height: 5'3" SpO2: 99% Temperature: 36.8 (C ) / 98.2 (F) Weight: 126 lbs 06/14/2015 Blood Pressure 1: 118/76 Code: 8480-6 BMI: 22.3 Code: 03024-7 Heart Rate 1: 88 bpm Height: 5'3" SpO2: 96% Weight: 126 lbs 06/02/2015 Blood Pressure 1: 142/80 Code: 8480-6 BMI: 22.3 Code: 04668-7 Heart Rate 1: 91 bpm Height: 5'3" SpO2: 94% Temperature: 37.2 (C ) / 98.9 (F) Weight: 126 lbs 05/25/2015 Blood Pressure 1: 136/60 Code: 8480-6 BMI: 22.7 Code: 23353-6 Heart Rate 1: 90 bpm Height: 5'3" SpO2: 96% Weight: 128 lbs 05/03/2015 Blood Pressure 1: 120/58 Code: 8480-6 BMI: 22.7 Code: 30974-9 Heart Rate 1: 95 bpm Height: 5'3" SpO2: 96% Weight: 128 lbs 08/02/2014 Blood Pressure 1: 130/80 Code: 8480-6 BMI: 22.5 Code: 41556-7 Heart Rate 1: 64 bpm Height: 5'3" Weight: 127 lbs 07/28/2014 Blood Pressure 1: 130/76 Code: 8480-6 BMI: 22.5 Code: 89902-3 Heart Rate 1: 60 bpm Height: 5'3" [...] Encounters Encounter Performer Loca tion Codes Date 43209 EST. PATIENT, LEVEL III Diagnosis: Pneumonia due to other specified bacteria[ICD10: J15.8] [facility] CPT-4: 07231 03/10/2018 [id number] EST. PATIENT, LEVEL III Diagnosis: Dysuria[ICD10: R30.0] [facility] CPT-4: 39035 01/17/2018 66061 EST. PATIENT, LEVEL IV Diagnosis: Other allergic rhinitis[ICD10: J30.89] Diagnosis: Cough[ICD10: R05] [facility] CPT-4: 56246 06/03/2017 ([id number]) 96960 EST. P ATIENT, LEVEL III Diagnosis: Cough[ICD10: R05] Diagnosis: Pneumonia due to Streptococcus pneumoniae[ICD10: J13] Anusha Wade MD, [facility] CPT-4: 43804 02/07/2017 [id number] EST. PATIENT, LEVEL III Diagnosis: Rash and other nonspecific skin eruption[ICD10: R21] Diagnosis: Allergic contact dermatitis due to plants, except food[ICD10: L23.7] Alexa Wade MD, [facility] CPT-4: 58527 09/11/2016 ([id number]) 71217 EST. P ATIENT, LEVEL III Diagnosis: Allergic rhinitis due to pollen[ICD10: J30.1] Diagnosis: Cough[ICD10: R05] Diagnosis: Acute bronchitis, unspecified[ICD10: J20.9] Corrina Wade MD, [facility] CPT-4: 49489 01/03/2016 ([id number]) 13444 EST. P ATIENT, LEVEL II Diagnosis: Insect bite (nonvenomous), right thigh, initial encounter[ICD10: S70.361A] Diagnosis: Actinic keratosis[ICD10: L57.0] Corrina Wade MD, [facility] CPT- 4: 56176 11/01/2015 ([id number]) 21626 EST. P ATIENT, LEVEL III Diagnosis: Allergic rhinitis due to pollen[ICD10: J30.1] Corrina Wade MD, [facility] CPT-4: 32686 08/15/2015 ([id number]) 48379 EST. P ATIENT, LEVEL IV Diagnosis: Cough[ICD10: R05] Diagnosis: Allergic rhinitis due to pollen[ICD10: J30.1] Diagnosis: Gastro-esophageal reflux disease without esophagitis[ICD10: K21.9] Corrina Wade MD, [facility] CPT-4: 95750 08/01/2015 ([id number]) 60943 EST. P ATIENT, LEVEL III Diagnosis: Gastro-esophageal reflux disease without esophagitis[ICD10: K21.9] Anusha Wade MD, [facility] CPT-4: 08714 06/14/2015 ([id number]) Patient adm itted to the hospital from clinic (NO CHARGE) Diagnosis: Pneumonia, unspecified organism[ICD10: J18.9] Anusha [facility] MD[facility] CPT-4: 91154J 06/02/2015 36971 EST. PATIENT, LEVEL III Diagnosis: Pneumonia, unspecified organism[ICD10: J18.9] Anusha [facility] MD[facility] CPT-4: 73734 05/25/2015 ([id number]) 89296 EST. P ATIENT, LEVEL III Diagnosis: Cough[ICD10: R05] Diagnosis: Pneumonia, unspecified organism[ICD10: J18.9] Corrina Wade MD, [facility] CPT-4: 62553 05/03/2015 ([id number]) OFFICE VISI T, NEW - LEVEL 4 Diagnosis: HYPERLIPIDEMIA[ICD9: 272.4] Diagnosis: Osteoarthritis[ICD9: 715.90] Diagnosis: Hand pain[ICD9: 729.5] Diagnosis: Depression[ICD9: 311] Anusha Wade MD, [facility] CPT-4: 15395 07/28/2014 Plan of Care Planned Activity Notes C odes Status Date Visit Plan: Pneumonia - Pt has been diagnosed with pneumonia by physical exam. A chest xray has been ordered as have antibiotics. The pt is aware of the diagnosis and the need for acute treatment of this illness. 03/10/2018 Appointment: Alexa Aleman WPtel: [address] [place], [place] [phone] (15 min) Moderate 03/10/2018 Patient Education: Patient Medication Summary Completed 03/10/2018 Visit Plan: UTI - pt with positive urinalysis - culture sent if appropriate. Antibiotic electronically prescribed to pt's pharmacy of choice. Pt to call if symptoms do not improve. 01/17/2018 Appointment: Alexa Aleman WPtel[facility] (15 min) Moderate 01/17/2018 Patient Education: Patient [...] 10/02/2017 Care Plan: Referral Order SNOMED-CT : [id number] Pending 10/02/2017 Appointment: Alexa Ale[facility]Ptel[facility] [phone] [facility] [facility] - Annual Wellness Visit 09/27/2017 Visit Plan: [...] patient's pharmacy. 06/03/2017 Appointment: [facility]el[facility] [phone] [facility] (15 min) Moderate 06/03/2017 Patient Education: Patient Medication Summary Completed 06/03/2017 Appointment: Lab Draw 04/01/2017 Patient Education: Patient Medication Summary Completed 04/01/2017 Visit Plan: Pneumonia - Pt has been diagnosed with pneumonia by physical exam. Antibiotics have been ordered. The pt is aware of the diagnosis and the need for acute treatment of this illness. 02/07/2017 App[facility]ment: [facility] [phone] [facility] [place] (15 min) Moderate 02/07/2017 Patient Education: [...] warmth, discharge. 09/11/2016 Appointment: Alexa Aleman WPtel: [facility] (30 min) Complex 09/11/2016 Patient Education: [...] acutely worsen. 01/03/2016 Appointment: Corrina Ahn WPtel: [phone] (30 min) Complex 01/03/2016 Patient Education: Patient Medication Summary Completed 01/03/2016 Appointment: Corrina Ahn WPtel: [phone] (30 min) Complex 11/15/2015 Visit Plan: Bite-right [...] acute concerns. 11/01/2015 Appointment: Corrina Ahn WPtel: [phone] (30 min) Complex 11/01/2015 Patient Education: Patient [...] diet 08/01/2015 Appointment: Cor[facility]el[facility] [phone] [phone] (10 min) Simple 08/01/2015 Patient Education: Patient Medication Summary Completed 08/01/2015 Visit Plan: Esophageal Reflux - the patient has been counseled against excessive intake of caffeine, spicy foods, peppermint, and cinnamon - all of which can exacerbate esophageal reflux. The patient is to take medications as prescribed and call the office if the symptoms are not improving. 06/14/2015 Appointment: Anusha Wade [facility]el[facility] [phone] [facility] (30 min) Complex 06/14/2015 Patient Education: Patient [...] on paxil 07/28/2014 Appointment: Anusha Wade WPtel: [facility] [place] (S[place] New Patient 07/28/2014 Patient Education: [...]
--- OUTSIDE RECORDS SUMMARY | 2019-08-16 07:44 | XMS REPORT | CCD ---
Author Author Angi Wade Organization Anusha Wade MD, [facility] Address [address] [place] [address] Phone Care Team Providers Care Global Program Director Name Role Phone PP Unavailable CCM Unavailable Summary Purpose Interface Exchange Insurance Providers Payer name Policy type / Coverage type Covered constitution party ID Effective Begin Date Effective End Date WPS Medicare Part B Medicare Part B [id number] Unknown [employer] Medicare Part B [id number] Unkn own Family history Mother Diagnosis Age At Onset Heart Attack Unknown Hypertension Unknown Dementia Unknown Heart disease Unknown Thyroid Unknown Brother Diagnosis Age At Onset bleeding problem Unknown Father Diagnosis Age At Onset Myocardial infarction Unknown Hypertension Unknown Social History Social History Element Codes Description Effective Dates Marital status Unknown M arried 07/28/2014 Number of children Unknown 2 07/28/2014 Employment Unknown [employer] service order 07/28/[address]: [id number] Has never smoked or chewed tobacco 07/28/2014 [...] Date Stop Date Sta tus Fill Instructions ceftriaxone 500 mg s olution for injection RxNorm: 3387897 1 Inj 03/10/2018 03/10/2018 Inactive prednisone 20 mg tablet RxNorm: 653850 2 Tablet(s) PO daily 03/10/2018 03/14/2018 Active Zithromax Z-Rohit 250 mg tablet RxNorm: 909446 1 Tablet(s) PO UD 03/10/2018 No Stop Date Active z pack as directed Kenalog 40 mg/mL rajeev pension for injection RxNorm: 2716843 1 Milliliter(s) Inj 03/10/2018 03/10/2018 In active cefdinir 300 mg capsule RxNorm: 891621 1 Capsule(s) PO BID 03/10/2018 03/19/2018 Active Bactrim DS 800 mg-16 0 mg tablet RxNorm: 285796 1 Tablet(s) PO BID 01/17/2018 01/23/2018 Inactive fluoxetine 20 mg cap sushil RxNorm: 960389 TAKE ONE CAPSULE BY [facility] DAILY 06/17/2017 10/14/2017 In active Request already responded to by other me ans (e.g. phone or fax) fluoxetine 20 mg cap sushil RxNorm: 996936 1 Capsule(s) PO daily 06/12/2017 06/11/2017 Inactive fluoxetine 20 mg cap sushil RxNorm: 109106 1 Capsule(s) PO daily 06/12/2017 06/16/2017 Inactive Levaquin 500 mg tablet RxNorm: 840982 1 Tablet(s) PO daily 06/03/2017 06/09/2017 Inactive Kenalog 40 mg/mL rajeev pension for injection RxNorm: 4978808 1 Milliliter(s) Inj 06/03/2017 06/03/2017 In active prednisone 20 mg tablet RxNorm: 264547 2 Tablet(s) PO daily 06/03/2017 06/07/2017 Inactive Protonix 40 mg table t,delayed release RxNorm: 391879 TAKE ONE TABLET BY [facility] DAILY 05/07/2017 01/31/2018 In active meloxicam 15 mg tablet RxNorm: 824502 TAKE ONE TABLET BY MOUTH DAILY 04/01/2017 06/24/2018 Ac tive albuterol sulfate 2. 5 mg/3 mL (0.083 %) solution for nebulization RxNorm: 525015 3 Milliliter(s) INH Q6 PRN 02/07/2017 06/06/2017 Inactive Kenalog 40 mg/mL rajeev pension for injection RxNorm: 8408915 1 Milliliter(s) Inj 02/07/2017 02/07/2017 In active ceftriaxone 500 mg s olution for injection RxNorm: 0944163 1 Milliliter(s) Inj 02/07/2017 02/07/2017 In active cefdinir 300 mg capsule RxNorm: 919444 1 Capsule(s) PO BID 02/07/2017 02/16/2017 Inactive Protonix 40 mg table t,delayed release RxNorm: 342554 TAKE ONE TABLET BY [facility] DAILY 11/08/2016 05/06/2017 In active Kenalog 40 mg/mL rajeev pension for injection RxNorm: 4308623 1.5 Milliliter(s) In j 09/11/2016 09/11/2016 In active prednisone 10 mg tablet RxNorm: 752707 Tablet(s) PO UD 09/11/2016 09/11/2016 Inactive 60,50,40,30,20,10 fluoxetine 20 mg tablet RxNorm: 483062 TAKE ONE TABLET BY MOUTH DAILY 08/21/2016 06/11/2017 In active meloxicam 15 mg tablet RxNorm: 896476 TAKE ONE TABLET BY MOUTH DAILY 05/28/2016 11/23/2016 In active Zithromax Z-Rohit 250 mg tablet RxNorm: 634679 1 Tablet(s) PO UD 03/22/2016 09/04/2016 Inactive z pack as directed Kenalog 40 mg/mL rajeev pension for injection RxNorm: 3492397 Milliliter(s) Inj 01/03/2016 01/03/2016 In active Zithromax Z-Rohit 250 mg tablet RxNorm: 684743 1 Tablet(s) PO UD 01/03/2016 01/07/2016 Inactive ZPACK Protonix 40 mg table t,delayed release RxNorm: 540376 TAKE ONE TABLET BY [facility] DAILY 11/29/2015 08/24/2016 In active mupirocin 2 % topica l ointment RxNorm: 301785 1 Application TOP BID 11/01/2015 11/07/2015 Inactive Tonya Allergy 180 mg tablet RxNorm: 775159 1 Tablet(s) PO daily 08/01/2015 08/30/2015 Inactive Kenalog 40 mg/mL rajeev pension for injection RxNorm: 6817988 Milliliter(s) Inj 08/01/2015 08/01/2015 In active albuterol sulfate 2. 5 mg/3 mL (0.083 %) solution for nebulization RxNorm: 607956 3 Milliliter(s) INH Q6 PRN 07/29/2015 07/28/2015 Inactive albuterol sulfate 2. 5 mg/3 mL (0.083 %) solution for nebulization RxNorm: 079258 3 Milliliter(s) INH Q6 PRN 07/29/2015 08/27/2015 Inactive fluoxetine 20 mg tablet RxNorm: 948152 1 Tablet(s) PO daily 07/28/2015 02/22/2016 Inactive meloxicam 15 mg tablet RxNorm: 857063 1 Tablet(s) PO daily 06/22/2015 12/18/2015 Inactive nystatin 100,000 uni t/mL oral suspension RxNorm: 643479 4 Milliliter(s) PO QI D 06/01/2015 05/31/2015 In active nystatin 100,000 uni t/mL oral suspension RxNorm: 672257 4 Milliliter(s) PO QI D 06/01/2015 06/07/2015 In active Kenalog 40 mg/mL rajeev pension for injection RxNorm: 9409059 Milliliter(s) Inj 05/25/2015 05/25/2015 In active Zithromax Z-Rohit 250 mg tablet RxNorm: 475227 Tablet(s) PO 05/25/2015 06/13/2015 Inactive ceftriaxone 500 mg s olution for injection RxNorm: 3193732 Inj 05/25/2015 05/25/2015 Inactive Zithromax Z-Rohit 250 mg tablet RxNorm: 935171 Tablet(s) PO UD 05/25/2015 03/21/2016 Inactive prednisone 20 mg tablet RxNorm: 079686 2 Tablet(s) PO daily 05/25/2015 05/29/2015 Inactive cefdinir 300 mg capsule RxNorm: 734747 1 Capsule(s) PO BID 05/25/2015 06/03/2015 Inactive cefdinir 300 mg capsule RxNorm: 324795 1 Capsule(s) PO BID 05/25/2015 06/03/2015 Inactive prednisone 20 mg tablet RxNorm: 927795 2 Tablet(s) PO daily 05/25/2015 05/29/2015 Inactive ceftriaxone 500 mg s olution for injection RxNorm: 1589664 Inj 05/25/2015 05/25/2015 Inactive Kenalog 40 mg/mL rajeev pension for injection RxNorm: 2442303 Milliliter(s) Inj 05/03/2015 05/03/2015 In active Levaquin 500 mg tablet RxNorm: 007849 1 Tablet(s) PO daily 05/03/2015 05/09/2015 Inactive Protonix 40 mg table t,delayed release RxNorm: 616114 1 Tablet(s) PO daily 09/16/2014 09/10/2015 In active fluoxetine 20 mg tablet RxNorm: 692814 1 Tablet(s) PO daily 08/26/2014 08/25/2014 Inactive fluoxetine 20 mg tablet RxNorm: 323147 1 Tablet(s) PO daily 08/26/2014 03/23/2015 Inactive meloxicam 15 mg tablet RxNorm: 299205 1 Tablet(s) PO daily 07/28/2014 01/23/2015 Inactive clopidogrel 75 mg ta blet RxNorm: 897100 1 Tablet(s) PO daily No Start Date Active Lipitor 40 mg tablet RxNorm: 635315 1 Tablet(s) PO daily No Start Date Active fluoxetine 20 mg tablet RxNorm: 984488 1 Tablet(s) PO daily No Start Date 08/25/2014 Inactive Protonix 40 mg table t,delayed release RxNorm: 607790 1 Tablet(s) PO daily No Start Date 09/15/2014 Inactive Medication Administered Medication Codes Instruc tions Start Date Status Kenalog 40 mg/mL suspension for injection RxNorm: 4929544 1Milliliter 03/10/2018 A ctive ceftriaxone 500 mg solution for injection RxNorm: 2592010 1 03/10/2018 Active Kenalog 40 mg/mL suspension for injection RxNorm: 6929034 1Milliliter 06/03/2017 N o longer Active ceftriaxone 500 mg solution for injection RxNorm: 0474477 1Milliliter 02/07/2017 N o longer Active Kenalog 40 mg/mL suspension for injection RxNorm: 4353810 1Milliliter 02/07/2017 N o longer Active Kenalog 40 mg/mL suspension for injection RxNorm: 5136974 1.5Milliliter 09/11/2016 No longer Active Kenalog 40 mg/mL suspension for injection RxNorm: 6792262 Milliliter 01/03/2016 No longer Active Kenalog 40 mg/mL suspension for injection RxNorm: 8117180 Milliliter 08/01/2015 No longer Active ceftriaxone 500 mg solution for injection RxNorm: 8818137 05/25/2015 No longer A ctive ceftriaxone 500 mg solution for injection RxNorm: 6575488 05/25/2015 No longer A ctive Kenalog 40 mg/mL suspension for injection RxNorm: 6121523 Milliliter 05/25/2015 No longer Active Kenalog 40 mg/mL suspension for injection RxNorm: 2927580 Milliliter 05/03/2015 No longer Active Immunizations Vaccine [...] Item Item Code Result Date Culture Urine [id number] URI NE CULTURE SEE NOTES 01/20/2018 Culture Urine [id number] Con tinued Results 01/20/2018 Urine Culture Ucult Comp lete >100,000 col/ml aerobic grow th sent to ref lab 01/18/2018 Lipid Ord30 CHOL 180 mg/dL 11/26/2017 Lipid Ord30 HDL 65.0 mg/dl 11/26/2017 Lipid Ord30 TRIG 68 mg/dL 11/26/2017 Lipid Ord30 LDL 101 mg/dL 11/26/2017 Lipid Ord30 C/HDL 2.8 Ratio 11/26/2017 Comp Metabolic Wvm382 NA 143 mEq/L 11/26/2017 Comp Metabolic Hrn705 K 4.4 mEq/L 11/26/2017 Comp Metabolic Sbf930 CL 106 mEq/L 11/26/2017 Comp Metabolic Gdl523 CO2 29.0 mEq/L 11/26/2017 Comp Metabolic Pgz287 AN ION GAP 12 11/26/2017 Comp Metabolic Jzb671 GL UCOSE 106 mg/dL 11/26/2017 Comp Metabolic Bzq537 Cr eat 0.7 mg/dL 11/26/2017 Comp Metabolic Doe455 eG FR 87 ml/min/1.73m2 11/26 Comp Metabolic Dht679 BUN 20 mg/dL 11/26/2017 Comp Metabolic Tvx707 B/ C Ratio 28.2 Ratio 11/26/2017 Comp Metabolic Vtp104 CA LCIUM 9.1 mg/dL 11/26/2017 Comp Metabolic Wbi769 AL K PHOS 48 U/L 11/26/2017 Comp Metabolic Deu752 T(SGOT) 19 U/L 11/26/2017 Comp Metabolic Rgc947 AL T(SGPT) 15 U/L 11/26/2017 Comp Metabolic Ays480 BI LI T 0.5 mg/dL 11/26/2017 Comp Metabolic Jax628 AL BUMIN 4.1 g/dL 11/26/2017 Comp Metabolic Mht878 TP RO 6.1 g/dL 11/26/2017 Comp Metabolic Wej339 GL OB 2.0 g/dL 11/26/2017 Comp Metabolic Qzh933 A/ G Ratio 2.1 Ratio 11/26/2017 Comp Metabolic Dub281 Os mo 288 mOsmo 11/26/2017 Lipid Ord30 CHOL 175 mg/dL 01/04/2016 Lipid Ord30 HDL 45.0 mg/dl 01/04/2016 Lipid Ord30 TRIG 69 mg/dL 01/04/2016 Lipid Ord30 LDL 116 mg/dL 01/04/2016 Lipid Ord30 C/HDL 3.9 Ratio 01/04/2016 Comp Metabolic Tnl481 NA 139 mEq/L 01/04/2016 Comp Metabolic Noq100 K 4.3 mEq/L 01/04/2016 Comp Metabolic Kjx909 CL 101 mEq/L 01/04/2016 Comp Metabolic Dqv274 CO2 30.0 mEq/L 01/04/2016 Comp Metabolic Voj851 AN ION GAP 12 01/04/2016 Comp Metabolic Qdt225 GL UCOSE 94 mg/dL 01/04/2016 Comp Metabolic Rbw916 Cr eat 0.7 mg/dL 01/04/2016 Comp Metabolic Zmi973 eG FR 83 ml/min/1.73m2 01/03 Comp Metabolic Vpc045 BUN 14 mg/dL 01/04/2016 Comp Metabolic Lyy887 B/ C Ratio 18.9 Ratio 01/04/2016 Comp Metabolic Vmo019 CA LCIUM 9.3 mg/dL 01/04/2016 Comp Metabolic Ogx529 AL K PHOS 70 U/L 01/04/2016 Comp Metabolic Nrz085 T(SGOT) 14 U/L 01/04/2016 Comp Metabolic Ugp294 AL T(SGPT) 12 U/L 01/04/2016 Comp Metabolic Kyp976 BI LI T 0.4 mg/dL 01/04/2016 Comp Metabolic Nfv555 AL BUMIN 4.1 g/dL 01/04/2016 Comp Metabolic Rdm837 TP RO 6.6 g/dL 01/04/2016 Comp Metabolic Usl842 GL OB 2.6 g/dL 01/04/2016 Comp Metabolic Ufm075 A/ G Ratio 1.6 Ratio 01/04/2016 Comp Metabolic Uhb999 Os mo 278 mOsmo 01/04/2016 Tsh Ord6 [...] 20.6 % 01/04/2016 Cbc With Differential Ord2 [place]% 8.6 % 01/04/2016 Cbc With Differential Ord2 MCH 31.4 pg 01/04/2016 Cbc With Differential Ord2 MCHC 32.4 pg 01/04/2016 Cbc With Differential Ord2 Eos% 1.3 % 01/04/2016 Cbc With Differential Ord2 Baso% 0.3 % 01/04/2016 Cbc With Differential Ord2 PLT 348 K/ul 01/04/2016 Cbc With Differential Ord2 Neut ABS# 4.78 K/ul 01/04/2016 Cbc With Differential Ord2 RDW 13.5 % 01/04/2016 Cbc With Differential Ord2 Lymph ABS# 1.42 K/ul 01/04/2016 Cbc With Differential Ord2 [place] ABS# 0.6 K/ul 01/04/2016 Cbc With Differential Ord2 Eos ABS# 0.1 K/ul 01/04/2016 Cbc With Differential Ord2 Baso ABS# 0.0 K/ul 01/04/2016 Free T4 Hrf086 FREE T4 0.79 ng/dL 12/27/2014 Cbc With [...] Ord30 C/HDL 3.0 Ratio 12/27/2014 Comp Metabolic Ogy679 NA 138 mEq/L 12/27/2014 Comp Metabolic Rza073 K 4.7 mEq/L 12/27/2014 Comp Metabolic Qsh373 CL 103 mEq/L 12/27/2014 Comp Metabolic Jmb661 CO2 31.0 mEq/L 12/27/2014 Comp Metabolic Rqn732 AN ION GAP 9 12/27/2014 Comp Metabolic Gwz454 GL UCOSE 105 mg/dL 12/27/2014 Comp Metabolic Cfb015 Cr eat 0.8 mg/dL 12/27/2014 Comp Metabolic Xia635 eG FR 73 ml/min/1.73m2 12/27 Comp Metabolic Vyz002 BUN 16 mg/dL 12/27/2014 Comp Metabolic Lro123 B/ C Ratio 19.3 Ratio 12/27/2014 Comp Metabolic Bgf287 CA LCIUM 9.7 mg/dL 12/27/2014 Comp Metabolic Vxk972 AL K PHOS 58 U/L 12/27/2014 Comp Metabolic Ihy489 T(SGOT) 20 U/L 12/27/2014 Comp Metabolic Mvi700 AL T(SGPT) 16 U/L 12/27/2014 Comp Metabolic Kpa210 BI LI T 0.6 mg/dL 12/27/2014 Comp Metabolic Jtr104 AL BUMIN 4.6 g/dL 12/27/2014 Comp Metabolic Cyv031 TP RO 6.6 g/dL 12/27/2014 Comp Metabolic Oqf558 GL OB 2.0 g/dL 12/27/2014 Comp Metabolic Xfk278 A/ G Ratio 2.3 Ratio 12/27/2014 Comp Metabolic Ihj508 Os mo 277 mOsmo 12/27/2014 Tsh Ord6 [...] Procedure Codes Date THER/PROPH/DIAG INJ SC/IM CPT-4: 32952 03/10/2018 TRIAMCINOLONE ACET I [place] NOS CPT-4: J3301 03/10/2018 ROCEPHIN, PER 250 MG CPT-4: J0696 03/10/2018 PPPS, SUBSEQ VISIT CPT- 4: G0439 10/02/2017 TRIAMCINOLONE ACET I [place] NOS CPT-4: J3301 06/03/2017 THER/PROPH/DIAG INJ SC/IM CPT-4: 61278 06/03/2017 URINALYSIS NONAUTO W /O SCOPE CPT-4: 94867 04/01/2017 THER/PROPH/DIAG INJ SC/IM CPT-4: 12232 02/07/2017 TRIAMCINOLONE ACET I [place] NOS CPT-4: J3301 02/07/2017 ROCEPHIN, PER 250 MG CPT-4: J0696 02/07/2017 FLU VAC NO PRSV 4 VA L 3 YRS+ CPT-4: 76444 01/16/2017 PNEUMOCOCCAL VACC [address]: 58943848 CPT-4: 73452 01/16/2017 ADMIN INFLUENZA VIRU S VAC CPT-4: G0008 01/16/2017 ADMIN PNEUMOCOCCAL V ACCINE SNOMED CT: 33868009 CPT-4: G0009 01/16/2017 PPPS, SUBSEQ VISIT CPT- 4: G0439 09/20/2016 TRIAMCINOLONE ACET I [place] NOS CPT-4: J3301 09/11/2016 THER/PROPH/DIAG INJ SC/IM CPT-4: 36001 09/11/2016 TRIAMCINOLONE ACET I [place] NOS CPT-4: J3301 01/03/2016 DESTRUCT PREMALG LESION CPT-4: 13285 11/01/2015 TRIAMCINOLONE ACET I [place] NOS CPT-4: J3301 08/01/2015 TRIAMCINOLONE ACET I [place] NOS CPT-4: J3301 05/25/2015 ROCEPHIN, PER 250 MG CPT-4: J0696 05/25/2015 TRIAMCINOLONE ACET I [place] NOS CPT-4: J3301 05/03/2015 REMOVE IMPACTED EAR WAX UNI CPT-4: 87786 08/02/2014 Vital Signs Date Vital 03/10/2018 Blood Pressure 1: 136/74 Code: 8480-6 BMI: 22.3 Code: 78336-6 Heart Rate 1: 103 bpm Height: 5'3" SpO2: 97% Temperature: 37.4 (C ) / 99.3 (F) Weight: 126 lbs 01/17/2018 Blood Pressure 1: 110/76 Code: 8480-6 BMI: 21.8 Code: 67200-5 Heart Rate 1: 80 bpm Height: 5'3" SpO2: 98% Weight: 123 lbs 10/02/2017 Blood Pressure 1: 128/70 Code: 8480-6 BMI: 21.6 Code: 36280-5 Heart Rate 1: 70 bpm Height: 5'3" SpO2: 98% Waist Measure (cm): 97 cm Weight: 122 lbs 06/03/2017 Blood Pressure 1: 144/88 Code: 8480-6 BMI: 22.1 Code: 14142-4 Heart Rate 1: 90 bpm Height: 5'3" SpO2: 94% Weight: 125 lbs 02/07/2017 Blood Pressure 1: 142/80 Code: 8480-6 BMI: 22.1 Code: 00888-2 Heart Rate 1: 85 bpm Height: 5'3" SpO2: 98% Temperature: 36.9 (C ) / 98.5 (F) Weight: 125 lbs 09/20/2016 Blood Pressure 1: 124/72 Code: 8480-6 BMI: 21.8 Code: 05897-1 Heart Rate 1: 90 bpm Height: 5'3" SpO2: 96% Weight: 123 lbs 09/11/2016 Blood Pressure 1: 124/72 Code: 8480-6 BMI: 21.8 Code: 80952-2 Heart Rate 1: 90 bpm Height: 5'3" SpO2: 96% Weight: 123 lbs 01/03/2016 Blood Pressure 1: 100/70 Code: 8480-6 BMI: 21.3 Code: 13088-6 Heart Rate 1: 100 bpm Height: 5'3" SpO2: 94% Temperature: 37.3 (C ) / 99.1 (F) Weight: 120 lbs 11/01/2015 Blood Pressure 1: 122/74 Code: 8480-6 BMI: 21.4 Code: 47738-7 Heart Rate 1: 92 bpm Height: 5'3" SpO2: 94% Weight: 121 lbs 08/15/2015 Blood Pressure 1: 110/70 Code: 8480-6 BMI: 21.6 Code: 05964-1 Heart Rate 1: 76 bpm Height: 5'3" SpO2: 98% Weight: 122 lbs 08/01/2015 Blood Pressure 1: 128/88 Code: 8480-6 BMI: 22.3 Code: 18574-0 Heart Rate 1: 93 bpm Height: 5'3" SpO2: 99% Temperature: 36.8 (C ) / 98.2 (F) Weight: 126 lbs 06/14/2015 Blood Pressure 1: 118/76 Code: 8480-6 BMI: 22.3 Code: 85844-1 Heart Rate 1: 88 bpm Height: 5'3" SpO2: 96% Weight: 126 lbs 06/02/2015 Blood Pressure 1: 142/80 Code: 8480-6 BMI: 22.3 Code: 47605-1 Heart Rate 1: 91 bpm Height: 5'3" SpO2: 94% Temperature: 37.2 (C ) / 98.9 (F) Weight: 126 lbs 05/25/2015 Blood Pressure 1: 136/60 Code: 8480-6 BMI: 22.7 Code: 54627-7 Heart Rate 1: 90 bpm Height: 5'3" SpO2: 96% Weight: 128 lbs 05/03/2015 Blood Pressure 1: 120/58 Code: 8480-6 BMI: 22.7 Code: 85816-9 Heart Rate 1: 95 bpm Height: 5'3" SpO2: 96% Weight: 128 lbs 08/02/2014 Blood Pressure 1: 130/80 Code: 8480-6 BMI: 22.5 Code: 02624-0 Heart Rate 1: 64 bpm Height: 5'3" Weight: 127 lbs 07/28/2014 Blood Pressure 1: 130/76 Code: 8480-6 BMI: 22.5 Code: 74542-2 Heart Rate 1: 60 bpm Height: 5'3" [...] changing 11/01/2015 None cough Location in the ro 08/15/2015 None cough Quality dry 08/15/2015 None [...] pain 08/15/2015 None cough Location in the roat 08/01/2015 None cough Quality worsening 08/01/2015 [...] other specified bacteria[ICD10: J15.8] Alexa Wade MD, [facility] CPT-4: 29880 03/10/2018 [id number] EST. PATIENT, LEVEL III Diagnosis: Dysuria[ICD10: R30.0] Alexa Wade MD, [facility] CPT-4: 96577 01/17/2018 33220 EST. PATIENT, LEVEL IV Diagnosis: Other allergic rhinitis[ICD10: J30.89] Diagnosis: Cough[ICD10: R05] Alexa Wade MD, [facility] CPT-4: 55311 06/03/2017 ([id number]) 28279 EST. P ATIENT, LEVEL III Diagnosis: Cough[ICD10: R05] Diagnosis: Pneumonia due to Streptococcus pneumoniae[ICD10: J13] Anusha Wade MD, [facility] CPT-4: 57615 02/07/2017 [id number] EST. PATIENT, LEVEL III Diagnosis: Rash and other nonspecific skin eruption[ICD10: R21] Diagnosis: Allergic contact dermatitis due to plants, except food[ICD10: L23.7] Alexa Wade MD, [facility] CPT-4: 48384 09/11/2016 ([id number]) 40072 EST. P ATIENT, LEVEL III Diagnosis: Allergic rhinitis due to pollen[ICD10: J30.1] Diagnosis: Cough[ICD10: R05] Diagnosis: Acute bronchitis, unspecified[ICD10: J20.9] Corrina Wade MD, [facility] CPT-4: 61791 01/03/2016 ([id number]) 42016 EST. P ATIENT, LEVEL II Diagnosis: Insect bite (nonvenomous), right thigh, initial encounter[ICD10: S70.361A] Diagnosis: Actinic keratosis[ICD10: L57.0] Corrina Wade MD, [facility] CPT- 4: 04380 11/01/2015 ([id number]) 37594 EST. P ATIENT, LEVEL III Diagnosis: Allergic rhinitis due to pollen[ICD10: J30.1] Corrina Wade MD, [facility] CPT-4: 54615 08/15/2015 ([id number]) 61647 EST. P ATIENT, LEVEL IV Diagnosis: Cough[ICD10: R05] Diagnosis: Allergic rhinitis due to pollen[ICD10: J30.1] Diagnosis: Gastro-esophageal reflux disease without esophagitis[ICD10: K21.9] Corrina Wade MD, [facility] CPT-4: 25529 08/01/2015 ([id number]) 23657 EST. P ATIENT, LEVEL III Diagnosis: Gastro-esophageal reflux disease without esophagitis[ICD10: K21.9] Anusha Wade MD, [facility] CPT-4: 44568 06/14/2015 ([id number]) Patient adm itted to the hospital from clinic (NO CHARGE) Diagnosis: Pneumonia, unspecified organism[ICD10: J18.9] Anusha Wade MD, [facility] CPT-4: 20961M 06/02/2015 [id number] EST. PATIENT, LEVEL III Diagnosis: Pneumonia, unspecified organism[ICD10: J18.9] Anusha Wade MD, C CPT-4: 00110 05/25/2015 ([id number]) 97570 EST. P ATIENT, LEVEL III Diagnosis: Cough[ICD10: R05] Diagnosis: Pneumonia, unspecified organism[ICD10: J18.9] Corrina Jimy Wade MD, [facility] CPT-4: 67399 05/03/2015 ([id number]) OFFICE VISI T, NEW - LEVEL 4 Diagnosis: HYPERLIPIDEMIA[ICD9: 272.4] Diagnosis: Osteoarthritis[ICD9: 715.90] Diagnosis: Hand pain[ICD9: 729.5] Diagnosis: Depression[ICD9: 311] Anusha aWde MD, [facility] CPT-4: 54777 07/28/2014 Plan of Care Planned Activity Notes C odes Status Date Visit Plan: Pneumonia - Pt has been diagnosed with pneumonia by physical exam. A chest xray has been ordered as have antibiotics. The pt is aware of the diagnosis and the need for acute treatment of this illness. 03/10/2018 Patient Education: Patient Medication Summary Completed 03/10/2018 Visit Plan: UTI - pt with positive urinalysis - culture sent if appropriate. Antibiotic electronically prescribed to pt's pharmacy of choice. Pt to call if symptoms do not improve. 01/17/2018 Appointment: Alexa Aleman WPtel: [address] [place], [place] [phone] (15 min) Moderate 01/17/2018 Patient Education: Patient [...] 10/02/2017 Care Plan: Referral Order SNOMED-CT : [id number] Pending 10/02/2017 Appointment: [facility] [phone] [id number] [facility] - Annual Wellness Visit 09/27/2017 Visit [...] [facility] [phone] [facility] [place] (15 min) Moderate 06/03/2017 Patient Education: Patient Medication Summary Completed 06/03/2017 Appointment: Lab Draw 04/01/2017 Patient Education: Patient Medication Summary Completed 04/01/2017 Visit Plan: Pneumonia - Pt has been diagnosed with pneumonia by physical exam. Antibiotics have been ordered. The pt is aware of the diagnosis and the need for acute treatment of this illness. 02/07/2017 Appointment: [phone] [id number] [place] (15 min) Moderate 02/07/2017 Patient Education: [...] warmth, discharge. 09/11/2016 Appointment: Alexa [facility] [phone] [facility] [place] (30 min) Complex 09/11/2016 Patient Education: Patient [...] acutely worsen. 01/03/2016 Appointment: Corrina Ahn WPtel: [address] [place] [address] (30 min) Complex 01/03/2016 Patient Education: Patient Medication Summary Completed 01/03/2016 Appointment: Corrina Anh WPtel: [address] [place] [address] (30 min) Complex 11/15/2015 Visit Plan: Bite-right [...] acute concerns. 11/01/2015 Appointment: Corrina Ahn WPtel: [address] [place] [address] (30 min) Complex 11/01/2015 Patient Education: Patient [...] spice diet 08/01/2015 Appointment: Cor[facility]hn [facility] [phone] [phone] (10 min) [...] not improving. 06/14/2015 Appointment: [facility]ush[facility] Wade [facility] [phone] [facility] (30 min) Complex 06/14/2015 Patient Education: Patient [...] on paxil 07/28/2014 Appointment: Anusha Wade WPtel: [address] [place], [place] [id number] [place] (S) New Patient 07/28/2014 Patient Education: [...]
--- OUTSIDE RECORDS SUMMARY | 2019-08-16 07:45 | XMS REPORT | CCD ---
Author Author Angi Wade Organization Anusha Wade MD, [facility] Address [address] [place] [address] Phone Care Team Providers Care Corporate Quality Engineer Name Role Phone PP Unavailable CCM Unavailable Summary Purpose Interface Exchange Insurance Providers Payer name Policy type / Coverage type Covered alliance party ID Effective Begin Date Effective End Date WPS Medicare Part B Medicare Part B [id number] Unknown zerved Medicare Part B [id number] Unkn own Family history Mother Diagnosis Age At Onset Heart Attack Unknown Hypertension Unknown Dementia Unknown Heart disease Unknown Thyroid Unknown Brother Diagnosis Age At Onset bleeding problem Unknown Father Diagnosis Age At Onset Myocardial infarction Unknown Hypertension Unknown Social History Social History Element Codes Description Effective Dates Marital status Unknown M arried 07/28/2014 Number of children Unknown 2 07/28/2014 Employment Unknown [employer] 07/28/[address]: 679561822 Has never smoked or chewed tobacco 07/28/2014 [...] 500 mg s olution for injection RxNorm: 0507809 1 Inj 03/10/2018 03/10/2018 Inactive prednisone 20 mg tablet RxNorm: 964037 2 Tablet(s) PO daily 03/10/2018 03/14/2018 Active Zithromax Z-Rohit 250 mg tablet RxNorm: 180068 1 Tablet(s) PO UD 03/10/2018 No Stop Date Active z pack as directed Kenalog 40 mg/mL rajeev pension for injection RxNorm: 8192343 1 Milliliter(s) Inj 03/10/2018 03/10/2018 In active cefdinir 300 mg capsule RxNorm: 239356 1 Capsule(s) PO BID 03/10/2018 03/19/2018 Active Bactrim DS 800 mg-16 0 mg tablet RxNorm: 567493 1 Tablet(s) PO BID 01/17/2018 01/23/2018 Inactive fluoxetine 20 mg cap sushil RxNorm: 527125 TAKE ONE CAPSULE BY [facility] DAILY 06/17/2017 10/14/2017 In active Request already responded to by other me ans (e.g. phone or fax) fluoxetine 20 mg cap sushil RxNorm: 120320 1 Capsule(s) PO daily 06/12/2017 06/11/2017 Inactive fluoxetine 20 mg cap sushil RxNorm: 173123 1 Capsule(s) PO daily 06/12/2017 06/16/2017 Inactive Levaquin 500 mg tablet RxNorm: 109605 1 Tablet(s) PO daily 06/03/2017 06/09/2017 Inactive Kenalog 40 mg/mL rajeev pension for injection RxNorm: 6667148 1 Milliliter(s) Inj 06/03/2017 06/03/2017 In active prednisone 20 mg tablet RxNorm: 096005 2 Tablet(s) PO daily 06/03/2017 06/07/2017 Inactive Protonix 40 mg table t,delayed release RxNorm: 128899 TAKE ONE TABLET BY [facility] DAILY 05/07/2017 01/31/2018 In active meloxicam 15 mg tablet RxNorm: 360148 TAKE ONE TABLET BY MOUTH DAILY 04/01/2017 06/24/2018 Ac tive albuterol sulfate 2. 5 mg/3 mL (0.083 %) solution for nebulization RxNorm: 371850 3 Milliliter(s) INH Q6 PRN 02/07/2017 06/06/2017 Inactive Kenalog 40 mg/mL rajeev pension for injection RxNorm: 4845981 1 Milliliter(s) Inj 02/07/2017 02/07/2017 In active ceftriaxone 500 mg s olution for injection RxNorm: 9645395 1 Milliliter(s) Inj 02/07/2017 02/07/2017 In active cefdinir 300 mg capsule RxNorm: 332446 1 Capsule(s) PO BID 02/07/2017 02/16/2017 Inactive Protonix 40 mg table t,delayed release RxNorm: 477686 TAKE ONE TABLET BY [facility] DAILY 11/08/2016 05/06/2017 In active Kenalog 40 mg/mL rajeev pension for injection RxNorm: 3278492 1.5 Milliliter(s) In j 09/11/2016 09/11/2016 In active prednisone 10 mg tablet RxNorm: 930843 Tablet(s) PO UD 09/11/2016 09/11/2016 Inactive 60,50,40,30,20,10 fluoxetine 20 mg tablet RxNorm: 887763 TAKE ONE TABLET BY MOUTH DAILY 08/21/2016 06/11/2017 In active meloxicam 15 mg tablet RxNorm: 230575 TAKE ONE TABLET BY MOUTH DAILY 05/28/2016 11/23/2016 In active Zithromax Z-Rohit 250 mg tablet RxNorm: 385474 1 Tablet(s) PO UD 03/22/2016 09/04/2016 Inactive z pack as directed Kenalog 40 mg/mL rajeev pension for injection RxNorm: 0551487 Milliliter(s) Inj 01/03/2016 01/03/2016 In active Zithromax Z-Rohit 250 mg tablet RxNorm: 269191 1 Tablet(s) PO UD 01/03/2016 01/07/2016 Inactive ZPACK Protonix 40 mg table t,delayed release RxNorm: 784753 TAKE ONE TABLET BY MO [facility] DAILY 11/29/2015 08/24/2016 In active mupirocin 2 % topica l ointment RxNorm: 086483 1 Application TOP BID 11/01/2015 11/07/2015 Inactive Tonya Allergy 180 mg tablet RxNorm: 436851 1 Tablet(s) PO daily 08/01/2015 08/30/2015 Inactive Kenalog 40 mg/mL rajeev pension for injection RxNorm: 1291653 Milliliter(s) Inj 08/01/2015 08/01/2015 In active albuterol sulfate 2. 5 mg/3 mL (0.083 %) solution for nebulization RxNorm: 682142 3 Milliliter(s) INH Q6 PRN 07/29/2015 07/28/2015 Inactive albuterol sulfate 2. 5 mg/3 mL (0.083 %) solution for nebulization RxNorm: 546186 3 Milliliter(s) INH Q6 PRN 07/29/2015 08/27/2015 Inactive fluoxetine 20 mg tablet RxNorm: 483319 1 Tablet(s) PO daily 07/28/2015 02/22/2016 Inactive meloxicam 15 mg tablet RxNorm: 691135 1 Tablet(s) PO daily 06/22/2015 12/18/2015 Inactive nystatin 100,000 uni t/mL oral suspension RxNorm: 468475 4 Milliliter(s) PO QI D 06/01/2015 05/31/2015 In active nystatin 100,000 uni t/mL oral suspension RxNorm: 123178 4 Milliliter(s) PO QI D 06/01/2015 06/07/2015 In active Kenalog 40 mg/mL rajeev pension for injection RxNorm: 8446544 Milliliter(s) Inj 05/25/2015 05/25/2015 In active Zithromax Z-Rohit 250 mg tablet RxNorm: 794737 Tablet(s) PO 05/25/2015 06/13/2015 Inactive ceftriaxone 500 mg s olution for injection RxNorm: 6079283 Inj 05/25/2015 05/25/2015 Inactive Zithromax Z-Rohit 250 mg tablet RxNorm: 336177 Tablet(s) PO UD 05/25/2015 03/21/2016 Inactive prednisone 20 mg tablet RxNorm: 248831 2 Tablet(s) PO daily 05/25/2015 05/29/2015 Inactive cefdinir 300 mg capsule RxNorm: 676236 1 Capsule(s) PO BID 05/25/2015 06/03/2015 Inactive cefdinir 300 mg capsule RxNorm: 401111 1 Capsule(s) PO BID 05/25/2015 06/03/2015 Inactive prednisone 20 mg tablet RxNorm: 455504 2 Tablet(s) PO daily 05/25/2015 05/29/2015 Inactive ceftriaxone 500 mg s olution for injection RxNorm: 7919591 Inj 05/25/2015 05/25/2015 Inactive Kenalog 40 mg/mL rajeev pension for injection RxNorm: 3538339 Milliliter(s) Inj 05/03/2015 05/03/2015 In active Levaquin 500 mg tablet RxNorm: 608678 1 Tablet(s) PO daily 05/03/2015 05/09/2015 Inactive Protonix 40 mg table t,delayed release RxNorm: 332873 1 Tablet(s) PO daily 09/16/2014 09/10/2015 In active fluoxetine 20 mg tablet RxNorm: 432840 1 Tablet(s) PO daily 08/26/2014 08/25/2014 Inactive fluoxetine 20 mg tablet RxNorm: 789567 1 Tablet(s) PO daily 08/26/2014 03/23/2015 Inactive meloxicam 15 mg tablet RxNorm: 411409 1 Tablet(s) PO daily 07/28/2014 01/23/2015 Inactive clopidogrel 75 mg ta blet RxNorm: 677259 1 Tablet(s) PO daily No Start Date Active Lipitor 40 mg tablet RxNorm: 309329 1 Tablet(s) PO daily No Start Date Active fluoxetine 20 mg tablet RxNorm: 747190 1 Tablet(s) PO daily No Start Date 08/25/2014 Inactive Protonix 40 mg table t,delayed release RxNorm: 174136 1 Tablet(s) PO daily No Start Date 09/15/2014 Inactive Medication Administered Medication Codes Instruc tions Start Date Status Kenalog 40 mg/mL suspension for injection RxNorm: 2530081 1Milliliter 03/10/2018 A ctive ceftriaxone 500 mg solution for injection RxNorm: 5120481 1 03/10/2018 Active Kenalog 40 mg/mL suspension for injection RxNorm: 4564333 1Milliliter 06/03/2017 N o longer Active ceftriaxone 500 mg solution for injection RxNorm: 2201213 1Milliliter 02/07/2017 N o longer Active Kenalog 40 mg/mL suspension for injection RxNorm: 9520299 1Milliliter 02/07/2017 N o longer Active Kenalog 40 mg/mL suspension for injection RxNorm: 1479027 1.5Milliliter 09/11/2016 No longer Active Kenalog 40 mg/mL suspension for injection RxNorm: 8059667 Milliliter 01/03/2016 No longer Active Kenalog 40 mg/mL suspension for injection RxNorm: 8630918 Milliliter 08/01/2015 No longer Active ceftriaxone 500 mg solution for injection RxNorm: 5831735 05/25/2015 No longer A ctive ceftriaxone 500 mg solution for injection RxNorm: 9720437 05/25/2015 No longer A ctive Kenalog 40 mg/mL suspension for injection RxNorm: 4064733 Milliliter 05/25/2015 No longer Active Kenalog 40 mg/mL suspension for injection RxNorm: 3132576 Milliliter 05/03/2015 No longer Active Immunizations Vaccine [...] Item Item Code Result Date Culture Urine [id number] URI NE CULTURE SEE NOTES 01/20/2018 Culture Urine [id number] Con tinued Results 01/20/2018 Urine Culture Ucult Comp lete >100,000 col/ml aerobic grow th sent to ref lab 01/18/2018 Lipid Ord30 CHOL 180 mg/dL 11/26/2017 Lipid Ord30 HDL 65.0 mg/dl 11/26/2017 Lipid Ord30 TRIG 68 mg/dL 11/26/2017 Lipid Ord30 LDL 101 mg/dL 11/26/2017 Lipid Ord30 C/HDL 2.8 Ratio 11/26/2017 Comp Metabolic Lge643 NA 143 mEq/L 11/26/2017 Comp Metabolic Ttr320 K 4.4 mEq/L 11/26/2017 Comp Metabolic Yhu779 CL 106 mEq/L 11/26/2017 Comp Metabolic Fdn362 CO2 29.0 mEq/L 11/26/2017 Comp Metabolic Yme980 AN ION GAP 12 11/26/2017 Comp Metabolic Fyo989 GL UCOSE 106 mg/dL 11/26/2017 Comp Metabolic Qzm198 Cr eat 0.7 mg/dL 11/26/2017 Comp Metabolic Pxz399 eG FR 87 ml/min/1.73m2 11/26 Comp Metabolic Ygy753 BUN 20 mg/dL 11/26/2017 Comp Metabolic Ftk367 B/ C Ratio 28.2 Ratio 11/26/2017 Comp Metabolic Nlq532 CA LCIUM 9.1 mg/dL 11/26/2017 Comp Metabolic Elr243 AL K PHOS 48 U/L 11/26/2017 Comp Metabolic Pyp785 T(SGOT) 19 U/L 11/26/2017 Comp Metabolic Ujk031 AL T(SGPT) 15 U/L 11/26/2017 Comp Metabolic Hpu062 BI LI T 0.5 mg/dL 11/26/2017 Comp Metabolic Zqf792 AL BUMIN 4.1 g/dL 11/26/2017 Comp Metabolic Dmk077 TP RO 6.1 g/dL 11/26/2017 Comp Metabolic Bfa240 GL OB 2.0 g/dL 11/26/2017 Comp Metabolic Klh053 A/ G Ratio 2.1 Ratio 11/26/2017 Comp Metabolic Icn315 Os mo 288 mOsmo 11/26/2017 Lipid Ord30 CHOL 175 mg/dL 01/04/2016 Lipid Ord30 HDL 45.0 mg/dl 01/04/2016 Lipid Ord30 TRIG 69 mg/dL 01/04/2016 Lipid Ord30 LDL 116 mg/dL 01/04/2016 Lipid Ord30 C/HDL 3.9 Ratio 01/04/2016 Comp Metabolic Mpm552 NA 139 mEq/L 01/04/2016 Comp Metabolic Yvm722 K 4.3 mEq/L 01/04/2016 Comp Metabolic Tho903 CL 101 mEq/L 01/04/2016 Comp Metabolic Zhe563 CO2 30.0 mEq/L 01/04/2016 Comp Metabolic Sdy704 AN ION GAP 12 01/04/2016 Comp Metabolic Dxf721 GL UCOSE 94 mg/dL 01/04/2016 Comp Metabolic Svb058 Cr eat 0.7 mg/dL 01/04/2016 Comp Metabolic Ogp124 eG FR 83 ml/min/1.73m2 01/03 Comp Metabolic Krk350 BUN 14 mg/dL 01/04/2016 Comp Metabolic Mog942 B/ C Ratio 18.9 Ratio 01/04/2016 Comp Metabolic Gbt672 CA LCIUM 9.3 mg/dL 01/04/2016 Comp Metabolic Lql857 AL K PHOS 70 U/L 01/04/2016 Comp Metabolic Awz250 T(SGOT) 14 U/L 01/04/2016 Comp Metabolic Hse172 AL T(SGPT) 12 U/L 01/04/2016 Comp Metabolic Pai659 BI LI T 0.4 mg/dL 01/04/2016 Comp Metabolic Uzg300 AL BUMIN 4.1 g/dL 01/04/2016 Comp Metabolic Yws063 TP RO 6.6 g/dL 01/04/2016 Comp Metabolic Rzb846 GL OB 2.6 g/dL 01/04/2016 Comp Metabolic Ufr897 A/ G Ratio 1.6 Ratio 01/04/2016 Comp Metabolic Lhg574 Os mo 278 mOsmo 01/04/2016 Tsh Ord6 [...] 20.6 % 01/04/2016 Cbc With Differential Ord2 [place]% 8.6 % 01/04/2016 Cbc With Differential Ord2 [...] 1.42 K/ul 01/04/2016 Cbc With Differential Ord2 [place] ABS# 0.6 K/ul 01/04/2016 Cbc With Differential Ord2 Eos ABS# 0.1 K/ul 01/04/2016 Cbc With Differential Ord2 Baso ABS# 0.0 K/ul 01/04/2016 Free T4 Gde933 FREE T4 0.79 ng/dL 12/27/2014 Cbc With [...] Ord30 C/HDL 3.0 Ratio 12/27/2014 Comp Metabolic Vri127 NA 138 mEq/L 12/27/2014 Comp Metabolic Ejd194 K 4.7 mEq/L 12/27/2014 Comp Metabolic Tsx343 CL 103 mEq/L 12/27/2014 Comp Metabolic Akf277 CO2 31.0 mEq/L 12/27/2014 Comp Metabolic Tqy460 AN ION GAP 9 12/27/2014 Comp Metabolic Sjj622 GL UCOSE 105 mg/dL 12/27/2014 Comp Metabolic Lom908 Cr eat 0.8 mg/dL 12/27/2014 Comp Metabolic Muc681 eG FR 73 ml/min/1.73m2 12/27 Comp Metabolic Wmu136 BUN 16 mg/dL 12/27/2014 Comp Metabolic Mhj040 B/ C Ratio 19.3 Ratio 12/27/2014 Comp Metabolic Opk403 CA LCIUM 9.7 mg/dL 12/27/2014 Comp Metabolic Zrf043 AL K PHOS 58 U/L 12/27/2014 Comp Metabolic Lkk918 T(SGOT) 20 U/L 12/27/2014 Comp Metabolic Jex739 AL T(SGPT) 16 U/L 12/27/2014 Comp Metabolic Axn349 BI LI T 0.6 mg/dL 12/27/2014 Comp Metabolic Cjy598 AL BUMIN 4.6 g/dL 12/27/2014 Comp Metabolic Nkk649 TP RO 6.6 g/dL 12/27/2014 Comp Metabolic Pck646 GL OB 2.0 g/dL 12/27/2014 Comp Metabolic Mfx863 A/ G Ratio 2.3 Ratio 12/27/2014 Comp Metabolic Ytp641 Os mo 277 mOsmo 12/27/2014 Tsh Ord6 [...] Procedure Codes Date THER/PROPH/DIAG INJ SC/IM CPT-4: 05388 03/10/2018 TRIAMCINOLONE ACET I [place] NOS CPT-4: J3301 03/10/2018 ROCEPHIN, PER 250 MG CPT-4: J0696 03/10/2018 PPPS, SUBSEQ VISIT CPT- 4: G0439 10/02/2017 TRIAMCINOLONE ACET I [place] NOS CPT-4: J3301 06/03/2017 THER/PROPH/DIAG INJ SC/IM CPT-4: 71889 06/03/2017 URINALYSIS NONAUTO W /O SCOPE CPT-4: 82835 04/01/2017 THER/PROPH/DIAG INJ SC/IM CPT-4: 25944 02/07/2017 TRIAMCINOLONE ACET I [place] NOS CPT-4: J3301 02/07/2017 ROCEPHIN, PER 250 MG CPT-4: J0696 02/07/2017 FLU VAC NO PRSV 4 VA L 3 YRS+ CPT-4: 73935 01/16/2017 PNEUMOCOCCAL VACC [address]: 37114105 CPT-4: 53095 01/16/2017 ADMIN INFLUENZA VIRU S VAC CPT-4: G0008 01/16/2017 ADMIN PNEUMOCOCCAL V ACCINE SNOMED CT: 66769829 CPT-4: G0009 01/16/2017 PPPS, SUBSEQ VISIT CPT- 4: G0439 09/20/2016 TRIAMCINOLONE ACET I [place] NOS CPT-4: J3301 09/11/2016 THER/PROPH/DIAG INJ SC/IM CPT-4: 64706 09/11/2016 TRIAMCINOLONE ACET I [place] NOS CPT-4: J3301 01/03/2016 DESTRUCT PREMALG LESION CPT-4: 67551 11/01/2015 TRIAMCINOLONE ACET I [place] NOS CPT-4: J3301 08/01/2015 TRIAMCINOLONE ACET I [place] NOS CPT-4: J3301 05/25/2015 ROCEPHIN, PER 250 MG CPT-4: J0696 05/25/2015 TRIAMCINOLONE ACET I [place] NOS CPT-4: J3301 05/03/2015 REMOVE IMPACTED EAR WAX UNI CPT-4: 30473 08/02/2014 Vital Signs Date Vital 03/10/2018 Blood Pressure 1: 136/74 Code: 8480-6 BMI: 22.3 Code: 15591-5 Heart Rate 1: 103 bpm Height: 5'3" SpO2: 97% Temperature: 37.4 (C ) / 99.3 (F) Weight: 126 lbs 01/17/2018 Blood Pressure 1: 110/76 Code: 8480-6 BMI: 21.8 Code: 92394-2 Heart Rate 1: 80 bpm Height: 5'3" SpO2: 98% Weight: 123 lbs 10/02/2017 Blood Pressure 1: 128/70 Code: 8480-6 BMI: 21.6 Code: 49267-0 Heart Rate 1: 70 bpm Height: 5'3" SpO2: 98% Waist Measure (cm): 97 cm Weight: 122 lbs 06/03/2017 Blood Pressure 1: 144/88 Code: 8480-6 BMI: 22.1 Code: 20004-1 Heart Rate 1: 90 bpm Height: 5'3" SpO2: 94% Weight: 125 lbs 02/07/2017 Blood Pressure 1: 142/80 Code: 8480-6 BMI: 22.1 Code: 76982-6 Heart Rate 1: 85 bpm Height: 5'3" SpO2: 98% Temperature: 36.9 (C ) / 98.5 (F) Weight: 125 lbs 09/20/2016 Blood Pressure 1: 124/72 Code: 8480-6 BMI: 21.8 Code: 36134-1 Heart Rate 1: 90 bpm Height: 5'3" SpO2: 96% Weight: 123 lbs 09/11/2016 Blood Pressure 1: 124/72 Code: 8480-6 BMI: 21.8 Code: 25750-2 Heart Rate 1: 90 bpm Height: 5'3" SpO2: 96% Weight: 123 lbs 01/03/2016 Blood Pressure 1: 100/70 Code: 8480-6 BMI: 21.3 Code: 90438-7 Heart Rate 1: 100 bpm Height: 5'3" SpO2: 94% Temperature: 37.3 (C ) / 99.1 (F) Weight: 120 lbs 11/01/2015 Blood Pressure 1: 122/74 Code: 8480-6 BMI: 21.4 Code: 80379-0 Heart Rate 1: 92 bpm Height: 5'3" SpO2: 94% Weight: 121 lbs 08/15/2015 Blood Pressure 1: 110/70 Code: 8480-6 BMI: 21.6 Code: 05871-7 Heart Rate 1: 76 bpm Height: 5'3" SpO2: 98% Weight: 122 lbs 08/01/2015 Blood Pressure 1: 128/88 Code: 8480-6 BMI: 22.3 Code: 44299-7 Heart Rate 1: 93 bpm Height: 5'3" SpO2: 99% Temperature: 36.8 (C ) / 98.2 (F) Weight: 126 lbs 06/14/2015 Blood Pressure 1: 118/76 Code: 8480-6 BMI: 22.3 Code: 62871-2 Heart Rate 1: 88 bpm Height: 5'3" SpO2: 96% Weight: 126 lbs 06/02/2015 Blood Pressure 1: 142/80 Code: 8480-6 BMI: 22.3 Code: 34542-6 Heart Rate 1: 91 bpm Height: 5'3" SpO2: 94% Temperature: 37.2 (C ) / 98.9 (F) Weight: 126 lbs 05/25/2015 Blood Pressure 1: 136/60 Code: 8480-6 BMI: 22.7 Code: 64549-5 Heart Rate 1: 90 bpm Height: 5'3" SpO2: 96% Weight: 128 lbs 05/03/2015 Blood Pressure 1: 120/58 Code: 8480-6 BMI: 22.7 Code: 76742-9 Heart Rate 1: 95 bpm Height: 5'3" SpO2: 96% Weight: 128 lbs 08/02/2014 Blood Pressure 1: 130/80 Code: 8480-6 BMI: 22.5 Code: 37641-5 Heart Rate 1: 64 bpm Height: 5'3" Weight: 127 lbs 07/28/2014 Blood Pressure 1: 130/76 Code: 8480-6 BMI: 22.5 Code: 78184-0 Heart Rate 1: 60 bpm Height: 5'3" [...] other specified bacteria[ICD10: J15.8] Alexa Wade MD, [facility] CPT-4: 33582 03/10/2018 [id number] EST. PATIENT, LEVEL III Diagnosis: Dysuria[ICD10: R30.0] Alexa Wade MD, [facility] CPT-4: 25740 01/17/2018 84063 EST. PATIENT, LEVEL IV Diagnosis: Other allergic rhinitis[ICD10: J30.89] Diagnosis: Cough[ICD10: R05] Alexa Wade MD, [facility] CPT-4: 85079 06/03/2017 ([id number]) 45960 EST. P ATIENT, LEVEL III Diagnosis: Cough[ICD10: R05] Diagnosis: Pneumonia due to Streptococcus pneumoniae[ICD10: J13] Anusha Wade MD, [facility] CPT-4: 43620 02/07/2017 17008 EST. PATIENT, LEVEL III Diagnosis: Rash and other nonspecific skin eruption[ICD10: R21] Diagnosis: Allergic contact dermatitis due to plants, except food[ICD10: L23.7] Alexa Wade MD, [facility] CPT-4: 18449 09/11/2016 ([id number]) 93816 EST. P ATIENT, LEVEL III Diagnosis: Allergic rhinitis due to pollen[ICD10: J30.1] Diagnosis: Cough[ICD10: R05] Diagnosis: Acute bronchitis, unspecified[ICD10: J20.9] Corrina Wade MD, [facility] CPT-4: 19490 01/03/2016 ([id number]) 56271 EST. P ATIENT, LEVEL II Diagnosis: Insect bite (nonvenomous), right thigh, initial encounter[ICD10: S70.361A] Diagnosis: Actinic keratosis[ICD10: L57.0] Corrina Wade MD, [facility] CPT- 4: 64715 11/01/2015 ([id number]) 42647 EST. P ATIENT, LEVEL III Diagnosis: Allergic rhinitis due to pollen[ICD10: J30.1] Corrina Wade MD, [facility] CPT-4: 11039 08/15/2015 ([id number]) 67004 EST. P ATIENT, LEVEL IV Diagnosis: Cough[ICD10: R05] Diagnosis: Allergic rhinitis due to pollen[ICD10: J30.1] Diagnosis: Gastro-esophageal reflux disease without esophagitis[ICD10: K21.9] Corrina Wade MD, [facility] CPT-4: 30203 08/01/2015 ([id number]) 02805 EST. P ATIENT, LEVEL III Diagnosis: Gastro-esophageal reflux disease without esophagitis[ICD10: K21.9] Anusha Wade MD, [facility] CPT-4: 54937 06/14/2015 ([id number]) Patient adm itted to the hospital from clinic (NO CHARGE) Diagnosis: Pneumonia, unspecified organism[ICD10: J18.9] Anusha Wade MD, [facility] CPT-4: 89706S 06/02/2015 04823 EST. PATIENT, LEVEL III Diagnosis: Pneumonia, unspecified organism[ICD10: J18.9] Anusha Wade MD, C CPT-4: 14601 05/25/2015 ([id number]) 80838 EST. P ATIENT, LEVEL III Diagnosis: Cough[ICD10: R05] Diagnosis: Pneumonia, unspecified organism[ICD10: J18.9] Corrina Jimy Wade MD, [facility] CPT-4: 14921 05/03/2015 ([id number]) OFFICE VISI T, NEW - LEVEL 4 Diagnosis: HYPERLIPIDEMIA[ICD9: 272.4] Diagnosis: Osteoarthritis[ICD9: 715.90] Diagnosis: Hand pain[ICD9: 729.5] Diagnosis: Depression[ICD9: 311] Anusha Wade MD, [facility] CPT-4: 91848 07/28/2014 Plan of Care Planned Activity Notes [...] not improve. 01/17/2018 Appointment: Alexa Aleman WPtel: [address] [place], [place] [phone] (15 min) Moderate 01/17/2018 Patient Education: Patient [...] 10/02/2017 Care Plan: Referral Order SNOMED-CT : [id number] Pending 10/02/2017 [facility]ment: [facility] [phone] [id number] [facility] - Annual Wellness Visit 09/27/2017 [...] pharmacy. 06/03/2017 Appointment: [facility] [phone] [facility] [place] (15 min) Moderate 06/03/2017 Patient Education: [...] warmth, discharge. 09/11/2016 Appointment: [facility] [phone] [facility] [place] (30 min) Complex 09/11/2016 Patient Education: [...] acutely worsen. 01/03/2016 Appointment: Corrina Ahn WPtel: [address] [place] [address] (30 min) Complex 01/03/2016 Patient Education: Patient Medication Summary Completed 01/03/2016 Appointment: Corrina Ahn WPtel: [address] [place] [address] (30 min) Complex 11/15/2015 Visit Plan: Bite-right [...] acute concerns. 11/01/2015 Appointment: Corrina Ahn WPtel: [address] [place] [address] (30 min) Complex 11/01/2015 Patient Education: Patient [...] spice diet 08/01/2015 Appointment: [facility] [phone] [phone] (10 min) Simple 08/01/2015 Patient Education: [...] improving. 06/14/2015 [phone] [facility] ([facility] Complex 06/14/2015 Patient Education: [...] on paxil 07/28/2014 Appointment: Anusha Wade WPtel: [address] [place], [place] [phone] [place] ([place]) New Patient 07/28/2014 Patient Education: [...]
--- NOTE | 2019-08-16 07:46 | ED Neurological Problem ---
General Chief Complaint: Neurological Problems Stated Complaint: R SIDE OF FACE DROOPING Nursing Triage Note: AMBULATED TO ROOM 05 VIA AMB WITHOUT DIFFICULTY. COMPLAINS OF HEADACHE YESTERDAY AROUND 5PM. WENT TO BED AROUND 10 AND WOKE UP IN THE MIDDLE OF THE NIGHT WITH RIGHT SIDED EYE ET FACIAL PAIN. WOKE UP THIS AM WITH RIGHT SIDED FACIAL DROOP WHICH DAUGHTER NOTICED AT 0630. Nursing Sepsis Screen: No Definite Risk Source: patient History of Present Illness Date Seen by Provider: August 16, 2019 Time Seen by Provider: 07:30 Initial Comments PT ARRIVES VIA POV FROM HOME C/O RIGHT FACIAL DROOP--DAUGHTER NOTICED IT THIS MORNING AROUND 0630 STATES SHE HAD A HEADACHE YESTERDAY AROUND 1700--WENT AWAY WITHOUT TREATMENT BY THE TIME SHE WENT TO BED AROUND 2200 STATES AROUND 2130 LAST NIGHT SHE HAD BILATERAL EYE PAIN--NO VISION CHANGES THEN WOKE UP IN THE MIDDLE OF THE NIGHT AROUND MIDNIGHT AND HAD SEVERE PAIN TO THE ENTIRE RIGHT SIDE OF HER FACE--WENT AWAY THEN WOKE UP THIS MORNING AND DAUGHTER NOTICED HER RIGHT FACIAL DROOP PT DENIES NUMBNESS/TINGLING NO VISION CHANGES NO HEARING CHANGES NO DIZZINESS NO SYMPTOMS TO OTHER PARTS OF BODY--NO WEAKNESS TO ARMS OR LEGS PT STATES SHE HAS NOT BEEN ILL OR HAD ANY FEVER, BUT FOR THE LAST 3 DAYS, SHE HAS HAD "FEVER BLISTERS" ON THE INSIDE OF HER RIGHT CHEEK STATES SHE WAS FINE YESTERDAY AND WAS OUTSIDE BY THE POOL WITH HER GRANDKIDS FOR MOST OF THE DAY YESTERDAY NO PROBLEMS WITH SWALLOWING WATER WITH BRUSHING HER TEETH THIS MORNING. NO PROBLEMS TALKING OR WALKING NO PROBLEMS WITH COORDINATION. NO HISTORY OF SIMILAR PT DOES TAKE PLAVIX FOR CAROTID DISEASE, BUT NO HISTORY OF STROKE OR CARDIAC DISEASE NO KNOWN SICK CONTACTS OR EXPOSURE TO CORONAVIRUS NO RECENT TRAVEL PCP: DR. RAO PACKAGE WORKER: DR. LOVE Allergies and Home Medications Allergies Coded Allergies: Penicillins (Verified Allergy, Unknown, 05/04/14) fentanyl (Verified Allergy, Unknown, NAUSEA, 11/04/17) Home Medications Atorvastatin Calcium 80 Mg Tablet, 80 MG PO DAILY, (Reported) Clopidogrel Bisulfate 75 Mg Tablet, 75 MG PO DAILY, (Reported) Fluoxetine HCl 20 Mg Tablet, 20 MG PO DAILY, (Reported) Hydrocodone/Acetaminophen 1 Each Tablet, 1-2 EACH PO Q4-6 HOURS PRN for PAIN Prescribed by: VANDANA DUARTE on 08/16/191003 Meloxicam 15 Mg Tablet, 15 MG PO DAILY, (Reported) Nitrofurantoin Monohyd/M-Cryst 100 Mg Capsule, 1 TAB PO BID Prescribed by: VANDANA DUARTE on 08/16/191003 Pantoprazole Sodium 40 Mg Tablet.dr, 40 MG PO DAILY, (Reported) Prednisone 10 Mg Tab.ds.pk, 10 MG PO DAILY Take 6 tabs(60mg)daily,decrease by 1 tab(10MG)daily. Prescribed by: VANDANA DUARTE on 08/16/191003 Pregabalin 75 Mg Capsule, 75 MG PO BID Prescribed by: VANDANA DUARTE on 08/16/191003 Valacyclovir HCl 1,000 Mg Tablet, 1,000 MG PO TIDAC Prescribed by: VANDANA DUARTE on 08/16/191003 Patient Home Medication List Home Medication List Reviewed: Yes Review of Systems Review of Systems Constitutional: no symptoms reported; No chills, No diaphoresis, No dizziness, No fever, No malaise, No weakness Eyes: See HPI; Denies Blurred Vision, Denies Decreased Acuity, Denies Photophobia, Denies Vision Changes; Glasses Ears, Nose, Mouth, Throat: see HPI; denies ear pain, denies nose pain, denies nose discharge; mouth pain; denies mouth swelling, denies throat pain, denies throat swelling Respiratory: no symptoms reported; No cough, No short of breath Cardiovascular: no symptoms reported; No edema, No palpitations, No syncope Gastrointestinal: no symptoms reported; No nausea, No vomiting Musculoskeletal: no symptoms reported; No back pain, No neck pain Skin: no symptoms reported Psychiatric/Neurological: See HPI; Denies Cognitive Dysfunction, Denies Numbness, Denies Tingling Endocrine: No Symptoms Reported Hematologic/Lymphatic: No Symptoms Reported Past [id number]-Ftdegr-Ryltyt Hx Past Med/Social Hx: Reviewed and Corrections made Patient Social History Alcohol Use: Occasionally Uses Recreational Drug Use: No Smoking Status: Never a Smoker 2nd Hand Smoke Exposure: No Recent Foreign Travel: No Contact w/Someone Who Travel: No Recent Infectious Disease Expo: No Recent Hopitalizations: No Immunizations Up To Date Tetanus Booster (TDap): More than 5yrs PED Vaccines UTD: No Seasonal Allergies Seasonal Allergies: Yes Past Medical History Surgeries: Yes (RIGHT CATARACT SURGERY) Eye Surgery Respiratory: Yes Pneumonia Currently Using CPAP: No Currently Using BIPAP: No Cardiac: Yes (CAROTID STENOSIS) High Cholesterol Neurological: No Reproductive Disorders: No Genitourinary: No Gastrointestinal: Yes Gastroesophageal Reflux Musculoskeletal: Yes Arthritis Endocrine: No HEENT: Yes (RIGHT CATARACT SURGERY) Cataract Loss of Vision: Denies Hearing Impairment: Denies Cancer: No Psychosocial: Yes Depression Integumentary: No Blood Disorders: No Family Medical History Alzheimer's disease 19 MOTHER Cardiovascular disease 19 MOTHER DVT G8 BROTHER Myocardial infarction 19 FATHER ( of [place] at 50 yr old) Thyroid disease 19 MOTHER Heart Disease, CAD Under 55 Years Old, Hypertension Physical Exam Vital Signs Vital Signs - First Documented 08/16/19 07:32 Temp 37.0 Pulse 79 Resp 16 B/P (MAP) 162/84 (110) Pulse Ox 95 O2 Delivery Room Air Capillary Refill : Less Than 3 Seconds Height, Weight, BMI Height: 5'3.00" Weight: 125lbs. 0.0oz. [id number]; 23.00 BMI Method: General Appearance: WD/WN, no apparent distress HEENT: PERRL/EOMI, TMs normal; No photophobia, No pharyngeal erythema, No tonsillar exudate; other (RIGHT FACIAL DROOP, WITH FOREHEAD INVOLVEMENT; HAS A FEW SMALL ERYTHEMATOUS MACULES PAPULES AND EARLY VESICLE FORMATION TO RIGHT BUCCAL MUCOSA--IN A LINEAR DISTRIBUTION. PT IS ABLE TO COMPLETELY CLOSE RIGHT E YE BUT HAS SLIGHT LID LAG, AND NO WATERING TO RIGHT EYE OR INFLAMMATION OF EYE. HAS VERY MILD, PATCHY ERYTHEMA TO RIGHT POST AURICULAR AREA. ) Neck: non-tender, full range of motion, supple, normal inspection; No carotid bruit Respiratory: normal breath sounds, no respiratory distress, no accessory muscle use Cardiovascular: normal peripheral pulses, regular rate, rhythm, no edema, no JVD, no murmur Peripheral Pulses: 2+ Dorsalis Pedis (R), 2+ Left Dors-Pedis (L), 2+ Radial Pulses (R), 2+ Radial Pulses (L) Gastrointestinal: normal bowel sounds, non tender, soft Extremities: normal inspection, normal capillary refill Neurologic/Psychiatric: alert, normal mood/affect, oriented x 3; No abnormal cerebellar tests, No aphasia, No EOM palsy; facial droop (RIGHT FACIAL DROOP WITH FOREHEAD INVOLVEMENT; PT IS ABLE TO CLOSE RIGHT EYE. ); No sensory deficit Crainal Nerves: normal hearing, normal speech, PERRL; No abnormal speech; facial droop; No facial paresthesias, No gaze palsy, No hearing deficit (R), No hearing deficit (L), No tongue deviation to R, No tongue deviation to L Coordination/Gait: normal gait Motor/Sensory: no motor deficit (NO MOTOR DEFICIT OF EXTREMITIES), no sensory deficit, no pronator drift Skin: normal color, warm/dry; No rash Stroke Onset of Symptoms Onset of Symptoms: No NIH Stroke Scale Assessment Select: Initial Level of Consciousness: 0=Alert (0), Level of Consciousness- Questions: 0=Answers both month/age (0), LOC Commands: 0=Performs both tasks (0), Gaze: Normal (0), Visual Mcknight: 0=No visual loss (0), Facial Movement (Facial Paresis): 1=Minor paralysis (1), Motor Function-Arms Right: 0=No drift (0), Motor Function-Arms Left: 0=No drift (0), Motor Function-Legs Right: 0=No drift (0), Motor Function-Legs Left: 0=No drift (0), Limb Ataxia: 0=Absent (0), Sensory: 0=Normal:no loss (0), Best Language: 0=No aphasia (0), Dysarthria: 0=Normal (0), Extinction & Inattention: 0=No abnormality (0), Total: 1 Stroke Thrombolytic Exclusion Age 18 or Over: Yes Acute intenal hemorrhage: No History of CVA: No Uncontrolled Coagulation Defec: No Intracranial Hemorrhage: No Severe Hypertension: No GI or Bleed: No Subarachnoid Hemorrhage: No Intracranial Neoplasm/Aneurysm: No Oral Anticoagulants: No Surgery or Trauma: No Puncture of Non-Compressible V: No Recent CPR: No Diabetic Hemorrhagic Retinopat: No Organ Biopsy: No Recent Obstetric Delivery: No Glucose: No Significant Hepatic Dysfunctio: No NIH Stoke Scale >22: No Bacterial Endocarditis: No Pericarditis: No Improving Symptoms: No Platelets: No TPA Contraindication: No IV - TPa Received IV - TPa Procedure Performed?: No (PT'S ONSET OF SYMPTOMS IS UNKNOWN, AND FINDINGS ARE CONSISTENT WITH DELEON'S PALSY) Progress/Results/Core Measures Results/Orders Lab Results Laboratory Tests Test 08/16/19 08:05 08/16/19 08:25 Range/Units White Blood Count 5.0 4.3-11.0 10^3/uL Red Blood Count 4.41 4.35-5.85 10^6/uL Hemoglobin 13.4 11.5-16.0 G/DL Hematocrit 41 35-52 % Mean Corpuscular Volume 94 80-99 FL Mean Corpuscular Hemoglobin 30 25-34 PG Mean Corpuscular Hemoglobin Concent 32 32-36 G/DL Red Cell Distribution Width 14.0 10.0-14.5 % Platelet Count 230 130-400 10^3/uL Mean Platelet Volume 9.7 7.4-10.4 FL Neutrophils (%) (Auto) 54 42-75 % Lymphocytes (%) (Auto) 35 12-44 % Monocytes (%) (Auto) 7 0-12 % Eosinophils (%) (Auto) 3 0-10 % Basophils (%) (Auto) 1 0-10 % Neutrophils # (Auto) 2.7 1.8-7.8 X 10^3 Lymphocytes # (Auto) 1.7 1.0-4.0 X 10^3 Monocytes # (Auto) 0.4 0.0-1.0 X 10^3 Eosinophils # (Auto) 0.2 0.0-0.3 10^3/uL Basophils # (Auto) 0.0 0.0-0.1 10^3/uL Prothrombin Time 12.5 12.2-14.7 SEC INR Comment 0.9 0.8-1.4 Activated Partial Thromboplast Time 28 24-35 SEC D-Dimer 0.54 H 0.00-0.49 UG/ML Sodium Level 142 135-145 MMOL/L Potassium Level 4.6 3.6-5.0 MMOL/L Chloride Level 105 98-107 MMOL/L Carbon Dioxide Level 27 21-32 MMOL/L Anion Gap 10 5-14 MMOL/L Blood Urea Nitrogen 15 7-18 MG/DL Creatinine 0.77 0.60-1.30 MG/DL Estimat Glomerular Filtration Rate > 60 BUN/Creatinine Ratio 19 Glucose Level 110 H 70-105 MG/DL Calcium Level 9.3 8.5-10.1 MG/DL Corrected Calcium 9.0 8.5-10.1 MG/DL Magnesium Level 2.2 1.6-2.4 MG/DL Total Bilirubin 0.5 0.1-1.0 MG/DL Aspartate Amino Transf (AST/SGOT) 22 5-34 U/L Alanine Aminotransferase (ALT/SGPT) 18 0-55 U/L Alkaline Phosphatase 63 40-136 U/L Total Creatine Kinase 105 29-168 U/L Creatine Kinase MB 2.5 <6.6 NG/ML Myoglobin 47.3 10.0-92.0 NG/ML Troponin I < 0.028 <0.028 NG/ML Total Protein 6.6 6.4-8.2 GM/DL Albumin 4.4 3.2-4.5 GM/DL TSH Starbuck Testing 1.61 0.35-4.94 UIU/ML Urine Color YELLOW Urine Clarity CLEAR Urine pH 7.0 5-9 Urine Specific Pooler 1.015 L 1.016-1.022 Urine Protein NEGATIVE NEGATIVE Urine Glucose (UA) NEGATIVE NEGATIVE Urine Ketones NEGATIVE NEGATIVE Urine Nitrite NEGATIVE NEGATIVE Urine Bilirubin NEGATIVE NEGATIVE Urine Urobilinogen 0.2 < = 1.0 MG/DL Urine Leukocyte Esterase 2+ H NEGATIVE Urine RBC (Auto) NEGATIVE NEGATIVE Urine RBC NONE /HPF Urine WBC 5-10 H /HPF Urine Crystals NONE /LPF Urine Bacteria TRACE /HPF Urine Casts NONE /LPF Urine Mucus NEGATIVE /LPF Urine Culture Indicated YES My Orders Orders - VANDANA DUARTE DO Accucheck Stat ONCE (08/16/19 07:30) Ekg Tracing (08/16/19 07:30) Monitor-Rhythm Ecg Trace Only (08/16/19 07:30) Cbc With Automated Diff (08/16/19 07:30) Protime With Inr (08/16/19 07:30) Partial Thromboplastin Time (08/16/19 07:30) Comprehensive Metabolic Panel (08/16/19 07:30) Fibrin Degradation Products (08/16/19 07:30) Troponin I (08/16/19 07:30) Ua Culture If Indicated (08/16/19 07:30) Chest 1 View, Ap/Pa Only (08/16/19 07:30) Nothing By Mouth (08/16/19 Lunch) Accucheck Stat ONCE (08/16/19 07:30) Ed Iv/Invasive Line Start (08/16/19 07:30) Ed Iv/Invasive Line Start (08/16/19 07:30) Vital Signs Stroke Patient Q15M (08/16/19 07:30) Ct Head Wo-R/O Stroke (08/16/19 07:30) O2 (08/16/19 07:30) Intake & Output 06,14,22 (08/16/19 07:30) Dysphagia Screening Tool (08/16/19 07:30) Creatine Kinase (08/16/19 07:30) Creatine Kinase Mb (08/16/19 07:30) Magnesium (08/16/19 07:30) Thyroid Analyzer (08/16/19 07:30) Myoglobin Serum (08/16/19 07:30) Ct Angio Head/Neck (08/16/19 08:20) Morphine Injection (Morphine Injection (08/16/19 08:30) Urine Culture (08/16/19 08:25) Iohexol Injection (Omnipaque 350 Mg/Ml 1 (08/16/19 09:00) Received Contrast (Hold Metformin- Contr (08/16/19 09:00) Sodium Chloride Flush (Catheter Flush Sy (08/16/19 09:00) Ns (Ivpb) (Sodium Chloride 0.9% Ivpb Bag (08/16/19 09:00) Methylprednisolone Sod Succ (Solu-Medrol (08/16/19 10:00) Medications Given in ED Current Medications Medications Dose Ordered Sig/Dylan Route Start Time Stop Time Status Last Admin Dose Admin Iohexol 100 ml ONCE ONCE IV 08/16/19 09:00 08/16/19 09:01 DC 08/16/19 09:10 75 ML Methylprednisolone Sodium Succinate 125 mg ONCE ONCE IVP 08/16/19 10:00 08/16/19 10:01 DC 08/16/19 09:59 125 MG Morphine Sulfate 2 mg ONCE ONCE IVP 08/16/19 08:30 08/16/19 08:31 DC 08/16/19 08:29 2 MG Sodium Chloride 10 ml NEEDED PRN IV 08/16/19 09:00 08/16/19 10:21 DC 08/16/19 09:10 10 ML Sodium Chloride 100 ml ONCE ONCE IV 08/16/19 09:00 08/16/19 09:01 DC 08/16/19 09:10 80 ML Vital Signs/I&O 08/16/19 08/16/19 07:32 10:11 Temp 37.0 Pulse 79 67 Resp 16 16 B/P (MAP) 162/84 (110) 145/78 Pulse Ox 95 97 O2 Delivery Room Air Room Air Blood Pressure Mean: 110 Progress Progress Note : Progress Note 08--PT STATES THE SEVERE PAIN TO ENTIRE RIGHT SIDE OF FACE IS BEGINNING TO COME BACK. GIVEN MORPHINE FOR PAIN WITH IMPROVEMENT. STATES THE PAIN COMES IN WAVES, AND IS AROUND HER RIGHT EYE, BEHIND AND AROUND HER RIGHT EAR, RIGHT JAW AND TEETH Initial ECG Impression Date: August 16, 2019 Initial ECG Impression Time: 07:39 Initial ECG Rate: 72 Initial ECG Rhythm: Normal Sinus Diagnostic Imaging Comments CXR--NO ACUTE PROCESS, PER RADIOLOGIST REPORT AT 0854 CT HEAD--NO ACUTE PROCESS, PER RADIOLOGIST REPORT AT 0820 CT ANGIOGRAM OF HEAD/NECK--PER RADIOLOGIST REPORT AT 0942 IMPRESSION: 1. No stenosis or aneurysm in the [place]. No evidence of large vessel occlusion. 2. Approximately 50% narrowing in the proximal right ICA. No significant stenosis is seen in the left ICA. No stenosis or dissection in the bilateral vertebral arteries. 3. Advanced degenerative changes in the C5-C6 level. No acute fracture or dislocation. Reviewed: Reviewed by Me Departure Impression Primary Impression: Right-sided Deleon's palsy Additional Impressions: EARLY HERPES ZOSTER OF RIGHT SIDE OF FACE UTI (urinary tract infection) Disposition: 01 HOME, SELF-CARE Condition: Stable Departure-Patient Inst. Referrals: BOUCHRA RAO MD (PCP/Family) Primary Care Physician Patient Instructions: Deleon's Palsy (DC), Shingles (DC), Urinary Tract Infection, Adult (DC) Add. Discharge Instructions: LOTS OF CLEAR LIQUIDS AVOID FOODS THAT REQUIRE CHEWING--EAT SOFT FOODS CONTINUE YOUR REGULAR MEDICATIONS PRESCRIBED FOLLOW UP WITH DR. RAO IN 2-3 DAYS RETURN TO ER IF WORSE All discharge instructions reviewed with patient and/or family. Voiced understanding. Scripts Nitrofurantoin Monohyd/M-Cryst (Macrobid 100 mg Capsule) 100 Mg Capsule 1 TAB PO BID, #20 CAP Prov: GERALD,VANDANA K DO 08/16/19 Pregabalin (Lyrica) 75 Mg Capsule 75 MG PO BID, #30 CAP Prov: GERALD,VANDANA K DO 20 Hydrocodone/Acetaminophen (Hydrocodone-Acetamin 5-325 mg) 1 Each Tablet 1-2 EACH PO Q4-6 HOURS PRN for PAIN, #20 TAB Prov: VANDANA DUARTE DO 08/16/19 Prednisone (Prednisone) 10 Mg Tab.ds.pk 10 MG PO DAILY, #21 EA Take 6 tabs(60mg)daily,decrease by 1 tab(10MG)daily. Prov: VANDANA UDARTE DO 08/16/19 Valacyclovir HCl (Valtrex) 1,000 Mg Tablet 1000 MG PO TIDAC, #30 TAB Prov: VANDANA DUARTE DO 08/16/19 VANDANA DUARTE DO August 16, 2019 07:46
--- OUTSIDE RECORDS SUMMARY | 2019-08-16 07:46 | XMS REPORT | CCD ---
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 DAILY 06/17/2017 10/14/2017 In active Request already responded to by other me ans (e.g. phone or fax) fluoxetine 20 mg cap sushil RxNorm: 059233 1 Capsule(s) PO daily 06/12/2017 06/11/2017 Inactive fluoxetine 20 mg cap sushil RxNorm: 152027 1 Capsule(s) PO daily 06/12/2017 06/16/2017 Inactive Levaquin 500 mg tablet RxNorm: 837935 1 Tablet(s) PO daily 06/03/2017 06/09/2017 Inactive Kenalog 40 mg/mL rajeev pension for injection RxNorm: 5411109 1 Milliliter(s) Inj 06/03/2017 06/03/2017 In active prednisone 20 mg tablet RxNorm: 184342 2 Tablet(s) PO daily 06/03/2017 06/07/2017 Inactive Protonix 40 mg table t,delayed release RxNorm: 069661 TAKE ONE TABLET BY [facility] DAILY 05/07/2017 01/31/2018 Ac tive meloxicam 15 mg tablet RxNorm: 681092 TAKE ONE TABLET BY MOUTH DAILY 04/01/2017 06/24/2018 Ac tive albuterol sulfate 2. 5 mg/3 mL (0.083 %) solution for nebulization RxNorm: 409653 3 Milliliter(s) INH Q6 PRN 02/07/2017 06/06/2017 Inactive Kenalog 40 mg/mL rajeev pension for injection RxNorm: 5662167 1 Milliliter(s) Inj 02/07/2017 02/07/2017 In active ceftriaxone 500 mg s olution for injection RxNorm: 3771002 1 Milliliter(s) Inj 02/07/2017 02/07/2017 In active cefdinir 300 mg capsule RxNorm: 859597 1 Capsule(s) PO BID 02/07/2017 02/16/2017 Inactive Protonix 40 mg table t,delayed release RxNorm: 650183 TAKE ONE TABLET BY [facility] DAILY 11/08/2016 05/06/2017 In active Kenalog 40 mg/mL rajeev pension for injection RxNorm: 1955632 1.5 Milliliter(s) In j 09/11/2016 09/11/2016 In active prednisone 10 mg tablet RxNorm: 921840 Tablet(s) PO UD 09/11/2016 09/11/2016 Inactive 60,50,40,30,20,10 fluoxetine 20 mg tablet RxNorm: 487526 TAKE ONE TABLET BY MOUTH DAILY 08/21/2016 06/11/2017 In active meloxicam 15 mg tablet RxNorm: 966799 TAKE ONE TABLET BY MOUTH DAILY 05/28/2016 11/23/2016 In active Zithromax Z-Rohit 250 mg tablet RxNorm: 057349 1 Tablet(s) PO UD 03/22/2016 09/04/2016 Inactive z pack as directed Kenalog 40 mg/mL rajeev pension for injection RxNorm: 9057018 Milliliter(s) Inj 01/03/2016 01/03/2016 In active Zithromax Z-Rohit 250 mg tablet RxNorm: 108158 1 Tablet(s) PO UD 01/03/2016 01/07/2016 Inactive ZPACK Protonix 40 mg table t,delayed release RxNorm: 645269 TAKE ONE TABLET BY [facility] DAILY 11/29/2015 08/24/2016 In active mupirocin 2 % topica l ointment RxNorm: 618222 1 Application TOP BID 11/01/2015 11/07/2015 Inactive Tonya Allergy 180 mg tablet RxNorm: 294973 1 Tablet(s) PO daily 08/01/2015 08/30/2015 Inactive Kenalog 40 mg/mL rajeev pension for injection RxNorm: 5515884 Milliliter(s) Inj 08/01/2015 08/01/2015 In active albuterol sulfate 2. 5 mg/3 mL (0.083 %) solution for nebulization RxNorm: 629369 3 Milliliter(s) INH Q6 PRN 07/29/2015 07/28/2015 Inactive albuterol sulfate 2. 5 mg/3 mL (0.083 %) solution for nebulization RxNorm: 335541 3 Milliliter(s) INH Q6 PRN 07/29/2015 08/27/2015 Inactive fluoxetine 20 mg tablet RxNorm: 491469 1 Tablet(s) PO daily 07/28/2015 02/22/2016 Inactive meloxicam 15 mg tablet RxNorm: 994538 1 Tablet(s) PO daily 06/22/2015 12/18/2015 Inactive nystatin 100,000 uni t/mL oral suspension RxNorm: 574228 4 Milliliter(s) PO QI D 06/01/2015 05/31/2015 In active nystatin 100,000 uni t/mL oral suspension RxNorm: 236055 4 Milliliter(s) PO QI D 06/01/2015 06/07/2015 In active Kenalog 40 mg/mL rajeev pension for injection RxNorm: 2604214 Milliliter(s) Inj 05/25/2015 05/25/2015 In active Zithromax Z-Rohit 250 mg tablet RxNorm: 708052 Tablet(s) PO 05/25/2015 06/13/2015 Inactive ceftriaxone 500 mg s olution for injection RxNorm: 2831543 Inj 05/25/2015 05/25/2015 Inactive Zithromax Z-Rohit 250 mg tablet RxNorm: 729298 Tablet(s) PO UD 05/25/2015 03/21/2016 Inactive prednisone 20 mg tablet RxNorm: 539702 2 Tablet(s) PO daily 05/25/2015 05/29/2015 Inactive cefdinir 300 mg capsule RxNorm: 449720 1 Capsule(s) PO BID 05/25/2015 06/03/2015 Inactive cefdinir 300 mg capsule RxNorm: 732586 1 Capsule(s) PO BID 05/25/2015 06/03/2015 Inactive prednisone 20 mg tablet RxNorm: 921935 2 Tablet(s) PO daily 05/25/2015 05/29/2015 Inactive ceftriaxone 500 mg s olution for injection RxNorm: 8164409 Inj 05/25/2015 05/25/2015 Inactive Kenalog 40 mg/mL rajeev pension for injection RxNorm: 9417390 Milliliter(s) Inj 05/03/2015 05/03/2015 In active Levaquin 500 mg tablet RxNorm: 246724 1 Tablet(s) PO daily 05/03/2015 05/09/2015 Inactive Protonix 40 mg table t,delayed release RxNorm: 607549 1 Tablet(s) PO daily 09/16/2014 09/10/2015 In active fluoxetine 20 mg tablet RxNorm: 001413 1 Tablet(s) PO daily 08/26/2014 08/25/2014 Inactive fluoxetine 20 mg tablet RxNorm: 512842 1 Tablet(s) PO daily 08/26/2014 03/23/2015 Inactive meloxicam 15 mg tablet RxNorm: 637087 1 Tablet(s) PO daily 07/28/2014 01/23/2015 Inactive clopidogrel 75 mg ta blet RxNorm: 392528 1 Tablet(s) PO daily No Start Date Active Lipitor 40 mg tablet RxNorm: 952805 1 Tablet(s) PO daily No Start Date Active fluoxetine 20 mg tablet RxNorm: 328049 1 Tablet(s) PO daily No Start Date 08/25/2014 Inactive Protonix 40 mg table t,delayed release RxNorm: 284423 1 Tablet(s) PO daily No Start Date 09/15/2014 Inactive Medication Administered Medication Codes Instruc tions Start Date Status Kenalog 40 mg/mL suspension for injection RxNorm: 6751845 1Milliliter 06/03/2017 N o longer Active ceftriaxone 500 mg solution for injection RxNorm: 1202856 1Milliliter 02/07/2017 N o longer Active Kenalog 40 mg/mL suspension for injection RxNorm: 2919291 1Milliliter 02/07/2017 N o longer Active Kenalog 40 mg/mL suspension for injection RxNorm: 2359515 1.5Milliliter 09/11/2016 No longer Active Kenalog 40 mg/mL suspension for injection RxNorm: 7081851 Milliliter 01/03/2016 No longer Active Kenalog 40 mg/mL suspension for injection RxNorm: 4416215 Milliliter 08/01/2015 No longer Active ceftriaxone 500 mg solution for injection RxNorm: 9583435 05/25/2015 No longer A ctive ceftriaxone 500 mg solution for injection RxNorm: 4281210 05/25/2015 No longer A ctive Kenalog 40 mg/mL suspension for injection RxNorm: 5314551 Milliliter 05/25/2015 No longer Active Kenalog 40 mg/mL suspension for injection RxNorm: 0640862 Milliliter 05/03/2015 No longer Active Immunizations Vaccine Codes Date Status Influenza CVX: 141 01/16 completed Pneumococcal (Adult) CVX: 133 01/16/2017 completed Influenza CVX: 141 01/07 completed Pneumococcal CVX: 33 02/2016 completed Assessments Condition Codes Effectiv e Dates Dysuria ICD-10: R30.0 ICD-9: 788.1 01/17/2018 Encounter [...] Visit Reason For Visit Effective Dates Notes urinary urgency 01/17/2018 Annual Medicare Wellness Exam 10/02/2017 cough 06/03/2017 cough 02/07/2017 vaccination against influenza 01/16/2017 Annual Medicare Wellness Exam 09/20/2016 rash 09/11/2016 cough 01/03/2016 arthropod bite 11/01/2015 cough 08/15/2015 cough 08/01/2015 cough 06/14/2015 cough 06/02/2015 sores in the mouth 05/25/2015 cough 05/03/2015 cerumen 08/02/2014 arthritis 07/28/2014 Results Observation Observation Code Item Item Code Result Date Culture Urine [id number] URI NE CULTURE SEE NOTES 01/20/2018 Culture Urine [id number] Con tinued Results 01/20/2018 Urine Culture Ucult Comp lete >100,000 col/ml aerobic grow th sent to ref lab 01/18/2018 Lipid Ord30 CHOL 180 mg/dL 11/26/2017 Lipid Ord30 HDL 65.0 mg/dl 11/26/2017 Lipid Ord30 TRIG 68 mg/dL 11/26/2017 Lipid Ord30 LDL 101 mg/dL 11/26/2017 Lipid Ord30 C/HDL 2.8 Ratio 11/26/2017 Comp Metabolic Ljj081 NA 143 mEq/L 11/26/2017 Comp Metabolic Gvu978 K 4.4 mEq/L 11/26/2017 Comp Metabolic Uib879 CL 106 mEq/L 11/26/2017 Comp Metabolic Quc853 CO2 29.0 mEq/L 11/26/2017 Comp Metabolic Rui660 AN ION GAP 12 11/26/2017 Comp Metabolic Zoj130 GL UCOSE 106 mg/dL 11/26/2017 Comp Metabolic Epb858 Cr eat 0.7 mg/dL 11/26/2017 Comp Metabolic Jce583 eG FR 87 ml/min/1.73m2 11/26 Comp Metabolic Dfs880 BUN 20 mg/dL 11/26/2017 Comp Metabolic Enc909 B/ C Ratio 28.2 Ratio 11/26/2017 Comp Metabolic Tej028 CA LCIUM 9.1 mg/dL 11/26/2017 Comp Metabolic Giy696 AL K PHOS 48 U/L 11/26/2017 Comp Metabolic Ode857 T(SGOT) 19 U/L 11/26/2017 Comp Metabolic Gnx251 AL T(SGPT) 15 U/L 11/26/2017 Comp Metabolic Cae201 BI LI T 0.5 mg/dL 11/26/2017 Comp Metabolic Hqq705 AL BUMIN 4.1 g/dL 11/26/2017 Comp Metabolic Lrf587 TP RO 6.1 g/dL 11/26/2017 Comp Metabolic Oha583 GL OB 2.0 g/dL 11/26/2017 Comp Metabolic Frb563 A/ G Ratio 2.1 Ratio 11/26/2017 Comp Metabolic Byo272 Os mo 288 mOsmo 11/26/2017 Lipid Ord30 CHOL 175 mg/dL 01/04/2016 Lipid Ord30 HDL 45.0 mg/dl 01/04/2016 Lipid Ord30 TRIG 69 mg/dL 01/04/2016 Lipid Ord30 LDL 116 mg/dL 01/04/2016 Lipid Ord30 C/HDL 3.9 Ratio 01/04/2016 Comp Metabolic Osj804 NA 139 mEq/L 01/04/2016 Comp Metabolic Sru214 K 4.3 mEq/L 01/04/2016 Comp Metabolic Wbf055 CL 101 mEq/L 01/04/2016 Comp Metabolic Ldr744 CO2 30.0 mEq/L 01/04/2016 Comp Metabolic Weo260 AN ION GAP 12 01/04/2016 Comp Metabolic Hqq392 GL UCOSE 94 mg/dL 01/04/2016 Comp Metabolic Zwu656 Cr eat 0.7 mg/dL 01/04/2016 Comp Metabolic Rxi633 eG FR 83 ml/min/1.73m2 01/03 Comp Metabolic Xkm370 BUN 14 mg/dL 01/04/2016 Comp Metabolic Oar057 B/ C Ratio 18.9 Ratio 01/04/2016 Comp Metabolic Fuu770 CA LCIUM 9.3 mg/dL 01/04/2016 Comp Metabolic Ozu741 AL K PHOS 70 U/L 01/04/2016 Comp Metabolic Sgx443 T(SGOT) 14 U/L 01/04/2016 Comp Metabolic Huy358 AL T(SGPT) 12 U/L 01/04/2016 Comp Metabolic Inj824 BI LI T 0.4 mg/dL 01/04/2016 Comp Metabolic Uao109 AL BUMIN 4.1 g/dL 01/04/2016 Comp Metabolic Svc624 TP RO 6.6 g/dL 01/04/2016 Comp Metabolic Clb953 GL OB 2.6 g/dL 01/04/2016 Comp Metabolic Srs747 A/ G Ratio 1.6 Ratio 01/04/2016 Comp Metabolic Bsr247 Os mo 278 mOsmo 01/04/2016 Tsh Ord6 [...] 96.7 fl 01/04/2016 Cbc With Differential Ord2 Haskell% 8.6 % 01/04/2016 Cbc With Differential Ord2 MCH 31.4 pg 01/04/2016 Cbc With Differential Ord2 Eos% 1.3 % 01/04/2016 Cbc With Differential Ord2 MCHC 32.4 pg 01/04/2016 Cbc With Differential Ord2 Baso% 0.3 % 01/04/2016 Cbc With Differential Ord2 PLT 348 K/ul 01/04/2016 Cbc With Differential Ord2 RDW 13.5 % 01/04/2016 Cbc With Differential Ord2 Neut ABS# 4.78 K/ul 01/04/2016 Cbc With Differential Ord2 Lymph ABS# 1.42 K/ul 01/04/2016 Cbc With Differential Ord2 Haskell ABS# 0.6 K/ul 01/04/2016 Cbc With Differential Ord2 Eos ABS# 0.1 K/ul 01/04/2016 Cbc With Differential Ord2 Baso ABS# 0.0 K/ul 01/04/2016 Free T4 Nya731 FREE T4 0.79 ng/dL 12/27/2014 Cbc With [...] Ord30 C/HDL 3.0 Ratio 12/27/2014 Comp Metabolic Uuc128 NA 138 mEq/L 12/27/2014 Comp Metabolic Jtz948 K 4.7 mEq/L 12/27/2014 Comp Metabolic Rpz309 CL 103 mEq/L 12/27/2014 Comp Metabolic Tnp199 CO2 31.0 mEq/L 12/27/2014 Comp Metabolic Uck684 AN ION GAP 9 12/27/2014 Comp Metabolic Xvj245 GL UCOSE 105 mg/dL 12/27/2014 Comp Metabolic Dir096 Cr eat 0.8 mg/dL 12/27/2014 Comp Metabolic Tit509 eG FR 73 ml/min/1.73m2 12/27 Comp Metabolic Suk545 BUN 16 mg/dL 12/27/2014 Comp Metabolic Ugj850 B/ C Ratio 19.3 Ratio 12/27/2014 Comp Metabolic Iyh215 CA LCIUM 9.7 mg/dL 12/27/2014 Comp Metabolic Rvr195 AL K PHOS 58 U/L 12/27/2014 Comp Metabolic Bmr924 T(SGOT) 20 U/L 12/27/2014 Comp Metabolic Kmd020 AL T(SGPT) 16 U/L 12/27/2014 Comp Metabolic Knu090 BI LI T 0.6 mg/dL 12/27/2014 Comp Metabolic Xnl208 AL BUMIN 4.6 g/dL 12/27/2014 Comp Metabolic Cfb277 TP RO 6.6 g/dL 12/27/2014 Comp Metabolic Wfp521 GL OB 2.0 g/dL 12/27/2014 Comp Metabolic Qtw335 A/ G Ratio 2.3 Ratio 12/27/2014 Comp Metabolic Gpn754 Os mo 277 mOsmo 12/27/2014 Tsh Ord6 hTSH II 1.89 uIU/mL 12/27/2014 Review of Systems System Result Effective Dates Constitutional recent illness 01/17/2018 Constitutional No chills [...] retractions 06/02/2015 None Full Exam - General 1995 Respiratory respiratory effort/rhythm Overall: normal rate 06/02/2015 None Full Exam - General 1995 Cardiovascular extremities Overall: no clubbing 06/02/2015 None [...] dentition 05/03/2015 None Full Exam - General 1995 Ears/Nose/Throat lips/teeth/gingiva Overall: benign lips 05/03/2015 None [...] Procedures Procedure Codes Date PPPS, SUBSEQ VISIT CPT- 4: G0439 10/02/2017 TRIAMCINOLONE ACET I [place] NOS CPT-4: J3301 06/03/2017 THER/PROPH/DIAG INJ SC/IM CPT-4: 96583 06/03/2017 URINALYSIS NONAUTO W /O SCOPE CPT-4: 07861 04/01/2017 THER/PROPH/DIAG INJ SC/IM CPT-4: 53082 02/07/2017 TRIAMCINOLONE ACET I [place] NOS CPT-4: J3301 02/07/2017 ROCEPHIN, PER 250 MG CPT-4: J0696 02/07/2017 FLU VAC NO PRSV 4 VA L 3 YRS+ CPT-4: 87190 01/16/2017 PNEUMOCOCCAL VACC [address]: 00461160 CPT-4: 19571 01/16/2017 ADMIN INFLUENZA VIRU S VAC CPT-4: G0008 01/16/2017 ADMIN PNEUMOCOCCAL V ACCINE SNOMED CT: 38745438 CPT-4: G0009 01/16/2017 PPPS, SUBSEQ VISIT CPT- 4: G0439 09/20/2016 TRIAMCINOLONE ACET I [place] NOS CPT-4: J3301 09/11/2016 THER/PROPH/DIAG INJ SC/IM CPT-4: 60606 09/11/2016 TRIAMCINOLONE ACET I [place] NOS CPT-4: J3301 01/03/2016 DESTRUCT PREMALG LESION CPT-4: 87547 11/01/2015 TRIAMCINOLONE ACET I [place] NOS CPT-4: J3301 08/01/2015 TRIAMCINOLONE ACET I [place] NOS CPT-4: J3301 05/25/2015 ROCEPHIN, PER 250 MG CPT-4: J0696 05/25/2015 TRIAMCINOLONE ACET I [place] NOS CPT-4: J3301 05/03/2015 REMOVE IMPACTED EAR WAX UNI CPT-4: 15460 08/02/2014 Vital Signs Date Vital 01/17/2018 Blood Pressure 1: 110/76 Code: 8480-6 BMI: 21.8 Code: 93901-2 Heart Rate 1: 80 bpm Height: 5'3" SpO2: 98% Weight: 123 lbs 10/02/2017 Blood Pressure 1: 128/70 Code: 8480-6 BMI: 21.6 Code: 33243-6 Heart Rate 1: 70 bpm Height: 5'3" SpO2: 98% Waist Measure (cm): 97 cm Weight: 122 lbs 06/03/2017 Blood Pressure 1: 144/88 Code: 8480-6 BMI: 22.1 Code: 92314-1 Heart Rate 1: 90 bpm Height: 5'3" SpO2: 94% Weight: 125 lbs 02/07/2017 Blood Pressure 1: 142/80 Code: 8480-6 BMI: 22.1 Code: 37915-1 Heart Rate 1: 85 bpm Height: 5'3" SpO2: 98% Temperature: 36.9 (C ) / 98.5 (F) Weight: 125 lbs 09/20/2016 Blood Pressure 1: 124/72 Code: 8480-6 BMI: 21.8 Code: 25811-7 Heart Rate 1: 90 bpm Height: 5'3" SpO2: 96% Weight: 123 lbs 09/11/2016 Blood Pressure 1: 12472 Code: 8480-6 BMI: 21.8 Code: 23633-5 Heart Rate 1: 90 bpm Height: 5'3" SpO2: 96% Weight: 123 lbs 01/03/2016 Blood Pressure 1: 100/70 Code: 8480-6 BMI: 21.3 Code: 02104-0 Heart Rate 1: 100 bpm Height: 5'3" SpO2: 94% Temperature: 37.3 (C ) / 99.1 (F) Weight: 120 lbs 11/01/2015 Blood Pressure 1: 122/74 Code: 8480-6 BMI: 21.4 Code: 58377-8 Heart Rate 1: 92 bpm Height: 5'3" SpO2: 94% Weight: 121 lbs 08/15/2015 Blood Pressure 1: 110/70 Code: 8480-6 BMI: 21.6 Code: 95659-4 Heart Rate 1: 76 bpm Height: 5'3" SpO2: 98% Weight: 122 lbs 08/01/2015 Blood Pressure 1: 128/88 Code: 8480-6 BMI: 22.3 Code: 77621-4 Heart Rate 1: 93 bpm Height: 5'3" SpO2: 99% Temperature: 36.8 (C ) / 98.2 (F) Weight: 126 lbs 06/14/2015 Blood Pressure 1: 118/76 Code: 8480-6 BMI: 22.3 Code: 03004-7 Heart Rate 1: 88 bpm Height: 5'3" SpO2: 96% Weight: 126 lbs 06/02/2015 Blood Pressure 1: 142/80 Code: 8480-6 BMI: 22.3 Code: 95997-2 Heart Rate 1: 91 bpm Height: 5'3" SpO2: 94% Temperature: 37.2 (C ) / 98.9 (F) Weight: 126 lbs 05/25/2015 Blood Pressure 1: 136/60 Code: 8480-6 BMI: 22.7 Code: 54663-9 Heart Rate 1: 90 bpm Height: 5'3" SpO2: 96% Weight: 128 lbs 05/03/2015 Blood Pressure 1: 120/58 Code: 8480-6 BMI: 22.7 Code: 30373-4 Heart Rate 1: 95 bpm Height: 5'3" SpO2: 96% Weight: 128 lbs 08/02/2014 Blood Pressure 1: 130/80 Code: 8480-6 BMI: 22.5 Code: 08960-6 Heart Rate 1: 64 bpm Height: 5'3" Weight: 127 lbs 07/28/2014 Blood Pressure 1: 130/76 Code: 8480-6 BMI: 22.5 Code: 12306-8 Heart Rate 1: 60 bpm Height: 5'3" Weight: 127 lbs Functional Status No Functional Status data History of Present Illness Symptom Name Status Resu lt Effective Date Notes urinary urgency Quality constant 01/17/2018 None urinary [...] Encounters Encounter Performer Loca tion Codes Date 94096 EST. PATIENT, LEVEL III Diagnosis: Dysuria[ICD10: R30.0] Alexa Wade MD, [facility] CPT-4: 93228 01/17/2018 [id number] EST. PATIENT, LEVEL IV Diagnosis: Other allergic rhinitis[ICD10: J30.89] Diagnosis: Cough[ICD10: R05] Alexa Wade MD, [facility] CPT-4: 83264 06/03/2017 ([id number]) 61712 EST. P ATIENT, LEVEL III Diagnosis: Cough[ICD10: R05] Diagnosis: Pneumonia due to Streptococcus pneumoniae[ICD10: J13] Anusha Wade MD, [facility] CPT-4: 20348 02/07/2017 [id number] EST. PATIENT, LEVEL III Diagnosis: Rash and other nonspecific skin eruption[ICD10: R21] Diagnosis: Allergic contact dermatitis due to plants, except food[ICD10: L23.7] Alexa Wade MD, [facility] CPT-4: 32451 09/11/2016 ([id number]) 01560 EST. P ATIENT, LEVEL III Diagnosis: Allergic rhinitis due to pollen[ICD10: J30.1] Diagnosis: Cough[ICD10: R05] Diagnosis: Acute bronchitis, unspecified[ICD10: J20.9] Corrina Wade MD, [facility] CPT-4: 86450 01/03/2016 ([id number]) 89533 EST. P ATIENT, LEVEL II Diagnosis: Insect bite (nonvenomous), right thigh, initial encounter[ICD10: S70.361A] Diagnosis: Actinic keratosis[ICD10: L57.0] Corrina Wade MD, [facility] CPT- 4: 05369 11/01/2015 ([id number]) 81836 EST. P ATIENT, LEVEL III Diagnosis: Allergic rhinitis due to pollen[ICD10: J30.1] Corrina Wade MD, [facility] CPT-4: 05331 08/15/2015 ([id number]) 70631 EST. P ATIENT, LEVEL IV Diagnosis: Cough[ICD10: R05] Diagnosis: Allergic rhinitis due to pollen[ICD10: J30.1] Diagnosis: Gastro-esophageal reflux disease without esophagitis[ICD10: K21.9] Corrina Wade MD, [facility] CPT-4: 57173 08/01/2015 ([id number]) 78628 EST. P ATIENT, LEVEL III Diagnosis: Gastro-esophageal reflux disease without esophagitis[ICD10: K21.9] Anusha Wade MD, [facility] CPT-4: 22423 06/14/2015 ([id number]) Patient adm itted to the hospital from clinic (NO CHARGE) Diagnosis: Pneumonia, unspecified organism[ICD10: J18.9] Anusha Wade MD, C CPT-4: 41509B 06/02/2015 85528 EST. PATIENT, LEVEL III Diagnosis: Pneumonia, unspecified organism[ICD10: J18.9] Anusha Wade MD, [facility] CPT-4: 19599 05/25/2015 ([id number]) 94297 EST. P ATIENT, LEVEL III Diagnosis: Cough[ICD10: R05] Diagnosis: Pneumonia, unspecified organism[ICD10: J18.9] Corrina Wade MD, [facility] CPT-4: 37812 05/03/2015 ([id number]) OFFICE VISI T, [facility] - LEVEL 4 Diagnosis: HYPERLIPIDEMIA[ICD9: 272.4] Diagnosis: Osteoarthritis[ICD9: 715.90] Diagnosis: Hand pain[ICD9: 729.5] Diagnosis: Depression[ICD9: 311] Anusha Wade MD, [facility] CPT-4: 64419 07/28/2014 Plan of Care Planned Activity Notes C odes Status Date Visit Plan: UTI - pt with positive urinalysis - culture sent if appropriate. Antibiotic electronically prescribed to pt's pharmacy of choice. Pt to call if symptoms do not improve. 01/17/2018 Appointment: Alexa Aleman WPtel: [address] [place], [place] [address] (15 min) Moderate 01/17/2018 Patient Education: Patient [...] 10/02/2017 Care Plan: Referral Order SNOMED-CT : [id number] Pending 10/02/2017 Appointment: Alexa lAeman WPtel: [address] [place], [place] [phone] [facility] - Annual Wellness Visit 09/27/2017 Visit [...] pharmacy. 06/03/2017 App[facility]ment: [facility] [phone] [facility] [place] (15 min) Moderate 06/03/2017 Patient Education: Patient Medication Summary Completed 06/03/2017 Appointment: Lab Draw 04/01/2017 Patient Education: Patient Medication Summary Completed 04/01/2017 Visit Plan: Pneumonia - Pt has been diagnosed with pneumonia by physical exam. Antibiotics have been ordered. The pt is aware of the diagnosis and the need for acute treatment of this illness. 02/07/2017 Appointment: [facility]ush[facility] Wade [facility]el[facility] [phone] [facility] [place] (15 min) Moderate 02/07/2017 Patient [...] warmth, discharge. 09/11/2016 Appointment: Alexa Aleman WPtel: [facility] (30 min) Complex 09/11/2016 Patient Education: Patient [...] acutely worsen. 01/03/2016 Appointment: Corrina Ahn WPtel: [phone] (30 min) Complex 01/03/2016 Patient Education: Patient Medication Summary Completed 01/03/2016 Appointment: Corrina Ahn WPtel: [phone] (30 min) Complex 11/15/2015 Visit Plan: [...] acute concerns. 11/01/2015 Appointment: Corrina Ahn WPtel: [address] [place], [place] [phone] (30 min) Complex 11/01/2015 Patient Education: Patient [...] spice diet 08/01/2015 Appointment: Corrina Ahn WPtel: [address] [place], [place] [phone] (10 min) Simple 08/01/2015 Patient Education: Patient Medication Summary Completed 08/01/2015 Visit Plan: Esophageal Reflux - the patient has been counseled against excessive intake of caffeine, spicy foods, peppermint, and cinnamon - all of which can exacerbate esophageal reflux. The patient is to take medications as prescribed and call the office if the symptoms are not improving. 06/14/2015 Appointment: Mauro Anusha WPtel: [address] [place], [place] [phone] (30 min) Complex 06/14/2015 Patient Education: Patient [...] on paxil 07/28/2014 Appointment: Anusha Wade WPtel: [address] [place], [place] [phone] [place] (S) New Patient 07/28/2014 Patient Education: [...]
--- OUTSIDE RECORDS SUMMARY | 2019-08-16 07:47 | XMS REPORT | CCD ---
Author Author Angi Wade Organization Anusha Wade MD, [facility] Address [address] [place] [address] Phone Care Team Providers Care Cardiovascular Technologist Name Role Phone PP Unavailable CCM Unavailable Summary Purpose Interface Exchange Insurance Providers Payer name Policy type / Coverage type Covered republican ID Effective Begin Date Effective End Date WPS Medicare Part B Medicare Part B [id number] Unknown deCarta Medicare Part B [id number] Unkn own Family history Mother Diagnosis Age At Onset Heart Attack Unknown Hypertension Unknown Dementia Unknown Heart disease Unknown Thyroid Unknown Brother Diagnosis Age At Onset bleeding problem Unknown Father Diagnosis Age At Onset Myocardial infarction Unknown Hypertension Unknown Social History Social History Element Codes Description Effective Dates Marital status Unknown M arried 07/28/2014 Number of children Unknown 2 07/28/2014 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 phone or fax) fluoxetine 20 mg cap sushil RxNorm: 191850 1 Capsule(s) PO daily 06/12/2017 06/11/2017 Inactive fluoxetine 20 mg cap sushil RxNorm: 182184 1 Capsule(s) PO daily 06/12/2017 06/16/2017 Inactive Levaquin 500 mg tablet RxNorm: 714879 1 Tablet(s) PO daily 06/03/2017 06/09/2017 Inactive Kenalog 40 mg/mL rajeev pension for injection RxNorm: 0740596 1 Milliliter(s) Inj 06/03/2017 06/03/2017 In active prednisone 20 mg tablet RxNorm: 419762 2 Tablet(s) PO daily 06/03/2017 06/07/2017 Inactive Protonix 40 mg table t,delayed release RxNorm: 967486 TAKE ONE TABLET BY [facility] DAILY 05/07/2017 01/31/2018 Ac tive meloxicam 15 mg tablet RxNorm: 092193 TAKE ONE TABLET BY MOUTH DAILY 04/01/2017 06/24/2018 Ac tive albuterol sulfate 2. 5 mg/3 mL (0.083 %) solution for nebulization RxNorm: 377125 3 Milliliter(s) INH Q6 PRN 02/07/2017 06/06/2017 Inactive Kenalog 40 mg/mL rajeev pension for injection RxNorm: 3727105 1 Milliliter(s) Inj 02/07/2017 02/07/2017 In active ceftriaxone 500 mg s olution for injection RxNorm: 8857084 1 Milliliter(s) Inj 02/07/2017 02/07/2017 In active cefdinir 300 mg capsule RxNorm: 241558 1 Capsule(s) PO BID 02/07/2017 02/16/2017 Inactive Protonix 40 mg table t,delayed release RxNorm: 894030 TAKE ONE TABLET BY [facility] DAILY 11/08/2016 05/06/2017 In active Kenalog 40 mg/mL rajeev pension for injection RxNorm: 6858803 1.5 Milliliter(s) In j 09/11/2016 09/11/2016 In active prednisone 10 mg tablet RxNorm: 548504 Tablet(s) PO UD 09/11/2016 09/11/2016 Inactive 60,50,40,30,20,10 fluoxetine 20 mg tablet RxNorm: 450551 TAKE ONE TABLET BY MOUTH DAILY 08/21/2016 06/11/2017 In active meloxicam 15 mg tablet RxNorm: 009774 TAKE ONE TABLET BY MOUTH DAILY 05/28/2016 11/23/2016 In active Zithromax Z-Rohti 250 mg tablet RxNorm: 427506 1 Tablet(s) PO UD 03/22/2016 09/04/2016 Inactive z pack as directed Kenalog 40 mg/mL rajeev pension for injection RxNorm: 7594026 Milliliter(s) Inj 01/03/2016 01/03/2016 In active Zithromax Z-Rohit 250 mg tablet RxNorm: 387181 1 Tablet(s) PO UD 01/03/2016 01/07/2016 Inactive ZPACK Protonix 40 mg table t,delayed release RxNorm: 770932 TAKE ONE TABLET BY [facility] DAILY 11/29/2015 08/24/2016 In active mupirocin 2 % topica l ointment RxNorm: 082560 1 Application TOP BID 11/01/2015 11/07/2015 Inactive Tonya Allergy 180 mg tablet RxNorm: 112199 1 Tablet(s) PO daily 08/01/2015 08/30/2015 Inactive Kenalog 40 mg/mL rajeev pension for injection RxNorm: 5560742 Milliliter(s) Inj 08/01/2015 08/01/2015 In active albuterol sulfate 2. 5 mg/3 mL (0.083 %) solution for nebulization RxNorm: 196600 3 Milliliter(s) INH Q6 PRN 07/29/2015 07/28/2015 Inactive albuterol sulfate 2. 5 mg/3 mL (0.083 %) solution for nebulization RxNorm: 261431 3 Milliliter(s) INH Q6 PRN 07/29/2015 08/27/2015 Inactive fluoxetine 20 mg tablet RxNorm: 947175 1 Tablet(s) PO daily 07/28/2015 02/22/2016 Inactive meloxicam 15 mg tablet RxNorm: 022138 1 Tablet(s) PO daily 06/22/2015 12/18/2015 Inactive nystatin 100,000 uni t/mL oral suspension RxNorm: 753541 4 Milliliter(s) PO QI D 06/01/2015 05/31/2015 In active nystatin 100,000 uni t/mL oral suspension RxNorm: 084066 4 Milliliter(s) PO QI D 06/01/2015 06/07/2015 In active Kenalog 40 mg/mL rajeev pension for injection RxNorm: 6587330 Milliliter(s) Inj 05/25/2015 05/25/2015 In active Zithromax Z-Rohit 250 mg tablet RxNorm: 950229 Tablet(s) PO 05/25/2015 06/13/2015 Inactive ceftriaxone 500 mg s olution for injection RxNorm: 4934266 Inj 05/25/2015 05/25/2015 Inactive Zithromax Z-Rohit 250 mg tablet RxNorm: 329785 Tablet(s) PO UD 05/25/2015 03/21/2016 Inactive prednisone 20 mg tablet RxNorm: 800745 2 Tablet(s) PO daily 05/25/2015 05/29/2015 Inactive cefdinir 300 mg capsule RxNorm: 034967 1 Capsule(s) PO BID 05/25/2015 06/03/2015 Inactive cefdinir 300 mg capsule RxNorm: 974484 1 Capsule(s) PO BID 05/25/2015 06/03/2015 Inactive prednisone 20 mg tablet RxNorm: 739668 2 Tablet(s) PO daily 05/25/2015 05/29/2015 Inactive ceftriaxone 500 mg s olution for injection RxNorm: 1705401 Inj 05/25/2015 05/25/2015 Inactive Kenalog 40 mg/mL rajeev pension for injection RxNorm: 2330504 Milliliter(s) Inj 05/03/2015 05/03/2015 In active Levaquin 500 mg tablet RxNorm: 154302 1 Tablet(s) PO daily 05/03/2015 05/09/2015 Inactive Protonix 40 mg table t,delayed release RxNorm: 072085 1 Tablet(s) PO daily 09/16/2014 09/10/2015 In active fluoxetine 20 mg tablet RxNorm: 440103 1 Tablet(s) PO daily 08/26/2014 08/25/2014 Inactive fluoxetine 20 mg tablet RxNorm: 010493 1 Tablet(s) PO daily 08/26/2014 03/23/2015 Inactive meloxicam 15 mg tablet RxNorm: 959393 1 Tablet(s) PO daily 07/28/2014 01/23/2015 Inactive clopidogrel 75 mg ta blet RxNorm: 784618 1 Tablet(s) PO daily No Start Date Active Lipitor 40 mg tablet RxNorm: 722574 1 Tablet(s) PO daily No Start Date Active fluoxetine 20 mg tablet RxNorm: 152397 1 Tablet(s) PO daily No Start Date 08/25/2014 Inactive Protonix 40 mg table t,delayed release RxNorm: 108550 1 Tablet(s) PO daily No Start Date 09/15/2014 Inactive Medication Administered Medication Codes Instruc tions Start Date Status Kenalog 40 mg/mL suspension for injection RxNorm: 9552312 1Milliliter 06/03/2017 N o longer Active ceftriaxone 500 mg solution for injection RxNorm: 8219869 1Milliliter 02/07/2017 N o longer Active Kenalog 40 mg/mL suspension for injection RxNorm: 3995324 1Milliliter 02/07/2017 N o longer Active Kenalog 40 mg/mL suspension for injection RxNorm: 7188899 1.5Milliliter 09/11/2016 No longer Active Kenalog 40 mg/mL suspension for injection RxNorm: 1997831 Milliliter 01/03/2016 No longer Active Kenalog 40 mg/mL suspension for injection RxNorm: 2972267 Milliliter 08/01/2015 No longer Active ceftriaxone 500 mg solution for injection RxNorm: 9451815 05/25/2015 No longer A ctive ceftriaxone 500 mg solution for injection RxNorm: 1777958 05/25/2015 No longer A ctive Kenalog 40 mg/mL suspension for injection RxNorm: 2007361 Milliliter 05/25/2015 No longer Active Kenalog 40 mg/mL suspension for injection RxNorm: 8311575 Milliliter 05/03/2015 No longer Active Immunizations Vaccine [...] Item Item Code Result Date Culture Urine [id number] URI NE CULTURE SEE NOTES 01/20/2018 Culture Urine [id number] Con tinued Results 01/20/2018 Urine Culture Ucult Comp lete >100,000 col/ml aerobic grow th sent to ref lab 01/18/2018 Lipid Ord30 CHOL 180 mg/dL 11/26/2017 Lipid Ord30 HDL 65.0 mg/dl 11/26/2017 Lipid Ord30 TRIG 68 mg/dL 11/26/2017 Lipid Ord30 LDL 101 mg/dL 11/26/2017 Lipid Ord30 C/HDL 2.8 Ratio 11/26/2017 Comp Metabolic Bgm253 NA 143 mEq/L 11/26/2017 Comp Metabolic Jzj529 K 4.4 mEq/L 11/26/2017 Comp Metabolic Ujk211 CL 106 mEq/L 11/26/2017 Comp Metabolic Qcd905 CO2 29.0 mEq/L 11/26/2017 Comp Metabolic Wrr494 AN ION GAP 12 11/26/2017 Comp Metabolic Zti982 GL UCOSE 106 mg/dL 11/26/2017 Comp Metabolic Ibi077 Cr eat 0.7 mg/dL 11/26/2017 Comp Metabolic Aus747 eG FR 87 ml/min/1.73m2 11/26 Comp Metabolic Mph488 BUN 20 mg/dL 11/26/2017 Comp Metabolic Auq666 B/ C Ratio 28.2 Ratio 11/26/2017 Comp Metabolic Ldr236 CA LCIUM 9.1 mg/dL 11/26/2017 Comp Metabolic Dfx843 AL K PHOS 48 U/L 11/26/2017 Comp Metabolic Flp853 T(SGOT) 19 U/L 11/26/2017 Comp Metabolic Zpf353 AL T(SGPT) 15 U/L 11/26/2017 Comp Metabolic Kwh286 BI LI T 0.5 mg/dL 11/26/2017 Comp Metabolic Ywe681 AL BUMIN 4.1 g/dL 11/26/2017 Comp Metabolic Egu906 TP RO 6.1 g/dL 11/26/2017 Comp Metabolic Bgl717 GL OB 2.0 g/dL 11/26/2017 Comp Metabolic Rgm908 A/ G Ratio 2.1 Ratio 11/26/2017 Comp Metabolic Jab946 Os mo 288 mOsmo 11/26/2017 Lipid Ord30 CHOL 175 mg/dL 01/04/2016 Lipid Ord30 HDL 45.0 mg/dl 01/04/2016 Lipid Ord30 TRIG 69 mg/dL 01/04/2016 Lipid Ord30 LDL 116 mg/dL 01/04/2016 Lipid Ord30 C/HDL 3.9 Ratio 01/04/2016 Comp Metabolic Zmn682 NA 139 mEq/L 01/04/2016 Comp Metabolic Blt867 K 4.3 mEq/L 01/04/2016 Comp Metabolic Nwj516 CL 101 mEq/L 01/04/2016 Comp Metabolic Ixk289 CO2 30.0 mEq/L 01/04/2016 Comp Metabolic Xdb618 AN ION GAP 12 01/04/2016 Comp Metabolic Wep175 GL UCOSE 94 mg/dL 01/04/2016 Comp Metabolic Lnk528 Cr eat 0.7 mg/dL 01/04/2016 Comp Metabolic Uxy219 eG FR 83 ml/min/1.73m2 01/03 Comp Metabolic Qxn927 BUN 14 mg/dL 01/04/2016 Comp Metabolic Uqs998 B/ C Ratio 18.9 Ratio 01/04/2016 Comp Metabolic Swc952 CA LCIUM 9.3 mg/dL 01/04/2016 Comp Metabolic Kkd860 AL K PHOS 70 U/L 01/04/2016 Comp Metabolic Org584 T(SGOT) 14 U/L 01/04/2016 Comp Metabolic Wqw740 AL T(SGPT) 12 U/L 01/04/2016 Comp Metabolic Rnk811 BI LI T 0.4 mg/dL 01/04/2016 Comp Metabolic Rcz366 AL BUMIN 4.1 g/dL 01/04/2016 Comp Metabolic Ygs376 TP RO 6.6 g/dL 01/04/2016 Comp Metabolic Yse648 GL OB 2.6 g/dL 01/04/2016 Comp Metabolic Dfj737 A/ G Ratio 1.6 Ratio 01/04/2016 Comp Metabolic Czc746 Os mo 278 mOsmo 01/04/2016 Tsh Ord6 [...] 96.7 fl 01/04/2016 Cbc With Differential Ord2 Falls% 8.6 % 01/04/2016 Cbc With Differential Ord2 [...] 1.42 K/ul 01/04/2016 Cbc With Differential Ord2 Falls ABS# 0.6 K/ul 01/04/2016 Cbc With Differential Ord2 Eos ABS# 0.1 K/ul 01/04/2016 Cbc With Differential Ord2 Baso ABS# 0.0 K/ul 01/04/2016 Free T4 Lvr677 FREE T4 0.79 ng/dL 12/27/2014 Cbc With [...] Ord30 C/HDL 3.0 Ratio 12/27/2014 Comp Metabolic Sjw245 NA 138 mEq/L 12/27/2014 Comp Metabolic Jbc422 K 4.7 mEq/L 12/27/2014 Comp Metabolic Htm721 CL 103 mEq/L 12/27/2014 Comp Metabolic Evz126 CO2 31.0 mEq/L 12/27/2014 Comp Metabolic Exi010 AN ION GAP 9 12/27/2014 Comp Metabolic Mob020 GL UCOSE 105 mg/dL 12/27/2014 Comp Metabolic Mkl858 Cr eat 0.8 mg/dL 12/27/2014 Comp Metabolic Kcv594 eG FR 73 ml/min/1.73m2 12/27 Comp Metabolic Mra437 BUN 16 mg/dL 12/27/2014 Comp Metabolic Voq593 B/ C Ratio 19.3 Ratio 12/27/2014 Comp Metabolic Sgf916 CA LCIUM 9.7 mg/dL 12/27/2014 Comp Metabolic Jkd261 AL K PHOS 58 U/L 12/27/2014 Comp Metabolic Pwb746 T(SGOT) 20 U/L 12/27/2014 Comp Metabolic Ppn410 AL T(SGPT) 16 U/L 12/27/2014 Comp Metabolic Qsk510 BI LI T 0.6 mg/dL 12/27/2014 Comp Metabolic Vkd058 AL BUMIN 4.6 g/dL 12/27/2014 Comp Metabolic Gal557 TP RO 6.6 g/dL 12/27/2014 Comp Metabolic Bwe354 GL OB 2.0 g/dL 12/27/2014 Comp Metabolic Ptj248 A/ G Ratio 2.3 Ratio 12/27/2014 Comp Metabolic Ysj225 Os mo 277 mOsmo 12/27/2014 Tsh Ord6 [...] CPT-4: J3301 06/03/2017 THER/PROPH/DIAG INJ SC/IM CPT-4: 69606 06/03/2017 URINALYSIS NONAUTO W /O SCOPE CPT-4: 09391 04/01/2017 THER/PROPH/DIAG INJ SC/IM CPT-4: 16877 02/07/2017 TRIAMCINOLONE ACET I [place] NOS CPT-4: J3301 02/07/2017 ROCEPHIN, PER 250 MG CPT-4: J0696 02/07/2017 FLU VAC NO PRSV 4 VA L 3 YRS+ CPT-4: 35255 01/16/2017 PNEUMOCOCCAL VACC [address]: 07401340 CPT-4: 21976 01/16/2017 ADMIN INFLUENZA VIRU S VAC CPT-4: G0008 01/16/2017 ADMIN PNEUMOCOCCAL V ACCINE SNOMED CT: 37933945 CPT-4: G0009 01/16/2017 PPPS, SUBSEQ VISIT CPT- 4: G0439 09/20/2016 TRIAMCINOLONE ACET I [place] NOS CPT-4: J3301 09/11/2016 THER/PROPH/DIAG INJ SC/IM CPT-4: 77605 09/11/2016 TRIAMCINOLONE ACET I [place] NOS CPT-4: J3301 01/03/2016 DESTRUCT PREMALG LESION CPT-4: 52006 11/01/2015 TRIAMCINOLONE ACET I [place] NOS CPT-4: J3301 08/01/2015 TRIAMCINOLONE ACET I [place] NOS CPT-4: J3301 05/25/2015 ROCEPHIN, PER 250 MG CPT-4: J0696 05/25/2015 TRIAMCINOLONE ACET I [place] NOS CPT-4: J3301 05/03/2015 REMOVE IMPACTED EAR WAX UNI CPT-4: 97192 08/02/2014 Vital Signs Date Vital 01/17/2018 Blood Pressure 1: 110/76 Code: 8480-6 BMI: 21.8 Code: 10054-6 Heart Rate 1: 80 bpm Height: 5'3" SpO2: 98% Weight: 123 lbs 10/02/2017 Blood Pressure 1: 128/70 Code: 8480-6 BMI: 21.6 Code: 03021-0 Heart Rate 1: 70 bpm Height: 5'3" SpO2: 98% Waist Measure (cm): 97 cm Weight: 122 lbs 06/03/2017 Blood Pressure 1: 144/88 Code: 8480-6 BMI: 22.1 Code: 55022-6 Heart Rate 1: 90 bpm Height: 5'3" SpO2: 94% Weight: 125 lbs 02/07/2017 Blood Pressure 1: 142/80 Code: 8480-6 BMI: 22.1 Code: 64134-3 Heart Rate 1: 85 bpm Height: 5'3" SpO2: 98% Temperature: 36.9 (C ) / 98.5 (F) Weight: 125 lbs 09/20/2016 Blood Pressure 1: 124/72 Code: 8480-6 BMI: 21.8 Code: 68682-6 Heart Rate 1: 90 bpm Height: 5'3" SpO2: 96% Weight: 123 lbs 09/11/2016 Blood Pressure 1: 12472 Code: 8480-6 BMI: 21.8 Code: 82335-5 Heart Rate 1: 90 bpm Height: 5'3" SpO2: 96% Weight: 123 lbs 01/03/2016 Blood Pressure 1: 100/70 Code: 8480-6 BMI: 21.3 Code: 13663-0 Heart Rate 1: 100 bpm Height: 5'3" SpO2: 94% Temperature: 37.3 (C ) / 99.1 (F) Weight: 120 lbs 11/01/2015 Blood Pressure 1: 122/74 Code: 8480-6 BMI: 21.4 Code: 18192-5 Heart Rate 1: 92 bpm Height: 5'3" SpO2: 94% Weight: 121 lbs 08/15/2015 Blood Pressure 1: 110/70 Code: 8480-6 BMI: 21.6 Code: 19851-9 Heart Rate 1: 76 bpm Height: 5'3" SpO2: 98% Weight: 122 lbs 08/01/2015 Blood Pressure 1: 128/88 Code: 8480-6 BMI: 22.3 Code: 10254-0 Heart Rate 1: 93 bpm Height: 5'3" SpO2: 99% Temperature: 36.8 (C ) / 98.2 (F) Weight: 126 lbs 06/14/2015 Blood Pressure 1: 118/76 Code: 8480-6 BMI: 22.3 Code: 62016-7 Heart Rate 1: 88 bpm Height: 5'3" SpO2: 96% Weight: 126 lbs 06/02/2015 Blood Pressure 1: 142/80 Code: 8480-6 BMI: 22.3 Code: 84401-3 Heart Rate 1: 91 bpm Height: 5'3" SpO2: 94% Temperature: 37.2 (C ) / 98.9 (F) Weight: 126 lbs 05/25/2015 Blood Pressure 1: 136/60 Code: 8480-6 BMI: 22.7 Code: 39369-4 Heart Rate 1: 90 bpm Height: 5'3" SpO2: 96% Weight: 128 lbs 05/03/2015 Blood Pressure 1: 120/58 Code: 8480-6 BMI: 22.7 Code: 85846-6 Heart Rate 1: 95 bpm Height: 5'3" SpO2: 96% Weight: 128 lbs 08/02/2014 Blood Pressure 1: 130/80 Code: 8480-6 BMI: 22.5 Code: 03783-9 Heart Rate 1: 64 bpm Height: 5'3" Weight: 127 lbs 07/28/2014 Blood Pressure 1: 130/76 Code: 8480-6 BMI: 22.5 Code: 86260-2 Heart Rate 1: 60 bpm Height: 5'3" [...] Encounters Encounter Performer Loca tion Codes Date 26733 EST. PATIENT, LEVEL III Diagnosis: Dysuria[ICD10: R30.0] Alexa Wade MD, [facility] CPT-4: 83462 01/17/2018 14762 EST. PATIENT, LEVEL IV Diagnosis: Other allergic rhinitis[ICD10: J30.89] Diagnosis: Cough[ICD10: R05] Alexa Wade MD, [facility] CPT-4: 14725 06/03/2017 ([id number]) 22812 EST. P ATIENT, LEVEL III Diagnosis: Cough[ICD10: R05] Diagnosis: Pneumonia due to Streptococcus pneumoniae[ICD10: J13] Anusha Wade MD, [facility] CPT-4: 23504 02/07/2017 11916 EST. PATIENT, LEVEL III Diagnosis: Rash and other nonspecific skin eruption[ICD10: R21] Diagnosis: Allergic contact dermatitis due to plants, except food[ICD10: L23.7] Alexa Wade MD, [facility] CPT-4: 62255 09/11/2016 ([id number]) 80286 EST. P ATIENT, LEVEL III Diagnosis: Allergic rhinitis due to pollen[ICD10: J30.1] Diagnosis: Cough[ICD10: R05] Diagnosis: Acute bronchitis, unspecified[ICD10: J20.9] Corrina Wade MD, [facility] CPT-4: 09782 01/03/2016 ([id number]) 78913 EST. P ATIENT, LEVEL II Diagnosis: Insect bite (nonvenomous), right thigh, initial encounter[ICD10: S70.361A] Diagnosis: Actinic keratosis[ICD10: L57.0] Corrina Wade MD, [facility] CPT- 4: 80698 11/01/2015 ([id number]) 05043 EST. P ATIENT, LEVEL III Diagnosis: Allergic rhinitis due to pollen[ICD10: J30.1] Corrina Wade MD, [facility] CPT-4: 58522 08/15/2015 ([id number]) 94221 EST. P ATIENT, LEVEL IV Diagnosis: Cough[ICD10: R05] Diagnosis: Allergic rhinitis due to pollen[ICD10: J30.1] Diagnosis: Gastro-esophageal reflux disease without esophagitis[ICD10: K21.9] Corrina Wade MD, [facility] CPT-4: 05539 08/01/2015 ([id number]) 21010 EST. P ATIENT, LEVEL III Diagnosis: Gastro-esophageal reflux disease without esophagitis[ICD10: K21.9] Anusha Wade MD, [facility] CPT-4: 82449 06/14/2015 ([id number]) Patient adm itted to the hospital from clinic (NO CHARGE) Diagnosis: Pneumonia, unspecified organism[ICD10: J18.9] Anusha Wade MD, C CPT-4: 40189E 06/02/2015 83605 EST. PATIENT, LEVEL III Diagnosis: Pneumonia, unspecified organism[ICD10: J18.9] Anusha Wade MD, [facility] CPT-4: 93585 05/25/2015 ([id number]) 02401 EST. P ATIENT, LEVEL III Diagnosis: Cough[ICD10: R05] Diagnosis: Pneumonia, unspecified organism[ICD10: J18.9] Corrina Wade MD, [facility] CPT-4: 83115 05/03/2015 ([id number]) OFFICE VISI T, [facility] - LEVEL 4 Diagnosis: HYPERLIPIDEMIA[ICD9: 272.4] Diagnosis: Osteoarthritis[ICD9: 715.90] Diagnosis: Hand pain[ICD9: 729.5] Diagnosis: Depression[ICD9: 311] Anusha Wade MD, [facility] CPT-4: 94735 07/28/2014 Plan of Care Planned Activity Notes C odes Status Date Visit Plan: UTI - pt with positive urinalysis - culture sent if appropriate. Antibiotic electronically prescribed to pt's pharmacy of choice. Pt to call if symptoms do not improve. 01/17/2018 Appointment: Alexa Aleman WPtel: [address] [place], [place] [phone] (15 min) Moderate 01/17/2018 Patient Education: Patient [...] 10/02/2017 Care Plan: Referral Order SNOMED-CT : [id number] Pending 10/02/2017 Appointment: Alexa Aleman WPtel: [address] [place], [place] [phone] [facility] - Annual Wellness Visit 09/27/2017 Visit [...] pharmacy. 06/03/2017 [facility]ment[facility] [phone] [facility] [place] (15 min) Moderate 06/03/2017 Patient Education: Patient Medication Summary Completed 06/03/2017 Appointment: Lab Draw 04/01/2017 Patient Education: Patient Medication Summary Completed 04/01/2017 Visit Plan: Pneumonia - Pt has been diagnosed with pneumonia by physical exam. Antibiotics have been ordered. The pt is aware of the diagnosis and the need for acute treatment of this illness. 02/07/2017 [facility]ment[facility] [phone] [facility] [place] (15 min) Moderate 02/07/2017 Patient Education: [...] warmth, discharge. 09/11/2016 Appointment: Alexa Aleman WPtel: [facility] (30 min) Complex 09/11/2016 Patient Education: [...] acutely worsen. 01/03/2016 Appointment: Corrina Ahn WPtel: [phone] (30 min) Complex 01/03/2016 Patient Education: Patient Medication Summary Completed 01/03/2016 Appointment: Corrina Ahn WPtel: [phone] (30 min) Complex 11/15/2015 Visit Plan: [...] acute concerns. 11/01/2015 Appointment: Corrina Ahn WPtel: [address] [place], [place] [phone] (30 min) Complex 11/01/2015 Patient Education: Patient [...] spice diet 08/01/2015 Appointment: Corrina Ahn WPtel: [address] [place], [place] [phone] (10 min) Simple 08/01/2015 Patient Education: Patient Medication Summary Completed 08/01/2015 Visit Plan: Esophageal Reflux - the patient has been counseled against excessive intake of caffeine, spicy foods, peppermint, and cinnamon - all of which can exacerbate esophageal reflux. The patient is to take medications as prescribed and call the office if the symptoms are not improving. 06/14/2015 Appointment: Mauro Anusha WPtel: [address] [place], [place] [phone] (30 min) Complex 06/14/2015 Patient Education: Patient [...] on paxil 07/28/2014 Appointment: Anusha Wade WPtel: [address] [place], [place] [phone] [place] (S) New Patient 07/28/2014 Patient Education: [...]
--- OUTSIDE RECORDS SUMMARY | 2019-08-16 07:48 | XMS REPORT | CCD ---
Author Author Angi Wade Organization Anusha Wade MD, [facility] Address [address] [place] [address] Phone Care Team Providers Care Shop Helper Name Role Phone PP Unavailable CCM Unavailable Summary Purpose Interface Exchange Insurance Providers Payer name Policy type / Coverage type Covered democrat ID Effective Begin Date Effective End Date WPS Medicare Part B Medicare Part B [id number] Unknown GoWorkaBit Medicare Part B [id number] Unkn own Family history Mother Diagnosis Age At Onset Heart Attack Unknown Hypertension Unknown Dementia Unknown Heart disease Unknown Thyroid Unknown Brother Diagnosis Age At Onset bleeding problem Unknown Father Diagnosis Age At Onset Myocardial infarction Unknown Hypertension Unknown Social History Social History Element Codes Description Effective Dates Marital status Unknown M arried 07/28/2014 Number of children Unknown 2 07/28/2014 Employment Unknown Retir [employer] 07/28/[address]: 426325386 Has never smoked or chewed tobacco 07/28/2014 [...] DS 800 mg-16 0 mg tablet RxNorm: 873690 1 Tablet(s) PO BID 01/17/2018 01/23/2018 Active fluoxetine 20 mg cap sushil RxNorm: 402209 TAKE ONE CAPSULE BY [facility] DAILY 06/17/2017 10/14/2017 In active Request already responded to by other me ans (e.g. phone or fax) fluoxetine 20 mg cap sushil RxNorm: 436209 1 Capsule(s) PO daily 06/12/2017 06/11/2017 Inactive fluoxetine 20 mg cap sushil RxNorm: 513806 1 Capsule(s) PO daily 06/12/2017 06/16/2017 Inactive Levaquin 500 mg tablet RxNorm: 577530 1 Tablet(s) PO daily 06/03/2017 06/09/2017 Inactive Kenalog 40 mg/mL rajeev pension for injection RxNorm: 3617470 1 Milliliter(s) Inj 06/03/2017 06/03/2017 In active prednisone 20 mg tablet RxNorm: 195954 2 Tablet(s) PO daily 06/03/2017 06/07/2017 Inactive Protonix 40 mg table t,delayed release RxNorm: 188685 TAKE ONE TABLET BY [facility] DAILY 05/07/2017 01/31/2018 Ac tive meloxicam 15 mg tablet RxNorm: 941219 TAKE ONE TABLET BY MOUTH DAILY 04/01/2017 06/24/2018 Ac tive albuterol sulfate 2. 5 mg/3 mL (0.083 %) solution for nebulization RxNorm: 682743 3 Milliliter(s) INH Q6 PRN 02/07/2017 06/06/2017 Inactive Kenalog 40 mg/mL rajeev pension for injection RxNorm: 8309315 1 Milliliter(s) Inj 02/07/2017 02/07/2017 In active ceftriaxone 500 mg s olution for injection RxNorm: 6064428 1 Milliliter(s) Inj 02/07/2017 02/07/2017 In active cefdinir 300 mg capsule RxNorm: 070226 1 Capsule(s) PO BID 02/07/2017 02/16/2017 Inactive Protonix 40 mg table t,delayed release RxNorm: 277583 TAKE ONE TABLET BY [facility] DAILY 11/08/2016 05/06/2017 In active Kenalog 40 mg/mL rajeev pension for injection RxNorm: 3363338 1.5 Milliliter(s) In j 09/11/2016 09/11/2016 In active prednisone 10 mg tablet RxNorm: 930535 Tablet(s) PO UD 09/11/2016 09/11/2016 Inactive 60,50,40,30,20,10 fluoxetine 20 mg tablet RxNorm: 916107 TAKE ONE TABLET BY MOUTH DAILY 08/21/2016 06/11/2017 In active meloxicam 15 mg tablet RxNorm: 207628 TAKE ONE TABLET BY MOUTH DAILY 05/28/2016 11/23/2016 In active Zithromax Z-Rohit 250 mg tablet RxNorm: 536442 1 Tablet(s) PO UD 03/22/2016 09/04/2016 Inactive z pack as directed Kenalog 40 mg/mL rajeev pension for injection RxNorm: 2856549 Milliliter(s) Inj 01/03/2016 01/03/2016 In active Zithromax Z-Rohit 250 mg tablet RxNorm: 701017 1 Tablet(s) PO UD 01/03/2016 01/07/2016 Inactive ZPACK Protonix 40 mg table t,delayed release RxNorm: 126675 TAKE ONE TABLET BY [facility] DAILY 11/29/2015 08/24/2016 In active mupirocin 2 % topica l ointment RxNorm: 058551 1 Application TOP BID 11/01/2015 11/07/2015 Inactive Tonya Allergy 180 mg tablet RxNorm: 786095 1 Tablet(s) PO daily 08/01/2015 08/30/2015 Inactive Kenalog 40 mg/mL rajeev pension for injection RxNorm: 1249816 Milliliter(s) Inj 08/01/2015 08/01/2015 In active albuterol sulfate 2. 5 mg/3 mL (0.083 %) solution for nebulization RxNorm: 584986 3 Milliliter(s) INH Q6 PRN 07/29/2015 07/28/2015 Inactive albuterol sulfate 2. 5 mg/3 mL (0.083 %) solution for nebulization RxNorm: 304221 3 Milliliter(s) INH Q6 PRN 07/29/2015 08/27/2015 Inactive fluoxetine 20 mg tablet RxNorm: 308534 1 Tablet(s) PO daily 07/28/2015 02/22/2016 Inactive meloxicam 15 mg tablet RxNorm: 940304 1 Tablet(s) PO daily 06/22/2015 12/18/2015 Inactive nystatin 100,000 uni t/mL oral suspension RxNorm: 123834 4 Milliliter(s) PO QI D 06/01/2015 05/31/2015 In active nystatin 100,000 uni t/mL oral suspension RxNorm: 947743 4 Milliliter(s) PO QI D 06/01/2015 06/07/2015 In active Kenalog 40 mg/mL rajeev pension for injection RxNorm: 9074363 Milliliter(s) Inj 05/25/2015 05/25/2015 In active Zithromax Z-Rohit 250 mg tablet RxNorm: 235766 Tablet(s) PO 05/25/2015 06/13/2015 Inactive ceftriaxone 500 mg s olution for injection RxNorm: 0172597 Inj 05/25/2015 05/25/2015 Inactive Zithromax Z-Rohit 250 mg tablet RxNorm: 568399 Tablet(s) PO UD 05/25/2015 03/21/2016 Inactive prednisone 20 mg tablet RxNorm: 093303 2 Tablet(s) PO daily 05/25/2015 05/29/2015 Inactive cefdinir 300 mg capsule RxNorm: 919592 1 Capsule(s) PO BID 05/25/2015 06/03/2015 Inactive cefdinir 300 mg capsule RxNorm: 806163 1 Capsule(s) PO BID 05/25/2015 06/03/2015 Inactive prednisone 20 mg tablet RxNorm: 035085 2 Tablet(s) PO daily 05/25/2015 05/29/2015 Inactive ceftriaxone 500 mg s olution for injection RxNorm: 4713494 Inj 05/25/2015 05/25/2015 Inactive Kenalog 40 mg/mL rajeev pension for injection RxNorm: 2536566 Milliliter(s) Inj 05/03/2015 05/03/2015 In active Levaquin 500 mg tablet RxNorm: 846728 1 Tablet(s) PO daily 05/03/2015 05/09/2015 Inactive Protonix 40 mg table t,delayed release RxNorm: 412836 1 Tablet(s) PO daily 09/16/2014 09/10/2015 In active fluoxetine 20 mg tablet RxNorm: 589112 1 Tablet(s) PO daily 08/26/2014 08/25/2014 Inactive fluoxetine 20 mg tablet RxNorm: 291767 1 Tablet(s) PO daily 08/26/2014 03/23/2015 Inactive meloxicam 15 mg tablet RxNorm: 998766 1 Tablet(s) PO daily 07/28/2014 01/23/2015 Inactive clopidogrel 75 mg ta blet RxNorm: 117316 1 Tablet(s) PO daily No Start Date Active Lipitor 40 mg tablet RxNorm: 955077 1 Tablet(s) PO daily No Start Date Active fluoxetine 20 mg tablet RxNorm: 248348 1 Tablet(s) PO daily No Start Date 08/25/2014 Inactive Protonix 40 mg table t,delayed release RxNorm: 460829 1 Tablet(s) PO daily No Start Date 09/15/2014 Inactive Medication Administered Medication Codes Instruc tions Start Date Status Kenalog 40 mg/mL suspension for injection RxNorm: 0481787 1Milliliter 06/03/2017 N o longer Active ceftriaxone 500 mg solution for injection RxNorm: 7004786 1Milliliter 02/07/2017 N o longer Active Kenalog 40 mg/mL suspension for injection RxNorm: 5926930 1Milliliter 02/07/2017 N o longer Active Kenalog 40 mg/mL suspension for injection RxNorm: 8003984 1.5Milliliter 09/11/2016 No longer Active Kenalog 40 mg/mL suspension for injection RxNorm: 4938048 Milliliter 01/03/2016 No longer Active Kenalog 40 mg/mL suspension for injection RxNorm: 5557197 Milliliter 08/01/2015 No longer Active ceftriaxone 500 mg solution for injection RxNorm: 5684154 05/25/2015 No longer A ctive ceftriaxone 500 mg solution for injection RxNorm: 2408701 05/25/2015 No longer A ctive Kenalog 40 mg/mL suspension for injection RxNorm: 5540320 Milliliter 05/25/2015 No longer Active Kenalog 40 mg/mL suspension for injection RxNorm: 1680563 Milliliter 05/03/2015 No longer Active Immunizations Vaccine Codes Date Status Influenza CVX: 141 01/16 completed Pneumococcal (Adult) CVX: 133 01/16/2017 completed Influenza CVX: 141 01/07 completed Pneumococcal CVX: 33 02/2016 completed Assessments Condition Codes Effectiv e Dates Encounter for general adult medical exam ination with abnormal findings ICD-10: Z00.01 ICD-9: V70.0 10/02/2017 Cough ICD-10: R05 ICD-9: 786.2 06/03/2017 Other allergic rhinitis ICD-10: J30. 89 ICD-9: 477.8 06/03/2017 Dysuria ICD-10: R30.0 ICD-9: 788.1 04/01/2017 Pneumonia due to Streptococcus pneumoniae ICD-10: J13 [...] Effective Dates Notes Annual Medicare Wellness Exam 10/02/2017 cough 06/03/2017 cough 02/07/2017 vaccination against influenza 01/16/2017 Annual Medicare Wellness Exam 09/20/2016 rash 09/11/2016 cough 01/03/2016 arthropod bite 11/01/2015 cough 08/15/2015 cough 08/01/2015 cough 06/14/2015 cough 06/02/2015 sores in the mouth 05/25/2015 cough 05/03/2015 cerumen 08/02/2014 arthritis 07/28/2014 Results Observation Observation Code Item Item Code Result Date Culture Urine [id number] URI NE CULTURE SEE NOTES 01/20/2018 Culture Urine [id number] Con tinued Results 01/20/2018 Lipid Ord30 CHOL 180 mg/dL 11/26/2017 Lipid Ord30 HDL 65.0 mg/dl 11/26/2017 Lipid Ord30 TRIG 68 mg/dL 11/26/2017 Lipid Ord30 LDL 101 mg/dL 11/26/2017 Lipid Ord30 C/HDL 2.8 Ratio 11/26/2017 Comp Metabolic Zen978 NA 143 mEq/L 11/26/2017 Comp Metabolic Txw566 K 4.4 mEq/L 11/26/2017 Comp Metabolic Wli049 CL 106 mEq/L 11/26/2017 Comp Metabolic Wps549 CO2 29.0 mEq/L 11/26/2017 Comp Metabolic Mcn589 AN ION GAP 12 11/26/2017 Comp Metabolic Svf239 GL UCOSE 106 mg/dL 11/26/2017 Comp Metabolic Yvq156 Cr eat 0.7 mg/dL 11/26/2017 Comp Metabolic Pce474 eG FR 87 ml/min/1.73m2 11/26 Comp Metabolic Kzc171 BUN 20 mg/dL 11/26/2017 Comp Metabolic Muv612 B/ C Ratio 28.2 Ratio 11/26/2017 Comp Metabolic Hgj377 CA LCIUM 9.1 mg/dL 11/26/2017 Comp Metabolic Cty502 AL K PHOS 48 U/L 11/26/2017 Comp Metabolic Cis748 T(SGOT) 19 U/L 11/26/2017 Comp Metabolic Oig334 AL T(SGPT) 15 U/L 11/26/2017 Comp Metabolic Yvw149 BI LI T 0.5 mg/dL 11/26/2017 Comp Metabolic Pbr407 AL BUMIN 4.1 g/dL 11/26/2017 Comp Metabolic Mgk942 TP RO 6.1 g/dL 11/26/2017 Comp Metabolic Ypp376 GL OB 2.0 g/dL 11/26/2017 Comp Metabolic Uwo415 A/ G Ratio 2.1 Ratio 11/26/2017 Comp Metabolic Zgf151 Os mo 288 mOsmo 11/26/2017 Lipid Ord30 CHOL 175 mg/dL 01/04/2016 Lipid Ord30 HDL 45.0 mg/dl 01/04/2016 Lipid Ord30 TRIG 69 mg/dL 01/04/2016 Lipid Ord30 LDL 116 mg/dL 01/04/2016 Lipid Ord30 C/HDL 3.9 Ratio 01/04/2016 Comp Metabolic Mur345 NA 139 mEq/L 01/04/2016 Comp Metabolic Rgd287 K 4.3 mEq/L 01/04/2016 Comp Metabolic Xjl116 CL 101 mEq/L 01/04/2016 Comp Metabolic Gtm351 CO2 30.0 mEq/L 01/04/2016 Comp Metabolic Mob404 AN ION GAP 12 01/04/2016 Comp Metabolic Jpr127 GL UCOSE 94 mg/dL 01/04/2016 Comp Metabolic Ayl778 Cr eat 0.7 mg/dL 01/04/2016 Comp Metabolic Wsz360 eG FR 83 ml/min/1.73m2 01/03 Comp Metabolic Xtl149 BUN 14 mg/dL 01/04/2016 Comp Metabolic Dod459 B/ C Ratio 18.9 Ratio 01/04/2016 Comp Metabolic Ifc748 CA LCIUM 9.3 mg/dL 01/04/2016 Comp Metabolic Xkq484 AL K PHOS 70 U/L 01/04/2016 Comp Metabolic Jid615 T(SGOT) 14 U/L 01/04/2016 Comp Metabolic Ynd545 AL T(SGPT) 12 U/L 01/04/2016 Comp Metabolic Hqo821 BI LI T 0.4 mg/dL 01/04/2016 Comp Metabolic Gbj832 AL BUMIN 4.1 g/dL 01/04/2016 Comp Metabolic Inw795 TP RO 6.6 g/dL 01/04/2016 Comp Metabolic Mpj139 GL OB 2.6 g/dL 01/04/2016 Comp Metabolic Mkn445 A/ G Ratio 1.6 Ratio 01/04/2016 Comp Metabolic Ssi284 Os mo 278 mOsmo 01/04/2016 Tsh Ord6 [...] 96.7 fl 01/04/2016 Cbc With Differential Ord2 [place]% 8.6 % 01/04/2016 Cbc With Differential Ord2 [...] 1.42 K/ul 01/04/2016 Cbc With Differential Ord2 [place] ABS# 0.6 K/ul 01/04/2016 Cbc With Differential Ord2 Eos ABS# 0.1 K/ul 01/04/2016 Cbc With Differential Ord2 Baso ABS# 0.0 K/ul 01/04/2016 Free T4 Xnq439 FREE T4 0.79 ng/dL 12/27/2014 Cbc With [...] Ord30 C/HDL 3.0 Ratio 12/27/2014 Comp Metabolic Xhf139 NA 138 mEq/L 12/27/2014 Comp Metabolic Uwa269 K 4.7 mEq/L 12/27/2014 Comp Metabolic Obz640 CL 103 mEq/L 12/27/2014 Comp Metabolic Sra369 CO2 31.0 mEq/L 12/27/2014 Comp Metabolic Ceg271 AN ION GAP 9 12/27/2014 Comp Metabolic Jhz528 GL UCOSE 105 mg/dL 12/27/2014 Comp Metabolic Puv117 Cr eat 0.8 mg/dL 12/27/2014 Comp Metabolic Vdg638 eG FR 73 ml/min/1.73m2 12/27 Comp Metabolic Ihc104 BUN 16 mg/dL 12/27/2014 Comp Metabolic Gom379 B/ C Ratio 19.3 Ratio 12/27/2014 Comp Metabolic Jnb300 CA LCIUM 9.7 mg/dL 12/27/2014 Comp Metabolic Hxw222 AL K PHOS 58 U/L 12/27/2014 Comp Metabolic Ewd119 T(SGOT) 20 U/L 12/27/2014 Comp Metabolic Koo829 AL T(SGPT) 16 U/L 12/27/2014 Comp Metabolic Ekd064 BI LI T 0.6 mg/dL 12/27/2014 Comp Metabolic Osy324 AL BUMIN 4.6 g/dL 12/27/2014 Comp Metabolic Dbb107 TP RO 6.6 g/dL 12/27/2014 Comp Metabolic Nuw920 GL OB 2.0 g/dL 12/27/2014 Comp Metabolic Czu743 A/ G Ratio 2.3 Ratio 12/27/2014 Comp Metabolic Ydq498 Os mo 277 mOsmo 12/27/2014 Tsh Ord6 hTSH II 1.89 uIU/mL 12/27/2014 Review of Systems System Result Effective Dates Constitutional No recent illness 10/02/2017 Constitutional No [...] CPT-4: J3301 06/03/2017 THER/PROPH/DIAG INJ SC/IM CPT-4: 50815 06/03/2017 URINALYSIS NONAUTO W /O SCOPE CPT-4: 16702 04/01/2017 THER/PROPH/DIAG INJ SC/IM CPT-4: 46554 02/07/2017 TRIAMCINOLONE ACET I [place] NOS CPT-4: J3301 02/07/2017 ROCEPHIN, PER 250 MG CPT-4: J0696 02/07/2017 FLU VAC NO PRSV 4 VA L 3 YRS+ CPT-4: 57696 01/16/2017 PNEUMOCOCCAL VACC [address]: 62672430 CPT-4: 50739 01/16/2017 ADMIN INFLUENZA VIRU S VAC CPT-4: G0008 01/16/2017 ADMIN PNEUMOCOCCAL V ACCINE SNOMED CT: 04796099 CPT-4: G0009 01/16/2017 PPPS, SUBSEQ VISIT CPT- 4: G0439 09/20/2016 TRIAMCINOLONE ACET I [place] NOS CPT-4: J3301 09/11/2016 THER/PROPH/DIAG INJ SC/IM CPT-4: 16152 09/11/2016 TRIAMCINOLONE ACET I [place] NOS CPT-4: J3301 01/03/2016 DESTRUCT PREMALG LESION CPT-4: 49713 11/01/2015 TRIAMCINOLONE ACET I [place] NOS CPT-4: J3301 08/01/2015 TRIAMCINOLONE ACET I [place] NOS CPT-4: J3301 05/25/2015 ROCEPHIN, PER 250 MG CPT-4: J0696 05/25/2015 TRIAMCINOLONE ACET I [place] NOS CPT-4: J3301 05/03/2015 REMOVE IMPACTED EAR WAX UNI CPT-4: 14087 08/02/2014 Vital Signs Date Vital 10/02/2017 Blood Pressure 1: 128/70 Code: 8480-6 BMI: 21.6 Code: 43193-5 Heart Rate 1: 70 bpm Height: 5'3" SpO2: 98% Waist Measure (cm): 97 cm Weight: 122 lbs 06/03/2017 Blood Pressure 1: 144/88 Code: 8480-6 BMI: 22.1 Code: 05342-1 Heart Rate 1: 90 bpm Height: 5'3" SpO2: 94% Weight: 125 lbs 02/07/2017 Blood Pressure 1: 142/80 Code: 8480-6 BMI: 22.1 Code: 97485-9 Heart Rate 1: 85 bpm Height: 5'3" SpO2: 98% Temperature: 36.9 (C ) / 98.5 (F) Weight: 125 lbs 09/20/2016 Blood Pressure 1: 124/72 Code: 8480-6 BMI: 21.8 Code: 93042-3 Heart Rate 1: 90 bpm Height: 5'3" SpO2: 96% Weight: 123 lbs 09/11/2016 Blood Pressure 1: 124/72 Code: 8480-6 BMI: 21.8 Code: 41625-7 Heart Rate 1: 90 bpm Height: 5'3" SpO2: 96% Weight: 123 lbs 01/03/2016 Blood Pressure 1: 100/70 Code: 8480-6 BMI: 21.3 Code: 66878-3 Heart Rate 1: 100 bpm Height: 5'3" SpO2: 94% Temperature: 37.3 (C ) / 99.1 (F) Weight: 120 lbs 11/01/2015 Blood Pressure 1: 122/74 Code: 8480-6 BMI: 21.4 Code: 85732-2 Heart Rate 1: 92 bpm Height: 5'3" SpO2: 94% Weight: 121 lbs 08/15/2015 Blood Pressure 1: 110/70 Code: 8480-6 BMI: 21.6 Code: 20029-7 Heart Rate 1: 76 bpm Height: 5'3" SpO2: 98% Weight: 122 lbs 08/01/2015 Blood Pressure 1: 128/88 Code: 8480-6 BMI: 22.3 Code: 59047-1 Heart Rate 1: 93 bpm Height: 5'3" SpO2: 99% Temperature: 36.8 (C ) / 98.2 (F) Weight: 126 lbs 06/14/2015 Blood Pressure 1: 118/76 Code: 8480-6 BMI: 22.3 Code: 72217-0 Heart Rate 1: 88 bpm Height: 5'3" SpO2: 96% Weight: 126 lbs 06/02/2015 Blood Pressure 1: 142/80 Code: 8480-6 BMI: 22.3 Code: 92470-0 Heart Rate 1: 91 bpm Height: 5'3" SpO2: 94% Temperature: 37.2 (C ) / 98.9 (F) Weight: 126 lbs 05/25/2015 Blood Pressure 1: 136/60 Code: 8480-6 BMI: 22.7 Code: 67545-2 Heart Rate 1: 90 bpm Height: 5'3" SpO2: 96% Weight: 128 lbs 05/03/2015 Blood Pressure 1: 120/58 Code: 8480-6 BMI: 22.7 Code: 00791-2 Heart Rate 1: 95 bpm Height: 5'3" SpO2: 96% Weight: 128 lbs 08/02/2014 Blood Pressure 1: 130/80 Code: 8480-6 BMI: 22.5 Code: 46945-6 Heart Rate 1: 64 bpm Height: 5'3" Weight: 127 lbs 07/28/2014 Blood Pressure 1: 130/76 Code: 8480-6 BMI: 22.5 Code: 00348-0 Heart Rate 1: 60 bpm Height: 5'3" [...] Encounters Encounter Performer Loca tion Codes Date 10909 EST. PATIENT, LEVEL IV Diagnosis: Other allergic rhinitis[ICD10: J30.89] Diagnosis: Cough[ICD10: R05] Alexa Wade MD, [facility] CPT-4: 68495 06/03/2017 ([id number]) 06299 EST. P ATIENT, LEVEL III Diagnosis: Cough[ICD10: R05] Diagnosis: Pneumonia due to Streptococcus pneumoniae[ICD10: J13] Anusha Wade MD, [facility] CPT-4: 29862 02/07/2017 07051 EST. PATIENT, LEVEL III Diagnosis: Rash and other nonspecific skin eruption[ICD10: R21] Diagnosis: Allergic contact dermatitis due to plants, except food[ICD10: L23.7] Alexa Wade MD, [facility] CPT-4: 26652 09/11/2016 ([id number]) 96007 EST. P ATIENT, LEVEL III Diagnosis: Allergic rhinitis due to pollen[ICD10: J30.1] Diagnosis: Cough[ICD10: R05] Diagnosis: Acute bronchitis, unspecified[ICD10: J20.9] Corrina Wade MD, [facility] CPT-4: 96988 01/03/2016 ([id number]) 67512 EST. P ATIENT, LEVEL II Diagnosis: Insect bite (nonvenomous), right thigh, initial encounter[ICD10: S70.361A] Diagnosis: Actinic keratosis[ICD10: L57.0] Corrina Wade MD, [facility] CPT- 4: 36128 11/01/2015 ([id number]) 62964 EST. P ATIENT, LEVEL III Diagnosis: Allergic rhinitis due to pollen[ICD10: J30.1] Corrina Wade MD, [facility] CPT-4: 64588 08/15/2015 ([id number]) 23630 EST. P ATIENT, LEVEL IV Diagnosis: Cough[ICD10: R05] Diagnosis: Allergic rhinitis due to pollen[ICD10: J30.1] Diagnosis: Gastro-esophageal reflux disease without esophagitis[ICD10: K21.9] Corrina Wade MD, [facility] CPT-4: 32782 08/01/2015 ([id number]) 47372 EST. P ATIENT, LEVEL III Diagnosis: Gastro-esophageal reflux disease without esophagitis[ICD10: K21.9] Anusha Wade MD, [facility] CPT-4: 30404 06/14/2015 ([id number]) Patient adm itted to the hospital from clinic (NO CHARGE) Diagnosis: Pneumonia, unspecified organism[ICD10: J18.9] Anusha Wade MD, C CPT-4: 16030T 06/02/2015 83448 EST. PATIENT, LEVEL III Diagnosis: Pneumonia, unspecified organism[ICD10: J18.9] Anusha Wade MD, C CPT-4: 01310 05/25/2015 ([id number]) 71930 EST. [facility]: Cough[ICD10: R05] Diagnosis: Pneumonia, unspecified organism[ICD10: J18.9] Corrina Jimy Wade MD, [facility] CPT-4: 11660 05/03/2015 ([id number]) OFFICE VISI T, NEW - LEVEL 4 Diagnosis: HYPERLIPIDEMIA[ICD9: 272.4] Diagnosis: Osteoarthritis[ICD9: 715.90] Diagnosis: Hand pain[ICD9: 729.5] Diagnosis: Depression[ICD9: 311] Anusha Wade MD, [facility] CPT-4: 08577 07/28/2014 Plan of Care Planned Activity Notes C odes Status Date Appointment: Alexa Aleman WPtel: [facility] (15 min) Moderate 01/17/2018 Referral: Vicente Bennett Referral Completed 10/09/2017 [...] 10/02/2017 Care Plan: Referral Order SNOMED-CT : [id number] Pending 10/02/2017 Appointment: Alexa Aleman WPtel: [phone] [facility] MCR - Annual Wellness Visit 09/27/2017 Visit Plan: [...] pharmacy. 06/03/2017 [phone] ([facility]) Moderate 06/03/2017 Patient Education: Patient Medication Summary Completed 06/03/2017 Appointment: Lab Draw 04/01/2017 Patient Education: Patient Medication Summary Completed 04/01/2017 Visit Plan: Pneumonia - Pt has been diagnosed with pneumonia by physical exam. Antibiotics have been ordered. The pt is aware of the diagnosis and the need for acute treatment of this illness. 02/07/2017 [facility]ment[phone] (15 min) Moderate 02/07/2017 Patient Education: Patient [...] discharge. 09/11/2016 [phone] ([facility] min) [facility] 09/11/2016 Patient Education: Patient Medication Summary Completed [...] acutely worsen. 01/03/2016 Appointment: Corrina Ahn WPtel: [phone] [phone] (30 min) Complex 01/03/2016 Patient Education: Patient Medication Summary Completed 01/03/2016 Appointment: Corrina Ahn WPtel: [phone] (30 min) Complex 11/15/2015 Visit Plan: [...] acute concerns. 11/01/2015 Appointment: Corrina Ahn WPtel: [phone] (30 min) Complex 11/01/2015 Patient Education: [...] spice diet 08/01/2015 Appointment: [phone] (10 min) Simple 08/01/2015 Patient Education: Patient Medication Summary Completed 08/01/2015 Visit Plan: Esophageal Reflux - the patient has been counseled against excessive intake of caffeine, spicy foods, peppermint, and cinnamon - all of which can exacerbate esophageal reflux. The patient is to take medications as prescribed and call the office if the symptoms are not improving. 06/14/2015 Appointment: [phone] ([facility] min) Complex 06/14/2015 Patient [...] - symptoms stable on paxil 07/28/2014 Appointment: MauroOlimpiay WPtel: [facility] [place] New Patient 07/28/2014 Patient Education: [...]
--- OUTSIDE RECORDS SUMMARY | 2019-08-16 07:48 | XMS REPORT | CCD ---
Author Author Angi Wade Organization [facility] Address [address] [place] [address] Phone Care Team Providers Care Bath Steward/Stewardess Name Role Phone PP Unavailable CCM Unavailable Summary Purpose Interface Exchange Insurance Providers Payer name Policy type / Coverage type Covered republican ID Effective Begin Date Effective End Date WPS Medicare Part B Medicare Part B [id number] Unknown [employer] Medicare Part B [id number] 2014 Unkn own Family history Mother Diagnosis Age At Onset Heart Attack Unknown Hypertension Unknown Dementia Unknown Heart disease Unknown Thyroid Unknown Father Diagnosis Age At Onset Myocardial infarction Unknown Hypertension Unknown Social History Social History Element Codes Description Effective Dates Marital status Unknown M arried 07/28/2014 Number of children Unknown 2 07/28/2014 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/[address]: 069398501 Has never smoked or chewed tobacco 07/28/2014 Alcohol history Unknown occasionally drinks alcohol 2 glasses of wine per week 5 Allergies, Adverse Reactions, Alerts Substance Reaction Codes Entered Date Inactivated Date Status Fentanyl _, nausea RxNorm: 4337 02/07/2017 No Inactive Date Active Past Medical History Illness Codes Condition Status Onset Date Resolved Date Dysuria ICD-9: 788.1 ICD-10: R30.0 Active 04/01/2017 Unknown Cough ICD-9: 786.2 ICD-10: R05 Active 01/02/2016 Unknown Pneumonia due to Str eptococcus pneumoniae ICD-9: 481 ICD-10: J13 Active 02/07/2017 Unknown Encounter for immuni zation ICD-9: V06.6 ICD-10: Z23 Active 01/16/2017 Unknown Encounter for genera l adult medical [...] Dysuria ICD-9: 788.1 ICD-10: R30.0 04/01/2017 Active Cough ICD-9: 786.2 ICD-10: R05 01/02/2016 Active Pneumonia due to Str eptococcus pneumoniae ICD-9: 481 ICD-10: J13 02/07/2017 Active Encounter for immuni zation ICD-9: V06.6 ICD-10: Z23 01/16/2017 Active Encounter for genera l adult medical [...] Protonix 40 mg table t,delayed release RxNorm: 630558 TAKE ONE TABLET BY MO UTH DAILY 05/07/2017 01/31/2018 Ac tive meloxicam 15 mg tablet RxNorm: 836117 TAKE ONE TABLET BY MOUTH DAILY 04/01/2017 06/24/2018 Ac tive albuterol sulfate 2. 5 mg/3 mL (0.083 %) solution for nebulization RxNorm: 175037 3 Milliliter(s) INH Q6 PRN 02/07/2017 06/06/2017 Active Kenalog 40 mg/mL rajeev pension for injection RxNorm: 4035305 1 Milliliter(s) Inj 02/07/2017 02/07/2017 In active ceftriaxone 500 mg s olution for injection RxNorm: 6545000 1 Milliliter(s) Inj 02/07/2017 02/07/2017 In active cefdinir 300 mg capsule RxNorm: 251185 1 Capsule(s) PO BID 02/07/2017 02/16/2017 Inactive Protonix 40 mg table t,delayed release RxNorm: 032603 TAKE ONE TABLET BY MO UT DAILY 11/08/2016 05/06/2017 In active Kenalog 40 mg/mL rajeev pension for injection RxNorm: 3624954 1.5 Milliliter(s) In j 09/11/2016 09/11/2016 In active prednisone 10 mg tablet RxNorm: 129401 Tablet(s) PO UD 09/11/2016 09/11/2016 Inactive 60,50,40,30,20,10 fluoxetine 20 mg tablet RxNorm: 184964 TAKE ONE TABLET BY MOUTH DAILY 08/21/2016 02/16/2017 In active meloxicam 15 mg tablet RxNorm: 287325 TAKE ONE TABLET BY MOUTH DAILY 05/28/2016 11/23/2016 In active Zithromax Z-Rohit 250 mg tablet RxNorm: 195082 1 Tablet(s) PO UD 03/22/2016 09/04/2016 Inactive z pack as directed Kenalog 40 mg/mL rajeev pension for injection RxNorm: 1590701 Milliliter(s) Inj 01/03/2016 01/03/2016 In active Zithromax Z-Rohit 250 mg tablet RxNorm: 541514 1 Tablet(s) PO UD 01/03/2016 01/07/2016 Inactive ZPACK Protonix 40 mg table t,delayed release RxNorm: 004048 TAKE ONE TABLET BY [facility] DAILY 11/29/2015 08/24/2016 In active mupirocin 2 % topica l ointment RxNorm: 264685 1 Application TOP BID 11/01/2015 11/07/2015 Inactive Tonya Allergy 180 mg tablet RxNorm: 336784 1 Tablet(s) PO daily 08/01/2015 08/30/2015 Inactive Kenalog 40 mg/mL rajeev pension for injection RxNorm: 9067578 Milliliter(s) Inj 08/01/2015 08/01/2015 In active albuterol sulfate 2. 5 mg/3 mL (0.083 %) solution for nebulization RxNorm: 624695 3 Milliliter(s) INH Q6 PRN 07/29/2015 07/28/2015 Inactive albuterol sulfate 2. 5 mg/3 mL (0.083 %) solution for nebulization RxNorm: 863221 3 Milliliter(s) INH Q6 PRN 07/29/2015 08/27/2015 Inactive fluoxetine 20 mg tablet RxNorm: 552338 1 Tablet(s) PO daily 07/28/2015 02/22/2016 Inactive meloxicam 15 mg tablet RxNorm: 325562 1 Tablet(s) PO daily 06/22/2015 12/18/2015 Inactive nystatin 100,000 uni t/mL oral suspension RxNorm: 684494 4 Milliliter(s) PO QI D 06/01/2015 05/31/2015 In active nystatin 100,000 uni t/mL oral suspension RxNorm: 454326 4 Milliliter(s) PO QI D 06/01/2015 06/07/2015 In active Kenalog 40 mg/mL rajeev pension for injection RxNorm: 2043806 Milliliter(s) Inj 05/25/2015 05/25/2015 In active Zithromax Z-Rohit 250 mg tablet RxNorm: 780220 Tablet(s) PO 05/25/2015 06/13/2015 Inactive ceftriaxone 500 mg s olution for injection RxNorm: 7813494 Inj 05/25/2015 05/25/2015 Inactive Zithromax Z-Rohit 250 mg tablet RxNorm: 962621 Tablet(s) PO UD 05/25/2015 03/21/2016 Inactive prednisone 20 mg tablet RxNorm: 565958 2 Tablet(s) PO daily 05/25/2015 05/29/2015 Inactive cefdinir 300 mg capsule RxNorm: 389510 1 Capsule(s) PO BID 05/25/2015 06/03/2015 Inactive cefdinir 300 mg capsule RxNorm: 717512 1 Capsule(s) PO BID 05/25/2015 06/03/2015 Inactive prednisone 20 mg tablet RxNorm: 050344 2 Tablet(s) PO daily 05/25/2015 05/29/2015 Inactive ceftriaxone 500 mg s olution for injection RxNorm: 2462664 Inj 05/25/2015 05/25/2015 Inactive Kenalog 40 mg/mL rajeev pension for injection RxNorm: 7901371 Milliliter(s) Inj 05/03/2015 05/03/2015 In active Levaquin 500 mg tablet RxNorm: 179481 1 Tablet(s) PO daily 05/03/2015 05/09/2015 Inactive Protonix 40 mg table t,delayed release RxNorm: 708544 1 Tablet(s) PO daily 09/16/2014 09/10/2015 In active fluoxetine 20 mg tablet RxNorm: 830414 1 Tablet(s) PO daily 08/26/2014 08/25/2014 Inactive fluoxetine 20 mg tablet RxNorm: 786685 1 Tablet(s) PO daily 08/26/2014 03/23/2015 Inactive meloxicam 15 mg tablet RxNorm: 381521 1 Tablet(s) PO daily 07/28/2014 01/23/2015 Inactive clopidogrel 75 mg ta blet RxNorm: 504588 1 Tablet(s) PO daily No Start Date Active Lipitor 40 mg tablet RxNorm: 339752 1 Tablet(s) PO daily No Start Date Active fluoxetine 20 mg tablet RxNorm: 410844 1 Tablet(s) PO daily No Start Date 08/25/2014 Inactive Protonix 40 mg table t,delayed release RxNorm: 521187 1 Tablet(s) PO daily No Start Date 09/15/2014 Inactive Medication Administered Medication Codes Instruc tions Start Date Status Kenalog 40 mg/mL suspension for injection RxNorm: 0544619 1Milliliter 02/07/2017 N o longer Active ceftriaxone 500 mg solution for injection RxNorm: 2348055 1Milliliter 02/07/2017 N o longer Active Kenalog 40 mg/mL suspension for injection RxNorm: 0941798 1.5Milliliter 09/11/2016 No longer Active Kenalog 40 mg/mL suspension for injection RxNorm: 6961012 Milliliter 01/03/2016 No longer Active Kenalog 40 mg/mL suspension for injection RxNorm: 0729216 Milliliter 08/01/2015 No longer Active ceftriaxone 500 mg solution for injection RxNorm: 7971993 05/25/2015 No longer A ctive Kenalog 40 mg/mL suspension for injection RxNorm: 0169400 Milliliter 05/25/2015 No longer Active ceftriaxone 500 mg solution for injection RxNorm: 5084488 05/25/2015 No longer A ctive Kenalog 40 mg/mL suspension for injection RxNorm: 0593448 Milliliter 05/03/2015 No longer Active Immunizations Vaccine Codes Date Status Influenza CVX: 141 01/16 completed Pneumococcal (Adult) CVX: 133 01/16/2017 completed Influenza CVX: 141 01/07 completed Pneumococcal CVX: 33 02/2016 completed Assessments Condition Codes Effectiv e Dates Dysuria ICD-10: R30.0 ICD-9: 788.1 04/01/2017 Cough ICD-10: R05 ICD-9: 786.2 02/07/2017 Pneumonia due to Streptococcus pneumoniae ICD-10: J13 ICD-9: 481 02/07/2017 Encounter for immunization ICD-10: Z 23 ICD-9: V06.6 01/16/2017 Encounter for general adult medical exam ination with abnormal findings ICD-10: Z00.01 ICD-9: V70.0 09/20/2016 Allergic contact dermatitis due to plants, except food ICD-10: L23.7 ICD-9: 692.6 09/11/2016 Rash and other nonspecific skin eruption ICD-10: R21 ICD-9: 782.1 09/11/2016 Acute bronchitis, unspecified ICD-10 : J20.9 ICD-9: 466.0 01/03/2016 Allergic rhinitis due to pollen ICD- 10: J30.1 ICD-9: 477.0 01/03/2016 Insect bite (nonvenomous), right thigh, initial encoun ter ICD- 10: S70.361A ICD-9: 916.4 11/01/2015 Actinic keratosis ICD-10: L57.0 ICD-9: 702.0 11/01/2015 Gastro-esophageal reflux disease without esophagitis ICD-10: K21.9 ICD-9: 530.81 08/01/2015 Pneumonia, unspecified organism ICD- 10: J18.9 ICD-9: 486 06/02/2015 Cerumen impaction ICD-9: 380.4 08/02/2014 Osteoarthritis ICD-9: 715.90 07/28/2014 Hand pain ICD-9: 729.5 0 07/28/2014 Depression ICD-9: 311 HYPERLIPIDEMIA ICD-9: 272.4 07/28/2014 Reason For Visit Reason For Visit Effective Dates Notes cough 02/07/2017 vaccination against influenza 01/16/2017 Annual Medicare Wellness Exam 09/20/2016 rash 09/11/2016 cough 01/03/2016 arthropod bite 11/01/2015 cough 08/15/2015 cough 08/01/2015 cough 06/14/2015 cough 06/02/2015 sores in the mouth 05/25/2015 cough 05/03/2015 cerumen 08/02/2014 arthritis 07/28/2014 Results Observation Observation Code Item Item Code Result Date Cbc With Differential Ord2 WBC 6.90 K/ul [...] 31.4 pg 01/04/2016 Cbc With Differential Ord2 Starke% 8.6 % 01/04/2016 Cbc With Differential Ord2 MCHC 32.4 pg 01/04/2016 Cbc With Differential Ord2 Eos% 1.3 % 01/04/2016 Cbc With Differential Ord2 PLT 348 K/ul 01/04/2016 Cbc With Differential Ord2 Baso% 0.3 % 01/04/2016 Cbc With Differential Ord2 Neut ABS# 4.78 K/ul 01/04/2016 Cbc With Differential Ord2 RDW 13.5 % 01/04/2016 Cbc With Differential Ord2 Lymph ABS# 1.42 K/ul 01/04/2016 Cbc With Differential Ord2 Starke ABS# 0.6 K/ul 01/04/2016 Cbc With Differential Ord2 Eos ABS# 0.1 K/ul 01/04/2016 Cbc With Differential Ord2 Baso ABS# 0.0 K/ul 01/04/2016 Tsh Ord6 hTSH II 1.03 uIU/mL 01/04/2016 Comp Metabolic Sgy017 NA 139 mEq/L 01/04/2016 Comp Metabolic Hyn969 K 4.3 mEq/L 01/04/2016 Comp Metabolic Phb169 CL 101 mEq/L 01/04/2016 Comp Metabolic Ega170 CO2 30.0 mEq/L 01/04/2016 Comp Metabolic Vay696 AN ION GAP 12 01/04/2016 Comp Metabolic Ywy164 GL UCOSE 94 mg/dL 01/04/2016 Comp Metabolic Xll302 Cr eat 0.7 mg/dL 01/04/2016 Comp Metabolic Vhr695 eG FR 83 ml/min/1.73m2 01/03 Comp Metabolic Ybo858 BUN 14 mg/dL 01/04/2016 Comp Metabolic Kfx619 B/ C Ratio 18.9 Ratio 01/04/2016 Comp Metabolic Pwk746 CA LCIUM 9.3 mg/dL 01/04/2016 Comp Metabolic Mrs235 AL K PHOS 70 U/L 01/04/2016 Comp Metabolic Voo605 T(SGOT) 14 U/L 01/04/2016 Comp Metabolic Jir549 AL T(SGPT) 12 U/L 01/04/2016 Comp Metabolic Dlw154 BI LI T 0.4 mg/dL 01/04/2016 Comp Metabolic Hfy666 AL BUMIN 4.1 g/dL 01/04/2016 Comp Metabolic Pkz434 TP RO 6.6 g/dL 01/04/2016 Comp Metabolic Gfi643 GL OB 2.6 g/dL 01/04/2016 Comp Metabolic Ujo689 A/ G Ratio 1.6 Ratio 01/04/2016 Comp Metabolic Ljx203 Os mo 278 mOsmo 01/04/2016 Lipid Ord30 CHOL 175 mg/dL 01/04/2016 Lipid Ord30 HDL 45.0 mg/dl 01/04/2016 Lipid Ord30 TRIG 69 mg/dL 01/04/2016 Lipid Ord30 LDL 116 mg/dL 01/04/2016 Lipid Ord30 C/HDL 3.9 Ratio 01/04/2016 Tsh Ord6 hTSH II 1.89 uIU/mL 12/27/2014 Comp Metabolic Ymh955 NA 138 mEq/L 12/27/2014 Comp Metabolic Zma484 K 4.7 mEq/L 12/27/2014 Comp Metabolic Vvm788 CL 103 mEq/L 12/27/2014 Comp Metabolic Sox215 CO2 31.0 mEq/L 12/27/2014 Comp Metabolic Jrw611 AN ION GAP 9 12/27/2014 Comp Metabolic Fyz805 GL UCOSE 105 mg/dL 12/27/2014 Comp Metabolic Jzn133 Cr eat 0.8 mg/dL 12/27/2014 Comp Metabolic Xei189 eG FR 73 ml/min/1.73m2 12/27 Comp Metabolic Wpz496 BUN 16 mg/dL 12/27/2014 Comp Metabolic Trd606 B/ C Ratio 19.3 Ratio 12/27/2014 Comp Metabolic Nas917 CA LCIUM 9.7 mg/dL 12/27/2014 Comp Metabolic Gnt902 AL K PHOS 58 U/L 12/27/2014 Comp Metabolic Vrl514 T(SGOT) 20 U/L 12/27/2014 Comp Metabolic Iwq670 AL T(SGPT) 16 U/L 12/27/2014 Comp Metabolic Gud832 BI LI T 0.6 mg/dL 12/27/2014 Comp Metabolic Rpz471 AL BUMIN 4.6 g/dL 12/27/2014 Comp Metabolic Otk749 TP RO 6.6 g/dL 12/27/2014 Comp Metabolic Wzj854 GL OB 2.0 g/dL 12/27/2014 Comp Metabolic Mis117 A/ G Ratio 2.3 Ratio 12/27/2014 Comp Metabolic Cga851 Os mo 277 mOsmo 12/27/2014 Lipid Ord30 CHOL 183 mg/dL 12/27/2014 Lipid Ord30 HDL 61.0 mg/dl 12/27/2014 Lipid Ord30 TRIG 62 mg/dL 12/27/2014 Lipid Ord30 LDL 110 mg/dL 12/27/2014 Lipid Ord30 C/HDL 3.0 Ratio 12/27/2014 Cbc With Differential Ord2 WBC 4.4 [...] With Differential Ord2 RDW 14.7 % 12/27/2014 Free T4 Uzb022 FREE T4 0.79 ng/dL 12/27/2014 Review of Systems System Result Effective Dates Constitutional recent illness 02/07/2017 Constitutional No chills [...] None Full Exam - General 1995 Ears/Nose/Throat oral cavity/pharynx/larynx Overall: oral mucosa clear [...] Date URINALYSIS NONAUTO W /O SCOPE CPT-4: 37955 04/01/2017 THER/PROPH/DIAG INJ SC/IM CPT-4: 79695 02/07/2017 TRIAMCINOLONE ACET I [place] NOS CPT-4: J3301 02/07/2017 ROCEPHIN, PER 250 MG CPT-4: J0696 02/07/2017 FLU VAC NO PRSV 4 VA L 3 YRS+ CPT-4: 07570 01/16/2017 PNEUMOCOCCAL VACC [address]: 32861165 CPT-4: 34796 01/16/2017 ADMIN INFLUENZA VIRU S VAC CPT-4: G0008 01/16/2017 ADMIN PNEUMOCOCCAL V ACCINE SNOMED CT: 46399004 CPT-4: G0009 01/16/2017 PPPS, SUBSEQ VISIT CPT- 4: G0439 09/20/2016 TRIAMCINOLONE ACET I [place] NOS CPT-4: J3301 09/11/2016 THER/PROPH/DIAG INJ SC/IM CPT-4: 31564 09/11/2016 TRIAMCINOLONE ACET I [place] NOS CPT-4: J3301 01/03/2016 DESTRUCT PREMALG LESION CPT-4: 00071 11/01/2015 TRIAMCINOLONE ACET I [place] NOS CPT-4: J3301 08/01/2015 TRIAMCINOLONE ACET I [place] NOS CPT-4: J3301 05/25/2015 ROCEPHIN, PER 250 MG CPT-4: J0696 05/25/2015 TRIAMCINOLONE ACET I [place] NOS CPT-4: J3301 05/03/2015 REMOVE IMPACTED EAR WAX UNI CPT-4: 35804 08/02/2014 Vital Signs Date Vital 02/07/2017 Blood Pressure 1: 142/80 Code: 8480-6 BMI: 22.1 Code: 99777-3 Heart Rate 1: 85 bpm Height: 5'3" SpO2: 98% Temperature: 36.9 (C ) / 98.5 (F) Weight: 125 lbs 09/20/2016 Blood Pressure 1: 124/72 Code: 8480-6 BMI: 21.8 Code: 64699-1 Heart Rate 1: 90 bpm Height: 5'3" SpO2: 96% Weight: 123 lbs 09/11/2016 Blood Pressure 1: 124/72 Code: 8480-6 BMI: 21.8 Code: 84608-7 Heart Rate 1: 90 bpm Height: 5'3" SpO2: 96% Weight: 123 lbs 01/03/2016 Blood Pressure 1: 100/70 Code: 8480-6 BMI: 21.3 Code: 85748-7 Heart Rate 1: 100 bpm Height: 5'3" SpO2: 94% Temperature: 37.3 (C ) / 99.1 (F) Weight: 120 lbs 11/01/2015 Blood Pressure 1: 122/74 Code: 8480-6 BMI: 21.4 Code: 42990-5 Heart Rate 1: 92 bpm Height: 5'3" SpO2: 94% Weight: 121 lbs 08/15/2015 Blood Pressure 1: 110/70 Code: 8480-6 BMI: 21.6 Code: 04630-1 Heart Rate 1: 76 bpm Height: 5'3" SpO2: 98% Weight: 122 lbs 08/01/2015 Blood Pressure 1: 128/88 Code: 8480-6 BMI: 22.3 Code: 75514-2 Heart Rate 1: 93 bpm Height: 5'3" SpO2: 99% Temperature: 36.8 (C ) / 98.2 (F) Weight: 126 lbs 06/14/2015 Blood Pressure 1: 118/76 Code: 8480-6 BMI: 22.3 Code: 10377-1 Heart Rate 1: 88 bpm Height: 5'3" SpO2: 96% Weight: 126 lbs 06/02/2015 Blood Pressure 1: 142/80 Code: 8480-6 BMI: 22.3 Code: 32452-7 Heart Rate 1: 91 bpm Height: 5'3" SpO2: 94% Temperature: 37.2 (C ) / 98.9 (F) Weight: 126 lbs 05/25/2015 Blood Pressure 1: 136/60 Code: 8480-6 BMI: 22.7 Code: 38976-8 Heart Rate 1: 90 bpm Height: 5'3" SpO2: 96% Weight: 128 lbs 05/03/2015 Blood Pressure 1: 120/58 Code: 8480-6 BMI: 22.7 Code: 40127-2 Heart Rate 1: 95 bpm Height: 5'3" SpO2: 96% Weight: 128 lbs 08/02/2014 Blood Pressure 1: 130/80 Code: 8480-6 BMI: 22.5 Code: 49020-8 Heart Rate 1: 64 bpm Height: 5'3" Weight: 127 lbs 07/28/2014 Blood Pressure 1: 130/76 Code: 8480-6 BMI: 22.5 Code: 82805-1 Heart Rate 1: 60 bpm Height: 5'3" Weight: 127 lbs Functional Status No Functional Status data History of Present Illness Symptom Name Status Resu lt Effective Date Notes cough Location in the th roat 02/07/2017 [...] Encounters Encounter Performer Loca tion Codes Date ([id number]) [id number] EST. P ATIENT, LEVEL III Diagnosis: Cough[ICD10: R05] Diagnosis: Pneumonia due to Streptococcus pneumoniae[ICD10: J13] [facility] CPT-4: 66674 02/07/2017 [id number] EST. PATIENT, LEVEL III Diagnosis: Rash and other nonspecific skin eruption[ICD10: R21] Diagnosis: Allergic contact dermatitis due to plants, except food[ICD10: L23.7] Alexa Wade MD, [facility] CPT-4: 76432 09/11/2016 ([id number]) 22719 EST. P ATIENT, LEVEL III Diagnosis: Allergic rhinitis due to pollen[ICD10: J30.1] Diagnosis: Cough[ICD10: R05] Diagnosis: Acute bronchitis, unspecified[ICD10: J20.9] Corrina Wade MD, [facility] CPT-4: 88296 01/03/2016 ([id number]) 90790 EST. P ATIENT, LEVEL II Diagnosis: Insect bite (nonvenomous), right thigh, initial encounter[ICD10: S70.361A] Diagnosis: Actinic keratosis[ICD10: L57.0] Corrina Wade MD, [facility] CPT- 4: 01015 11/01/2015 ([id number]) 01308 EST. P ATIENT, LEVEL III Diagnosis: Allergic rhinitis due to pollen[ICD10: J30.1] Corrina Wade MD, [facility] CPT-4: 15649 08/15/2015 ([id number]) 59040 EST. P ATIENT, LEVEL IV Diagnosis: Cough[ICD10: R05] Diagnosis: Allergic rhinitis due to pollen[ICD10: J30.1] Diagnosis: Gastro-esophageal reflux disease without esophagitis[ICD10: K21.9] Corrina Wade MD, [facility] CPT-4: 12426 08/01/2015 ([id number]) 34863 EST. P ATIENT, LEVEL III Diagnosis: Gastro-esophageal reflux disease without esophagitis[ICD10: K21.9] Anusha Wade MD, [facility] CPT-4: 81119 06/14/2015 ([id number]) Patient adm itted to the hospital from clinic (NO CHARGE) Diagnosis: Pneumonia, unspecified organism[ICD10: J18.9] Anusha Wade MD, C CPT-4: 68107X 06/02/2015 08547 EST. PATIENT, LEVEL III Diagnosis: Pneumonia, unspecified organism[ICD10: J18.9] Anusha Wade MD, C CPT-4: 13996 05/25/2015 ([id number]) 35429 EST. P ATIENT, LEVEL III Diagnosis: Cough[ICD10: R05] Diagnosis: Pneumonia, unspecified organism[ICD10: J18.9] Corrina Wade MD, [facility] CPT-4: 54214 05/03/2015 ([id number]) OFFICE [facility] - LEVEL 4 Diagnosis: HYPERLIPIDEMIA[ICD9: 272.4] Diagnosis: Osteoarthritis[ICD9: 715.90] Diagnosis: Hand pain[ICD9: 729.5] Diagnosis: Depression[ICD9: 311] Anusha Wade MD, [facility] CPT-4: 21088 07/28/2014 Plan of Care Planned Activity Notes C odes Status Date Appointment: Lab Draw 04/01/2017 Patient Education: Patient Medication Summary Completed 04/01/2017 Visit Plan: Pneumonia - Pt has been diagnosed with pneumonia by physical exam. Antibiotics have been ordered. The pt is aware of the diagnosis and the need for acute treatment of this illness. 02/07/2017 [phone] [facility] (15 min) Moderate 02/07/2017 Patient Education: Patient [...] warmth, discharge. 09/11/2016 Appointment: Alexa Aleman WPtel: [phone] (30 min) Complex 09/11/2016 Patient Education: Patient [...] acutely worsen. 01/03/2016 Appointment: Corrina Ahn WPtel: [phone] (30 min) Complex 01/03/2016 Patient Education: Patient Medication Summary Completed 01/03/2016 Appointment: Corrina Ahn WPtel: [phone] (30 min) Complex 11/15/2015 Visit Plan: Bite-right [...] concerns. 11/01/2015 Appointment: Corrina Ahn WPtel: [phone] [phone] (30 min) Complex 11/01/2015 Patient Education: Patient [...] spice diet 08/01/2015 Appointment: Corrina Ahn WPtel: [phone] (10 min) Simple 08/01/2015 Patient Education: Patient Medication Summary Completed 08/01/2015 Visit Plan: Esophageal Reflux - the patient has been counseled against excessive intake of caffeine, spicy foods, peppermint, and cinnamon - all of which can exacerbate esophageal reflux. The patient is to take medications as prescribed and call the office if the symptoms are not improving. 06/14/2015 Appointment: Anusha Wade WPtel: [facility] (30 min) Complex 06/14/2015 Patient Education: [...] on paxil 07/28/2014 Appointment: Anusha Wade WPtel: [address] [place], [place] [address] [place] ([place]) New Patient 07/28/2014 Patient Education: [...]
--- OUTSIDE RECORDS SUMMARY | 2019-08-16 07:49 | XMS REPORT | Continuity of Care Document ---
Author Organization Unknown Address Unknown Phone Unavailable Allergies Active Description Code Type Severity Reaction Onset Reported/Identified Relationship to Patient Clinical Status Yes Penicillins [id number] Drug Aller gy Unknown N/A 05/04/2014 Yes fentanyl [id number] Drug Allergy Unknown NAUSEA 11/04/2017 Medications There is no data. Problems Date Dx Coded Attending Type Code Diagnosis Diagnosed By 10/19/2009 Ot 466.0 10/19/2009 Ot 786.2 04/29/2014 Ot 433.10 04/29/2014 Ot 272.4 04/29/2014 Ot 414.01 04/29/2014 Ot V58.69 04/29/2014 Ot 433.10 04/29/2014 Ot 433.10 04/29/2014 Ot 272.4 04/29/2014 Ot V58.69 04/29/2014 Ot 272.4 04/29/2014 Ot V58.69 04/29/2014 Ot 272.4 04/29/2014 Ot V58.69 04/29/2014 Ot 433.10 04/29/2014 Ot 433.10 04/29/2014 Ot 433.10 04/29/2014 Ot 433.10 04/29/2014 Ot V72.63 04/29/2014 Ot 272.4 04/29/2014 Ot 433.10 04/29/2014 Ot V58.69 04/29/2014 Ot 272.4 04/29/2014 Ot V58.69 04/29/2014 Ot 272.4 04/29/2014 Ot 433.10 04/29/2014 Ot V58.69 04/29/2014 Ot 786.50 04/29/2014 AJ SOTELO MD Ot 793.82 04/29/2014 JA SOTELO MD Ot V76.12 04/29/2014 JA SOTELO MD Ot 610.4 05/04/2014 JIM LANDIS MD Ot 211. 1 BENIGN NEOPLASM STOMACH 05/04/2014 JIM LANDIS MD Ot 530. 89 ESOPHAGUS DISORDERS NEC 05/04/2014 JIM LANDIS MD Ot 531. 90 STOMACH ULCER NOS 05/04/2014 SABIHA AVINA, JIM Meyers Ot 553. 3 DIAPHRAGMATIC HERNIA 07/13/2014 SABIHA AVINA, JIM Meyers Ot V72. 84 07/14/2014 SABIHA AVINA, JIM Meyers Ot V72. 84 01/17/2015 IVAN AVINA FACC, ALI FACP CCDS Ot E78.5 01/17/2015 IVAN AVINA FACC, ALI FACP CCDS Ot I65.29 01/17/2015 IVAN AVINA FACC, ALI FACP CCDS Ot I77.9 01/17/2015 IVAN AVINA FACC, ALI FACP CCDS Ot M19.90 01/17/2015 IVAN AVINA FACC, ALI FACP CCDS Ot R06.09 02/04/2015 IVAN AVINA FACC, ALI FACP CCDS Ot E78.5 02/04/2015 IVAN AVINA FACC, ALI FACP CCDS Ot I65.29 02/04/2015 IVAN AVINA FACC, ALI FACP CCDS Ot I77.9 02/04/2015 IVAN AVINA FACC, ALI FACP CCDS Ot M19.90 02/04/2015 IVAN AVINA FACC, ALI FACP CCDS Ot R06.09 02/14/2015 IVAN AVINA FACC, ALI FACP CCDS Ot E78.5 02/14/2015 IVAN AVINA FACC, ALI FACP CCDS Ot I65.29 02/14/2015 IVAN AVINA FACC, ALI FACP CCDS Ot I77.9 02/14/2015 IVAN AVINA FACC, ALI FACP CCDS Ot M19.90 02/14/2015 IVAN AVINA FACC, ALI FACP CCDS Ot R06.09 06/04/2015 BOUCHRA RAO MD Ot B37.0 CANDIDAL STOMATITIS 06/04/2015 BOUCHRA RAO MD Ot F32.9 MAJOR DEPRESSIVE DISORDER, SINGLE EPISOD 06/04/2015 BOUCHRA RAO MD Ot I65.29 OCCLUSION AND STENOSIS OF UNSPECIFIED CA 06/04/2015 BOUCHRA RAO MD Ot J18.9 PNEUMONIA, UNSPECIFIED ORGANISM 06/04/2015 BOUCHRA RAO MD Ot K12.0 RECURRENT ORAL APHTHAE 06/04/2015 BOUCHRA RAO MD Ot Z2 3 ENCOUNTER FOR IMMUNIZATION 08/12/2015 NAN TEE PHLEBOTOMY TECH Ot R06.00 DYSPNEA, UNSPECIFIED 08/15/2015 NAN TEE PHLEBOTOMY TECH Ot R06.00 DYSPNEA, UNSPECIFIED 08/15/2015 NAN TEE PHLEBOTOMY TECH Ot R05 COUGH 08/15/2015 NAN TEE PHLEBOTOMY TECH Ot R06.00 DYSPNEA, UNSPECIFIED 09/14/2015 NAN TEE PHLEBOTOMY TECH Ot R05 COUGH 09/14/2015 NAN TEE PHLEBOTOMY TECH Ot R06.00 DYSPNEA, UNSPECIFIED 05/27/2017 Ot 272.4 HYPE RLIPIDEMIA NEC/NOS 05/27/2017 Ot V58.69 OTH MED,LT,CURRENT USE 05/27/2017 Ot 272.4 HYPE RLIPIDEMIA NEC/NOS 05/27/2017 Ot 433.10 CAR OTID ARTERY OCCLUSION W O CEREBRAL IN 05/27/2017 Ot V58.69 OTH MED,LT,CURRENT USE 05/27/[address] PAIN NOS 05/27/2017 JA SOTELO MD Ot 793.82 INCONCLUSIVE MAMMOGRAM 05/27/2017 JA SOTELO MD Ot V76.12 OTH SCREEN MAMMO-MALIGN NEOPLASM OF LISA 05/27/2017 JA SOTELO MD Ot 610.4 MAMMARY DUCT ECTASIA 05/27/2017 SABIHA AVINA, JIM Meyers Ot V72. 84 EXAM PRE-OPERATIVE NOS 05/27/2017 IVNA AVINA FACC, ALI FACP CCDS Ot E78.5 HYPERLIPIDEMIA, UNSPECIFIED 05/27/2017 IVAN AVINA FACC, ALI FACP CCDS Ot I65.29 OCCLUSION AND STENOSIS OF UNSPECIFIED CA 05/27/2017 IVAN AVINA FACC, ALI FACP CCDS Ot I77.9 DISORDER OF ARTERIES AND ARTERIOLES, UNS 05/27/2017 IVAN AVINA FACC, ALI FACP CCDS Ot M19.90 UNSPECIFIED OSTEOARTHRITIS, UNSPECIFIED 05/27/2017 IVAN AVINA FACC, ALI FACP CCDS Ot R06.09 OTHER FORMS OF DYSPNEA 05/27/2017 IVAN AVINA FACC, ALI FACP CCDS Ot E78.5 HYPERLIPIDEMIA, UNSPECIFIED 05/27/2017 IVAN AVINA FACC, ALI FACP CCDS Ot I65.29 OCCLUSION AND STENOSIS OF UNSPECIFIED CA 05/27/2017 IVAN AVINA FACC, ALI FACP CCDS Ot I77.9 DISORDER OF ARTERIES AND ARTERIOLES, UNS 05/27/2017 IVAN AVINA FACC, ALI FACP CCDS Ot M19.90 UNSPECIFIED OSTEOARTHRITIS, UNSPECIFIED 05/27/2017 IVAN MD FACC, ALI FACP CCDS Ot R06.09 OTHER FORMS OF DYSPNEA 05/27/2017 NAN TEE PHLEBOTOMY TECH Ot R05 COUGH 05/27/2017 NAN TEE PHLEBOTOMY TECH Ot R06.00 DYSPNEA, UNSPECIFIED 05/29/2017 IVAN AVINA FACC, ALI FACP CCDS Ot E78.5 HYPERLIPIDEMIA, UNSPECIFIED 05/29/2017 IVAN MD FACC, ALI FACP CCDS Ot I65.29 OCCLUSION AND STENOSIS OF UNSPECIFIED CA 05/29/2017 IVAN AVINA FACC, ALI FACP CCDS Ot R06.02 SHORTNESS OF BREATH 06/19/2017 IVAN AVINA FACC, ALI FACP CCDS Ot E78.5 HYPERLIPIDEMIA, UNSPECIFIED 06/19/2017 IVAN AVINA FACC, ALI FACP CCDS Ot I65.29 OCCLUSION AND STENOSIS OF UNSPECIFIED CA 06/19/2017 IVAN AVINA FACC, ALI FACP CCDS Ot R06.02 SHORTNESS OF BREATH 11/08/2017 JIM LANDIS MD Ot E78. 5 HYPERLIPIDEMIA, UNSPECIFIED 11/08/2017 JIM LANDIS MD Ot K57. 30 DVRTCLOS OF LG INT W/O PERFORATION OR AB 11/08/2017 JIM LANDIS MD Ot Z12. 11 ENCOUNTER FOR SCREENING FOR MALIGNANT NE 11/12/2017 JIM LANDIS MD Ot E78. 5 HYPERLIPIDEMIA, UNSPECIFIED 11/12/2017 JIM LANDIS MD Ot K57. 30 DVRTCLOS OF LG INT W/O PERFORATION OR AB 11/12/2017 JIM LANDIS MD Ot Z12. 11 ENCOUNTER FOR SCREENING FOR MALIGNANT NE 11/12/2017 JIM LANDIS MD Ot E78. 5 HYPERLIPIDEMIA, UNSPECIFIED 11/12/2017 JIM LANDIS MD Ot K57. 30 DVRTCLOS OF LG INT W/O PERFORATION OR AB 11/12/2017 JIM LANDIS MD Ot Z12. 11 ENCOUNTER FOR SCREENING FOR MALIGNANT NE 11/14/2017 JIM LANDIS MD Ot E78. 5 HYPERLIPIDEMIA, UNSPECIFIED 11/14/2017 JIM LANDIS MD Ot K57. 30 DVRTCLOS OF LG INT W/O PERFORATION OR AB 11/14/2017 JIM LANDIS MD Ot Z12. 11 ENCOUNTER FOR SCREENING FOR MALIGNANT NE Procedures There is no data. Results There is no data. Encounters ACCT No. Visit Date/Time Discharge Status Pt. Type Provider Facility Loc./Unit Complaint [id number] 02/07/2017 09:13:41 02/07/2017 23:59:5 9 CLS Outpatient [id number] 11/08/2017 07:02:00 09:25:00 DIS Outpatient JIM LANDIS MD [facility] ENDO SCREENING [id number] 05/28/2017 11:37:00 23:59:59 CLS Outpatient IVAN AVINA FACC, ALI FACP CC DS [facility] CARD I65.23 CAROTID ARTERIAL DISEASE [id number] 01/22/2017 08:03:00 017 23:59:59 CLS Preadmit BRODIE GUEVARA APRN [facility] RAD SCREENING [id number] 08/12/2015 14:10:00 016 23:59:59 CLS Outpatient NAN TEE [facility] RT COUGH,DYSPNEA [id number] 06/02/2015 10:49:00 016 13:25:00 DIS Inpatient BOUCHRA RAO MD [facility] 4TH PNEUMONIA [id number] 01/14/2015 07:46:00 015 23:59:59 CLS Outpatient IVAN AVINA FACC, ALI FACP CC DS [facility] CARD HLP,CAROTID NARROWING,DYSPNEA [id number] 01/13/2015 08:17:00 015 23:59:59 CLS Outpatient IVAN AVINA FACC, ALI FACP CC DS [facility] CARD CAD,CAROTID NARROWING,DYSPNEA [id number] 05/04/2014 08:01:00 015 11:40:00 DIS Outpatient JIM LANDIS MD [facility] SDC EPIGASTRIC AND ABDOMINA L PAIN; WT. LOSS [id number] 04/30/2014 05:46:00 015 23:59:59 CLS Outpatient JIM LANDIS MD [facility] PREOP EPIGASTRIC AND ABDOMINA L PAIN; WT. LOSS [id number] 04/23/2013 12:07:00 014 23:59:59 CLS Outpatient JA SOTELO MD [facility] RAD ABNORMAL MAMMO [id number] 04/09/2013 09:54:00 014 23:59:59 CLS Outpatient JA SOTELO MD [facility] RAD SCREENING [id number] 04/29/2014 09:54:00 Document Registration [id number] 06/19/2012 07:10:00 Document Registration [id number] 06/12/2012 08:21:00 Document Registration [id number] 12/21/2011 06:04:00 Document Registration [id number] 10/22/2011 07:17:00 Document Registration [id number] 04/30/2011 14:00:00 Document Registration [id number] 04/30/2011 13:55:00 Document Registration [id number] 04/03/2011 09:22:00 Document Registration [id number] 10/03/2010 09:38:00 Document Registration [id number] 08/11/2010 07:25:00 Document Registration [id number] 02/01/2010 09:20:00 Document Registration [id number] 01/19/2010 06:54:00 Document Registration [id number] 12/06/2009 07:30:00 Document Registration [id number] 10/28/2009 10:48:00 Document Registration [id number] 10/19/2009 21:04:00 Document Registration [id number] 04/25/2009 09:42:00 Document Registration [id number] 04/06/2009 07:39:00 Document Registration
--- NOTE | 2019-08-16 08:02 | Diagnostic Imaging Report ---
EXAMINATION: Portable erect AP chest at 7:45 AM INDICATION: Right-sided facial droop The heart size is within normal limits and stable when compared to 06/03/2015. The lungs are clear. There is no evidence for failure, pneumonia or for a pleural effusion. The mediastinum is not widened. The osseous structures are intact. IMPRESSION: There is no evidence for an acute cardiopulmonary abnormality. Dictated by: Dictated on workstation # [id number]
--- NOTE | 2019-08-16 08:03 | Diagnostic Imaging Report ---
PROCEDURE: CT head wo r/o stroke. TECHNIQUE: Multiple contiguous axial images were obtained through the brain without the use of intravenous contrast. Auto Exposure Controls were utilized during the CT exam to meet ALARA standards for radiation dose reduction. INDICATION: Headache. Right-sided facial droop and pain. COMPARISON: CT head on 06/03/2011. FINDINGS: No large acute territorial ischemia, mass, or hemorrhage. No midline shift or mass effect. The ventricles, cortical sulci, and basilar cisterns are patent and unremarkable. The calvarium is intact. The visualized paranasal sinuses are clear. IMPRESSION: 1. No large acute territorial ischemia, mass, or hemorrhage. Dictated by: Dictated on workstation # [id number]
--- NOTE | 2019-08-16 08:05 | NUR ---
AMBULATED TO BATHROOM WITHOUT DIFFICULTY.
[2019-08-16 08:16] LABS: BASOPHILS % (AUTO) 1 % (0-10); EOSINOPHILS # (AUTO) 0.2 10^3/uL (0.0-0.3); EOSINOPHILS % (AUTO) 3 % (0-10); HEMATOCRIT 41 % (35-52); HEMOGLOBIN 13.4 G/DL (11.5-16.0); LYMPHOCYTES # (AUTO) 1.7 X 10^3 (1.0-4.0); LYMPHOCYTES % (AUTO) 35 % (12-44); MEAN CORPUSCULAR HEMOGLOBIN 30 PG (25-34); MEAN CORPUSCULAR HGB CONC 32 G/DL (32-36); MEAN CORPUSCULAR VOLUME 94 FL (80-99); MEAN PLATELET VOLUME 9.7 FL (7.4-10.4); MONOCYTES # (AUTO) 0.4 X 10^3 (0.0-1.0); MONOCYTES % (AUTO) 7 % (0-12); NEUTROPHILS # (AUTO) 2.7 X 10^3 (1.8-7.8); NEUTROPHILS % (AUTO) 54 % (42-75); PLATELET COUNT 230 10^3/uL (130-400)
[2019-08-16 08:26] LABS: ALBUMIN 4.4 GM/DL (3.2-4.5)
[2019-08-16 08:27] LABS: CHLORIDE 105 MMOL/L (98-107); POTASSIUM 4.6 MMOL/L (3.6-5.0); SODIUM 142 MMOL/L (135-145)
[2019-08-16 08:28] LABS: CALCIUM 9.3 MG/DL (8.5-10.1)
[2019-08-16 08:29] LABS: GLUCOSE 110 MG/DL (70-105); TOTAL PROTEIN 6.6 GM/DL (6.4-8.2)
[2019-08-16 08:30] LABS: CARBON DIOXIDE 27 MMOL/L (21-32)
[2019-08-16] MEDS ORDERED: morphine INJ 10 MG/ML 1ML (SYR OR VIAL) IVP ONE (08:30)
[2019-08-16 08:31] LABS: BILIRUBIN,TOTAL 0.5 MG/DL (0.1-1.0)
[2019-08-16 08:32] LABS: BILIRUBIN,URINE NEGATIVE (NEGATIVE); CLARITY,URINE CLEAR; COLOR,URINE YELLOW; GLUCOSE, URINE (UA) NEGATIVE (NEGATIVE); KETONES,URINE NEGATIVE (NEGATIVE); LEUKOCYTE ESTERASE ,URINE 2+ (NEGATIVE); NITRITE,URINE NEGATIVE (NEGATIVE); PROTEIN,URINE NEGATIVE (NEGATIVE)
[2019-08-16 08:32] LABS: ALKALINE PHOSPHATASE 63 U/L (40-136)
[2019-08-16 08:33] LABS: CREATININE SERUM 0.77 MG/DL (0.60-1.30); GFR ESTIMATED > 60
[2019-08-16 08:34] LABS: BUN/CREATININE RATIO 19; FIBRIN DEGRADATION PRODUCTS 0.54 UG/ML (0.00-0.49); INR 0.9 (0.8-1.4); PROTHROMBIN TIME PATIENT 12.5 SEC (12.2-14.7)
[2019-08-16 08:35] LABS: ALANINE AMINOTRANSFERASE 18 U/L (0-55)
[2019-08-16 08:36] LABS: MAGNESIUM 2.2 MG/DL (1.6-2.4)
[2019-08-16 08:37] LABS: CREATINE KINASE 105 U/L (29-168)
[2019-08-16 08:44] LABS: CREATINE KINASE MB 2.5 NG/ML (<6.6)
[2019-08-16 08:53] LABS: BACTERIA,URINE TRACE /HPF
[2019-08-16 08:57] LABS: TSH (THYROID ANALYZER) 1.61 UIU/ML (0.35-4.94)
[2019-08-16] MEDS ORDERED: NS 100 ML (IVPB) BAG IV ONE (09:00)
[2019-08-16] MEDS ORDERED: IOHEXOL 350 MG/ML 100 ML (OMNIPAQUE 350) VIAL IV ONE (09:00)
[2019-08-16] MEDS ORDERED: CATHETER FLUSH 10 ML SYR IV PRN (09:00)
[2019-08-16] MEDS ORDERED: HOLD METFORMIN - RECEIVED CONTRAST 20 ML VIAL IV SCH (09:00)
--- NOTE | 2019-08-16 09:35 | NUR ---
RESTING IN BED ET DENIES NEEDS AT THIS TIME.
--- NOTE | 2019-08-16 09:36 | Diagnostic Imaging Report ---
PROCEDURE: CT angiography of the head and CT angiography of the neck with and without contrast. TECHNIQUE: Contiguous noncontrast images were obtained from the skull base through the vertex. After intravenous contrast administration, helical CT angiography of the neck was performed. Source data was reformatted into 3D MIP projections. Delayed post contrast acquisition was also obtained. Auto Exposure Controls were utilized during the CT exam to meet ALARA standards for radiation dose reduction. INDICATION: Headache. Right-sided facial droop. Concern for stroke. COMPARISON: CT head performed earlier this same date. FINDINGS: CTA Neck: The visualized portions of the aortic arch demonstrate no evidence of aneurysm or dissection. There is conventional branching pattern of the great vessels of the aorta. The brachiocephalic artery is normal in course and caliber. The right and left common carotid origins are unremarkable. The origin of the left subclavian artery is patent. The common carotid arteries and internal carotid arteries demonstrate a tortuous course. There is calcified atherosclerotic plaque in the bilateral carotid bulbs and proximal internal carotid arteries. There is approximately 50% narrowing of the proximal right ICA. No evidence of dissection in the carotid systems. The external carotid arteries are patent and unremarkable. The vertebral arteries are codominant. The origin of the right vertebral artery is seen and is unremarkable. The origin of the left vertebral artery is seen and is unremarkable. There is no focal stenosis seen within the neck. There is no dissection. The vertebral arteries are well visualized to up to the level of the basilar artery. There is reversal of the normal lordotic curvature of the cervical spine centered at the C5 level. Advanced degenerative changes are present at the C5-C6 level. No acute fracture or dislocation is seen. Included views through the lung apices demonstrate no focal consolidation. CTA brain: Atherosclerotic plaque is seen in the bernabe of the bilateral terminal internal carotid arteries without significant stenosis. No stenosis is seen in the bilateral anterior, middle, and posterior cerebral arteries. No evidence of aneurysm of the [place]. In the posterior circulation, both of the vertebral arteries demonstrate normal opacification. The vertebral arteries are codominant. Both the right and left PICA arteries are identified. The basilar artery is normal in course and caliber. The terminal branch vessels including the superior cerebellar arteries unremarkable. IMPRESSION: 1. No stenosis or aneurysm in the [place]. No evidence of large vessel occlusion. 2. Approximately 50% narrowing in the proximal right ICA. No significant stenosis is seen in the left ICA. No stenosis or dissection in the bilateral vertebral arteries. 3. Advanced degenerative changes in the C5-C6 level. No acute fracture or dislocation. Dictated by: Dictated on workstation # [id number]
--- NOTE | 2019-08-16 09:46 | NUR ---
IN TALKING TO PT AT THIS TIME.
[2019-08-16] MEDS ORDERED: methylPREDNISolone 125 MG (Solu-MEDROL) VIAL IVP ONE (10:00)
[2019-08-16] MEDS ORDERED: PREG75CA PO (10:04)
[2019-08-16] MEDS ORDERED: NITR-65 PO (10:04)
[2019-08-16] MEDS ORDERED: HYDR-83 PO (10:04)
[2019-08-16] MEDS ORDERED: PRED10TA22 PO (10:04)
[2019-08-16] MEDS ORDERED: VALA10004 PO (10:04)
[2019-08-16 10:11] VITALS: BP 145/78
== END 2019-08-16 10:11 | disposition home or self-care (01) ==
LOC: EDUNIT# 07:28 → ER 07:30
DX: G51.0 Bell's palsy (principal); B02.9 Zoster without complications; N39.0 Urinary tract infection, site not specified; E78.00 Pure hypercholesterolemia, unspecified; K21.9 Gastro-esophageal reflux disease without esophagitis; F32.9 Major depressive disorder, single episode, unspecified; Z88.0 Allergy status to penicillin; Z88.5 Allergy status to narcotic agent; Z79.02 Long term (current) use of antithrombotics/antiplatelets; Z82.49 Family history of ischemic heart disease and other diseases of the circulatory system
CPT/HCPCS: 36415; 70450; 70496; 70498; 71045; 80053; 81000; 82550; 82553; 83735; 83874; 84443; 84484; 85025; 85379; 85610; 85730; 87088; 93005; 93041

== ENCOUNTER → 2020-03-03 | Outpatient (CLI) | payer MEDICARE, OTHER ==
[~2020-03-03] MED LIST changes: +ACHD5005 PO; +NITR-65 PO; -PANT40TA3 PO; +PANT40TA52 PO; +PRED10TA22 PO; +PREG75CA PO; +VALA10004 PO
[2020-03-03 13:13] LABS: MEAN PLATELET VOLUME 9.6 fL (9.0-12.2); WHITE BLOOD COUNT 6.2 10^3/uL (4.3-11.0)
[2020-03-03 13:23] LABS: ALBUMIN 4.3 GM/DL (3.2-4.5)
[2020-03-03 13:24] LABS: POTASSIUM 3.8 MMOL/L (3.6-5.0)
[2020-03-03 13:25] LABS: CALCIUM 8.7 MG/DL (8.5-10.1)
[2020-03-03 13:26] LABS: TOTAL PROTEIN 6.7 GM/DL (6.4-8.2)
[2020-03-03 13:28] LABS: BILIRUBIN,TOTAL 0.6 MG/DL (0.1-1.0)
[2020-03-03 13:30] LABS: CREATININE SERUM 1.15 MG/DL (0.60-1.30)
--- NOTE | 2020-03-03 16:06 | Diagnostic Imaging Report ---
Indication: Abdominal pain KUB 12:57 PM Bowel gas pattern is normal. There are no pathologic masses or calcifications. IMPRESSION: No acute abnormalities in the abdomen Dictated by: Dictated on workstation # [id number]
== END ==
LOC: RAD 12:40
PROVIDERS: ATTEND Nurse Practitioner Family
DX: E11.9 Type 2 diabetes mellitus without complications (principal); R10.9 Unspecified abdominal pain
CPT/HCPCS: 36415; 74018; 80053; 83036; 85027

== ENCOUNTER → 2020-04-01 | Outpatient (CLI) | payer MEDICARE, OTHER ==
[~2020-04-01] VITALS: Ht 157 cm; Wt 65.0 kg
[~2020-04-01] MED LIST changes: +BAMLANIVIMAB 700 MG in NS 200 ML IV ONE; +EPINEPHrine INJECTION 1 MG/ML AMP IM PRN; +diphenhydrAMINE 50 MG/ML INJ (BENADRYL) IV PRN
[2020-04-01 12:55] VITALS: BP 146/82
[2020-04-01 15:07] VITALS: BP 125/77
--- NOTE | 2020-04-01 15:35 | Diagnostic Imaging Report ---
Indication: Cough. Time of exam: 3:32 PM Comparison is made with prior chest from 08/16/2019. Heart size normal. Lungs are clear. No infiltrates are seen. No effusion or pneumothorax. Impression: No acute cardiopulmonary process is detected. Dictated by: Dictated on workstation # [id number]
== END ==
LOC: INFUSION 12:57
PROVIDERS: ATTEND Nurse Practitioner Family
DX: U07.1 COVID-19 (principal)
CPT/HCPCS: 71046; M0239

== ENCOUNTER 2020-04-09 11:44 | Emergency (ER) | payer MEDICARE, OTHER ==
[~2020-04-09] VITALS: Ht 136.5 cm; Wt 56.0 kg
[~2020-04-09 11:44] MED LIST changes: -BAMLANIVIMAB 700 MG in NS 200 ML IV ONE; -EPINEPHrine INJECTION 1 MG/ML AMP IM PRN; -diphenhydrAMINE 50 MG/ML INJ (BENADRYL) IV PRN
[2020-04-09 12:25] LABS: BASOPHILS % (AUTO) 0 % (0-10); EOSINOPHILS # (AUTO) 0.1 10^3/uL (0.0-0.3); EOSINOPHILS % (AUTO) 1 % (0-10); HEMATOCRIT 40 % (35-52); HEMOGLOBIN 13.1 g/dL (11.5-16.0); LYMPHOCYTES # (AUTO) 1.9 10^3/uL (1.0-4.0); LYMPHOCYTES % (AUTO) 17 % (12-44); MEAN CORPUSCULAR HEMOGLOBIN 31 pg (25-34); MEAN CORPUSCULAR HGB CONC 33 g/dL (32-36); MEAN CORPUSCULAR VOLUME 94 fL (80-99); MEAN PLATELET VOLUME 9.1 fL (9.0-12.2); MONOCYTES # (AUTO) 0.8 10^3/uL (0.0-1.0); MONOCYTES % (AUTO) 8 % (0-12); NEUTROPHILS # (AUTO) 8.3 10^3/uL (1.8-7.8); NEUTROPHILS % (AUTO) 74 % (42-75); PLATELET COUNT 232 10^3/uL (130-400); WHITE BLOOD COUNT 11.2 10^3/uL (4.3-11.0)
[2020-04-09] MEDS ORDERED: NS IV 1000 ML 1,000 ML IV SCH (12:30)
[2020-04-09 12:32] LABS: ALBUMIN 4.1 GM/DL (3.2-4.5); CHLORIDE 104 MMOL/L (98-107); POTASSIUM 4.1 MMOL/L (3.6-5.0); SODIUM 140 MMOL/L (135-145)
[2020-04-09 12:33] LABS: CALCIUM 9.1 MG/DL (8.5-10.1); INR 0.9 (0.8-1.4); PROTHROMBIN TIME PATIENT 12.7 SEC (12.2-14.7)
[2020-04-09 12:34] LABS: GLUCOSE 74 MG/DL (70-105)
[2020-04-09 12:35] LABS: TOTAL PROTEIN 6.8 GM/DL (6.4-8.2)
[2020-04-09 12:36] LABS: BILIRUBIN,TOTAL 0.4 MG/DL (0.1-1.0); CARBON DIOXIDE 27 MMOL/L (21-32)
[2020-04-09 12:38] LABS: ALKALINE PHOSPHATASE 62 U/L (40-136); CREATININE SERUM 0.74 MG/DL (0.60-1.30); GFR ESTIMATED > 60
[2020-04-09 12:39] LABS: BUN/CREATININE RATIO 20
[2020-04-09 12:41] LABS: ALANINE AMINOTRANSFERASE 19 U/L (0-55)
[2020-04-09 12:51] LABS: BILIRUBIN,URINE NEGATIVE (NEGATIVE); CLARITY,URINE CLEAR; COLOR,URINE YELLOW; GLUCOSE, URINE (UA) NEGATIVE (NEGATIVE); KETONES,URINE NEGATIVE (NEGATIVE); LEUKOCYTE ESTERASE ,URINE 2+ (NEGATIVE); NITRITE,URINE NEGATIVE (NEGATIVE); PROTEIN,URINE NEGATIVE (NEGATIVE)
[2020-04-09 12:59] LABS: BACTERIA,URINE FEW /HPF; WBC,URINE 25-50 /HPF
[2020-04-09] MEDS ORDERED: NITR-65 PO (13:20)
[2020-04-09] MEDS ORDERED: GUAI-370 PO (13:20)
--- NOTE | 2020-04-09 13:21 | ED Respiratory ---
General Chief Complaint: Respiratory Problems Stated Complaint: COVID POSITIVE 03/29, COUGH, SORE THROAT Nursing Triage Note: pt states she tested pocitive for covid on 03/29/20, had the infusion at our hospital on 04/01/20. states she has felt fine until yesterday, now states extreme fatigue, sore throat, some shortness of breath. History of Present Illness Date Seen by Provider: Apr 09, 2020 Time Seen by Provider: 12:05 Initial Comments 70-year-old female seen for sinus congestion that has been present for approximately 2 to 3 days. She was diagnosed with COVID on 03/29/2020 and received the monoclonal antibody injection on 04/01/2020. She felt significantly better after this until the last few days. She denies any fever, shortness of air and rare cough. She is concerned because she has had pneumonia in the past. Timing/Duration: intermittent Prior Episodes/Possible Cause: occasional episodes Associated Symptoms: No chest pain/soreness; cough; No earache, No facial pain, No fever/chills, No headache, No lightheadedness; nasal congestion, nasal drainage; No shortness of breath, No sinus infection, No sore throat Allergies and Home Medications Allergies Coded Allergies: Penicillins (Verified Allergy, Unknown, 05/04/14) fentanyl (Verified Allergy, Unknown, NAUSEA, 11/04/17) Home Medications Atorvastatin Calcium 80 Mg Tablet, 80 MG PO DAILY, (Reported) Clopidogrel Bisulfate 75 Mg Tablet, 75 MG PO DAILY, (Reported) Fluoxetine HCl 20 Mg Tablet, 20 MG PO DAILY, (Reported) Guaifenesin/Pseudoephedrne HCl 1 Each Tab.er.12h, 1 EACH PO BID Prescribed by: TARAN MIRANDA on 04/09/20 1321 Hydrocodone/Acetaminophen 1 Each Tablet, 1-2 EACH PO Q4-6 HOURS PRN for PAIN Prescribed by: VANDANA DUARTE on 08/16/19 1004 Meloxicam 15 Mg Tablet, 15 MG PO DAILY, (Reported) Nitrofurantoin Monohyd/M-Cryst 100 Mg Capsule, 1 TAB PO BID Prescribed by: VANDANA DUARTE on 08/16/19 1004 Nitrofurantoin Monohyd/M-Cryst 100 Mg Capsule, 1 TAB PO BID Prescribed by: TARAN MIRANDA on 04/09/20 1320 Pantoprazole Sodium 40 Mg Tablet.dr, 40 MG PO DAILY, (Reported) Prednisone 10 Mg Tab.ds.pk, 10 MG PO DAILY Take 6 tabs(60mg)daily,decrease by 1 tab(10MG)daily. Prescribed by: VANDANA DUARTE on 08/16/191003 Pregabalin 75 Mg Capsule, 75 MG PO BID Prescribed by: VANDANA DUARTE on 08/16/19 100 Valacyclovir HCl 1,000 Mg Tablet, 1,000 MG PO TIDAC Prescribed by: VANDANA DUARTE on 08/16/19 100 Patient Home Medication List Home Medication List Reviewed: Yes Review of Systems Review of Systems Constitutional: no symptoms reported, see HPI EENTM: see HPI, nose congestion; No nose pain, No throat pain, No throat swelling Respiratory: see HPI, cough (Occasional, dry); No dyspnea on exertion, No short of breath Cardiovascular: no symptoms reported, see HPI; No chest pain Gastrointestinal: no symptoms reported, see HPI; No diarrhea, No loss of appetite, No vomiting Skin: no symptoms reported, see HPI; No rash All Other Systems Reviewed Negative Unless Noted: Yes Past Rgcdvow-Waebpl-Pgfvch Hx Past Med/Social Hx: Reviewed Nursing Past Med/Soc Hx Patient Social History Alcohol Use: Regular Use Alcohol Beverage of Choice: Wine Smoking Status: Never a Smoker 2nd Hand Smoke Exposure: No Recent Infectious Disease Expo: No Recent Hopitalizations: No Immunizations Up To Date Tetanus Booster (TDap): More than 5yrs PED Vaccines UTD: No Seasonal Allergies Seasonal Allergies: Yes Past Medical History Surgeries: Yes (RIGHT CATARACT SURGERY) Eye Surgery Respiratory: Yes Pneumonia Currently Using CPAP: No Currently Using BIPAP: No Cardiac: Yes (CAROTID STENOSIS) High Cholesterol Neurological: No Reproductive Disorders: No Genitourinary: No Gastrointestinal: Yes Gastroesophageal Reflux Musculoskeletal: Yes Arthritis Endocrine: No HEENT: Yes (RIGHT CATARACT SURGERY) Cataract Loss of Vision: Denies Hearing Impairment: Denies Cancer: No Psychosocial: Yes Depression Integumentary: No Blood Disorders: No Family Medical History Alzheimer's disease 19 MOTHER Cardiovascular disease 19 MOTHER DVT G8 BROTHER Myocardial infarction 19 FATHER ( of [place] at 50 yr old) Thyroid disease 19 MOTHER Heart Disease, CAD Under 55 Years Old, Hypertension Physical Exam Vital Signs - First Documented 04/09/20 12:01 Temp 36.5 Pulse 89 Resp 18 B/P (MAP) 153/87 (109) Pulse Ox 96 O2 Delivery Room Air Capillary Refill : Greater Than 3 Seconds Height: 5'3.00" Weight: 125lbs. 0.0oz. 56.885773pd; 30.00 BMI Method: General Appearance: WD/WN, no apparent distress Eyes: Bilateral Eye Normal Inspection, Bilateral Eye PERRL, Bilateral Eye EOMI HEENT: PERRL/EOMI, normal ENT inspection, TMs normal, pharynx normal, other (No sinus tenderness) Neck: non-tender, full range of motion, supple, normal inspection Respiratory: chest non-tender, lungs clear, normal breath sounds Cardiovascular: normal peripheral pulses, regular rate, rhythm, no edema Gastrointestinal: normal bowel sounds, non tender, soft Extremities: normal range of motion, non-tender Neurologic/Psychiatric: no motor/sensory deficits, alert, normal mood/affect, oriented x 3 Skin: normal color, warm/dry Progress/Results/Core Measures Suspected Sepsis Recent Fever Within 48 Hours: No Infection Criteria Present: Documented Infection New/Unexplained Altered Menta: No Sepsis Screen: No Definite Risk SIRS Temperature: Pulse: 89 Respiratory Rate: 18 Laboratory Tests 04/09/20 12:12: White Blood Count 11.2H Blood Pressure 153 /87 Mean: 109 Laboratory Tests 04/09/20 12:12: Creatinine 0.74, INR Comment 0.9, Platelet Count 232, Total Bilirubin 0.4 Results/Orders Lab Results Laboratory Tests Test 04/09/20 12:12 04/09/20 12:40 Range/Units White Blood Count 11.2 H 4.3-11.0 10^3/uL Red Blood Count 4.26 3.80-5.11 10^6/uL Hemoglobin 13.1 11.5-16.0 g/dL Hematocrit 40 35-52 % Mean Corpuscular Volume 94 80-99 fL Mean Corpuscular Hemoglobin 31 25-34 pg Mean Corpuscular Hemoglobin Concent 33 32-36 g/dL Red Cell Distribution Width 13.2 10.0-14.5 % Platelet Count 232 130-400 10^3/uL Mean Platelet Volume 9.1 9.0-12.2 fL Immature Granulocyte % (Auto) 0 % Neutrophils (%) (Auto) 74 42-75 % Lymphocytes (%) (Auto) 17 12-44 % Monocytes (%) (Auto) 8 0-12 % Eosinophils (%) (Auto) 1 0-10 % Basophils (%) (Auto) 0 0-10 % Neutrophils # (Auto) 8.3 H 1.8-7.8 10^3/uL Lymphocytes # (Auto) 1.9 1.0-4.0 10^3/uL Monocytes # (Auto) 0.8 0.0-1.0 10^3/uL Eosinophils # (Auto) 0.1 0.0-0.3 10^3/uL Basophils # (Auto) 0.0 0.0-0.1 10^3/uL Immature Granulocyte # (Auto) 0.0 0.0-0.1 10^3/uL Prothrombin Time 12.7 12.2-14.7 SEC INR Comment 0.9 0.8-1.4 Activated Partial Thromboplast Time 26 24-35 SEC Sodium Level 140 135-145 MMOL/L Potassium Level 4.1 3.6-5.0 MMOL/L Chloride Level 104 98-107 MMOL/L Carbon Dioxide Level 27 21-32 MMOL/L Anion Gap 9 5-14 MMOL/L Blood Urea Nitrogen 15 7-18 MG/DL Creatinine 0.74 0.60-1.30 MG/DL Estimat Glomerular Filtration Rate > 60 BUN/Creatinine Ratio 20 Glucose Level 74 70-105 MG/DL Calcium Level 9.1 8.5-10.1 MG/DL Corrected Calcium 9.0 8.5-10.1 MG/DL Total Bilirubin 0.4 0.1-1.0 MG/DL Aspartate Amino Transf (AST/SGOT) 18 5-34 U/L Alanine Aminotransferase (ALT/SGPT) 19 0-55 U/L Alkaline Phosphatase 62 40-136 U/L C-Reactive Protein High Sensitivity 0.67 H 0.00-0.50 MG/DL Total Protein 6.8 6.4-8.2 GM/DL Albumin 4.1 3.2-4.5 GM/DL Urine Color YELLOW Urine Clarity CLEAR Urine pH 6.0 5-9 Urine Specific [place] 1.015 L 1.016-1.022 Urine Protein NEGATIVE NEGATIVE Urine Glucose (UA) NEGATIVE NEGATIVE Urine Ketones NEGATIVE NEGATIVE Urine Nitrite NEGATIVE NEGATIVE Urine Bilirubin NEGATIVE NEGATIVE Urine Urobilinogen 0.2 < = 1.0 MG/DL Urine Leukocyte Esterase 2+ H NEGATIVE Urine RBC (Auto) 2+ H NEGATIVE Urine RBC 10-25 H /HPF Urine WBC 25-50 H /HPF Urine Squamous Epithelial Cells 2-5 /HPF Urine Crystals NONE /LPF Urine Bacteria FEW H /HPF Urine Casts NONE /LPF Urine Mucus NEGATIVE /LPF Urine Culture Indicated YES My Orders Orders - TARAN MIRANDA Cbc With Automated Diff (04/09/20 12:20) Comprehensive Metabolic Panel (04/09/20 12:20) Hs C Reactive Protein (04/09/20 12:20) Protime With Inr (04/09/20 12:20) Partial Thromboplastin Time (04/09/20 12:20) Ua Culture If Indicated (04/09/20 12:20) Chest 1 View, Ap/Pa Only (04/09/20 12:20) Ed Iv/Invasive Line Start (04/09/20 12:20) Ns Iv 1000 Ml (Sodium Chloride 0.9%) (04/09/20 12:30) Urine Culture (04/09/20 12:40) Vital Signs/I&O 04/09/20 04/09/20 12:01 14:05 Temp 36.5 Pulse 89 77 Resp 18 16 B/P (MAP) 153/87 (109) 144/77 Pulse Ox 96 98 O2 Delivery Room Air Capillary Refill : Greater Than 3 Seconds Blood Pressure Mean: 109 Progress Note : Time: 12:05 Progress Note Patient seen and evaluated, will obtain labs and chest x-ray. Normal saline 1 L per IV 1250 Lab results discussed with patient. Reassured patient that there is no symptoms or signs based on labs or chest x-ray to indicate pneumonia. Discharge instructions and return precautions reviewed with the patient. Diagnostic Imaging Diagonstic Imaging: Xray Plain Films/CT/US/NM/MRI: chest Comments NAME: DARRICK RIBEIRO [facility] REC#: [id number] PT STATUS: REG ER : 1950 PHYSICIAN: TARAN MIRANDA ADMIT DATE: 04/09/20/ER Draft Date of Exam:04/09/20 CHEST 1 VIEW, AP/PA ONLY Clinical indications: Patient is COVID positive. Patient with shortness of breath Exam: Portable chest x-ray upright view. Comparisons: Chest x-ray dated 04/01/2020. Findings: Lungs/pleura: Lungs are clear. There is no pneumothorax. There is no pleural effusion. Mediastinum: Unremarkable. Pulmonary vasculature: Unremarkable. Heart: Unremarkable. Bones/extrathoracic soft tissue: There is mild left curvature the thoracic and lumbar spine. Impression: There is no radiographic evidence of acute cardiopulmonary process. Report was faxed to Luis/[facility] Infection Control by lawrence at 1:33PM. Dictated on workstation # [id number] Dict: 04/09/20 1252 Trans: 04/09/20 1333 [place] [id number] Interpreted by: OCURTNEY SONG MD Electronically signed by: Departure Impression Primary Impression: UTI (urinary tract infection) Qualified Codes: N30.01 - Acute cystitis with hematuria Additional Impressions: Sinus congestion post COVID-19 Disposition: 01 HOME, SELF-CARE Condition: Improved Departure-Patient Inst. Decision time for Depature: 13:10 Referrals: BOUCHRA RAO MD (PCP/Family) Primary Care Physician Patient Instructions: Urinary Tract Infection, Adult (DC) Add. Discharge Instructions: Increase water intake, 16 ounces every 2 hours while awake. Eat 1 cup of fresh blueberries or drink 1 cup of cranberry juice daily. Take Mucinex D for sinus congestion, 1 tablet twice daily. Take antibiotics as prescribed for the UTI. Use Afrin nasal spray for 3 to 4 days do not use be on that. You may use a [place] pot or other sinus irrigation. Use a coolmist vaporizer in your room at night. Alternate between Tylenol 650 mg and ibuprofen 600 mg every 4 hours for fever pain. Follow-up with your primary care provider in 2 to 3 days if symptoms are not improving or worsen. Return to the emergency department if symptoms worsen. All discharge instructions reviewed with patient and/or family. Voiced understanding. Scripts Guaifenesin/Pseudoephedrne HCl (Mucinex D ER 600-60 mg Tablet) 1 Each Tab.er.12h 1 EACH PO BID, #40 TAB 0 Refills Prov: TARAN MIRANDAP 04/09/20 Nitrofurantoin Monohyd/M-Cryst (Macrobid 100 mg Capsule) 100 Mg Capsule 1 TAB PO BID, #14 CAP 0 Refills Prov: TARAN MIRANDA PSYCHIATRIC NURSING AIDE 04/09/20 Copy Copies To 1: BOUCHRA RAO MD, AMY ARNP Apr 09, 2020 13:21
--- NOTE | 2020-04-09 13:34 | Diagnostic Imaging Report ---
Clinical indications: Patient is COVID positive. Patient with shortness of breath Exam: Portable chest x-ray upright view. Comparisons: Chest x-ray dated 04/01/2020. Findings: Lungs/pleura: Lungs are clear. There is no pneumothorax. There is no pleural effusion. Mediastinum: Unremarkable. Pulmonary vasculature: Unremarkable. Heart: Unremarkable. Bones/extrathoracic soft tissue: There is mild left curvature the thoracic and lumbar spine. Impression: There is no radiographic evidence of acute cardiopulmonary process. Report was faxed to [facility] Infection Control by rimma at 1:33PM. Dictated by: Dictated on workstation # [id number]
[2020-04-09 14:05] VITALS: BP 144/77
== END 2020-04-09 14:05 | disposition home or self-care (01) ==
LOC: EDUNIT# 11:44 → ER 11:46
DX: N39.0 Urinary tract infection, site not specified (principal); R09.81 Nasal congestion; K21.9 Gastro-esophageal reflux disease without esophagitis; F32.9 Major depressive disorder, single episode, unspecified; E78.00 Pure hypercholesterolemia, unspecified; Z88.0 Allergy status to penicillin; Z88.8 Allergy status to other drugs, medicaments and biological substances; Z82.49 Family history of ischemic heart disease and other diseases of the circulatory system; Z79.52 Long term (current) use of systemic steroids
CPT/HCPCS: 36415; 71045; 80053; 81000; 85025; 85610; 85730; 86141; 87088

== ENCOUNTER → 2020-07-21 | Outpatient (CLI) | payer MEDICARE, OTHER ==
[~2020-07-21] MED LIST changes: -ACYC400T PO; +ACYC400T21 PO; +GUAI-370 PO
== END ==
LOC: CARD 10:42
PROVIDERS: ATTEND Nurse Practitioner Family
DX: I10 Essential (primary) hypertension (principal); I07.1 Rheumatic tricuspid insufficiency; Z86.16 Personal history of COVID-19
CPT/HCPCS: 93306

== ENCOUNTER 2021-03-18 19:25 | Emergency (ER) | payer MEDICARE, OTHER ==
[~2021-03-18] VITALS: Ht 154 cm; Wt 55.0 kg
--- NOTE | 2021-03-18 21:17 | ED General ---
General Chief Complaint: Cough/Cold/Flu Symptoms Stated Complaint: COUGH, RUNNY NOSE Nursing Triage Note: PT AMB TO ER WITH C/O COUGH SINCE SATURDAY AND JUST FEELING TIRED. PT WAS GIVEN TAMIFLU BY DR WADE'S CASTING CLEANER EARLIER THIS WEEK AND HAS BEEN TAKING THEM BUT DOESNT FEEL LIKE SHE IS GETTING BETTER Source of Information: Patient Exam Limitations: No Limitations (SHREYA SALINAS APRN) History of Present Illness Date Seen by Provider: Mar 18, 2021 Time Seen by Provider: 21:15 Initial Comments To ER with a cough productive in nature since 03/13/2021. She has general fatigue as well. Prior to this she was taking care of her grandkids who had influenza A. She was empirically given Tamiflu by her primary care provider Dr. Wade but denies any improvement. She denies fevers or chills. She denies any nausea vomiting or diarrhea. Denies any dysuria. Timing/Duration: 1-2 Days Severity: Moderate Associated Systoms: Cough (SHREYA SALINAS APRN) Allergies and Home Medications Allergies Coded Allergies: Penicillins (Verified Allergy, Unknown, 05/04/14) fentanyl (Verified Allergy, Unknown, NAUSEA, 11/04/17) Patient Home Medication List Home Medication List Reviewed: Yes (SHREYA SALINAS APRN) Atorvastatin Calcium (Atorvastatin Calcium) 80 Mg Tablet, 80 MG PO DAILY, (Reported) Entered as Reported by: JUNE DENNISON on 06/02/15 1305 Cefuroxime Axetil (Cefuroxime) 250 Mg Tablet, 250 MG PO BID Prescribed by: SHREYA SALINAS on 03/18/212135 Clopidogrel Bisulfate (Clopidogrel) 75 Mg Tablet, 75 MG PO DAILY, (Reported) Entered as Reported by: JUNE DENNISON on 06/02/15 1305 Fluoxetine HCl (Fluoxetine HCl) 20 Mg Tablet, 20 MG PO DAILY, (Reported) Entered as Reported by: JUNE DENNISON on 06/02/15 1305 Guaifenesin/Pseudoephedrne HCl (Mucinex D ER 600-60 mg Tablet) 1 Each Tab.er.12h, 1 EACH PO BID Prescribed by: TARAN MIRANDA on 04/09/20 1321 Hydrocodone/Acetaminophen (Hydrocodone-Acetamin 5-325 mg) 1 Each Tablet, 1-2 EACH PO Q4-6 HOURS PRN for PAIN Prescribed by: VANDANA DUARTE on 08/16/19 1004 Meloxicam (Meloxicam) 15 Mg Tablet, 15 MG PO DAILY, (Reported) Entered as Reported by: JUNE DENNISON on 06/02/15 1305 Nitrofurantoin Monohyd/M-Cryst (Macrobid 100 mg Capsule) 100 Mg Capsule, 1 TAB PO BID Prescribed by: VANDANA DUARTE on 08/16/19 1004 Nitrofurantoin Monohyd/M-Cryst (Macrobid 100 mg Capsule) 100 Mg Capsule, 1 TAB PO BID Prescribed by: TARAN MIRANDA on 04/09/20 1320 Pantoprazole Sodium (Pantoprazole Sodium) 40 Mg Tablet.dr, 40 MG PO DAILY, (Reported) Entered as Reported by: JUNE DENNISON on 06/02/15 1305 Prednisone (Prednisone) 10 Mg Tab.ds.pk, 10 MG PO DAILY Prescribed by: VANDANA DUARTE on 08/16/19 1004 Prednisone (Prednisone) 20 Mg Tab, 40 MG PO DAILY Prescribed by: SHREYA SALINAS on 03/18/21 213 Pregabalin (Lyrica) 75 Mg Capsule, 75 MG PO BID Prescribed by: VANDANA DUARTE on 08/16/19 100 Valacyclovir HCl (Valtrex) 1,000 Mg Tablet, 1,000 MG PO TIDAC Prescribed by: VANDANA DUARTE on 08/16/19 1004 Review of Systems Review of Systems Constitutional: see HPI; No chills, No fever EENTM: see HPI Respiratory: see HPI, cough, wheezing Cardiovascular: no symptoms reported Genitourinary: no symptoms reported Musculoskeletal: no symptoms reported Skin: no symptoms reported Psychiatric/Neurological: No Symptoms Reported Hematologic/Lymphatic: No Symptoms Reported (SHREYA SALINAS APRN) Past Wizucvh-Axgirn-Veprhx Hx Patient Social History Tobacco Use?: No Substance use?: No Alcohol Use?: Yes Alcohol type: Wine Alcohol Frequency: Once in a while Pt feels they are or have been: No (SHREYA SALINAS APRN) Immunizations Up To Date Tetanus Booster (TDap): More than 5yrs PED Vaccines UTD: No Influenza Vaccine Up-to-Date: Yes; Up-to-Date First/Initial COVID19 Vaccinat: JUNE 2019 Second COVID19 Vaccination Silvestre: FEB 2021 COVID19 Vaccine Vegetable Sorter: JKyleighJ (SHREYA SALINAS APRN) Seasonal Allergies Seasonal Allergies: Yes (SHREYA SALINAS APRN) Past Medical History Surgeries: Yes (RIGHT CATARACT SURGERY) Eye Surgery Respiratory: Yes Pneumonia Currently Using CPAP: No Currently Using BIPAP: No Cardiac: Yes (CAROTID STENOSIS) High Cholesterol Neurological: No Reproductive Disorders: No Genitourinary: No Gastrointestinal: Yes Gastroesophageal Reflux Musculoskeletal: Yes Arthritis Endocrine: No HEENT: Yes (RIGHT CATARACT SURGERY) Cataract Loss of Vision: Denies Hearing Impairment: Denies Cancer: No Psychosocial: Yes Depression Integumentary: No Blood Disorders: No (SHREYA SALINAS APRN) Family Medical History Alzheimer's disease 19 MOTHER Cardiovascular disease 19 MOTHER DVT G8 BROTHER Myocardial infarction 19 FATHER ( of [place] at 50 yr old) Thyroid disease 19 MOTHER Heart Disease, CAD Under 55 Years Old, Hypertension (SHREYA SALINAS APRN) Physical Exam Vital Signs Vital Signs - First Documented 03/18/21 03/18/21 20:15 22:24 Temp 38.0 Pulse 105 Resp 16 B/P (MAP) 158/67 (97) Pulse Ox 95 O2 Delivery Room Air (ISA OVERTON MD) Vital Signs Capillary Refill : (SHREYA SALINAS APRN) Height, Weight, BMI Height: 5'3.00" Weight: 125lbs. 0.0oz. 56.098137xj; 23.00 BMI Method: General Appearance: No Apparent Distress, WD/WN Eyes: Bilateral Eye Normal Inspection, Bilateral Eye PERRL, Bilateral Eye EOMI HEENT: PERRL/EOMI, TMs Normal Neck: Full Range of Motion, Normal Inspection Respiratory: No Accessory Muscle Use, No Respiratory Distress, Wheezing (Faint expiratory wheeze on the left) Cardiovascular: Regular Rate, Rhythm, Normal Peripheral Pulses Gastrointestinal: Normal Bowel Sounds, Non Tender, Soft Extremity: Normal Capillary Refill, Normal Inspection Neurologic/Psychiatric: Alert, Oriented x3 Skin: Normal Color, Warm/Dry (SHREYA SALINAS APRN) Progress/Results/Core Measures Suspected Sepsis SIRS Temperature: Pulse: 105 Respiratory Rate: Laboratory Tests 03/18/21 20:20: White Blood Count 11.1H Blood Pressure 158 /67 Mean: 97 Laboratory Tests 03/18/21 20:20: Creatinine 0.98, Platelet Count 275, Total Bilirubin 0.3 (SHREYA SALINAS APRN) Results/Orders Lab Results Laboratory Tests Test 03/18/21 20:20 03/18/21 20:26 Range/Units White Blood Count 11.1 H 4.3-11.0 10^3/uL Red Blood Count 3.64 L 3.80-5.11 10^6/uL Hemoglobin 11.4 L 11.5-16.0 g/dL Hematocrit 35 35-52 % Mean Corpuscular Volume 96 80-99 fL Mean Corpuscular Hemoglobin 31 25-34 pg Mean Corpuscular Hemoglobin Concent 33 32-36 g/dL Red Cell Distribution Width 12.7 10.0-14.5 % Platelet Count 275 130-400 10^3/uL Mean Platelet Volume 9.6 9.0-12.2 fL Immature Granulocyte % (Auto) 0 % Neutrophils (%) (Auto) 76 H 42-75 % Lymphocytes (%) (Auto) 12 12-44 % Monocytes (%) (Auto) 8 0-12 % Eosinophils (%) (Auto) 3 0-10 % Basophils (%) (Auto) 0 0-10 % Neutrophils # (Auto) 8.5 H 1.8-7.8 10^3/uL Lymphocytes # (Auto) 1.3 1.0-4.0 10^3/uL Monocytes # (Auto) 0.8 0.0-1.0 10^3/uL Eosinophils # (Auto) 0.4 H 0.0-0.3 10^3/uL Basophils # (Auto) 0.0 0.0-0.1 10^3/uL Immature Granulocyte # (Auto) 0.0 0.0-0.1 10^3/uL Sodium Level 137 135-145 MMOL/L Potassium Level 4.3 3.6-5.0 MMOL/L Chloride Level 103 98-107 MMOL/L Carbon Dioxide Level 22 21-32 MMOL/L Anion Gap 12 5-14 MMOL/L Blood Urea Nitrogen 18 7-18 MG/DL Creatinine 0.98 0.60-1.30 MG/DL Estimat Glomerular Filtration Rate 56 BUN/Creatinine Ratio 18 Glucose Level 127 H 70-105 MG/DL Calcium Level 9.0 8.5-10.1 MG/DL Corrected Calcium 9.1 8.5-10.1 MG/DL Total Bilirubin 0.3 0.1-1.0 MG/DL Aspartate Amino Transf (AST/SGOT) 19 5-34 U/L Alanine Aminotransferase (ALT/SGPT) 16 0-55 U/L Alkaline Phosphatase 66 40-136 U/L Total Protein 6.6 6.4-8.2 GM/DL Albumin 3.9 3.2-4.5 GM/DL Procalcitonin 0.02 <0.10 NG/ML Influenza Type A (RT-PCR) Not Detected Not Detecte Influenza Type B (RT-PCR) Not Detected Not Detecte SARS-CoV-2 RNA (RT-PCR) Not Detected Not Detecte (ISA OVERTON MD) My Orders Orders - ISA OVERTON MD Covid 19 Inhouse Test (03/18/21 19:32) Influenza A And B By Pcr (03/18/21 19:32) (ISA OVERTON MD) Medications Given in ED Current Medications Medications Dose Ordered Sig/Dylan Route Start Time Stop Time Status Last Admin Dose Admin Ceftriaxone Sodium/Dextrose 50 ml @ 100 mls/hr ONCE ONCE IV 03/18/21 21:45 03/18/21 22:14 DC 03/18/21 21:39 100 MLS/HR Methylprednisolone Sodium Succinate 125 mg ONCE ONCE IVP 03/18/21 21:45 03/18/21 21:46 DC 03/18/21 21:39 125 MG (ISA OVEROTN MD) Vital Signs/I&O 03/18/21 03/18/21 20:15 22:24 Temp 38.0 36.8 Pulse 105 94 Resp 16 B/P (MAP) 158/67 (97) 116/60 Pulse Ox 95 95 O2 Delivery Room Air Room Air 03/19/21 00:00 Intake Total 1050 ml Balance 1050 ml (ISA OVERTON MD) Vital Signs/I&O Capillary Refill : (SHREYA SALINAS APRN) Blood Pressure Mean: 97 Departure Communication (Admissions) NAME: DARRICK RIBEIRO [facility] REC#: [id number] PT STATUS: REG ER : 1950 PHYSICIAN: SHREYA SALINAS APRN ADMIT DATE: 03/18/21/ER Draft Date of Exam:03/18/21 CHEST 1 VIEW, AP/PA ONLY EXAMINATION: Chest radiograph, portable AP view. DATE: 03/18/2021 9:24 PM. INDICATION: 70-year-old female, cough. COMPARISON: April 09, 2020. FINDINGS: Heart size and mediastinal contours are unchanged and unremarkable. There is no identified pneumothorax. There is no large pleural effusion. There is no identified focal airspace consolidation. IMPRESSION: No identified acute cardiopulmonary abnormality. Dictated on workstation # [id number] Dict: 03/18/212127 Trans: 03/18/212128 [facility] [phone] Interpreted by: REJI SCHMIDT MD Electronically signed by: (SHREYA SALINAS APRN) Impression Primary Impression: Bronchitis Disposition: 01 HOME, SELF-CARE Condition: Stable Departure-Patient Inst. Decision time for Depature: 21:35 (SHREYA SALINAS APRN) Referrals: BOUCHRA WADE MD (PCP/Family) Primary Care Physician Patient Instructions: Acute Bronchitis Add. Discharge Instructions: 1. Medication as directed 2. Return to ER for any concerns. Follow-up with your doctor next week. Use your breathing treatment every 4 hours as needed for cough and wheezing. All discharge instructions reviewed with patient and/or family. Voiced understanding. Scripts Cefuroxime Axetil (Cefuroxime) 250 Mg Tablet 250 MG PO BID, #10 TAB Prov: SHREYA SALINAS APRN 03/18/21 Prednisone (Prednisone) 20 Mg Tab 40 MG PO DAILY, #6 TAB 0 Refills Prov: SHREYA SALINAS APRN 03/18/21 ATTENDING PHYSICIAN NOTE: I was physically present as attending physician in the emergency department during the care of this patient, but I was not directly involved in the decision making or delivery of care for this patient. (ISA OVERTON MD) SHREYA SALINAS APRN Mar 18, 2021 21:17 ISA OVERTON MD Mar 19, 2021 03:02
[2021-03-18 21:20] LABS: BASOPHILS % (AUTO) 0 % (0-10); EOSINOPHILS # (AUTO) 0.4 10^3/uL (0.0-0.3); EOSINOPHILS % (AUTO) 3 % (0-10); HEMATOCRIT 35 % (35-52); HEMOGLOBIN 11.4 g/dL (11.5-16.0); LYMPHOCYTES # (AUTO) 1.3 10^3/uL (1.0-4.0); LYMPHOCYTES % (AUTO) 12 % (12-44); MEAN CORPUSCULAR HEMOGLOBIN 31 pg (25-34); MEAN CORPUSCULAR HGB CONC 33 g/dL (32-36); MEAN CORPUSCULAR VOLUME 96 fL (80-99); MEAN PLATELET VOLUME 9.6 fL (9.0-12.2); MONOCYTES # (AUTO) 0.8 10^3/uL (0.0-1.0); MONOCYTES % (AUTO) 8 % (0-12); NEUTROPHILS # (AUTO) 8.5 10^3/uL (1.8-7.8); NEUTROPHILS % (AUTO) 76 % (42-75); PLATELET COUNT 275 10^3/uL (130-400); WHITE BLOOD COUNT 11.1 10^3/uL (4.3-11.0)
[2021-03-18 21:25] LABS: ALBUMIN 3.9 GM/DL (3.2-4.5)
[2021-03-18 21:26] LABS: POTASSIUM 4.3 MMOL/L (3.6-5.0)
[2021-03-18 21:28] LABS: TOTAL PROTEIN 6.6 GM/DL (6.4-8.2)
[2021-03-18 21:30] LABS: BILIRUBIN,TOTAL 0.3 MG/DL (0.1-1.0)
--- NOTE | 2021-03-18 21:30 | Diagnostic Imaging Report ---
EXAMINATION: Chest radiograph, portable AP view. DATE: 03/18/2021 9:24 PM. INDICATION: 70-year-old female, cough. COMPARISON: April 09, 2020. FINDINGS: Heart size and mediastinal contours are unchanged and unremarkable. There is no identified pneumothorax. There is no large pleural effusion. There is no identified focal airspace consolidation. IMPRESSION: No identified acute cardiopulmonary abnormality. Dictated by: Dictated on workstation # [id number]
[2021-03-18 21:32] LABS: CREATININE SERUM 0.98 MG/DL (0.60-1.30)
[2021-03-18] MEDS ORDERED: LACTATED RINGERS 1,000 ML IV ONE (21:34)
[2021-03-18] MEDS ORDERED: CEFU250T80 PO (21:36)
[2021-03-18] MEDS ORDERED: PRD20T PO (21:36)
[2021-03-18] MEDS ORDERED: cefTRIAXone 1 GM PRE-MIX 50 ML IV ONE (21:45)
[2021-03-18] MEDS ORDERED: methylPREDNISolone 125 MG (Solu-MEDROL) VIAL IVP ONE (21:45)
[2021-03-18] MEDS ORDERED: LACTATED RINGERS 1,000 ML IV SCH (21:45)
[2021-03-18 22:24] VITALS: BP 116/60
== END 2021-03-18 22:28 | disposition home or self-care (01) ==
LOC: EDUNIT# 19:25 → ER 19:27
DX: J40 Bronchitis, not specified as acute or chronic (principal); E78.00 Pure hypercholesterolemia, unspecified; F32.9 Major depressive disorder, single episode, unspecified; K21.9 Gastro-esophageal reflux disease without esophagitis; Z20.822 Contact with and (suspected) exposure to COVID-19; Z79.899 Other long term (current) drug therapy
CPT/HCPCS: 36415; 71045; 80053; 84145; 85025; 87636

== ENCOUNTER 2021-03-31 18:04 | Emergency (ER) | payer MEDICARE, OTHER ==
[~2021-03-31] VITALS: Ht 154 cm; Wt 54.4 kg
[~2021-03-31 18:04] MED LIST changes: +CEFU250T80 PO; +PRD20T PO
--- NOTE | 2021-03-31 18:59 | ED Abdominal Pain ---
General Chief Complaint: Rect Problems Stated Complaint: RECTAL BLEEDING Nursing Triage Note: PT AMBULATORY TO ER, C/O BRIGHT RED RECTAL BLEEDING ONSET THIS AM, REPORTS HAS HAD SEVERAL EPISODES TODAY, TAKES PLAVIX. PT ARRIVES WITH 3 HEMMOCULT CARDS WITH ROLANDA BLOOD PRESENT ON THEM. PT DENIES ANY ABD PAIN. Source of Information: Patient Exam Limitations: No Limitations History of Present Illness Date Seen by Provider: Mar 31, 2021 Time Seen by Provider: 18:10 Initial Comments Here with at least 3 episodes of rectal bleeding today. Notes that she has had some recent dizziness and feeling more tired. States the bleeding is bright red and not just on toilet paper but moderate amount in the stool. She has never had anything like this before. Does have history of diverticular disease noted on colonoscopy in 2018 but had no polyps or other concerns for colorectal cancer and and no further colonoscopies were indicated at that point. She has never had anything like this before. She is on Plavix for carotid artery disease. Otherwise on no blood thinners or platelet agents and takes other meds as directed. Denies abdominal pain, chest pain, breathing problems or bleeding anywhere else. Denies dysuria. She does have 3 Hemoccult cards to turn into the lab but these are all grossly bloody. Timing/Duration: 1-2 Days Severity/Quality: Moderate, Other (Rectal bleeding) Location: Other (No significant abdominal pain) Radiation: No Radiation Modifying Factors: Improves With Resting Associated Symptoms: No Back Pain, No Chest Pain, No Fever/Chills, No Heartburn, No Nausea/Vomiting, No Shortness of Air, No Swelling/Mass in Abdomen; Weakness, Other (Dizziness) Allergies and Home Medications Allergies Coded Allergies: Penicillins (Verified Allergy, Unknown, 05/04/14) fentanyl (Verified Allergy, Unknown, NAUSEA, 11/04/17) Patient Home Medication List Home Medication List Reviewed: Yes Atorvastatin Calcium (Atorvastatin Calcium) 80 Mg Tablet, 80 MG PO DAILY, (Reported) Entered as Reported by: JUNE DENNISON on 06/02/15 1305 Cefuroxime Axetil (Cefuroxime) 250 Mg Tablet, 250 MG PO BID Prescribed by: SHREYA SALINAS on 03/18/21 853 Clopidogrel Bisulfate (Clopidogrel) 75 Mg Tablet, 75 MG PO DAILY, (Reported) Entered as Reported by: JUNE DENNISON on 06/02/15 1305 Fluoxetine HCl (Fluoxetine HCl) 20 Mg Tablet, 20 MG PO DAILY, (Reported) Entered as Reported by: JUNE DENNISON on 06/02/15 1305 Guaifenesin/Pseudoephedrne HCl (Mucinex D ER 600-60 mg Tablet) 1 Each Tab.er.12h, 1 EACH PO BID Prescribed by: TARAN MIRANDA on 04/09/20 1321 Hydrocodone/Acetaminophen (Hydrocodone-Acetamin 5-325 mg) 1 Each Tablet, 1-2 EACH PO Q4-6 HOURS PRN for PAIN Prescribed by: VANDANA DUARTE on 08/16/19 100 Meloxicam (Meloxicam) 15 Mg Tablet, 15 MG PO DAILY, (Reported) Entered as Reported by: JUNE DENNISON on 06/02/15 1305 Nitrofurantoin Monohyd/M-Cryst (Macrobid 100 mg Capsule) 100 Mg Capsule, 1 TAB PO BID Prescribed by: VANDANA DUARTE on 08/16/19 100 Nitrofurantoin Monohyd/M-Cryst (Macrobid 100 mg Capsule) 100 Mg Capsule, 1 TAB PO BID Prescribed by: TARAN MIRANDA on 04/09/20 1320 Pantoprazole Sodium (Pantoprazole Sodium) 40 Mg Tablet.dr, 40 MG PO DAILY, (Reported) Entered as Reported by: JUNE DENNISON on 06/02/15 1305 Prednisone (Prednisone) 10 Mg Tab.ds.pk, 10 MG PO DAILY Prescribed by: VANDANA DUARTE on 08/16/19 100 Prednisone (Prednisone) 20 Mg Tab, 40 MG PO DAILY Prescribed by: SHREYA SALINAS on 03/18/212135 Pregabalin (Lyrica) 75 Mg Capsule, 75 MG PO BID Prescribed by: VANDANA DUARTE on 08/16/19 100 Valacyclovir HCl (Valtrex) 1,000 Mg Tablet, 1,000 MG PO TIDAC Prescribed by: VANDANA DUARTE on 08/16/19 100 Review of Systems Review of Systems Constitutional: see HPI; No chills, No fever EENTM: No Symptoms Reported Respiratory: Denies Cough, Denies Shortness of Air Cardiovascular: Denies Chest Pain, Denies Edema; Lightheadedness Gastrointestinal: Denies Constipated, Denies Nausea; Rectal Bleeding; Denies Vomiting Genitourinary: No Symptoms Reported Musculoskeletal: no symptoms reported All Other Systems Reviewed Negative Unless Noted: Yes Past Ddnbvsc-Ztdblc-Nispat Hx Patient Social History Tobacco Use?: No Use of E-Cig and/or Vaping dev: No Substance use?: No Alcohol type: Wine Pt feels they are or have been: No Immunizations Up To Date Tetanus Booster (TDap): More than 5yrs PED Vaccines UTD: No Influenza Vaccine Up-to-Date: Yes; Up-to-Date First/Initial COVID19 Vaccinat: JUNE 2019 Second COVID19 Vaccination Silvestre: FEB 2021 COVID19 Vaccine 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: [employer] Seasonal Allergies Seasonal Allergies: Yes Past Medical History Surgeries: Yes (RIGHT CATARACT SURGERY) Eye Surgery Respiratory: Yes Pneumonia Currently Using CPAP: No Currently Using BIPAP: No Cardiac: Yes (CAROTID STENOSIS) High Cholesterol Neurological: No Reproductive Disorders: No Genitourinary: No Gastrointestinal: Yes Gastroesophageal Reflux Musculoskeletal: Yes Arthritis Endocrine: No HEENT: Yes (RIGHT CATARACT SURGERY) Cataract Loss of Vision: Denies Hearing Impairment: Denies Cancer: No Psychosocial: Yes Depression Integumentary: No Blood Disorders: No Family Medical History Reviewed Nursing Family Hx Alzheimer's disease 19 MOTHER Cardiovascular disease 19 MOTHER DVT G8 BROTHER Myocardial infarction 19 FATHER ( of [place] at 50 yr old) Thyroid disease 19 MOTHER Heart Disease, CAD Under 55 Years Old, Hypertension Physical Exam Vital Signs Vital Signs - First Documented 03/31/21 18:09 Temp 36.7 Pulse 82 Resp 20 B/P (MAP) 137/64 (88) Pulse Ox 97 O2 Delivery Room Air Capillary Refill : Height/Weight/BMI Height: 5'3.00" Weight: 125lbs. 0.0oz. [id number]; 22.00 BMI Method: General Appearance: WD/WN, no apparent distress HEENT: PERRL/EOMI, pharynx normal Neck: full range of motion, supple Respiratory: lungs clear, normal breath sounds Cardiovascular: regular rate, rhythm, no murmur Gastrointestinal: normal bowel sounds, non tender, soft, no organomegaly Rectal: hemorrhoids (12:00 nonbleeding); No mass; other (Grossly bloody stool) Extremities: non-tender, normal inspection, no pedal edema Back: normal inspection, no CVA tenderness, no vertebral tenderness Neurologic/Psychiatric: alert, normal mood/affect, oriented x 3 Skin: normal color, warm/dry Progress/Results/Core Measures Results/Orders Lab Results Laboratory Tests Test 03/31/21 19:40 Range/Units White Blood Count 7.9 4.3-11.0 10^3/uL Red Blood Count 3.74 L 3.80-5.11 10^6/uL Hemoglobin 11.5 11.5-16.0 g/dL Hematocrit 36 35-52 % Mean Corpuscular Volume 97 80-99 fL Mean Corpuscular Hemoglobin 31 25-34 pg Mean Corpuscular Hemoglobin Concent 32 32-36 g/dL Red Cell Distribution Width 13.1 10.0-14.5 % Platelet Count 298 130-400 10^3/uL Mean Platelet Volume 8.9 L 9.0-12.2 fL Immature Granulocyte % (Auto) 0 % Neutrophils (%) (Auto) 64 42-75 % Lymphocytes (%) (Auto) 20 12-44 % Monocytes (%) (Auto) 9 0-12 % Eosinophils (%) (Auto) 6 0-10 % Basophils (%) (Auto) 1 0-10 % Neutrophils # (Auto) 5.1 1.8-7.8 10^3/uL Lymphocytes # (Auto) 1.6 1.0-4.0 10^3/uL Monocytes # (Auto) 0.7 0.0-1.0 10^3/uL Eosinophils # (Auto) 0.5 H 0.0-0.3 10^3/uL Basophils # (Auto) 0.1 0.0-0.1 10^3/uL Immature Granulocyte # (Auto) 0.0 0.0-0.1 10^3/uL Sodium Level 136 135-145 MMOL/L Potassium Level 4.5 3.6-5.0 MMOL/L Chloride Level 102 98-107 MMOL/L Carbon Dioxide Level 23 21-32 MMOL/L Anion Gap 11 5-14 MMOL/L Blood Urea Nitrogen 21 H 7-18 MG/DL Creatinine 0.79 0.60-1.30 MG/DL Estimat Glomerular Filtration Rate 72 BUN/Creatinine Ratio 27 Glucose Level 103 70-105 MG/DL Calcium Level 8.9 8.5-10.1 MG/DL Corrected Calcium 9.1 8.5-10.1 MG/DL Total Bilirubin 0.3 0.1-1.0 MG/DL Aspartate Amino Transf (AST/SGOT) 19 5-34 U/L Alanine Aminotransferase (ALT/SGPT) 19 0-55 U/L Alkaline Phosphatase 63 40-136 U/L Total Protein 6.2 L 6.4-8.2 GM/DL Albumin 3.7 3.2-4.5 GM/DL My Orders Orders - FRIDA JEFFERS MD Cbc With Automated Diff (03/31/21 18:34) Comprehensive Metabolic Panel (03/31/21 18:34) Ed Iv/Invasive Line Start (03/31/21 18:34) Type And Screen (03/31/21 18:52) Ns Iv 500 Ml (Sodium Chloride 0.9%) (03/31/21 19:30) Medications Given in ED Current Medications Medications Dose Ordered Sig/Dylan Route Start Time Stop Time Status Last Admin Dose Admin Sodium Chloride 500 ml @ 0 mls/hr Q0M ONCE IV 03/31/21 19:30 03/31/21 19:31 DC 03/31/21 19:30 0 MLS/HR Vital Signs/I&O 03/31/21 18:09 Temp 36.7 Pulse 82 Resp 20 B/P (MAP) 137/64 (88) Pulse Ox 97 O2 Delivery Room Air Blood Pressure Mean: 88 Progress Progress Note : Progress Note Seen and evaluated. IV, labs and rectal exam performed. Hemoccult was not performed as stool was grossly bloody. We will give normal saline 500 mL bolus. Anticipate possibility of CT scan. Monitor patient. 2030: I did discuss the case with Dr. Ramos. Her hemoglobin is 11.5 today with otherwise normal labs. She is still without abdominal pain. She has had some mild bloody stool but her hemoglobin is stable from 2 weeks ago which was 11.4. At this point, Dr. Ramos's opinion is that we could stop the Plavix for 3 days and he can follow her outpatient with strict return precautions. I agree given her current situation. 2044: I have reexamined the patient and she is still pain-free. I did discuss the plan with the patient and her family and they are in agreement at this point. We are finishing fluids and then will discharge patient home. No indication for CT scan at this point and no indication for admission with otherwise stable hemoglobin. She has known diverticular disease and this is likely the cause. She was given instructions for follow-up and the need for further evaluation including colonoscopy which Dr. Ramos can set up. I will send a copy of the chart to Dr. Ramos and Dr. Wade. Discharged home with return precautions. Patient and family verbalized understanding of instructions and agreement with plan. Patient instructed on return precautions as further evaluation may be needed in hospital setting if this worsens. Patient and family verbalized understanding. Departure Impression Primary Impression: Lower GI bleed Additional Impression: Diverticular disease of colon Disposition: HOME, SELF-CARE Condition: Stable Departure-Patient Inst. Decision time for Depature: 21:01 Referrals: BOUCHRA WADE MD (PCP/Family) Primary Care Physician ZAFAR RAMOS MD Patient Instructions: Diverticulosis (DC), Bloody Stools, Adult (DC) Add. Discharge Instructions: All discharge instructions reviewed with patient and/or family. Voiced understanding. Stop your Plavix for 3 days and then restart. It is important that you follow- up with Dr. Ramos. Call his office on Saturday morning for appointment this week. You may follow-up with your doctor as well. Drink plenty of fluids and eat a high-fiber diet. You may add fiber supplement such as Metamucil or similar to your diet. Return for abdominal pain, weakness, dizziness, persistent or worsening bleeding, fever or other concerns as needed. Copy Copies To 1: ZAFAR RAMOS MD Copies To 2: BOUCHRA WADE MD, TIMOTHY D MD Mar 31, 2021 18:59
[2021-03-31] MEDS ORDERED: NS IV 500 ML 500 ML IV ONE (19:30)
[2021-03-31 19:49] LABS: BASOPHILS # (AUTO) 0.1 10^3/uL (0.0-0.1); BASOPHILS % (AUTO) 1 % (0-10); EOSINOPHILS # (AUTO) 0.5 10^3/uL (0.0-0.3); EOSINOPHILS % (AUTO) 6 % (0-10); HEMATOCRIT 36 % (35-52); HEMOGLOBIN 11.5 g/dL (11.5-16.0); LYMPHOCYTES # (AUTO) 1.6 10^3/uL (1.0-4.0); LYMPHOCYTES % (AUTO) 20 % (12-44); MEAN CORPUSCULAR HEMOGLOBIN 31 pg (25-34); MEAN CORPUSCULAR HGB CONC 32 g/dL (32-36); MEAN CORPUSCULAR VOLUME 97 fL (80-99); MEAN PLATELET VOLUME 8.9 fL (9.0-12.2); MONOCYTES # (AUTO) 0.7 10^3/uL (0.0-1.0); MONOCYTES % (AUTO) 9 % (0-12); NEUTROPHILS # (AUTO) 5.1 10^3/uL (1.8-7.8); NEUTROPHILS % (AUTO) 64 % (42-75); PLATELET COUNT 298 10^3/uL (130-400); WHITE BLOOD COUNT 7.9 10^3/uL (4.3-11.0)
[2021-03-31 20:11] LABS: ALBUMIN 3.7 GM/DL (3.2-4.5); BILIRUBIN,TOTAL 0.3 MG/DL (0.1-1.0); CALCIUM 8.9 MG/DL (8.5-10.1); CREATININE SERUM 0.79 MG/DL (0.60-1.30); POTASSIUM 4.5 MMOL/L (3.6-5.0); TOTAL PROTEIN 6.2 GM/DL (6.4-8.2)
[2021-03-31 21:15] VITALS: BP 145/71
== END 2021-03-31 21:15 | disposition home or self-care (01) ==
LOC: EDUNIT# 18:04 → ER 18:06
DX: K92.2 Gastrointestinal hemorrhage, unspecified (principal); E78.00 Pure hypercholesterolemia, unspecified; F32.9 Major depressive disorder, single episode, unspecified; K21.9 Gastro-esophageal reflux disease without esophagitis; Z79.01 Long term (current) use of anticoagulants; Z79.899 Other long term (current) drug therapy
CPT/HCPCS: 36415; 80053; 85025; 86850; 86900; 86901

== ENCOUNTER 2021-04-12 05:38 | Outpatient (CLI) | payer MEDICARE, OTHER ==
[~2021-04-12] VITALS: Ht 154.9 cm; Wt 55.2 kg
[2021-04-12] MEDS ORDERED: LISI10TA25 PO (13:04)
[2021-04-12] MEDS ORDERED: L.AC1CAP6 PO (13:04)
[2021-04-12] MEDS ORDERED: MV-M1TAB20 PO (13:04)
[2021-04-12] MEDS ORDERED: ATOR40TA70 PO (13:04)
== END 2021-04-12 15:32 | disposition home or self-care (01) ==
LOC: PREOP 05:38
PROVIDERS: ATTEND Surgery
DX: Z01.818 Encounter for other preprocedural examination (principal)

== ENCOUNTER 2021-04-19 11:15 | Day surgery (SDC) | payer MEDICARE, OTHER ==
[~2021-04-19] VITALS: Ht 154.9 cm; Wt 55.2 kg
[~2021-04-19 11:15] MED LIST changes: +ATOR40TA70 PO; +L.AC1CAP6 PO; +LACTATED RINGERS 1,000 ML IV STA; +LIDOCAINE JELLY 2% 6 ML SYRINGE MM PRN; +LISI10TA25 PO; +MV-M1TAB20 PO
[2021-04-19 11:30] VITALS: BP 127/65
[2021-04-19] MEDS ORDERED: PROPOFOL INJECTION 50 ML IV ONE (11:41)
--- NOTE | 2021-04-19 12:01 | Progress Note-Pre Operative ---
Pre-Operative Progress Note H&P Reviewed The H&P was reviewed, patient examined and no changes noted. Date Seen by Provider: Apr 19, 2021 Time Seen by Provider: 11:45 Date H&P Reviewed: Apr 19, 2021 Time H&P Reviewed: 11:45 Pre-Operative Diagnosis: rectal bleed ZAFAR ESTRADA MD Apr 19, 2021 12:01
--- NOTE | 2021-04-19 12:02 | Discharge Inst-Surgical ---
D/C Lap Instructions-NATALIE Follow Up Activity as tolerated High Fiber Diet 25g or more per day Avoid Alcohol, Caffeine, Spicy [place] and Acid foods. Drink 64 fluid oz or more of fluids per day. Symptoms to Report: Fever over 101 degree F, Nausea/Vomiting If any problems/questions: Contact your physician or go to Emergency Room ZAFAR ESTRADA MD Apr 19, 2021 12:02
[2021-04-19] MEDS ORDERED: LIDOCAINE JELLY 2% 6 ML SYRINGE ONE (12:05)
[2021-04-19] MEDS ORDERED: ONDANSETRON 4 MG (ZOFRAN) ORAL DISSOLVE TAB PO PRN (12:15)
[2021-04-19] MEDS ORDERED: ONDANSETRON 4 MG/2 ML (SDV) Z0FRAN IVP PRN (12:15)
[2021-04-19 12:45] VITALS: BP 73/38
[2021-04-19 12:50] VITALS: BP 78/43
--- NOTE | 2021-04-19 12:55 | Progress Note-Post Operative ---
Post-Operative Progess Note Surgeon (s)/Geriatric Case Manager (s) Surgeon ZAFAR ESTRADA MD Geriatric Case Manager: none Pre-Operative Diagnosis rectal bleed Post-Operative Diagnosis chronic stage 2 ext and int hemorrhoids, mild-moderate sigmoid diverticulosis. Procedure & Operative Findings Date of Procedure 04/19/21 Procedure Performed/Findings colonoscopy Anesthesia Type mac Estimated Blood Loss Estimated blood loss (mL): minimal Specimens/Packing Specimens Removed none ZAFAR ESTRADA MD Apr 19, 2021 12:55
--- NOTE | 2021-04-19 13:05 | Anesthesia-General Post-Op ---
MAC Patient Condition Mental Status/LOC: Same as Preop Cardiovascular: Satisfactory Nausea/Vomiting: Absent Respiratory: Satisfactory Pain: Controlled Complications: Absent Post Op Complications Complications None Follow Up Care/Instructions Patient Instructions None needed. Anesthesiology Discharge Order Discharge Order Patient is doing well, no complaints, stable vital signs, no apparent adverse anesthesia problems. No complications reported per nursing. BLANCA CASTELLON CRNA Apr 19, 2021 13:05
[2021-04-19 13:15] VITALS: BP 125/65
[2021-04-19 13:35] VITALS: BP 125/65
--- NOTE | 2021-04-19 16:19 | OPERATIVE REPORT ---
DATE OF SERVICE: 04/19/2021 ATTENDING PRIMARY CARE PHYSICIAN: Anusha Wade MD PREOPERATIVE DIAGNOSIS: Rectal bleeding. POSTOPERATIVE DIAGNOSES: Chronic stage II external and internal hemorrhoids, mild sigmoid diverticulosis. PROCEDURE: Colonoscopy. SURGEON: Zafar Estrada MD ANESTHESIA: Monitored anesthesia care. ESTIMATED BLOOD LOSS: Minimal. FINDINGS: Same as postoperative diagnoses. DISPOSITION: The patient tolerated the procedure well. INDICATIONS: The patient is a 71-year-old female who reports that she has had 2 episodes of bright red blood per rectum mixed with her stools. She states that she presented to the emergency room and her hemoglobin was stable. She did have a colonoscopy in 2018 and she was found to have diverticulosis. She also reports that she was placed on Plavix for coronary artery disease. DESCRIPTION OF PROCEDURE: The patient was brought to the endoscopy suite, laid in the left lateral decubitus position. After adequate IV pain and sedative medications and monitored anesthesia care, a digital rectal examination was performed, which revealed chronic stage II external and internal hemorrhoids, not actively edematous nor inflamed and no bleeding. Normal sphincter tone was felt and there were no palpable masses. The endoscope was then intubated into anus and rectum gently insufflated. The endoscope was then advanced through the valves of Fox of the rectum with no polyps or any neoplasms identified. Through the sigmoid colon, mild to moderate sigmoid diverticulosis identified with no mucosal inflammatory changes to indicate any active diverticulitis. The endoscope was then advanced to the remainder of the descending, transverse and ascending colon to the cecum, which were normal. There were no polyps or any neoplasms identified. The endoscope was then slowly withdrawn while taking a second look and suctioning of residual air with no additional findings. The patient tolerated the procedure well. We will recommend the incorporation of a high-fiber diet with a fiber supplement, which would equal or exceed 25 grams daily as well as significant amounts of water to promote soft stools on a daily basis. If she is asymptomatic, she does not need another colonoscopy for another 10 years. Job ID: [id number] DocumentID: [id number] Dictated Date: 04/19/2021 12:47:05 Flat Spring Assembler Date: 04/19/2021 16:18:18 Dictated By: ZAFAR ESTRADA MD
== END 2021-04-19 13:30 | disposition home or self-care (01) ==
LOC: ENDO 11:15
PROVIDERS: ATTEND Surgery
DX: K57.31 Diverticulosis of large intestine without perforation or abscess with bleeding (principal); K64.1 Second degree hemorrhoids; K64.4 Residual hemorrhoidal skin tags; I25.10 Atherosclerotic heart disease of native coronary artery without angina pectoris; Z79.02 Long term (current) use of antithrombotics/antiplatelets; I10 Essential (primary) hypertension; E78.00 Pure hypercholesterolemia, unspecified; Z79.899 Other long term (current) drug therapy; K21.9 Gastro-esophageal reflux disease without esophagitis

== ENCOUNTER → 2022-07-11 | Outpatient (CLI) | payer MEDICARE, OTHER ==
[~2022-07-11] MED LIST changes: -LACTATED RINGERS 1,000 ML IV STA; +LEVO750T PO; -LEVO750T39 PO; +LIDO15SO6 PO; -LIDO20SO23 PO; -LIDOCAINE JELLY 2% 6 ML SYRINGE MM PRN
--- NOTE | 2022-07-11 09:25 | Diagnostic Imaging Report ---
INDICATION: Routine screening. Comparison is made with prior mammogram from 04/09/2013. 2-D and 3-D bilateral screening mammography was performed with CAD. Both breasts are heterogeneously dense, limiting the sensitivity of mammography. The overall parenchymal pattern is stable. There are scattered benign calcifications. No mass or malignant-appearing microcalcifications are seen. Axillae are unremarkable. IMPRESSION: No mammographic features suspicious for malignancy are identified. ACR BI-RADS Category 2: Benign findings. Result letter will be mailed to the patient. Note: At least 10% of breast cancer is not imaged by mammography. BI-RADS Category 2 Dictated by: Dictated on workstation # [id number]
== END ==
LOC: RAD 07:46
PROVIDERS: ATTEND Nurse Practitioner Family
DX: Z12.31 Encounter for screening mammogram for malignant neoplasm of breast (principal)
CPT/HCPCS: 77063; 77067

== ENCOUNTER → 2022-07-11 | Outpatient (CLI) | payer MEDICARE, OTHER | LOC: CARD 07:47 | PROVIDERS: ATTEND Nurse Practitioner Family | DX: I34.0 Nonrheumatic mitral (valve) insufficiency (principal) | CPT/HCPCS: 93306 ==

== ENCOUNTER → 2023-02-07 | Outpatient (CLI) | payer MEDICARE, OTHER ==
[~2023-02-07] MED LIST changes: +LIDO15SO3 PO; -LIDO15SO6 PO
--- NOTE | 2023-02-07 11:50 | Diagnostic Imaging Report ---
EXAMINATION: Chest 2 view HISTORY: CRACKLES COMPARISON: 03/18/2021 FINDINGS: The lungs are clear without edema or pneumonia. No pleural effusion or pneumothorax. Heart size is normal. IMPRESSION: 1. Clear lungs. Dictated by: Dictated on workstation # [id number]
== END ==
LOC: RAD 11:23
PROVIDERS: ATTEND Internal Medicine
DX: R09.89 Other specified symptoms and signs involving the circulatory and respiratory systems (principal)
CPT/HCPCS: 71046